=== PATIENT | female | born 1970 | race Caucasian/White ===

== ENCOUNTER → 2017-09-16 10:20 | Outpatient (POV) | payer OTHER, SELFPAY | PROVIDERS: Visit Provider Nurse Practitioner Acute Care | DX: Z00.00 Encounter for general adult medical examination without abnormal findings (principal) ==

== ENCOUNTER → 2018-01-13 15:54 | Outpatient (POV) | payer OTHER, SELFPAY | PROVIDERS: Visit Provider Nurse Practitioner Acute Care | DX: Z00.00 Encounter for general adult medical examination without abnormal findings (principal) ==

== ENCOUNTER → 2018-04-02 14:39 | Outpatient (CLI) | payer OTHER, SELFPAY ==
--- NOTE | 2018-04-02 14:45 | XR_ITS ---
XR abdomen min 2V HISTORY: Abdominal pain and constipation ITS.REASON: CONSTIPATION ORDERING PHYSICIAN: LATASHA Sethi PATIENT AGE: 47 years COMPARISON: None FINDINGS: There is a mild amount of overlying retained colonic feces in the ascending and transverse colon. No evidence of intestinal obstruction or free air. Surgical clips are present in the upper abdominal region. No acute bony abnormalities. There is mild sclerosis of the right SI joint. IMPRESSION: Mild constipation
== END ==
PROVIDERS: PCP Physician Assistant; Visit Provider Physician Assistant
DX: K59.00 Constipation, unspecified (principal)
CPT/HCPCS: 74019

== ENCOUNTER → 2018-06-13 14:07 | Outpatient (CLI) | payer OTHER, SELFPAY ==
[2018-06-13 15:04] LABS: Basophils % 0.2 % (0.1-2.0); Eosinophils # 0.2 K/mm3 (0.0-0.4); Eosinophils % 1.6 % (0.1-12.0); Hematocrit 40.7 % (37.0-47.0); Hemoglobin 13.9 g/dL (12.2-16.2); Lymphocytes # 2.5 K/mm3 (0.7-4.5); Mean Corpuscular Hemoglobin 29.6 pg (27.0-31.2); Mean Corpuscular Volume 86.9 fl (81-99); Mean Platelet Volume 8.3 fl (7.4-10.4); Monocytes # 0.5 K/mm3 (0.1-1.0); Monocytes % 3.9 % (1.7-9.3); Neutrophils # 9.1 K/mm3 (1.8-7.8); Neutrophils % 74.3 % (37.0-80.0); Platelet Count 302 K/mm3 (142-424); Red Blood Count 4.69 M/mm3 (4.20-5.40); Red Cell Distribution Width 12.6 % (11.5-17.5); White Blood Count 12.3 K/mm3 (4.8-10.8)
[2018-06-13 15:29] LABS: Alanine Aminotransferase 26 U/L (12-78); Albumin Level 3.7 gm/dL (3.4-5.0); Alkaline Phosphatase 97 U/L (46-116); Anion Gap 15.2 mEq/L (5-15); Aspartate Amino Transferase 11 U/L (15-37); Blood Urea Nitrogen 12 mg/dL (7-18); Calcium 9.3 mg/dL (8.5-10.1); Carbon Dioxide 23 mmol/L (21.0-32.0); Chloride 102 mmol/L (98-107); Creatinine,Serum 0.85 mg/dL (0.55-1.02); Estimated Glomerular Filt Rate 72 ml/min (>60); GFR (African American) 87 ML/MIN (>60); Globulin 3.7 gm/dl (1.3-3.2); Glucose 92 mg/dL (74-106); Potassium 4.2 mmoL/L (3.5-5.1); Sodium 136 mmol/L (136-145); Thyroid Stimulating Hormone 1.56 uIU/ml (0.358-3.740); Total Protein,Serum 7.4 gm/dL (6.4-8.2)
[2018-06-13 16:02] LABS: Bilirubin,Total 0.3 mg/dL (0.2-1.0)
[2018-06-15 23:01] LABS: Vitamin B12 300 pg/mL (232-1245)
[2018-06-16 08:57] LABS: Vitamin D 25 Hydroxy 15.1 ng/mL (30.0-100.0)
== END ==
PROVIDERS: PCP Physician Assistant; Visit Provider Physician Assistant
DX: E53.8 Deficiency of other specified B group vitamins (principal); R10.32 Left lower quadrant pain; E55.9 Vitamin D deficiency, unspecified
CPT/HCPCS: 36415; 80053; 82607; 82652; 84443; 85025

== ENCOUNTER → 2019-01-19 16:02 | Outpatient (POV) | payer OTHER, SELFPAY | PROVIDERS: PCP Family Medicine; Visit Provider Nurse Practitioner Family | DX: Z00.00 Encounter for general adult medical examination without abnormal findings (principal) ==

== ENCOUNTER → 2019-06-17 11:08 | Outpatient (CLI) | payer OTHER, SELFPAY ==
--- NOTE | 2019-06-17 11:20 | ECG_ITS ---
APPROVED REPORT Exam: Resting ECG HR:71 bpm ECG Measurements Heart Rate 71 AXES AL 158 P 68 QRSd 80 QRS 87 QT 398 T 42 QTc 432 <Conclusion> Normal sinus rhythm Normal ECG Electronically signed by : Brian Ocasio, 06/17/2019 13:56:20
--- NOTE | 2019-06-17 11:36 | XR_ITS ---
PROCEDURE: XR CHEST 2V CLINICAL HISTORY: CHEST PAIN Chest pain and shortness of air COMPARISON: CXR1 CHEST-PORTABLE from 06/03/2014 FINDINGS: The cardiomediastinal silhouette and pulmonary vascularity are within normal limits. There are mild atelectatic or fibrotic changes in the left lung base. The remaining lungs are clear No acute bony abnormalities. IMPRESSION: Linear density in the left lung base which may be due to an area mild atelectasis or fibrosis otherwise Dictated by: Pino Hickey MD 06/17/2019 11:50 Electronically signed by Pino Hickey MD in [place] 06/17/2019 11:50
[2019-06-17 11:52] LABS: Chloride 105 mmol/L (98-107); Sodium 137 mmol/L (136-145)
[2019-06-17 11:53] LABS: Potassium 4.2 mmoL/L (3.5-5.1)
[2019-06-17 11:55] LABS: Alanine Aminotransferase 20 U/L (12-78); Alkaline Phosphatase 90 U/L (38-126); Anion Gap 10.2 mEq/L (5-15); Aspartate Amino Transferase 27 U/L (14-36); Bilirubin,Total 0.5 mg/dl (0.2-1.3); Blood Urea Nitrogen 11 mg/dl (7-17); Calcium 9.5 mg/dl (8.4-10.2); Carbon Dioxide 26 mmol/L (22.0-30.0); Creatine Kinase 30 U/L (30-135); Estimated Glomerular Filt Rate 77 ml/min (>60); GFR (African American) 93 ML/MIN (>60); Glucose 81 mg/dl (74-100)
[2019-06-17 11:56] LABS: Albumin Level 4.1 g/dl (3.5-5.0); Albumin/Globulin Ratio 1.2 (1.1-1.8); Globulin 3.3 g/dL (1.3-3.2); Total Protein,Serum 7.4 g/dl (6.3-8.2)
[2019-06-17 12:06] LABS: NT Pro Brain Natriuretic Pep. 42.1 pg/mL (0-125)
[2019-06-17 12:11] LABS: CKMB Relative Index 0.7 U/L (0-4.0); Creatine Kinase MB < 0.2 ng/ml (0.0-2.03); Troponin I < 0.01 ng/ml (0.00-0.034)
[2019-06-17 12:27] LABS: Thyroid Stimulating Hormone 1.44 uIU/mL (0.465-4.68)
[2019-06-17 15:15] LABS: D-Dimer < 100 ng/mL (0-400)
== END ==
PROVIDERS: PCP Physician Assistant; Visit Provider Physician Assistant
DX: R07.9 Chest pain, unspecified (principal); R06.02 Shortness of breath
CPT/HCPCS: 36415; 71046; 80053; 82550; 82553; 83880; 84443; 84484; 85378; 93005

== ENCOUNTER → 2019-07-02 12:39 | Outpatient (CLI) | payer OTHER, SELFPAY ==
[2019-07-02 12:57] LABS: Blood Urea Nitrogen 10 mg/dl (7-17); Estimated Glomerular Filt Rate 89 ml/min (>60); GFR (African American) 108 ML/MIN (>60)
--- NOTE | 2019-07-02 14:07 | CT_ITS ---
PROCEDURE: CT CHEST W CON CLINCAL INDICATION: SOB,ABNORMAL CXR Shortness of air, cough, chest pain COMPARISON: ABDPELW CT ABD PELVIS W/ CONTRAST from 05/18/2015 XR CHEST 2V from 06/17/2019 TECHNIQUE: IV Contrast: 75ml Optiray 350 Axial images obtained with sagittal and coronal reformats. All CT scans at the facility use one or more dose reduction, viz: automated exposure control, ma/kV adjustment per patient size (including targeted exams where dose is matched to indication, i.e. head), or iterative reconstruction technique. FINDINGS: HEART AND MEDIASTINAL STRUCTURES: No mediastinal or hilar mass or adenopathy. Coronary artery calcifications are present. LUNGS AND PLEURAL SPACES: There are mild atelectatic or fibrotic changes in the right middle lobe and lingula. No lobar consolidation or collapse. There is a small calcified granuloma in the right lung base posteriorly and in the left upper lobe medially. There are 2 calcified granulomas present in the left lower lobe laterally. There is a 3 mm nodular opacity left lung base posteriorly image 45 with some minimal fibrotic change BONY STRUCTURES: No acute bony abnormalities apparent. UPPER ABDOMEN: Prior cholecystectomy ADDITIONAL FINDINGS: No other significant abnormalities. IMPRESSION: 1. No acute finding. Please see above for detail 2. Old granulomatous disease. There is a 3 mm noncalcified nodule in the left lower lobe which is too small to categorize associated with some minimal fibrotic change 3. Mild atelectasis or fibrosis in the right middle lobe and lingula Dictated by: Pino Hickey MD 07/02/2019 17:16 Electronically signed by Pino Hickey MD in [place] 07/02/2019 17:16
== END ==
PROVIDERS: PCP Physician Assistant; Visit Provider Physician Assistant
DX: R06.02 Shortness of breath (principal); R93.89 Abnormal findings on diagnostic imaging of other specified body structures; Z90.5 Acquired absence of kidney
CPT/HCPCS: 36415; 71260; 82565; 84520; 94060; 94726; 94729; Q9967

== ENCOUNTER → 2019-07-16 11:18 | Outpatient (CLI) | payer OTHER, SELFPAY ==
--- NOTE | 2019-07-16 11:18 | NM_ITS ---
APPROVED REPORT Exam: Nuclear Stress Test Indication: Chest pain, SOB, Hx of AR, Dysrhythmia, HTN, Family history, Fatigue Patient Location: Outpatient Stress Tech: Jacqueline Centeno [place] Tech:CATHY Sarkar RT(R)(N) Ht: 5 ft 6 in Wt: 222 lbs Bra Size: DD HR: 74 bpm BP: 182/108 mmHg BSA: 2.09 m2 BMI: 35.8 History: Chest pain, SOB, Hx of AR, Dysrhythmia, HTN, Family history, Fatigue Procedure: Patient received a 0.4 mg of intravenous Lexiscan, resting heart rate 74 bpm, resting blood pressure 182/108 mmHg, with Lexiscan maximum heart rate achived was 108 bpm which is Less than 85 % of the maximum predicted heart rate and blood pressure was 173/102 mmHg. With Lexiscan, patient denied any complaint of chest pain. Electrocardiogram Sting electrocardiogram shows sinus rhythm, with Lexiscan less than 1.[address] segment depression noted from the baseline EKG. The EKG portion of the Lexiscan Myoview is nondiagnostic. Cardiac Stress and Resting SPECT Images: Cardiac Stress and Resting SPECT images were obtained using technetium 99m Myoview 30.8 mCi stress and 10.24 mCi at rest. Gated SPECT with analysis of segmental wall motion and calculation of the ejection fraction also done. Cardiac stress and resting SPECT images show decrease tracer activity in the anterior apical wall which improves on the resting images suggestive of reversible ischemia, computer derived ejection fraction is over 65% with no regional wall motion abnormality, right ventricle is normal size and contractility, there is transient ischemic dilatation of the left ventricle is also seen. Conclusion: 1. The EKG portion of the Lexiscan Myoview is nondiagnostic. 2. Scintigraphic evidence of reversible ischemia involving the anterior apical wall. There is transient ischemic dilatation of the left ventricle seen. Computer derived ejection fraction is over 65% with no regional wall motion abnormality, right ventricle is normal size and contractility. 3. Abnormal Lexiscan Myoview study. Electronically signed by : Edgardo De La Garza, 07/16/2019 16:17:14
--- NOTE | 2019-07-16 13:30 | CA_ITS ---
APPROVED REPORT Exam: Pharmacologic Technologist: Jacqueline Centeno, Indications: CP/SOA Medical History Medications: Furosemide (LASIX),,,,, Aspirin,,,,, Losartan,,,,, Pantoprazole,,,,, Famotidine,,,,, LoraTADINE,,,,, BisOPROLOL,,,,, RoSUVASTATIN,,,,, PlecanATIDE,,,,, Stress Test Details Test: LEXISCAN Reason for pharmacologic stress test: physical limitation. HR Resting HR: 82 bpm Max Heart Rate (APMHR): 172 bpm Max HR Achieved: 110 bpm Target HR (85% APMHR): 146 bpm % of APMHR: 63 BP Resting BP: 182/108 mmHg Max BP: 196/108 mmHg ECG Clinical Reason for Termination: Completed Protocol Exercise duration: 04:01 min Highest Stage Achieved: Exercise capacity: 1.0 METs Stress ECG Conclusion no symptoms or arrhythmias <1.5mm ST segment changes non diagnostic Electronically signed by : Edgardo De La Garza, 07/16/2019 16:15:18
--- NOTE | 2019-07-16 14:12 | HMH.ITSHM ---
Current Home Medications as stated by this patient Mira Fontenot or applications sales representative. []TRULANSE PANTOPRAZOLE
== END ==
PROVIDERS: PCP Physician Assistant; Visit Provider Physician Assistant
DX: R07.9 Chest pain, unspecified (principal); R06.00 Dyspnea, unspecified; R94.31 Abnormal electrocardiogram [ECG] [EKG]; I25.10 Atherosclerotic heart disease of native coronary artery without angina pectoris; K21.9 Gastro-esophageal reflux disease without esophagitis; G47.33 Obstructive sleep apnea (adult) (pediatric); Z82.49 Family history of ischemic heart disease and other diseases of the circulatory system; Z86.79 Personal history of other diseases of the circulatory system; Z90.5 Acquired absence of kidney
CPT/HCPCS: 78452; 93017; A9502; J2785

== ENCOUNTER 2019-07-23 09:02 | Day surgery (SDC) | payer OTHER, SELFPAY ==
[2019-07-23] VITALS (19 sets, daily range): BP systolic 98–178; BP diastolic 45–115; PULSE 76–100; RESP 16–18; TEMP 36.6; O2SAT 94–100; BMI 35.8
[2019-07-23 09:35] LABS: Basophils # 0.1 K/mm3 (0-0.2); Basophils % 0.6 % (0.1-2.0); Eosinophils # 0.4 K/mm3 (0.0-0.4); Eosinophils % 5.4 % (0.1-12.0); Hematocrit 42.9 % (37.0-47.0); Hemoglobin 14.5 g/dL (12.2-16.2); Lymphocytes # 2.4 K/mm3 (0.7-4.5); Mean Corpuscular HGB Conc 33.8 g/dL (31.8-35.4); Mean Corpuscular Hemoglobin 30.7 pg (27.0-31.2); Mean Corpuscular Volume 90.6 fl (81-99); Mean Platelet Volume 8.3 fl (7.4-10.4); Monocytes # 0.5 K/mm3 (0.1-1.0); Monocytes % 5.9 % (1.7-9.3); Neutrophils # 4.8 K/mm3 (1.8-7.8); Neutrophils % 59.1 % (37.0-80.0); Platelet Count 283 K/mm3 (142-424); Red Blood Count 4.73 M/mm3 (4.20-5.40); Red Cell Distribution Width 13.2 % (11.5-17.5); White Blood Count 8.1 K/mm3 (4.8-10.8)
[2019-07-23 09:41] LABS: Anion Gap 10.1 mEq/L (5-15); Blood Urea Nitrogen 15 mg/dl (7-17); Calcium 9.6 mg/dl (8.4-10.2); Carbon Dioxide 23 mmol/L (22.0-30.0); Chloride 107 mmol/L (98-107); Creatinine Clearance Estimated 137 mL/min (50-200); Estimated Glomerular Filt Rate 77 ml/min (>60); GFR (African American) 93 ML/MIN (>60); Glucose 94 mg/dl (74-100); Potassium 4.1 mmoL/L (3.5-5.1); Sodium 136 mmol/L (136-145)
--- NOTE | 2019-07-23 11:00 | IR_ITS ---
APPROVED REPORT Patient Location: Outpatient [place] Superintendent: CATHY Mason RT (R) Informed consent was obtained prior to the procedure. COMPLICATIONS None Estimated Blood Loss: Less than 10 ml TECHNIQUE One percent lidocaine was used to anesthetize the right groin. The right femoral artery was accessed via the Seldinger technique. A 4-[place] sheath was placed in the right femoral artery. The JL-4 and JR-4 catheter was also used to perform left heart catheterization left ventriculogram and selective coronary angiogram. The JR4 catheter was used to cannulate both arteries of the right kidney at the end of the procedure the patient was transferred to the post-op holding area in stable condition for arterial sheath removal. ANGIOGRAPHIC RESULTS The left main artery Normal The left anterior descending artery Has proximal 10 to 20% stenosis. The mid and distal segment is widely patent however the caliber of the LAD is small throughout its entire course The circumflex artery Is a large dominant vessel with mild 10% luminal irregularities. The entire caliber of the circumflex artery is small The right coronary artery Vestigial normal The GARCIA ventriculogram reveals Slightly hyperdynamic 70 to 75% The left ventricular end-diastolic pressure 10 mmHg The right kidney has a dual arterial supply. Both renal arteries supplying the right kidney are normal IMPRESSION Mild coronary stenosis in the proximal LAD with diffusely small caliber vessels throughout consistent with hypertensive vasculopathy Hyperdynamic ventricle consistent with hypertensive heart disease Normal left ventricular end-diastolic pressure Normal dual arterial supply to the right kidney without stenosis PLAN 1. Medical management Electronically signed by : Nicholas Dailey, 07/23/2019 11:18:24
== END 2019-07-23 14:44 | disposition home or self-care (01) ==
LOC: CATHLAB 09:04
PROVIDERS: PCP Physician Assistant; Visit Provider Internal Medicine
DX: R07.9 Chest pain, unspecified (principal); I25.10 Atherosclerotic heart disease of native coronary artery without angina pectoris; R94.39 Abnormal result of other cardiovascular function study; I10 Essential (primary) hypertension; Z90.5 Acquired absence of kidney
CPT/HCPCS: 36251; 80048; 85025; 93458; 99152; C1725; C1769; J1644; J2405; Q9967

== ENCOUNTER → 2020-03-03 08:38 | Outpatient (CLI) | payer BC, SELFPAY ==
[2020-03-03 10:40] LABS: Coronavirus 19 IgG Antibody Negative (Negative); Coronavirus 19 IgM Antibody Negative (Negative)
== END ==
PROVIDERS: Visit Provider Internal Medicine Gastroenterology
DX: Z01.818 Encounter for other preprocedural examination (principal); Z03.818 Encounter for observation for suspected exposure to other biological agents ruled out; Z12.11 Encounter for screening for malignant neoplasm of colon
CPT/HCPCS: 36415; 86328

== ENCOUNTER 2020-03-04 08:09 | Day surgery (SDC) | payer BC, SELFPAY ==
[2020-01-07 12:28] VITALS: BMI 34.9
[2020-02-22 15:00] VITALS: BMI 33.9
[2020-03-04] VITALS (7 sets, daily range): BP systolic 130–160; BP diastolic 71–91; PULSE 71–90; RESP 18; TEMP 36.3; O2SAT 97–100
--- NOTE | 2020-03-04 10:09 | HMH.PROC ---
[facility] Procedure Note Procedure Note:: Upper Endoscopy Procedure Report: Esophagogastroduodenoscopy with cold biopsies and TTS balloon dilation Endoscopost: Quintin Campos II, MD Referring Physician: Adam Kat MD Date of Procedure: March 04, 2020 Equipment: Olympus GIF 180 standard upper endoscope Sedation: MAC sedation Indications: Mrs. Fontenot is a 49-year-old female with a history of reflux and dyspepsia. She also has a history of eosinophilic esophagitis. She does well with pantoprazole. Recently she has had recurrence of her dysphagia over the last couple of weeks. EGD is performed for further evaluation. She did have EGD with dilation in January 2019. Procedure: Prior to the procedure, a history and physical exam was performed, and patient's medications and allergies were reviewed. The risks, benefits and alternatives of the sedation and procedure were discussed with the patient. All questions were answered and informed consent was obtained. The patient was brought to the procedure room. Patient identification and proposed procedure were verified by the physician and the nurse. The patient was placed in a left lateral decubitus position and the scope was passed under direct vision. Throughout the procedure, the patient's blood pressure, pulse, and oxygen saturations were monitored continuously. The upper GI endoscopy was accomplished without difficulty. The patient tolerated the procedure well. Findings: The scope was passed directly into the upper esophagus and advanced to the third portion of the duodenum. The post bulbar duodenum and duodenal bulb were normal with normal mucosa and conniventes. The scope was withdrawn through a normal duodenal bulb and pylorus into the stomach. There was mild reactive gastropathy of the antrum. The remainder of the body and fundus of the stomach were normal. Upon retroflexion there was no hiatal hernia. The scope was withdrawn into the esophagus. There was some separation at the Z-line and cold biopsies were obtained at the GE junction. There was some corrugation of the esophagus. There was also some esophageal dysmotility. The entire esophagus was dilated gently from 18 to 20 mm. There was some mid esophageal stricturing/stenosis and mild cricopharyngeal spasm. Impression: 1. Eosinophilic esophagitis status post dilation to 20 mm 2. Nonerosive GERD with esophageal dysmotility and cricopharyngeal spasm Plan: I would continue Protonix. I would recommend that she continue to follow the food allergy diet. Her previous Rast food allergies included milk and wheat as well as peanuts and eggs. If this persists, I would use low-dose fluticasone daily or every other day as topical therapy for the esophagus.
--- NOTE | 2020-03-04 10:31 | HMH.PROC ---
[facility] Procedure Note Procedure Note:: Colonoscopy Procedure Report: Colonoscopy Endoscopist: Quintin Campos II, MD Referring physician: Adam Kat MD Date of Procedure: March 04, 2020 Equipment: Olympus 180 variable stiffness pediatric colonoscope Sedation: MAC sedation Indication: Mrs. Fontenot is a 49-year-old female who is here for follow-up screening/surveillance colonoscopy. The patient did have a colonoscopy in February 2015 (Dr. Diamante Crawford) which may have shown a single polyp. She does state that her mother had colon cancer at the age of 52. Her maternal grandmother also had colon cancer. The patient does report chronic constipation predominant IBS and takes Trulance daily. She still has some constipation. She also reports some ongoing lower abdominal discomfort and bloating. She rarely sees blood which may spot from internal hemorrhoids. She reports no weight loss or change in bowel habits. Procedure: Prior to the procedure, a history and physical exam was performed, and patient's medications and allergies were reviewed. The risks, benefits and alternatives of the sedation and procedure were discussed with the patient. All questions were answered and informed consent was obtained. The patient was brought to the procedure room. Patient identification and proposed procedure were verified by the physician and the nurse. The patient was placed in a left lateral decubitus position and the scope was passed under direct vision. Throughout the procedure, the patient's blood pressure, pulse, and oxygen saturations were monitored continuously. The colonoscopy was accomplished without difficulty. The patient tolerated the procedure well. Findings: On digital rectal examination there was normal rectal tone. There were no external hemorrhoids. The colonoscope was introduced through the anal canal to the rectum and advanced to the cecum. The ileocecal valve and appendiceal orifice were identified. The scope was advanced a short distance into the ileum which appeared grossly normal. The scope was then withdrawn into the colon. The cecum, ascending, transverse, descending, sigmoid and rectum were grossly normal. There were no mucosal abnormalities identified. Upon retroflexion within the rectum there were grade 1-2 internal hemorrhoids.The preparation was fair to poor throughout with [place] Preparation Score of 6 out of 9. The cecal time was 10 minutes. Impression: 1. Normal colonoscopy with intubation of the terminal ileum 2. Grade 1-2 internal hemorrhoids 3. Fair to poor preparation ([place] preparation score 6 out of 9) Plan: Based upon the patient's family history, I would recommend repeat screening/surveillance colonoscopy again in 5 years. I would encourage improved bowel preparation next time with 2-day bowel preparation. I would consider adding a fiber bowel regimen to the patient's Trulance regimen.
== END 2020-03-04 11:23 | disposition home or self-care (01) ==
LOC: OUTP 08:14
PROVIDERS: PCP Physician Assistant; Visit Provider Internal Medicine Gastroenterology
PROC: 0DJ08ZZ Inspection of Upper Intestinal Tract, Via Natural or Artificial Opening Endoscopic (ICD-10-PCS; CPT 43235; principal; 2020-03-04 09:30)
DX: Z12.11 Encounter for screening for malignant neoplasm of colon (principal); K64.0 First degree hemorrhoids; K20.0 Eosinophilic esophagitis; K21.9 Gastro-esophageal reflux disease without esophagitis; K22.4 Dyskinesia of esophagus; J39.2 Other diseases of pharynx; Z87.19 Personal history of other diseases of the digestive system; Z86.010 Personal history of colon polyps; Z80.0 Family history of malignant neoplasm of digestive organs; K58.1 Irritable bowel syndrome with constipation; E78.5 Hyperlipidemia, unspecified; I11.9 Hypertensive heart disease without heart failure
CPT/HCPCS: 45378; 43239; 43249; C1726

== ENCOUNTER → 2020-06-23 11:30 | Outpatient (CLI) | payer BC, SELFPAY ==
[2020-06-23 12:20] LABS: Basophils % 0.2 % (0.1-2.0); Eosinophils # 0.6 K/mm3 (0.0-0.4); Hematocrit 41.1 % (37.0-47.0); Hemoglobin 13.4 g/dL (12.2-16.2); Lymphocytes # 2.2 K/mm3 (0.7-4.5); Lymphocytes % 22.9 % (10-50); Mean Corpuscular HGB Conc 32.6 g/dL (31.8-35.4); Mean Corpuscular Hemoglobin 29.1 pg (27.0-31.2); Mean Corpuscular Volume 89.4 fl (81-99); Mean Platelet Volume 8.3 fl (7.4-10.4); Monocytes # 0.5 K/mm3 (0.1-1.0); Monocytes % 5.2 % (1.7-9.3); Neutrophils # 6.2 K/mm3 (1.8-7.8); Neutrophils % 65.7 % (37.0-80.0); Platelet Count 283 K/mm3 (142-424); White Blood Count 9.5 K/mm3 (4.8-10.8)
== END ==
PROVIDERS: PCP Physician Assistant; Visit Provider Physician Assistant
DX: Z20.822 Contact with and (suspected) exposure to COVID-19 (principal)
CPT/HCPCS: 85025; U0003

== ENCOUNTER → 2020-08-26 08:41 | Outpatient (CLI) | payer BC, SELFPAY ==
--- NOTE | 2020-08-26 08:43 | CA_ITS ---
APPROVED REPORT EXAM: Comprehensive 2D, Doppler, and color-flow Echocardiogram Banana Loader: Corina Walters RVT Ht: 5 ft 6 in Wt: 218lbs BSA: 2.07 BP: 140/82 mmHg Indications: HTN,CAD,HX SVT WITH ABLATION,HEATHER,HTN,HLD,SOA 2D Dimensions LVOT 1.95 cm (M/F) 1.5-2.5 LA Volume 31.70 mL LA Volume Index 15.31 mL/m2 (M/F) 16-34 M-Mode Dimensions RVDd 1.91 cm (0.9-2.6) LA Diam 3.48 cm (1.9-4.0) LVDd 4.70 cm (3.5-5.7) Ao Diam 2.40 cm (2.0-3.7) LVDs 2.45 cm (3.5-5.7) IVSd 1.21 cm (0.6-1.1) PWd 0.60 cm (0.6-1.1) EF (Teich) 79.30% FS 47.90% EDV (Teich) 102.40 mL TAPSE 2.26 (<1.7) ESV (Teich) 21.20 mL LV Diastology E Decel Time 163.00 (160-240 msec) E/A Ratio 1.2 MED E' 9.90 (< 7 cm/sec) E'/MED E' Ratio 9.51 (>14) LAT E' 11.10 (<10 cm/sec) E/LAT E' Ratio 8.48 (>14) Aortic Valve AO Peak GR. 5.90 mmHg Mitral Valve MV E Max Tom. 94.00 (40-130 cm/s) MV A Velocity 80.00 (40-130 cm/s) E/A Ratio 1.18 MV Decel. Time 163.00 (160-240 ms) MV PHT 48.00 ms Pulmonary Valve PV Peak Velocity 66.00 (50-150 cm/s) Tricuspid Valve TR P. Velocity 252.00 cm/s RAP Estimate 10.00 mmHg RVSP 35.40 mmHg Left Ventricle Left atrium is normal size, left ventricle is normal size, there is no concentric left ventricular hypertrophy, visually estimated ejection fraction 55% with no regional wall motion abnormality, diastolic parameters are within normal range Right Ventricle Right atrium and right ventricle are normal size and contractility. Aortic Valve Aortic valve is grossly normal, there is no aortic stenosis or aortic insufficiency. Mitral Valve Mitral valve is grossly normal, there is trace mitral regurgitation. Tricuspid Valve Tricuspid grossly normal, there is trace tricuspid regurgitation, tricuspid regurgitation jet velocity is inadequate for calculation of the right ventricular systolic pressure. Pulmonic Valve Pulmonic valve is poorly visualized. Great Vessels Aortic root is normal size. Pericardium No significant pericardial effusion noted. Conclusion 1. Normal left ventricular size, preserved left ventricular systolic function, visually estimated ejection fraction 55% with no regional wall motion abnormality, diastolic parameters are within normal range. 2. Trace mitral and tricuspid regurgitation. 3. No significant pericardial effusion noted. Electronically signed by : Edgardo De La Garza, 08/26/2020 13:27:21
== END ==
PROVIDERS: PCP Physician Assistant; Visit Provider Urology
DX: I11.9 Hypertensive heart disease without heart failure (principal); R06.02 Shortness of breath; I25.118 Atherosclerotic heart disease of native coronary artery with other forms of angina pectoris; E78.2 Mixed hyperlipidemia; Z86.79 Personal history of other diseases of the circulatory system; Z90.5 Acquired absence of kidney
CPT/HCPCS: 93306

== ENCOUNTER 2020-09-04 17:39 | Emergency (ER) | payer BC, SELFPAY ==
[2020-09-04 18:40] VITALS: BP 153/91; PULSE 100; RESP 21; TEMP 38.1; O2SAT 99; BMI 33.9
[2020-09-04 19:10] LABS: UTC Influenza A Antigen Negative (Negative); UTC Influenza B Antigen Negative (Negative); UTC Strep Screen (Rapid) Negative (Negative)
--- NOTE | 2020-09-04 19:22 | HMH.EDUTC ---
[facility] Disposition Clinical Impression: Viral upper respiratory infection Disposition: Home, Self-Care Condition on Discharge: Good Instructions: DI for Fever (Symptom) -- Adult, DI for Viral Upper Respiratory Infection -- Adult, DI for COVID-19 (Suspected or Confirmed ), Preventing the Spread of Coronavirus Discharge Instructions Additional Instructions: *Monitor Temp, Over the counter Motrin or Tylenol as directed/as needed Tylenol every 4 hours and Motrin every 6 hours (as long as your family doctor has told you that you can take it) for fever or pain. and straight to ER if unable to lower temp less than 101.0 after medication given *Warm salt water gargles may help to soothe the throat *Throat Lozenges *Warm fluids like tea with honey may help to soothe the throat *Sleep elevated *Humidifier/Vaporizer Your throat swab was sent for culture. Those results are typically sent to your primary care. Be sure to follow up in 2-3 days with your family doctor/primary care physician if no improvement so they can review those result and treat if necessary. If you don?t have a primary care doctor, I recommend you get one but in the mean time, you will have to return to a walk in clinic Follow up IMMEDIATELY for new or worsening symptoms or no Noticeable improvement over the next 48-72 hours. 911 for difficulty breathing or swallowing You were tested for today for COVID19 your test result should be back in the next 24-48 hours, you may call to the [facility] to see if your test results are back in the next 48 hours [phone] [facility] hours are 9am-9pm You was given a handout with instructions for Self Quarantine and Self isolation for while you wait on test results and what to do if they are positive If you are positive the Health Dept will be contacting you also Referrals: Mikayla Meier PA [Primary Care Provider] - As needed Time of Disposition: 19:32 Medical Decision Making - Sridhar Inquiry Pt receiving controlled substance: No Sridhar was queried for this patient: No Vital Signs: 09/04/20 18:40 Temperature 100.6 F H Temperature Source Oral Pulse Rate [Right Brachial] 100 H Respiratory Rate 21 Blood Pressure [Right Arm] 153/91 H Blood Pressure Mean [Right Arm] 111 Blood Pressure Source [Right Arm] Automatic Cuff Blood Pressure Position [Right Arm] Sitting 02 Sat by Pulse Oximetry 99 Oxygen Delivery Method Room Air - Lab Data Lab results reviewed: Yes: I reviewed the patient's lab results. Lab Results 09/04/20 18:51: Influenza Type A Ag Negative, Influenza Type B Ag Negative 09/04/20 18:51: Strep Scn Rapid Clinic Negative Orders (Tests/Meds): ORDERS Category Date Time Status Covid-19 Nasal PCR ([facility]) Routine Lab 09/04/20 18:52 Received Strep Screen Confirmation Stat Micro 09/04/20 18:51 Received [facility] UTC HPI - General Stated complaint: day 4 fever, sore throat after J&J, vaccine, Time Seen by Provider: 09/04/20 19:22 Mode of Arrival: Ambulatory Source of Information: Patient Limitations: No Limitations Description of Symptoms (Recalled from Triage Doc. by RN): PATIENT C/O FEVER, SORE THROAT, COUGH, BACK PAIN, AND HEADACHE SINCE SATURDAY. RECEIVED J&J COVID VACCINE ON SATURDAY HEENT Symptoms (Recalled from RN notes): Yes Resp Symptoms (Recalled from RN notes): Yes Skin Symptoms (Recalled from RN notes): No MS Symptoms (Recalled from RN notes): No Functional Status (Recalled from RN notes): WNL - History of Present Illness Provider Complaint: Patient states that she had J&J vaccine on Sat State that around she started having fever, chills, body aches, sore throat and headache States that she thought it may have been from the shot so she give it a couple of days but she has continued to have symptoms and she was not sure if she may be having a reaction to the shot or if she may have contracted COVID since is having similar symptoms - Related Data Home Medications Medication Instructi
[2020-09-04 19:37] VITALS: BP 153/91; PULSE 100; RESP 21; TEMP 38.1; O2SAT 99
== END 2020-09-04 19:44 | disposition home or self-care (01) ==
PROVIDERS: Emergency Provider Nurse Practitioner; PCP Physician Assistant
DX: J06.9 Acute upper respiratory infection, unspecified (principal); T50.Z95A Adverse effect of other vaccines and biological substances, initial encounter; R50.9 Fever, unspecified; K21.9 Gastro-esophageal reflux disease without esophagitis; I10 Essential (primary) hypertension; I25.2 Old myocardial infarction; Z79.899 Other long term (current) drug therapy
CPT/HCPCS: 87804; 87880; 99202; G0463; U0003

== ENCOUNTER → 2020-09-14 12:29 | Outpatient (CLI) | payer BC, SELFPAY | PROVIDERS: Visit Provider Family Medicine | DX: R05 Cough (principal) | CPT/HCPCS: 87070; 87077; 87186; 87205 ==

== ENCOUNTER 2020-10-11 17:43 | Emergency (ER) | payer BC, SELFPAY ==
[2020-10-11 17:46] VITALS: BP 177/98; PULSE 96; RESP 18; TEMP 37.2; O2SAT 95; BMI 33.9
--- NOTE | 2020-10-11 18:18 | XR_ITS ---
PROCEDURE INFORMATION: Exam: XR Chest Exam date and time: 10/11/2020 6:18 PM Age: 49 years old Clinical indication: Patient HX: Shortness of breath, covid exposure TECHNIQUE: Imaging protocol: XR of the chest. AP upright portable exam 7:14 p.m. Views: 1 view. COMPARISON: CT CHEST W CON 07/02/2019 2:32 PM FINDINGS: Lungs: Mild hypoventilation/low lung volumes. Chronic calcified left lower pulmonary granuloma, and tiny right lateral calcified granuloma projected medial to the lower scapula, as seen on prior CT from 07/02/2019. Slight right infrahilar interstitial prominence and peribronchial thickening. No focal consolidations.Unremarkable. Pleural spaces: No significant pleural effusion. No pneumothorax. Heart/Mediastinum: The cardiac silhouette is normal. Calcified left superior hilar node as seen on prior CT. Bones/joints: Slight thoracolumbar scoliosis. Other findings: Overlying hospital monitor electrodes. IMPRESSION: 1. Slight right infrahilar interstitial prominence and peribronchial thickening, possible bronchitis. 2. Mild chronic granulomatous changes. 3. No focal consolidation. 4. Note that subtle ground-glass disease of COVID-19 pneumonia can be radiographically occult on plain chest x-ray, and if further imaging is warranted by the clinical findings or course recommend CT.
--- NOTE | 2020-10-11 18:33 | ECG_ITS ---
APPROVED REPORT Exam: Resting ECG HR:90 bpm ECG Measurements Heart Rate 90 AXES FL 166 P 47 QRSd 78 QRS 47 QT 350 T 43 QTc 428 Conclusion Normal sinus rhythm Normal ECG Electronically signed by : Everett Waterman MD 10/12/2020 11:44:33
[2020-10-11 18:36] LABS: Basophils % 0.3 % (0.1-2.0); Eosinophils # 0.2 K/mm3 (0.0-0.4); Eosinophils % 3.1 % (0.1-12.0); Hematocrit 41.3 % (37.0-47.0); Hemoglobin 13.7 g/dL (12.2-16.2); Lymphocytes # 1.5 K/mm3 (0.7-4.5); Lymphocytes % 25.1 % (10-50); Mean Corpuscular HGB Conc 33.2 g/dL (31.8-35.4); Mean Corpuscular Hemoglobin 28.6 pg (27.0-31.2); Mean Corpuscular Volume 86.3 fl (81-99); Mean Platelet Volume 8.2 fl (7.4-10.4); Monocytes # 0.3 K/mm3 (0.1-1.0); Monocytes % 5.3 % (1.7-9.3); Neutrophils # 3.9 K/mm3 (1.8-7.8); Neutrophils % 66.2 % (37.0-80.0); Platelet Count 276 K/mm3 (142-424); Red Blood Count 4.78 M/mm3 (4.20-5.40); Red Cell Distribution Width 13.1 % (11.5-17.5); White Blood Count 5.9 K/mm3 (4.8-10.8)
[2020-10-11 18:36] LABS: Influenza A, PCR Not Detected (NotDetected); Influenza B, PCR Not Detected (NotDetected)
[2020-10-11 18:44] LABS: Alanine Aminotransferase 27 U/L (12-78); Albumin Level 4.2 g/dl (3.5-5.0); Albumin/Globulin Ratio 1.2 (1.1-1.8); Alkaline Phosphatase 93 U/L (38-126); Anion Gap 12.6 mEq/L (5-15); Aspartate Amino Transferase 28 U/L (14-36); Bilirubin,Total 0.4 mg/dl (0.2-1.3); Blood Urea Nitrogen 11 mg/dl (7-17); Calcium 8.9 mg/dl (8.4-10.2); Carbon Dioxide 23 mmol/L (22.0-30.0); Chloride 105 mmol/L (98-107); Creatinine Clearance Estimated 114 mL/min (50-200); Estimated Glomerular Filt Rate 67 ml/min (>60); GFR (African American) 81 ML/MIN (>60); Globulin 3.4 g/dL (1.3-3.2); Glucose 135 mg/dl (74-100); Potassium 3.6 mmoL/L (3.5-5.1); Sodium 137 mmol/L (136-145); Total Protein,Serum 7.6 g/dl (6.3-8.2)
[2020-10-11 18:49] VITALS: BP 155/91; PULSE 85; RESP 18; O2SAT 98
[2020-10-11 18:59] LABS: Troponin I < 0.01 ng/ml (0.00-0.034)
--- NOTE | 2020-10-11 19:00 | PC.NURSE ---
PATIENT COVID POSITIVE, MADE AWARE
[2020-10-11 19:01] LABS: Coronavirus 19, PCR Detected (NotDetected)
--- NOTE | 2020-10-11 19:18 | HMH.EDGENADL ---
ED Disposition Clinical Impression: COVID-19 virus infection Disposition: Home, Self-Care Condition on Discharge: Good Instructions: DI for COVID-19 (Suspected or Confirmed ) Additional Instructions: Quarantine yourself for 10 days. Continue Tylenol or ibuprofen for fever and pain, rest and drink plenty of fluids. If you elect to have monoclonal antibody therapy, you will receive a call to schedule this therapy. Return to the emergency department if severe shortness of breath, severe weakness, intractable vomiting. Referrals: Mikayla Meier PA [Primary Care Provider] - Forms: Work/School Release - Critical Care Critical Care Time: No Attestation: On 10/11/20, the high probability of a clinically significant, sudden or life threatening deterioration of the following system(s) required my full and direct attention, intervention and personal management. The time I documented below is in addition to time spent performing reported procedures but includes the following listed in this critical care notation. Medical Decision Making - Sridhar Inquiry Pt receiving controlled substance: No Vital Signs: 10/11/20 17:46 10/11/20 18:49 10/11/20 20:14 Temperature 98.9 F 98.5 F Temperature Source Oral Oral Pulse Rate 85 93 H Pulse Rate [Right] 96 H Respiratory Rate 18 18 18 Blood Pressure 155/91 H 177/99 H Blood Pressure [Right Arm] 177/98 H Blood Pressure Mean [Right Arm] 124 Blood Pressure Source Automatic Cuff Blood Pressure Position Sitting 02 Sat by Pulse Oximetry 95 98 Oxygen Delivery Method Room Air Room Air Room Air - Lab Data Lab Results 10/11/20 18:27: WBC 5.9, RBC 4.78, Hgb 13.7, Hct 41.3, MCV 86.3, MCH 28.6, MCHC 33.2, RDW 13.1, Plt Count 276, MPV 8.2, Neut % (Auto) 66.2, Lymph % (Auto) 25.1, [place] % (Auto) 5.3, Eos % (Auto) 3.1, Baso % (Auto) 0.3, Neut # (Auto) 3.9, Lymph # (Auto) 1.5, [place] # (Auto) 0.3, Eos # (Auto) 0.2, Baso # (Auto) 0.0 10/11/20 18:27: Sodium 137, Potassium 3.6, Chloride 105, Carbon Dioxide 23, Anion Gap 12.6, BUN 11, Creatinine 0.90, Estimated Creat Clear 114, Estimated GFR 67, Est GFR ( Amer) 81, Glucose 135 H, Calcium 8.9, Total Bilirubin 0.4, AST 28, ALT 27, Alkaline Phosphatase 93, Total Protein 7.6, Albumin 4.2, Globulin 3.4 H, Albumin/Globulin Ratio 1.2 10/11/20 18:32: SARS-CoV-2 (PCR) Detected A, Influenza A Untype (PCR) Not detected, Influenza Type B (PCR) Not detected 10/11/20 18:32: Troponin I < 0.01 Result diagrams: 10/11/20 18:27 10/11/20 18:27 - Radiology Data #1 Image(s): Chest Image Reviewed: Yes I reviewed the patient's radiology image, Yes I have reviewed radiologist's interpretation PROCEDURE INFORMATION: Exam: XR Chest Exam date and time: 10/11/2020 6:18 PM Age: 49 years old Clinical indication: Patient HX: Shortness of breath, covid exposure TECHNIQUE: Imaging protocol: XR of the chest. AP upright portable exam 7:14 p.m. Views: 1 view. COMPARISON: CT CHEST W CON 07/02/2019 2:32 PM FINDINGS: Lungs: Mild hypoventilation/low lung volumes. Chronic calcified left lower pulmonary granuloma, and tiny right lateral calcified granuloma projected medial to the lower scapula, as seen on prior CT from 07/02/2019. Slight right infrahilar interstitial prominence and peribronchial thickening. No focal consolidations.Unremarkable. Pleural spaces: No significant pleural effusion. No pneumothorax. Heart/Mediastinum: The cardiac silhouette is normal. Calcified left superior hilar node as seen on prior CT. Bones/joints: Slight thoracolumbar scoliosis. Other findings: Overlying respiratory scientist electrodes. IMPRESSION: 1. Slight right infrahilar interstitial prominence and peribronchial thickening, possible bronchitis. 2. Mild chronic granulomatous changes. 3. No focal consolidation. 4. Note that subtle ground-glass disease of COVID-19 pneumonia can be radiographically occult on plain chest x-ray, and i
[2020-10-11 20:14] VITALS: BP 177/99; PULSE 93; RESP 18; TEMP 36.9; O2SAT 97
== END 2020-10-11 20:16 | disposition home or self-care (01) ==
PROVIDERS: Emergency Provider Emergency Medicine; PCP Physician Assistant
DX: Z20.822 Contact with and (suspected) exposure to COVID-19 (principal); R06.02 Shortness of breath; R50.9 Fever, unspecified; R11.0 Nausea; Z88.8 Allergy status to other drugs, medicaments and biological substances; I10 Essential (primary) hypertension; K21.9 Gastro-esophageal reflux disease without esophagitis; I25.2 Old myocardial infarction; I25.10 Atherosclerotic heart disease of native coronary artery without angina pectoris; N28.9 Disorder of kidney and ureter, unspecified; Z79.899 Other long term (current) drug therapy
CPT/HCPCS: 71045; 80053; 84484; 85025; 93005; 99283; U0003

== ENCOUNTER 2020-10-13 09:44 | Outpatient (CLI) | payer BC, SELFPAY ==
[2020-10-13] VITALS (7 sets, daily range): BP systolic 146–180; BP diastolic 87–108; PULSE 72–79; RESP 13–18; TEMP 36.6–37.1; O2SAT 96–98
== END 2020-10-13 12:06 | disposition home or self-care (01) ==
LOC: INF 09:46
PROVIDERS: PCP Physician Assistant; Visit Provider Emergency Medicine
DX: U07.1 COVID-19 (principal)
CPT/HCPCS: 96365

== ENCOUNTER → 2021-01-26 10:15 | Outpatient (CLI) | payer BC, SELFPAY ==
[2021-01-26 11:13] LABS: Basophils # 0.1 K/mm3 (0-0.2); Basophils % 1.1 % (0.1-2.0); Eosinophils # 0.4 K/mm3 (0.0-0.4); Eosinophils % 6.2 % (0.1-12.0); Hematocrit 44.3 % (37.0-47.0); Hemoglobin 14.8 g/dL (12.2-16.2); Lymphocytes % 30.2 % (10-50); Mean Corpuscular HGB Conc 33.4 g/dL (31.8-35.4); Mean Corpuscular Hemoglobin 29.6 pg (27.0-31.2); Mean Corpuscular Volume 88.8 fl (81-99); Monocytes # 0.4 K/mm3 (0.1-1.0); Monocytes % 5.6 % (1.7-9.3); Neutrophils # 3.7 K/mm3 (1.8-7.8); Neutrophils % 56.8 % (37.0-80.0); Platelet Count 349 K/mm3 (142-424); Red Blood Count 4.99 M/mm3 (4.20-5.40); White Blood Count 6.5 K/mm3 (4.8-10.8)
[2021-01-26 11:57] LABS: Alanine Aminotransferase 20 U/L (12-78); Albumin Level 4.4 g/dl (3.5-5.0); Albumin/Globulin Ratio 1.4 (1.1-1.8); Alkaline Phosphatase 94 U/L (38-126); Anion Gap 10.4 mEq/L (5-15); Aspartate Amino Transferase 29 U/L (14-36); Bilirubin,Total 0.4 mg/dl (0.2-1.3); Blood Urea Nitrogen 14 mg/dl (7-17); Calcium 9.7 mg/dl (8.4-10.2); Carbon Dioxide 26 mmol/L (22.0-30.0); Chloride 105 mmol/L (98-107); Creatine Kinase 40 U/L (30-135); Estimated Glomerular Filt Rate 76 ml/min (>60); GFR (African American) 92 ML/MIN (>60); Globulin 3.1 g/dL (1.3-3.2); Glucose 84 mg/dl (74-100); Potassium 4.4 mmoL/L (3.5-5.1); Sodium 137 mmol/L (136-145); Total Protein,Serum 7.5 g/dl (6.3-8.2)
[2021-01-26 12:03] LABS: C-Reactive Protein 5.1 mg/L (0-4)
[2021-01-26 12:31] LABS: Erythrocyte Sedimentation Rate 14 mm/hr (0-20)
[2021-01-26 13:03] LABS: Vitamin B12 446 pg/mL (239-931)
[2021-01-27 14:17] LABS: Aldolase 5.1 U/L (3.3-10.3); Anti-Jo-1 <0.2 AI (0.0-0.9)
[2021-04-12 09:55] LABS: Antinuclear Antibodies (ANA) NEGATIVE
== END ==
LOC: LAB 10:15
PROVIDERS: Visit Provider Specialist
DX: R41.3 Other amnesia (principal); R90.89 Other abnormal findings on diagnostic imaging of central nervous system; M79.10 Myalgia, unspecified site
CPT/HCPCS: 36415; 80053; 82085; 82550; 82607; 82746; 84443; 85025; 85651; 86038; 86140; 86235

== ENCOUNTER 2021-06-12 23:29 | Emergency (ER) | payer BC, SELFPAY ==
[2021-06-12 23:29] VITALS: BP 170/119; PULSE 150; RESP 20; TEMP 36.6; O2SAT 99; BMI 33.9
[2021-06-12 23:30] VITALS: BMI 33.9
--- NOTE | 2021-06-12 23:31 | XR_ITS ---
PROCEDURE INFORMATION: Exam: XR Chest Exam date and time: 06/12/2021 11:56 PM Age: 50 years old Clinical indication: Sternal or substernal pain; Additional info: Cp TECHNIQUE: Imaging protocol: XR of the chest. Views: 1 view. COMPARISON: CR XR CHEST PORTABLE 10/11/2020 7:13 PM FINDINGS: Lungs: Well aerated with no evidence of consolidations, interstitial patterns or pulmonary nodules. Pleural spaces: No evidence of effusions or pneumothorax. Heart/Mediastinum: The cardiomediastinal silhouette is normal in size and configuration. There is no evidence of cardiomegaly. Bones/joints: Intact. IMPRESSION: No radiographic evidence of an acute pulmonary process.
--- NOTE | 2021-06-12 23:36 | ECG_ITS ---
APPROVED REPORT Exam: Resting ECG HR:156 bpm ECG Measurements Heart Rate 156 AXES QRSd 86 QRS 85 QT 264 T -2 QTc 352 Conclusion ATRIAL FIBRILLATION WITH RAPID VENTRICULAR RESPONSE MODERATE ST DEPRESSION [0.05+ mV ST DEPRESSION] ABNORMAL QRS-T ANGLE [QRS-T AXIS DIFFERENCE > 60] CRITICAL TEST RESULT INTERPRETATION BASED ON A DEFAULT AGE OF 40 YEARS UNCONFIRMED REPORT Electronically signed by : Everett Waterman MD 06/14/2021 10:12:24
[2021-06-12 23:43] LABS: Basophils # 0.3 K/mm3 (0-0.2); Basophils % 2.6 % (0.1-2.0); Eosinophils # 0.5 K/mm3 (0.0-0.4); Eosinophils % 4.1 % (0.1-12.0); Hematocrit 45.1 % (37.0-47.0); Hemoglobin 14.3 g/dL (12.2-16.2); Lymphocytes # 3.9 K/mm3 (0.7-4.5); Lymphocytes % 35.9 % (10-50); Mean Corpuscular HGB Conc 31.7 g/dL (31.8-35.4); Mean Corpuscular Hemoglobin 29.4 pg (27.0-31.2); Mean Corpuscular Volume 92.7 fl (81-99); Mean Platelet Volume 8.5 fl (7.4-10.4); Monocytes # 0.6 K/mm3 (0.1-1.0); Monocytes % 5.6 % (1.7-9.3); Neutrophils # 5.7 K/mm3 (1.8-7.8); Neutrophils % 51.8 % (37.0-80.0); Platelet Count 337 K/mm3 (142-424); Red Blood Count 4.86 M/mm3 (4.20-5.40); Red Cell Distribution Width 13.5 % (11.5-17.5)
--- NOTE | 2021-06-13 00:03 | ECG_ITS ---
APPROVED REPORT Exam: Resting ECG HR:91 bpm ECG Measurements Heart Rate 91 AXES IN 162 P 64 QRSd 81 QRS 80 QT 339 T 30 QTc 388 Conclusion SINUS RHYTHM LOW QRS VOLTAGE IN PRECORDIAL LEADS [QRS DEFLECTION < 1.0 mV IN CHEST LEADS] BORDERLINE ECG INTERPRETATION BASED ON A DEFAULT AGE OF 40 YEARS UNCONFIRMED REPORT Electronically signed by : Everett Waterman MD 06/14/2021 10:12:12
--- NOTE | 2021-06-13 00:15 | HMH.EDCP ---
ED Disposition Clinical Impression: SVT (supraventricular tachycardia), Atypical chest pain Disposition: Home, Self-Care Condition on Discharge: Good Instructions: Paroxysmal Supraventricular Tachycardia Additional Instructions: see card this am Referrals: Provider,MD Troy [Primary Care Provider] - Nicholas Dailey MD [Staff Physician] - - Critical Care Critical Care Time: No Attestation: On 06/12/21, the high probability of a clinically significant, sudden or life threatening deterioration of the following system(s) required my full and direct attention, intervention and personal management. The time I documented below is in addition to time spent performing reported procedures but includes the following listed in this critical care notation. Medical Decision Making - Medical Records Medical records reviewed: Yes: I reviewed the patient's medical records. - Sridhar Inquiry Pt receiving controlled substance: No Vital Signs: 06/12/21 23:29 Temperature 97.8 F Temperature Source Oral Pulse Rate [Right] 150 H Respiratory Rate 20 Blood Pressure [Right Arm] 170/119 H Blood Pressure Mean [Right Arm] 136 02 Sat by Pulse Oximetry 99 - Lab Data Lab results reviewed: Yes: I reviewed the patient's lab results. Lab Results 06/12/21 23:36: WBC 11.0 H, RBC 4.86, Hgb 14.3, Hct 45.1, MCV 92.7, MCH 29.4, MCHC 31.7 L, RDW 13.5, Plt Count 337, MPV 8.5, Neut % (Auto) 51.8, Lymph % (Auto) 35.9, [place] % (Auto) 5.6, Eos % (Auto) 4.1, Baso % (Auto) 2.6 H, Neut # (Auto) 5.7, Lymph # (Auto) 3.9, [place] # (Auto) 0.6, Eos # (Auto) 0.5 H, Baso # (Auto) 0.3 H 06/12/21 23:36: Sodium 139, Potassium 4.3, Chloride 109 H, Carbon Dioxide 24, Anion Gap 10.3, BUN 14, Creatinine 0.80, Estimated Creat Clear 127, Estimated GFR 76, Est GFR ( Amer) 92, Glucose 113 H, Calcium 8.9, Troponin I < 0.01 Result diagrams: 06/12/21 23:36 06/12/21 23:36 Orders (Tests/Meds): ED MEDICATIONS Discontinued Medications Generic Name Dose Route Start Last Admin Trade Name Clemencia PRN Reason Stop Dose Admin Adenosine 6 mg 06/12/21 23:50 06/12/21 23:59 Adenosine 6mg/2ml Vial IV 06/12/21 23:51 6 mg ONCE ONE Administration ORDERS Category Date Time Status Chest XR -- portable [XR chest portable] Stat Exams 06/12/21 23:31 Taken Free T4 (Free Thyroxine) Stat Lab 06/13/21 00:00 Received Thyroid Stimulating Hormone Stat Lab 06/13/21 00:00 Received Troponin I Q3H Lab 06/13/21 02:45 Ordered Troponin I Q3H Lab 06/13/21 05:45 Ordered - Radiology Data #1 Image(s): Chest Image Reviewed: Yes I reviewed the patient's radiology image Preliminary Findings: Normal/NAD - ECG Data Tracing #1 Arrhythmias present: PSVT Ischemic changes: non-specific ST-T wave changes Tracing #2 Normal Sinus Rhythm: Yes Ischemic changes: non-specific ST-T wave changes - Physician Consults Physician Consulted: roger Reason -: Pt condition Medical Decision Narrative: had acute svt with response to adenosine and stable exam - will see card this am Chest Pain HPI - General Chief Complaint: Chest Pain Stated Complaint: CP Time Seen by Provider: 06/12/21 23:45 Mode of Arrival: Ambulatory Source of Information: Patient, Relative, Medical Record Limitations: No Limitations Description of Symptoms (Recalled from ER Triage Doc. by RN): pt c/o chest heaviness with radiating down lt arm and ORDOÑEZ that started @ 8:30 tonight - History of Present Illness HPI narrative: pt wirh acute chest tightness with rad to lt upper ext with inc hr - hx of svt and had prev cath and ablation MD complaint: chest pain indicative of cardiac Onset (ago): hour(s) Duration: constant Activity at onset: during rest Pain location: left chest Severity: moderate Quality: heaviness Pain radiation: LUE Risk Factors for CAD: Hypertension, Family Hx of CAD Treatments prior to or on arrival for Cardiac Chest Pain: none - LOBO Score for Non-St
[2021-06-13 00:23] LABS: Troponin I < 0.01 ng/ml (0.00-0.034)
[2021-06-13 00:25] LABS: Anion Gap 10.3 mEq/L (5-15); Blood Urea Nitrogen 14 mg/dl (7-17); Calcium 8.9 mg/dl (8.4-10.2); Carbon Dioxide 24 mmol/L (22.0-30.0); Chloride 109 mmol/L (98-107); Creatinine Clearance Estimated 127 mL/min (50-200); Estimated Glomerular Filt Rate 76 ml/min (>60); GFR (African American) 92 ML/MIN (>60); Glucose 113 mg/dl (74-100); Potassium 4.3 mmoL/L (3.5-5.1); Sodium 139 mmol/L (136-145)
[2021-06-13 01:09] VITALS: BP 164/75; PULSE 82; RESP 16; TEMP 37.1; O2SAT 98
[2021-06-13 01:10] LABS: Free T4 (Free Thyroxine) 1.12 ng/dl (0.78-2.19)
== END 2021-06-13 01:12 | disposition home or self-care (01) ==
PROVIDERS: Emergency Provider Emergency Medicine
DX: I47.1 Supraventricular tachycardia (principal); R94.31 Abnormal electrocardiogram [ECG] [EKG]; R07.89 Other chest pain; I25.10 Atherosclerotic heart disease of native coronary artery without angina pectoris; I25.2 Old myocardial infarction; I48.0 Paroxysmal atrial fibrillation; K21.9 Gastro-esophageal reflux disease without esophagitis; E78.5 Hyperlipidemia, unspecified; M79.7 Fibromyalgia; M19.90 Unspecified osteoarthritis, unspecified site; G43.909 Migraine, unspecified, not intractable, without status migrainosus; G47.33 Obstructive sleep apnea (adult) (pediatric); Z79.1 Long term (current) use of non-steroidal anti-inflammatories (NSAID); Z79.899 Other long term (current) drug therapy; Z88.8 Allergy status to other drugs, medicaments and biological substances; Z90.5 Acquired absence of kidney; Z82.49 Family history of ischemic heart disease and other diseases of the circulatory system; Z83.438 Family history of other disorder of lipoprotein metabolism and other lipidemia; Z83.3 Family history of diabetes mellitus
CPT/HCPCS: 71045; 80048; 84439; 84443; 84484; 85025; 93005; 93041; 96365; 96374; 96375; 99285

== ENCOUNTER → 2021-06-15 15:03 | Outpatient (CLI) | payer BC, SELFPAY ==
--- NOTE | 2021-06-15 15:04 | CA_ITS ---
APPROVED REPORT EXAM: Comprehensive 2D, Doppler, and color-flow Echocardiogram Marketing Support Assistant: Caty Askew CRT Ht: 5 ft 6 in Wt: 227lbs BSA: 2.11 BP: 151/97 mmHg Indications: Atrial Fibrillation, CAD, HTN, L Nephrectomy, SVT, SOB, ABLATION 2D Dimensions LVOT 1.46 cm (M/F) 1.5-2.5 LA Volume 39.40 mL LA Volume Index 18.70 mL/m2 (M/F) 16-34 M-Mode Dimensions RVDd 2.29 cm (0.9-2.6) LA Diam 3.70 cm (1.9-4.0) LVDd 4.15 cm (3.5-5.7) Ao Diam 3.09 cm (2.0-3.7) LVDs 2.25 cm (3.5-5.7) IVSd 1.11 cm (0.6-1.1) PWd 0.61 cm (0.6-1.1) EF (Teich) 77.60% FS 45.80% EDV (Teich) 76.40 mL TAPSE 2.48 (<1.7) ESV (Teich) 17.10 mL LV Diastology MED E' 8.10 (< 7 cm/sec) MED A' 14.20 cm/s LAT E' 9.40 (<10 cm/sec) LAT A' 11.80 cm/s Aortic Valve AO Peak GR. 11.00 mmHg Pulmonary Valve PV Peak Velocity 189.00 (50-150 cm/s) Tricuspid Valve TR P. Velocity 203.00 cm/s RAP Estimate 10.00 mmHg RVSP 26.50 mmHg Left Ventricle Left atrium is mildly enlarged, left ventricle is normal size, mild concentric left ventricular hypertrophy, estimated ejection fraction 55% with no regional wall motion abnormality, grade 1 diastolic dysfunction seen without tissue Doppler evidence of raise left atrial pressure. Right Ventricle Right atrium and right ventricle are normal size and contractility. Aortic Valve Aortic valve is grossly normal, there is no aortic stenosis or aortic insufficiency. Mitral Valve Mitral valve grossly normal, there is trace mitral regurgitation. Tricuspid Valve Tricuspid grossly normal, there is trace tricuspid regurgitation, tricuspid regurgitation jet velocity is inadequate for calculation of the right ventricular systolic pressure. Pulmonic Valve Pulmonic valve is poorly visualized. Great Vessels Aortic root is normal size. Inferior vena cava is normal size with normal inspiratory collapse. Pericardium No significant pericardial effusion noted. Conclusion 1. Mildly enlarged left atrium, normal left ventricular size, mild concentric left ventricular hypertrophy, estimated ejection fraction 55% with no regional wall motion abnormality, grade 1 diastolic dysfunction seen without tissue Doppler evidence of raise left atrial pressure. 2. Trace mitral and tricuspid regurgitation. 3. No significant pericardial effusion. 4. Inferior vena cava is normal size with normal inspiratory collapse. Electronically signed by : Edgardo De La Garza MD 06/16/2021 12:42:51
== END ==
LOC: RT 15:04
PROVIDERS: PCP Physician Assistant; Visit Provider Physician Assistant
DX: R06.02 Shortness of breath (principal); I25.10 Atherosclerotic heart disease of native coronary artery without angina pectoris; I11.9 Hypertensive heart disease without heart failure; E78.2 Mixed hyperlipidemia; Z86.79 Personal history of other diseases of the circulatory system; Z90.5 Acquired absence of kidney
CPT/HCPCS: 93306

== ENCOUNTER → 2021-08-03 15:23 | Outpatient (CLI) | payer BC, SELFPAY ==
[2021-08-03 15:30] LABS: Adenovirus F 40/41, stool Not Detected (NotDetected); Astrovirus Not Detected (NotDetected); Campylobacter Not Detected (NotDetected); Clostridium Difficile A/B, PCR Not Detected (NotDetected); Cryptosporidium Not Detected (NotDetected); Cyclospora Cayetanesis Not Detected (NotDetected); Entamoeba histolytica Not Detected (NotDetected); Enteroaggregative E coli Not Detected (NotDetected); Enteropathogenic E coli Not Detected (NotDetected); Enterotoxigenic E coli Not Detected (NotDetected); Giardia lamblia Not Detected (NotDetected); Norovirus Not Detected (NotDetected); Plesimonas Shigalloides, PCR Not Detected (NotDetected); Rotavirus A Not Detected (NotDetected); Salmonella, PCR Not Detected (NotDetected); Sapovirus Not Detected (NotDetected); Shiga-like toxin E coli Not Detected (NotDetected); Shigella Enterovasive E coli Not Detected (NotDetected); Vibrio Cholerae Not Detected (NotDetected); Vibrio, PCR Not Detected (NotDetected); Yersinia Entercolitica, PCR Not Detected (NotDetected)
== END ==
LOC: LAB 15:24
PROVIDERS: PCP Family Medicine; Visit Provider Family Medicine
DX: R19.7 Diarrhea, unspecified (principal)
CPT/HCPCS: 87507

== ENCOUNTER 2021-11-05 15:00 | Emergency (ER) | payer BC, SELFPAY ==
[2021-11-05 15:20] VITALS: BP 141/84; PULSE 92; RESP 20; TEMP 37.3; O2SAT 95; BMI 35.5
--- NOTE | 2021-11-05 15:25 | EXP.UTC ---
Discharge Plan Disposition Patient Disposition: Home, Self-Care Condition: Good Prescriptions Prescriptions: New ondansetron 4 mg Tablet,Disintegrating 4 mg PO Q8H PRN (Reason: Nausea) Qty: 9 0RF No Action furosemide [Lasix] 40 mg tablet 40 mg PO DAILY PRN (Reason: edema) Qty: 30 0RF loratadine [Claritin] 10 mg tablet 10 mg PO DAILY acetaminophen [Tylenol Extra Strength] 500 mg tablet 500 mg PO Q6H PRN potassium chloride 10 mEq tablet extended release 10 meq PO DAILY Qty: 30 2RF metoprolol succinate [Toprol XL] 50 mg tablet extended release 24 hr 50 mg PO BID Qty: 60 3RF pantoprazole 40 MG tablet,delayed release (DR/EC) 40 mg PO DAILY Referrals Follow up/Referrals: Mikayla Meier PA [Primary Care Provider] - See instructions Activity Restrictions/Add. Instructions Additional Instructions/Restrictions: Drink plenty of fluids. Take tylenol for pain or fever. Follow up with your regular doctor. GO TO THE ER FOR ANY WORSENING SYMPTOMS Quarantine until you know the results of your covid-19 test. Notify your school or workplace of your results and follow their instructions regarding return to work/school. Clinical Impressions Clinical Impression: Acute viral syndrome Instructions Patient Instructions: Coronavirus Disease 2019, Preventing the Spread of Coronavirus Discharge Instructions Discharge ED Provider: Reji Swanson [facility] General Stated complaint: at home covid pos, sore throat Time Seen by Provider: 11/05/21 15:25 History of Present Illness Provider Complaint: She tested positive for covid at home last night. She c/o sore throat and malaise. Related Data Home Medications Medication Instructions Recorded Confirmed pantoprazole 40 mg tablet,delayed 40 mg PO DAILY GERD 01/07/20 06/20/21 release acetaminophen 500 mg tablet 500 mg PO Q6H PRN 01/26/21 06/20/21 (Tylenol Extra Strength) loratadine 10 mg tablet (Claritin) 10 mg PO DAILY 01/26/21 06/20/21 Previous Rx's Medication Instructions Recorded furosemide 40 mg tablet (Lasix) 40 mg PO DAILY PRN edema #30 tabs 06/13/21 metoprolol succinate 50 mg 50 mg PO BID #60 tabs 06/20/21 tablet,extended release 24 hr (Toprol XL) potassium chloride 10 mEq 10 meq PO DAILY #30 tabs 06/20/21 tablet,extended release ondansetron 4 mg disintegrating 4 mg PO Q8H PRN Nausea #9 tabs 11/05/21 tablet Allergies Allergy/AdvReac Type Severity Reaction Status Date / Time fluconazole [From Diflucan] Allergy Rash Verified 06/20/21 14:10 phenazopyridine Allergy Rash Verified 06/20/21 14:10 [From Pyridium] PFSH PFSH Medical History Abnormal EKG Atrial fibrillation Chest pain Coronary artery calcification seen on CT scan Dyspnea Family history of heart disease Gastroesophageal reflux disease Hx of supraventricular tachycardia Hypertension Migraine HEATHER (obstructive sleep apnea) Urinary tract infection Surgical History History of cardiac radiofrequency ablation History of cholecystectomy History of hysterectomy History of left nephrectomy History of tonsillectomy Social History Smoking Status: Never smoker second hand exposure: No alcohol intake: current substance use type: denies use current occupational status: employed Travel in the last 8 weeks: Inside the [place] household members: spouse and family housing: house current occupation: purchasing current occupational exposures/hazards: No caffeine: No ROS Obtained: Yes All systems reviewed & no additional complaints except as documented Constitutional Constitutional: Reports system reviewed and no additional complaints, except as documented, Denies chills and Denies fever(s) Eyes Eyes: Denies eye discharge ENT Ears, Nose, Mouth,
[2021-11-05 15:35] LABS: UTC Strep Screen (Rapid) Negative (Negative)
[2021-11-05 15:44] VITALS: BP 141/84; PULSE 92; RESP 20; TEMP 37.3; O2SAT 95
== END 2021-11-05 16:17 | disposition home or self-care (01) ==
PROVIDERS: Emergency Provider Nurse Practitioner Family; PCP Physician Assistant
DX: U07.1 COVID-19 (principal); R53.81 Other malaise; J02.9 Acute pharyngitis, unspecified
CPT/HCPCS: 87880; 99212; C9803; G0463; U0003; U0005

== ENCOUNTER 2022-01-15 13:58 | Emergency (ER) | payer BC, SELFPAY ==
[2022-01-15 15:05] VITALS: BP 149/90; PULSE 86; RESP 18; TEMP 36.8; O2SAT 98; BMI 34.0
--- NOTE | 2022-01-15 15:21 | EXP.UTC ---
Discharge Plan Disposition Patient Disposition: Home, Self-Care Condition: Good Prescriptions Prescriptions: No Action furosemide [Lasix] 40 mg tablet 40 mg PO DAILY PRN (Reason: edema) Qty: 30 0RF loratadine [Claritin] 10 mg tablet 10 mg PO DAILY acetaminophen [Tylenol Extra Strength] 500 mg tablet 500 mg PO Q6H PRN potassium chloride 10 mEq tablet extended release 10 meq PO DAILY Qty: 30 2RF metoprolol succinate [Toprol XL] 50 mg tablet extended release 24 hr 50 mg PO BID Qty: 60 3RF ondansetron 4 mg Tablet,Disintegrating 4 mg PO Q8H PRN (Reason: Nausea) Qty: 9 0RF pantoprazole 40 MG tablet,delayed release (DR/EC) 40 mg PO DAILY Referrals Follow up/Referrals: Mikayla Meier PA [Primary Care Provider] - See instructions Activity Restrictions/Add. Instructions Additional Instructions/Restrictions: * No sign of bacterial infection. Likely viral. Virus can take 7-14 days to run their course *Monitor Temp, Over the counter Motrin or Tylenol as directed/as needed Tylenol every 4 hours and Motrin every 6 hours (as long as your family doctor has told you that you can take it) for fever or pain. and straight to ER if unable to lower temp less than 101.0 after medication given *Warm salt water gargles may help to soothe the throat *Throat Lozenges? *Warm fluids like tea with honey may help to soothe the throat? *Sleep elevated *Humidifier/Vaporizer Follow up IMMEDIATELY for new or worsening symptoms or no Noticeable improvement over the next 48-72 hours. 911 for difficulty breathing or swallowing Clinical Impressions Clinical Impression: Viral URI Stand Alone Forms Stand Alone Forms: Work/School Release Instructions Patient Instructions: DI for Viral Upper Respiratory Infection -- Adult Discharge ED Provider: Natalia Felix [facility] [place] HPI General Stated complaint: flu test Mode of Arrival: Ambulatory Source of Information: Patient Limitations: No Limitations Time Seen by Provider: 01/15/22 15:21 Description of Symptoms (Recalled from Triage Doc. by RN): PATIENT C/O SINUS PRESSURE AND BODY ACHES. SHE REPORTS HER SON TESTED POSITIVE FOR COVID YESTERDAY HEENT Symptoms (Recalled from RN notes): Yes Resp Symptoms (Recalled from RN notes): No Skin Symptoms (Recalled from RN notes): No MS Symptoms (Recalled from RN notes): No Functional Status (Recalled from RN notes): WNL History of Present Illness Provider Complaint: Patient states that yesterday she was having sinus congestion and pressure with body aches, States that son tested positive for COVID yesterday and her work tested her for COVID and wanted her to come in and get checked for the flu so she is requesting a flu test Related Data Home Medications Medication Instructions Recorded Confirmed pantoprazole 40 mg tablet,delayed 40 mg PO DAILY GERD 01/07/20 06/20/21 release acetaminophen 500 mg tablet 500 mg PO Q6H PRN 01/26/21 06/20/21 (Tylenol Extra Strength) loratadine 10 mg tablet (Claritin) 10 mg PO DAILY 01/26/21 06/20/21 Previous Rx's Medication Instructions Recorded furosemide 40 mg tablet (Lasix) 40 mg PO DAILY PRN edema #30 tabs 06/13/21 metoprolol succinate 50 mg 50 mg PO BID #60 tabs 06/20/21 tablet,extended release 24 hr (Toprol XL) potassium chloride 10 mEq 10 meq PO DAILY #30 tabs 06/20/21 tablet,extended release ondansetron 4 mg disintegrating 4 mg PO Q8H PRN Nausea #9 tabs 11/05/21 tablet Allergies Allergy/AdvReac Type Severity Reaction Status Date / Time fluconazole [From Diflucan] Allergy Rash Verified 06/20/21 14:10 phenazopyridine Allergy Rash Verified 06/20/21 14:10 [From Pyridium] Worker's Comp Is this a Worker's Comp case?: No PFSH PFSH Medical History Abnormal EKG Atrial fibrillation Chest pain Coronary artery calcification seen on CT scan Dyspnea Family history of heart disease G
[2022-01-15 15:23] LABS: UTC Influenza A Antigen Negative (Negative); UTC Influenza B Antigen Negative (Negative)
[2022-01-15 15:27] VITALS: BP 149/90; PULSE 86; RESP 18; TEMP 36.8; O2SAT 98
== END 2022-01-15 15:31 | disposition home or self-care (01) ==
PROVIDERS: Emergency Provider Nurse Practitioner; PCP Physician Assistant
DX: J06.9 Acute upper respiratory infection, unspecified (principal)
CPT/HCPCS: 87804; 99212; C9803; G0463; U0003; U0005

== ENCOUNTER 2022-03-01 12:04 | Emergency (ER) | payer BC, SELFPAY ==
[2022-03-01 12:25] VITALS: BP 166/98; PULSE 84; RESP 19; TEMP 36.9; O2SAT 95; BMI 34.7
--- NOTE | 2022-03-01 12:30 | EXP.UTC ---
Discharge Plan Disposition Patient Disposition: Home, Self-Care Condition: Good Prescriptions Prescriptions: New promethazine 25 mg Tablet 25 mg PO Q6H PRN (Reason: Nausea And Vomiting) Qty: 20 0RF ondansetron 4 mg Tablet,Disintegrating 4 mg PO Q8H PRN (Reason: Nausea) Qty: 20 0RF No Action furosemide [Lasix] 40 mg tablet 40 mg PO DAILY PRN (Reason: edema) Qty: 30 0RF loratadine [Claritin] 10 mg tablet 10 mg PO DAILY acetaminophen [Tylenol Extra Strength] 500 mg tablet 500 mg PO Q6H PRN potassium chloride 10 mEq tablet extended release 10 meq PO DAILY Qty: 30 2RF metoprolol succinate [Toprol XL] 50 mg tablet extended release 24 hr 50 mg PO BID Qty: 60 3RF ondansetron 4 mg Tablet,Disintegrating 4 mg PO Q8H PRN (Reason: Nausea) Qty: 9 0RF pantoprazole 40 MG tablet,delayed release (DR/EC) 40 mg PO DAILY Referrals Follow up/Referrals: Mikayla Meier PA [Primary Care Provider] - See instructions Activity Restrictions/Add. Instructions Additional Instructions/Restrictions: Drink plenty of fluids. Take tylenol or ibuprofen for pain or fever. Take the medications as directed. Follow up with your regular doctor. GO TO THE ER FOR ANY WORSENING SYMPTOMS IF YOUR SYMPTOMS WORSEN ANY PLEASE GO TO THE ER TO HAVE YOUR ABDOMINAL PAIN MORE FULLY EVALUATED. Her symptoms began yesterday (02/28/22), so her work excuse needs to count for that day also if at all possible. Clinical Impressions Clinical Impression: Abdominal pain, Gastroenteritis Stand Alone Forms Stand Alone Forms: Work/School Release Instructions Patient Instructions: DI for Abdominal Pain-Adult Discharge ED Provider: Reji Swanson [facility] General Stated complaint: fever, vomiting, diarrhea Time Seen by Provider: 03/01/22 12:30 History of Present Illness Provider Complaint: She states that since yesterday she has had mid abdominal pain that radiates through to her back. She has also had n/v/d. She last vomited this morning. She denies any blood in her stool or vomit. Related Data Home Medications Medication Instructions Recorded Confirmed pantoprazole 40 mg tablet,delayed 40 mg PO DAILY GERD 01/07/20 06/20/21 release acetaminophen 500 mg tablet 500 mg PO Q6H PRN 01/26/21 06/20/21 (Tylenol Extra Strength) loratadine 10 mg tablet (Claritin) 10 mg PO DAILY 01/26/21 06/20/21 Previous Rx's Medication Instructions Recorded furosemide 40 mg tablet (Lasix) 40 mg PO DAILY PRN edema #30 tabs 06/13/21 metoprolol succinate 50 mg 50 mg PO BID #60 tabs 06/20/21 tablet,extended release 24 hr (Toprol XL) potassium chloride 10 mEq 10 meq PO DAILY #30 tabs 06/20/21 tablet,extended release ondansetron 4 mg disintegrating 4 mg PO Q8H PRN Nausea #9 tabs 11/05/21 tablet ondansetron 4 mg disintegrating 4 mg PO Q8H PRN Nausea #20 tabs 03/01/22 tablet promethazine 25 mg tablet 25 mg PO Q6H PRN Nausea And 03/01/22 Vomiting #20 tabs Allergies Allergy/AdvReac Type Severity Reaction Status Date / Time fluconazole [From Diflucan] Allergy Rash Verified 03/01/22 12:34 phenazopyridine Allergy Rash Verified 03/01/22 12:34 [From Pyridium] [facility] Dis[facility]: The information contained in this section may have been updated after the patient was seen, as this information can be updated by other users. Medical History Abnormal EKG Atrial fibrillation Chest pain Coronary artery calcification seen on CT scan Dyspnea Family history of heart disease Gastroesophageal reflux disease Hx of supraventricular tachycardia Hypertension Migraine HEATHER (obstructive sleep apnea) Urinary tract infection Surgical History History of cardiac radiofrequency ablation History of cholecystectomy History of hysterectomy History of left nephrectomy History of tonsillectomy Social
[2022-03-01 12:41] LABS: UTC Strep Screen (Rapid) Negative (Negative)
[2022-03-01 12:42] LABS: UTC Influenza A Antigen Negative (Negative); UTC Influenza B Antigen Negative (Negative)
[2022-03-01 14:27] LABS: Basophils % 0.5 % (0.1-2.0); Eosinophils # 0.1 K/mm3 (0.0-0.4); Eosinophils % 1.2 % (0.1-12.0); Hematocrit 44.9 % (37.0-47.0); Hemoglobin 14.8 g/dL (12.2-16.2); Lymphocytes # 1.7 K/mm3 (0.7-4.5); Lymphocytes % 22.8 % (10-50); Mean Corpuscular Volume 87.8 fl (81-99); Monocytes # 0.4 K/mm3 (0.1-1.0); Monocytes % 5.5 % (1.7-9.3); Neutrophils # 5.1 K/mm3 (1.8-7.8); Platelet Count 302 K/mm3 (142-424); Red Blood Count 5.11 M/mm3 (4.20-5.40); Red Cell Distribution Width 13.4 % (11.5-17.5); White Blood Count 7.3 K/mm3 (4.8-10.8)
[2022-03-01 14:36] LABS: Chloride 105 mmol/L (98-107); Sodium 137 mmol/L (136-145)
[2022-03-01 14:39] LABS: Alanine Aminotransferase 33 U/L (12-78); Alkaline Phosphatase 100 U/L (38-126); Amylase 44 U/L (30-110); Aspartate Amino Transferase 34 U/L (14-36); Bilirubin,Total 0.4 mg/dl (0.2-1.3); Blood Urea Nitrogen 10 mg/dl (7-17); Calcium 8.8 mg/dl (8.4-10.2); Carbon Dioxide 25 mmol/L (22.0-30.0); Creatinine Clearance Estimated 146 mL/min (50-200); Estimated Glomerular Filt Rate 88 ml/min (>60); GFR (African American) 107 ML/MIN (>60); Glucose 103 mg/dl (74-100); Lipase 56 U/L (23-300)
[2022-03-01 14:40] LABS: Albumin Level 3.9 g/dl (3.5-5.0); Albumin/Globulin Ratio 1.3 (1.1-1.8); Total Protein,Serum 6.9 g/dl (6.3-8.2)
[2022-03-01 15:03] VITALS: BP 166/98; PULSE 84; RESP 18; TEMP 36.9; O2SAT 95
== END 2022-03-01 15:03 | disposition home or self-care (01) ==
PROVIDERS: Emergency Provider Nurse Practitioner Family; PCP Physician Assistant
DX: K52.9 Noninfective gastroenteritis and colitis, unspecified (principal)
CPT/HCPCS: 80053; 82150; 83690; 85025; 87804; 87880; 99213; 99214; G0463

== ENCOUNTER 2022-06-05 10:00 | Emergency (ER) | payer BC, SELFPAY ==
[2022-06-05] VITALS (15 sets, daily range): BP systolic 148–207; BP diastolic 82–113; PULSE 71–87; RESP 17; TEMP 36.8–36.9; O2SAT 96–98; BMI 34.7
--- NOTE | 2022-06-05 | ECG_ITS ---
APPROVED REPORT Exam: Resting ECG HR:77 bpm ECG Measurements Heart Rate 77 AXES MD 167 P 69 QRSd 90 QRS 75 QT 371 T 49 QTc 403 Conclusion SINUS RHYTHM LOW QRS VOLTAGE IN PRECORDIAL LEADS [QRS DEFLECTION < 1.0 mV IN CHEST LEADS] BORDERLINE ECG UNCONFIRMED REPORT Electronically signed by : Everett Waterman MD 06/05/2022 20:40:46
--- NOTE | 2022-06-05 10:04 | XR_ITS ---
FINAL REPORT CLINICAL HISTORY: soa COMPARISON: 06/12/2021 FINDINGS: SINGLE-VIEW CHEST The heart size is normal. The mediastinum is normal. The lungs are clear. There is no pneumothorax. IMPRESSION: No acute cardiopulmonary process. Reviewed, Interpreted and Dictated by Warner You III, MD Transcribed by Shelby Wilkinson Authenticated and [facility]
[2022-06-05 10:10] LABS: Basophils % 0.5 % (0.1-2.0); Eosinophils # 0.4 K/mm3 (0.0-0.4); Eosinophils % 6.9 % (0.1-12.0); Hematocrit 42.3 % (37.0-47.0); Hemoglobin 13.6 g/dL (12.2-16.2); Lymphocytes # 2.6 K/mm3 (0.7-4.5); Lymphocytes % 40.6 % (10-50); Mean Corpuscular HGB Conc 32.1 g/dL (31.8-35.4); Mean Corpuscular Hemoglobin 28.7 pg (27.0-31.2); Mean Corpuscular Volume 89.1 fl (81-99); Mean Platelet Volume 8.4 fl (7.4-10.4); Monocytes # 0.4 K/mm3 (0.1-1.0); Monocytes % 5.9 % (1.7-9.3); Neutrophils # 2.9 K/mm3 (1.8-7.8); Neutrophils % 46.1 % (37.0-80.0); Platelet Count 292 K/mm3 (142-424); Red Blood Count 4.75 M/mm3 (4.20-5.40); Red Cell Distribution Width 13.4 % (11.5-17.5); White Blood Count 6.4 K/mm3 (4.8-10.8)
[2022-06-05 10:16] LABS: Chloride 106 mmol/L (98-107); Potassium 4.1 mmoL/L (3.5-5.1); Sodium 138 mmol/L (136-145)
[2022-06-05 10:19] LABS: Alanine Aminotransferase 23 U/L (12-78); Albumin Level 3.9 g/dl (3.5-5.0); Albumin/Globulin Ratio 1.3 (1.1-1.8); Alkaline Phosphatase 84 U/L (38-126); Anion Gap 10.1 mEq/L (5-15); Aspartate Amino Transferase 26 U/L (14-36); Bilirubin,Total 0.3 mg/dl (0.2-1.3); Blood Urea Nitrogen 9 mg/dl (7-17); Carbon Dioxide 26 mmol/L (22.0-30.0); Creatinine Clearance Estimated 146 mL/min (50-200); Estimated Glomerular Filt Rate 88 ml/min (>60); GFR (African American) 107 ML/MIN (>60); Globulin 3.1 g/dL (1.3-3.2)
[2022-06-05 10:20] LABS: Calcium 8.7 mg/dl (8.4-10.2); Glucose 85 mg/dl (74-100)
[2022-06-05 10:29] LABS: NT Pro Brain Natriuretic Pep. 57.2 pg/mL (0-125)
[2022-06-05 10:33] LABS: Troponin I < 0.01 ng/ml (0.00-0.034)
--- NOTE | 2022-06-05 10:36 | HMH.EDGENADL ---
Discharge Plan Disposition Patient Disposition: Home, Self-Care Prescriptions Prescriptions: New lisinopril 2.5 mg tablet 2.5 mg PO DAILY Qty: 30 0RF No Action furosemide [Lasix] 40 mg tablet 40 mg PO DAILY PRN (Reason: edema) Qty: 30 0RF metoprolol succinate 25 mg tablet extended release 24 hr 25 mg PO TID Qty: 90 3RF loratadine [Claritin] 10 mg tablet 10 mg PO DAILY acetaminophen [Tylenol Extra Strength] 500 mg tablet 500 mg PO Q6H PRN potassium chloride 10 mEq tablet extended release 10 meq PO DAILY Qty: 30 2RF pantoprazole 40 MG tablet,delayed release (DR/EC) 40 mg PO DAILY Activity Restrictions/Add. Instructions Additional Instructions/Restrictions: Follow-up with cardiology within the next week for outpatient echocardiogram and blood pressure check. Return for any other issues within the next 8 hours Discharge ED Provider: Joseph Washington [facility] Adult HPI General Chief complaint: Chest Pain Stated complaint: chest pressure Time Seen by Provider: 06/05/22 10:00 Mode of Arrival: Ambulatory Source of Information: Patient Limitations: No Limitations Description of Symptoms (Recalled from ER Triage Doc. by RN): pt to ED with HTN and left anterior chest pain that radiates to her shoulder since yesterday. pt report compliance with HTN medication and describes her pain as a pressure and rates it a 5 at this time History of Present Illness HPI narrative: 51-year-old female with history of high blood pressure presents with left arm upper shoulder and neck pain to left elbow for the last day. She says that her blood pressure has been running high and it was checked at the [place] office this morning and sent for evaluation. She has dull frontal headache nonradiating as well. No numbness weakness or tingling in arms or legs. No midsternal chest pain or radiation to the back not tearing or ripping. No cough fever chills Related Data Home Medications Medication Instructions Recorded Confirmed pantoprazole 40 mg tablet,delayed 40 mg PO DAILY GERD 01/07/20 05/28/22 release acetaminophen 500 mg tablet 500 mg PO Q6H PRN 01/26/21 05/28/22 (Tylenol Extra Strength) loratadine 10 mg tablet (Claritin) 10 mg PO DAILY 01/26/21 05/28/22 Previous Rx's Medication Instructions Recorded furosemide 40 mg tablet (Lasix) 40 mg PO DAILY PRN edema #30 tabs 06/13/21 potassium chloride 10 mEq 10 meq PO DAILY #30 tabs 06/20/21 tablet,extended release metoprolol succinate 25 mg 25 mg PO TID #90 tabs 05/28/22 tablet,extended release 24 hr lisinopril 2.5 mg tablet 2.5 mg PO DAILY #30 tabs 06/05/22 Allergies Allergy/AdvReac Type Severity Reaction Status Date / Time fluconazole [From Diflucan] Allergy Rash Verified 05/28/22 15:04 phenazopyridine Allergy Rash Verified 05/28/22 15:04 [From Pyridium] [facility] Disclaimer: The information contained in this section may have been updated after the patient was seen, as this information can be updated by other users. Medical History (Updated 05/28/22 @ 15:13 by Keisha Lynn RN) Abnormal EKG Atrial fibrillation Chest pain Coronary artery calcification seen on CT scan Dyspnea Family history of heart disease Gastroesophageal reflux disease Hx of supraventricular tachycardia Hypertension Migraine HEATHER (obstructive sleep apnea) Typical angina Urinary tract infection Surgical History History of cardiac radiofrequency ablation History of cholecystectomy History of hysterectomy History of left nephrectomy History of tonsillectomy Social History Smoking Status: Never smoker second hand exposure: No alcohol intake: current substance use type: denies use current occupational status: employed Travel in the last 8 weeks: Inside the [place] household members: spouse and family housing: house current occupatio
--- NOTE | 2022-06-05 11:20 | PC.NURSE ---
rounded on pt at this time. no needs voiced.
[2022-06-05 13:53] LABS: Troponin I < 0.01 ng/ml (0.00-0.034)
== END 2022-06-05 14:25 | disposition home or self-care (01) ==
PROVIDERS: Emergency Provider Emergency Medicine; PCP Physician Assistant
DX: R07.9 Chest pain, unspecified (principal); M79.602 Pain in left arm; M54.2 Cervicalgia
CPT/HCPCS: 36415; 71045; 80053; 83880; 84484; 85025; 93005; 96360; 96374; 96375; 99285

== ENCOUNTER 2022-08-06 12:20 | Inpatient (IN) | payer BC, SELFPAY ==
[2022-08-06] VITALS (14 sets, daily range): BP systolic 130–204; BP diastolic 70–118; PULSE 81–151; RESP 16–20; TEMP 36.6–36.8; O2SAT 94–98; BMI 33.9; BMI 35.4
--- NOTE | 2022-08-06 12:16 | ECG_ITS ---
APPROVED REPORT Exam: Resting ECG HR:162 bpm ECG Measurements Heart Rate 162 AXES QRSd 105 QRS 81 QT 227 T -18 QTc 317 Conclusion ATRIAL FIBRILLATION WITH RAPID VENTRICULAR RESPONSE NONSPECIFIC ST & T-WAVE ABNORMALITY CRITICAL TEST RESULT INTERPRETATION BASED ON A DEFAULT AGE OF 40 YEARS UNCONFIRMED REPORT Electronically signed by : Everett Waterman MD 08/07/2022 20:12:28
--- NOTE | 2022-08-06 12:26 | XR_ITS ---
FINAL REPORT TECHNIQUE: Single view chest CLINICAL HISTORY: palpitations, chest pain in center of chest, soa, hx of ablation COMPARISON: 06/05/2022 FINDINGS: A single view of the chest was obtained. The heart and mediastinum are within normal limits. The lungs are clear. There is no pneumothorax. Osseous structures are unremarkable. IMPRESSION: No acute cardiopulmonary process. Reviewed, Interpreted and Dictated by Warner You III, MD Transcribed by Yusra Gould Authenticated and [facility]
--- NOTE | 2022-08-06 12:28 | HMH.EDGENADL ---
Discharge Plan Disposition Patient Disposition: Admitted Condition: Fair Chief Complaint: Chest Pain Prescriptions Prescriptions: No Action furosemide [Lasix] 40 mg tablet 40 mg PO DAILY PRN (Reason: edema) Qty: 30 0RF loratadine [Claritin] 10 mg tablet 10 mg PO DAILY pantoprazole 40 MG tablet,delayed release (DR/EC) 40 mg PO DAILY methylprednisolone 4 mg tablets,dose pack 4 mg PO DAILY metoprolol succinate 25 mg tablet extended release 24 hr 12.5 mg PO DAILY Referrals Follow up/Referrals: Mikayla Meier PA [Primary Care Provider] - See instructions Clinical Impressions Clinical Impression: Atrial fibrillation with rapid ventricular response Discharge ED Provider: Kvng Thompson General Adult HPI General Chief complaint: Chest Pain Stated complaint: rapid heart rate Time Seen by Provider: 08/06/22 12:45 History of Present Illness HPI narrative: This is a 51-year-old white female with a history of SVT/A-fib status post ablation about 4 5 years ago who presents with acute onset palpitations this morning. Upon arrival it was noted that her heart rate was between 1 6170 with a narrow complex tachycardia. Patient also stated she has some substernal chest discomfort. This was nonradiating there is no accompanying nausea or diaphoresis. Patient denies any recent illness patient denied any orthopnea or pedal edema. Related Data Home Medications Medication Instructions Recorded Confirmed pantoprazole 40 mg tablet,delayed 40 mg PO DAILY GERD 01/07/20 08/06/22 release loratadine 10 mg tablet (Claritin) 10 mg PO DAILY Allergy symptoms 01/26/21 08/06/22 methylprednisolone 4 mg tablets in 4 mg PO DAILY inflamm 08/06/22 08/06/22 a dose pack metoprolol succinate 25 mg 12.5 mg PO DAILY High blood 08/06/22 08/06/22 tablet,extended release 24 hr pressure Previous Rx's Medication Instructions Recorded furosemide 40 mg tablet (Lasix) 40 mg PO DAILY PRN edema #30 tabs 06/13/21 Allergies Allergy/AdvReac Type Severity Reaction Status Date / Time fluconazole [From Diflucan] Allergy Rash Verified 05/28/22 15:04 phenazopyridine Allergy Rash Verified 05/28/22 15:04 [From Pyridium] aspirin AdvReac Verified 08/06/22 12:36 PFSH [facility], 1928–1983 Disclaimer: The information contained in this section may have been updated after the patient was seen, as this information can be updated by other users. Medical History (Updated 08/06/22 @ 15:06 by Kvng Thompson MD) Abnormal EKG Atrial fibrillation Chest pain Coronary artery calcification seen on CT scan Dyspnea Family history of heart disease Gastroesophageal reflux disease Hx of supraventricular tachycardia Hypertension Migraine HEATHER (obstructive sleep apnea) Typical angina Urinary tract infection Surgical History History of cardiac radiofrequency ablation History of cholecystectomy History of hysterectomy History of left nephrectomy History of tonsillectomy Social History Smoking Status: Never smoker second hand exposure: No alcohol intake: current substance use type: denies use current occupational status: employed Travel in the last 8 weeks: [place] the [place] household members: spouse and family housing: house current occupation: purchasing current occupational exposures/hazards: No caffeine: No ROS Obtained: Yes All systems reviewed & no additional complaints except as documented Skin no rash or lesions HEENT no runny nose sore throat Pulmonary no cough or shortness of breath Cardiovascular see HPI GI no abdominal pain nausea or vomiting no dysuria pyuria hematuria Musculoskeletal no neck or back pain Endocrine no polydipsia polyuria or polyphasia Psych no SI or HI The rest of the systems were reviewed and found to be negative Physical Exam Narrative Physical exam: Skin:
[2022-08-06 12:43] LABS: Basophils % 0.2 % (0.1-2.0); Eosinophils % 0.3 % (0.1-12.0); Hemoglobin 15.2 g/dL (12.2-16.2); Lymphocytes # 2.5 K/mm3 (0.7-4.5); Lymphocytes % 20.8 % (10-50); Mean Corpuscular HGB Conc 31.7 g/dL (31.8-35.4); Mean Corpuscular Hemoglobin 28.6 pg (27.0-31.2); Mean Corpuscular Volume 90.2 fl (81-99); Mean Platelet Volume 8.5 fl (7.4-10.4); Monocytes # 0.8 K/mm3 (0.1-1.0); Monocytes % 6.9 % (1.7-9.3); Neutrophils # 8.7 K/mm3 (1.8-7.8); Neutrophils % 71.8 % (37.0-80.0); Platelet Count 355 K/mm3 (142-424); Red Blood Count 5.32 M/mm3 (4.20-5.40); Red Cell Distribution Width 13.1 % (11.5-17.5); White Blood Count 12.2 K/mm3 (4.8-10.8)
[2022-08-06 12:46] LABS: Coronavirus 19, PCR Not Detected (NotDetected); Influenza A, PCR Not Detected (NotDetected); Influenza B, PCR Not Detected (NotDetected)
[2022-08-06 12:58] LABS: Chloride 105 mmol/L (98-107); Potassium 3.7 mmoL/L (3.5-5.1); Sodium 139 mmol/L (136-145)
[2022-08-06 13:00] LABS: Alanine Aminotransferase 28 U/L (12-78); Albumin Level 4.5 g/dl (3.5-5.0); Alkaline Phosphatase 107 U/L (38-126); Aspartate Amino Transferase 33 U/L (14-36); Bilirubin,Indirect 0.4 mg/dL (0.0-0.9); Bilirubin,Total 0.4 mg/dl (0.2-1.3); Bilirubin,Unconjugated 0.3 mg/dL (0.0-1.1); Blood Urea Nitrogen 17 mg/dl (7-17); Creatinine Clearance Estimated 125 mL/min (50-200); Estimated Glomerular Filt Rate 76 ml/min (>60); GFR (African American) 92 ML/MIN (>60); Total Protein,Serum 8.3 g/dl (6.3-8.2)
[2022-08-06 13:01] LABS: Alanine Aminotransferase 28 U/L (12-78); Albumin Level 4.5 g/dl (3.5-5.0); Albumin/Globulin Ratio 1.3 (1.1-1.8); Alkaline Phosphatase 105 U/L (38-126); Anion Gap 16.7 mEq/L (5-15); Aspartate Amino Transferase 31 U/L (14-36); Bilirubin,Total 0.4 mg/dl (0.2-1.3); Calcium 9.1 mg/dl (8.4-10.2); Carbon Dioxide 21 mmol/L (22.0-30.0); Globulin 3.6 g/dL (1.3-3.2); Glucose 104 mg/dl (74-100); Total Protein,Serum 8.1 g/dl (6.3-8.2)
[2022-08-06 13:07] LABS: Activated Partial Thrombo Time 27.7 seconds (22.8-30.6); Prothrombin Time 9.8 seconds (10.1-12.5)
[2022-08-06 13:09] LABS: NT Pro Brain Natriuretic Pep. 88.7 pg/mL (0-125)
[2022-08-06 13:10] LABS: D-Dimer 0.78 ug/mL (0.0-0.5)
[2022-08-06 13:12] LABS: Troponin I 0.06 ng/ml (0.00-0.034)
[2022-08-06 13:30] LABS: Thyroid Stimulating Hormone 1.89 uIU/mL (0.465-4.68)
--- NOTE | 2022-08-06 13:32 | ECG_ITS ---
APPROVED REPORT Exam: Resting ECG HR:89 bpm ECG Measurements Heart Rate 89 AXES VA 162 P 63 QRSd 91 QRS 76 QT 353 T 39 QTc 399 Conclusion SINUS RHYTHM NORMAL ECG UNCONFIRMED REPORT Electronically signed by : Everett Waterman MD 08/07/2022 20:10:43
--- NOTE | 2022-08-06 13:38 | CT_ITS ---
FINAL REPORT TECHNIQUE: Postcontrast axial images of the chest were performed in a CTA protocol. This study was performed with techniques to keep radiation doses as low as reasonably achievable, (ALARA). Individualized dose reduction technique using automated exposure control or adjustment of mA and/or kV according to the patient's size were employed. CLINICAL HISTORY: new onset afiband elevated d dimer FINDINGS: The heart is normal in size. No adenopathy is identified. No pleural or pericardial effusion is identified. The thoracic aorta is normal in caliber with no focal aneurysm or dissection identified. There is no filling defect to suggest pulmonary embolism. There are mild pulmonary ground-glass opacities which may represent edema or alveolitis. Mild bibasilar atelectasis is seen. The images of the upper abdomen demonstrate postoperative changes of cholecystectomy. Left kidney is not visualized and may be surgically absent. IMPRESSION: No evidence for PE on this exam. Opacities which may represent edema or alveolitis. Reviewed, Interpreted and Dictated by Warner You III, MD Transcribed by Yusra Gould Authenticated and [facility]
--- NOTE | 2022-08-06 14:02 | HMH.ITSTN ---
went to get patient for angio study she is on an IV medication that has to finish before I can take her for CT. should take about an hour.
--- NOTE | 2022-08-06 14:21 | PC.NURSE ---
notified mina castro cardiology of consult on pt.
--- NOTE | 2022-08-06 14:24 | PC.NURSE ---
Maurisio Castaneda with Cardiology at bedside.
--- NOTE | 2022-08-06 14:58 | EXP.CARD.CON ---
History of Present Illness History of Present Illness Consult date: 08/06/22 Consult reason: atrial fibrillation Chief complaint: A-fib with RVR Additional Medical History:: 1. CAD with coronary calcifications on CT of the chest, 2019 A. Normal heart cath in 2015 per patient. B. Abnormal stress test, 2019 C. C, 2019, mild CAD of proximal LAD (10-20%) with diffusely small caliber vessels throughout consistent with hypertensive vasculopathy. Hyperdynamic ventricle consistent with hypertensive heart disease. Normal LVEDP. Normal dual arterial supply to the right kidney without stenosis. D. Stress test, 05/2022, [facility] E. Echocardiogram, 05/2022, [facility] 2. History of SVT with ablation in 2014 at [place], with Dr. Manzano. 3. History of left nephrectomy, age 11, secondary to kidney reflux 4. HEATHER with history of CPAP use 5. Obesity 6. Strong family history of coronary artery disease in parents and siblings (all smokers) 7. Hypertension A. Echocardiogram, 05/2021, mild LAE, normal LV size, mild concentric LVH, EF 55% with no regional WMA. Grade 1 DD. Trace MR/TR. 8. Hyperlipidemia History of present illness: 51-year-old white female came from [place] today due to onset of rapid heart rate with associated shortness of breath today. Patient was found to be in A-fib with RVR in the ER and was given diltiazem IV with subsequent conversion to sinus rhythm. She continues to have significant elevated blood pressure but has recently received an oral dose of diltiazem. Home dose of metoprolol has been recently lowered to metoprolol succinate 12.5 mg daily which was controlling her pressure. She only has a solitary kidney with recent renal angiogram in 2019 showing widely patent renal arteries. Left heart catheterization in 2020 showed evidence of only mild coronary artery disease. Patient does have a very significant family history of early coronary artery disease in parents and siblings, all of whom smoked. Patient does not smoke She is not a diabetic She has previously had ablation of A-fib by Dr. Manzano at [place] in [facility] in 2014. [facility] Disclaimer: The information contained in this section may have been updated after the patient was seen, as this information can be updated by other users. Medical History (Updated 08/06/22 @ 17:07 by Klaudia Rossi RN) Abnormal EKG Atrial fibrillation Chest pain Coronary artery calcification seen on CT scan Dyspnea Family history of heart disease Fibromyalgia Gastroesophageal reflux disease Hx of supraventricular tachycardia Hypertension Migraine HEATHER (obstructive sleep apnea) Typical angina Urinary tract infection Surgical History History of cardiac radiofrequency ablation History of cholecystectomy History of hysterectomy History of left nephrectomy History of tonsillectomy Social History Smoking Status: Never smoker second hand exposure: No alcohol intake: never substance use type: denies use current occupational status: employed Travel in the last 8 weeks: [place] the [place] household members: spouse and family housing: house current occupation: purchasing current occupational exposures/hazards: No caffeine: No Review of Systems Review of Systems Review of systems:: pertinent systems reviewed and negative unless documented below *Cardiovascular Cardiovascular: Reports chest pain, Reports dyspnea and Reports rapid heart rate *Respiratory Respiratory: Reports dyspnea Exam Data for Last 24 hours Vital signs and Labs for Last 24 Hours: Temp Pulse Resp BP Pulse Ox 98.0 F 96 H 18 173/118 H 97 08/06/22 12:24 08/06/22 14:30 08/06/22 14:30 08/06/22 14:30 08/06/22 14:30 Laboratory Results - last 24 hr 08/06/22 12:22: WBC 12.2 H, RBC 5.32, Hgb 15.2, Hct
--- NOTE | 2022-08-06 15:00 | PC.NURSE ---
Franchesca solano d/c per .
--- NOTE | 2022-08-06 15:19 | PC.NURSE ---
Pt. back from CT. Ordered dinner tray No complaints at this time. Waiting for bed assignment.
--- NOTE | 2022-08-06 15:49 | PC.NURSE ---
ROUNDED ON PATIENT, DECAF COFFEE GIVEN, FAMILY AT BEDSIDE
--- NOTE | 2022-08-06 15:54 | PC.NURSE ---
Report given to Nina Knox RN.
[2022-08-06 16:08] LABS: Troponin I 0.13 ng/ml (0.00-0.034)
--- NOTE | 2022-08-06 17:09 | EXP.HP ---
History of Present Illness *Admission Date: 08/06/22 *Reason for visit:: Atrial fibrillation *History of present illness: Ms. Dash is a 51-year-old female with a history of solitary kidney, cervical dysplasia, SVT status post EP study and ablation in 2015, hypertension, sleep apnea, Philip's esophagus, and gastroparesis, fibromyalgia, and MOG antibody disease who when sitting at work all of a sudden felt her heart runaway. She works in a clinic and with pulse oximeter reading her heart rate was read as being in 200s. She also suffered with some chest discomfort and shortness of breath with this. Thus she came to the emergency room at [facility] for evaluation. With evaluation in the emergency room EKG revealed atrial fibrillation with ventricular response of 162 bpm this. She was initially given a bolus of diltiazem IV and started on a diltiazem drip. SHe then converted to sinus rhythm and was given p.o. Cardizem. While in the ER she was seen by LATASHA Ocasio, cardiology with the following notation: Plan 1.? A-fib with RVR Converted to sinus rhythm after IV diltiazem.? Now on oral dosing of 180 mg extended release. Continue metoprolol succinate 12.5 mg daily Likely will need referral back to EP for further ablation. 2.? Elevated troponin likely secondary to demand ischemia.? Recommend admission and continue to trend overnight Check echocardiogram in the morning Start aspirin 81 mg daily 3.? Hypertension, will continue to monitor after starting diltiazem in addition to continuing metoprolol Continue Lasix She was then admitted. [facility] Disclaimer: The information contained in this section may have been updated after the patient was seen, as this information can be updated by other users. Medical History (Updated 08/06/22 @ 17:07 by Klaudia Rossi RN) Abnormal EKG Atrial fibrillation Chest pain Coronary artery calcification seen on CT scan Dyspnea Family history of heart disease Fibromyalgia Gastroesophageal reflux disease Hx of supraventricular tachycardia Hypertension Migraine HEATHER (obstructive sleep apnea) Typical angina Urinary tract infection Surgical History History of cardiac radiofrequency ablation History of cholecystectomy History of hysterectomy History of left nephrectomy History of tonsillectomy Family History (Updated 08/06/22 @ 17:12 by Shelby Abrams APRN) Diabetes Coronary artery disease Cancer Social History (Updated 08/06/22 @ 17:07 by Klaudia Rossi RN) Smoking Status: Never smoker second hand exposure: No alcohol intake: never substance use type: denies use current occupational status: employed Travel in the last 8 weeks: [place] the [place] household members: spouse and family housing: house current occupation: purchasing current occupational exposures/hazards: No caffeine: No Review of Systems Constitutional Constitutional: Denies chills and Denies fever(s) Eyes Eyes: Denies change in vision ENT Ears, Nose, Mouth, and Throat: Denies dysphagia, Denies otalgia and Denies sore throat *Cardiovascular Cardiovascular: Reports chest pain, Reports dyspnea, Reports irregular heart rhythm and Reports palpitations *Respiratory Respiratory: Denies chest congestion, Denies cough and Reports dyspnea *Gastrointestinal Gastrointestinal: Denies abdominal pain, Denies constipation, Denies diarrhea, Denies dyspepsia, Denies dysphagia, Denies nausea and Denies vomiting *Genitourinary Genitourinary: Denies difficulty voiding *Musculoskeletal Musculoskeletal: Denies abnormal gait and Reports arthralgias (Neck) *Neurologic Neurologic: Denies abnormal gait Endocrine Endocrine: Reports palpitations Meds Home Medications and Allergies Home Medications Medication Instructions Recorded Confirmed Type pantoprazole 40 mg tablet,delayed 40 mg PO DAILY GERD 01/07/20 08/06/22 History release l
[2022-08-06 19:40] LABS: Troponin I 0.08 ng/ml (0.00-0.034)
[2022-08-07] VITALS (19 sets, daily range): BP systolic 75–173; BP diastolic 27–107; PULSE 57–85; RESP 16–20; TEMP 36.7–37.1; O2SAT 95–100; BMI 35.5
--- NOTE | 2022-08-07 07:41 | HMH.PHAINT1 ---
Pharmacy Intervention Comments: Home med list verified using external fill history from outside pharmacy and list from recent cardiology office visit.
--- NOTE | 2022-08-07 09:04 | EXP.ACUTE.PN ---
Subjective *Date: 08/07/22 *Time: 09:04 Interval history: Patient with no new complaints today. Medical Exam Vital signs and Labs for Last 24 Hours: Vital Signs Temp Pulse Pulse Resp BP BP Pulse Ox 08/07/22 08:00 98.5 F 70 16 142/85 H 98 08/07/22 04:00 98.4 F 85 18 123/62 97 08/07/22 00:00 98.7 F 71 18 102/52 L 99 08/06/22 20:00 98.0 F 81 18 130/70 98 08/06/22 16:45 84 18 146/97 H 08/06/22 16:26 97.8 F 92 H 18 166/96 H 94 L 08/06/22 16:18 98.3 F 86 18 169/96 H 08/06/22 16:00 84 18 161/96 H 97 08/06/22 15:30 83 18 159/107 H 98 08/06/22 15:00 81 20 179/118 H 98 08/06/22 14:30 96 H 18 173/118 H 97 08/06/22 14:00 90 18 153/108 H 97 08/06/22 13:30 91 H 18 151/101 H 95 08/06/22 13:00 87 18 149/95 H 96 08/06/22 12:31 148 H 16 178/118 H 97 08/06/22 12:32 151 H 08/06/22 12:31 146 H 18 178/118 H 97 08/06/22 12:24 98.0 F 150 H 18 204/115 H 96 Intake and Output 08/06/22 08/07/22 08/07/22 23:59 07:59 15:59 Intake Total 480 / 480 480 / 480 Output Total 200 / 200 300 / 300 Balance 280 / 280 -300 / 180 480 / 180 Intake: Intake, Oral Amount 480 / 480 480 / 480 Output: Output, Urine Amount 200 / 200 300 / 300 Other: Weight 219 lb 6 oz 221 lb 4 oz Patient Weight 08/07/22 23:59 Weight 221 lb 4 oz Laboratory Results - last 24 hr 08/06/22 12:22: WBC 12.2 H, RBC 5.32, Hgb 15.2, Hct 48.0 H, MCV 90.2, MCH 28.6, MCHC 31.7 L, RDW 13.1, Plt Count 355, MPV 8.5, Neut % (Auto) 71.8, Lymph % (Auto) 20.8, Avery % (Auto) 6.9, Eos % (Auto) 0.3, Baso % (Auto) 0.2, Neut # (Auto) 8.7 H, Lymph # (Auto) 2.5, Avery # (Auto) 0.8, Eos # (Auto) 0.0, Baso # (Auto) 0.0 08/06/22 12:22: Total Bilirubin 0.4, Direct Bilirubin 0.0, Conjugated Bilirubin 0.0, Indirect Bilirubin 0.4, Unconjugated Bilirubin 0.3, AST 33, ALT 28, Alkaline Phosphatase 107, Total Protein 8.3 H, Albumin 4.5 08/06/22 12:22: PT 9.8 L, INR 0.90, APTT 27.7 08/06/22 12:22: D-Dimer 0.78 H 08/06/22 12:22: Sodium 139, Potassium 3.7, Chloride 105, Carbon Dioxide 21 L, Anion Gap 16.7 H, BUN 17, Creatinine 0.80, Estimated Creat Clear 125, Estimated GFR 76, Est GFR ( Amer) 92, Glucose 104 H, Calcium 9.1, Total Bilirubin 0.4, AST 31, ALT 28, Alkaline Phosphatase 105, Troponin I 0.06 H, NT-Pro-B Natriuret Pep 88.7, Total Protein 8.1, Albumin 4.5, Globulin 3.6 H, Albumin/Globulin Ratio 1.3, TSH 1.89 08/06/22 12:26: SARS-CoV-2 (PCR) Not detected, Influenza A Untype (PCR) Not detected, Influenza Type B (PCR) Not detected 08/06/22 15:39: Troponin I 0.13 H 08/06/22 19:05: Troponin I 0.08 H I & O for Labs for Last 24 Hours: Intake & Output 08/04/22 08/05/22 08/06/22 08/07/22 23:59 23:59 23:59 23:59 Intake Total 480 / 480 480 / 480 Output Total 200 / 200 300 / 300 Balance 280 / 280 180 / 180 Weight 219 lb 6 oz 221 lb 4 oz Constitutional: Present no acute distress Respiratory: Present normal respiratory effort Cardiac: Present Reg Rate and Rhythm GI: Present normal bowel sounds; Absent tenderness Extremities: Present normal inspection and full ROM Skin: Present intact; Absent erythema Neuro: Present Grossly Intact and moves all extremities Assessment and Plan *Assessment and plan (1) Chest pain: Status: Acute Category: Medical Code(s): R07.9 - Chest pain, unspecified (2) Atrial fibrillation with RVR: Status: Acute Category: Medical Code(s): I48.91 - Unspecified atrial fibrillation (3) Hypertension: Status: Acute Category: Medical Code(s): I10 - Essential (primary) hypertension (4) HLD (hyperlipidemia): Status: Chronic Qualifiers: Hyperlipidemia type: mixed hyperlipidemia Qualified Code(s): E78.2 - Mixed hyperlipidemia Category: Medical Code(s): E78.5 - Hyperlipidemia, unspecified (5) CAD (coronary artery disease): Status
--- NOTE | 2022-08-07 09:56 | EXP.CARD.PN ---
Subjective Subjective Date: 08/07/22 Time: 09:56 Principal diagnosis: afib with rvr Interval history: This is a 51-year-old white female who presented to the emergency department with a rapid heart rate and shortness of breath. The patient was found to be in atrial fibrillation with RVR. Patient was treated with IV diltiazem in the emergency department and did convert to sinus rhythm. The patient continues to have elevated blood pressure at home as well. Her blood pressure did improve with her dose of diltiazem given. This morning she reports that she did have 1 episode of her heart fluttering overnight. She states that she took a deep breath and the fluttering subsided. She states that she does have some pressure in her chest at times. She states that this comes and goes. She states that it has not resolved since being in the hospital. She denies any shortness of breath or edema. She denies any fever, chills, nausea, vomiting, diarrhea, PND orthopnea. Exam Data for Last 24 hours Vital signs and Labs for Last 24 Hours: Temp Pulse Resp BP Pulse Ox 98.5 F 70 16 142/85 H 98 08/07/22 08:00 08/07/22 08:00 08/07/22 08:00 08/07/22 08:00 08/07/22 08:00 Laboratory Results - last 24 hr 08/06/22 12:22: WBC 12.2 H, RBC 5.32, Hgb 15.2, Hct 48.0 H, MCV 90.2, MCH 28.6, MCHC 31.7 L, RDW 13.1, Plt Count 355, MPV 8.5, Neut % (Auto) 71.8, Lymph % (Auto) 20.8, [place] % (Auto) 6.9, Eos % (Auto) 0.3, Baso % (Auto) 0.2, Neut # (Auto) 8.7 H, Lymph # (Auto) 2.5, [place] # (Auto) 0.8, Eos # (Auto) 0.0, Baso # (Auto) 0.0 08/06/22 12:22: Total Bilirubin 0.4, Direct Bilirubin 0.0, Conjugated Bilirubin 0.0, Indirect Bilirubin 0.4, Unconjugated Bilirubin 0.3, AST 33, ALT 28, Alkaline Phosphatase 107, Total Protein 8.3 H, Albumin 4.5 08/06/22 12:22: PT 9.8 L, INR 0.90, APTT 27.7 08/06/22 12:22: D-Dimer 0.78 H 08/06/22 12:22: Sodium 139, Potassium 3.7, Chloride 105, Carbon Dioxide 21 L, Anion Gap 16.7 H, BUN 17, Creatinine 0.80, Estimated Creat Clear 125, Estimated GFR 76, Est GFR ( Amer) 92, Glucose 104 H, Calcium 9.1, Total Bilirubin 0.4, AST 31, ALT 28, Alkaline Phosphatase 105, Troponin I 0.06 H, NT-Pro-B Natriuret Pep 88.7, Total Protein 8.1, Albumin 4.5, Globulin 3.6 H, Albumin/Globulin Ratio 1.3, TSH 1.89 08/06/22 12:26: SARS-CoV-2 (PCR) Not detected, Influenza A Untype (PCR) Not detected, Influenza Type B (PCR) Not detected 08/06/22 15:39: Troponin I 0.13 H 08/06/22 19:05: Troponin I 0.08 H I & O for Last 24 hours: Intake & Output 08/04/22 08/05/22 08/06/22 08/07/22 23:59 23:59 23:59 23:59 Intake Total 480 / 480 480 / 480 Output Total 200 / 200 300 / 300 Balance 280 / 280 180 / 180 Weight 219 lb 6 oz 221 lb 4 oz Constitutional Constitutional: no acute distress and average body habitus *Routine HEENT Exam Head: Present normocephalic and atraumatic ENT: Present mucous membranes moist *Routine Neck Exam Neck: Present supple, full ROM and normal carotid upstroke; Absent JVD, carotid bruit or lymphadenopathy *Routine Respiratory Exam Respiratory: Present CTA bilaterally, normal respiratory effort, able to speak in complete sentences and symmetric chest movement *Routine Cardiovascular Exam Cardiovascular: Present RRR, Normal S1 and Normal S2; Absent murmur or gallop *Routine Abdominal Exam Abdominal: Present soft and normoactive bowel sounds; Absent tenderness, distended or organomegaly *Routine Extremities Exam Extremities: Present full ROM, pulses intact and normal capillary refill; Absent cyanosis, clubbing or edema *Routine Skin Exam Skin: Present intact and warm; Absent erythema *Routine Neurological Exam Neurological: Present alert, oriented X3 and CN II-XII intact; Absent sensory deficit or motor deficit Routine Psychiatric Exam Psychiatric: Present normal affect Progress Note: A&P Assessment and plan (1) Non-STEMI (non-ST elevated myocardial infarction): Status: Acute (2) Angina pectoris: Status: Acute (3)
--- NOTE | 2022-08-07 12:51 | IR_ITS ---
APPROVED REPORT Patient Location: Inpatient Care Mgr: CATHY Etienne RT (R) PROCEDURES Left heart catheterization Left ventriculogram Selective coronary angiogram Intravascular lithotripsy to the ramus intermedius Drug-eluting stent deployment to the proximal mid ramus intermedius Drug-eluting stent deployment to the posterior descending artery off the dominant circumflex artery Intravascular ultrasound to the LAD Drug-eluting stent deployment to the proximal and mid LAD in a contiguous manner INDICATION Acute non-ST elevation myocardial infarction, Coronary artery disease, Atrial fibrillation, MLA less than 4 mm??? in the LAD combined with drug-eluting stent struts from the ramus intermedius sticking into the proximal LAD, Calcification and noncompliance of the ramus intermedius Informed consent was obtained prior to the procedure. COMPLICATIONS None Estimated Blood Loss: Less than 10 mls TECHNIQUE One percent lidocaine used to anesthetize the right anterior aspect of the wrist. The right radial artery was accessed via the Seldinger technique. A 6 [place] sheath was placed in the right radial artery. 150 mg magnesium sulfate, 800 mcg of nitroglycerin, 1mg Lidocaine and 5000 U Heparin were given through the arterial sheath. The papa catheter was also used to perform left heart catheterization, left ventriculogram and selective coronary angiogram. At the end the diagnostic angiogram therapeutic heparin was administered given therapeutic ACT and the guide catheter was placed in the left main artery followed by Choice PT export wire being placed in the ramus intermedius. A 2.5 x 15 mm [place] frontier stent was deployed at 15 and then 20 surya reducing the stenosis to 30%. A 3 mm x 6 mm balloon was then deployed at 20 and 24 surya to post dilate. An additional 3.25 x 6 mm noncompliant balloon was deployed at 24 and then 26 surya also trying to reduce the stenosis. When this failed to reduce the stenosis intravascular lithotripsy was advanced and 80 pulsations were delivered with a 3 mm balloon at 4 5 surya. Following this a 3 mm x 12 mm noncompliant balloon was deployed at 24 surya to post dilate. An additional 2.25 x 12 mm [place] frontier stent was placed distal to the for stent yet still overlapping it and deployed at 18 surya. The balloon was brought back and deployed at 24 surya to mesh the 2 stents. Excellent angiograph results were obtained. A wire was then placed into the circumflex artery and a 2.25 x 12 mm [place] frontier stent was deployed distally. There was significant motion in the circumflex artery and I was not satisfied with the exact placement of the stent therefore an additional 2.25 x 12 mm [place] frontier stent was placed proximal to the for stent yet still overlapping it and deployed at 18 surya. The balloon was advanced and deployed at 18 and 20 surya to post dilate and mesh the 2 stents. QUAN-3 flow was present down the ramus intermedius and the circumflex artery before and after the procedure. Repeat angiography demonstrated what appeared to be a possible thrombus in the LAD. At this point a wire was placed into the LAD and intravascular ultrasound probe was advanced. There was significant difficulty getting the intravascular ultrasound probe past the ramus intermedius ostium due to struts being in the LAD proper. The MLA measured less than 4 mm??? therefore a 3 mm x 38 mm frontier [place] stent was deployed in the proximal LAD extending into the mid LAD at 20 surya. This reduced the stenoses. QUAN-3 flow was present before and after the procedure. At the procedure the apparatus was removed the sheath was removed and hemostasis was achieved using TR banding patient was transferred the postop putting
--- NOTE | 2022-08-07 13:45 | PC.NURSE ---
pt to bobcat driver/labor
[2022-08-07 15:56] LABS: CATHL Activated Clotting Time 239 SEC (74-125)
[2022-08-07 15:57] LABS: CATHL Activated Clotting Time > 400 SEC (74-125)
--- NOTE | 2022-08-07 16:40 | PC.NURSE ---
pt. arrived back to [facility] via stretcher from [facility]
--- NOTE | 2022-08-07 17:32 | PC.NURSE ---
PTS CAME OUT IN THE HALLWAY STATING PT IS HAVING N/V, LOOKS PALE, STATES SHE SAYS SHE FEELS LIKE HER WHOLE BODY IS NUMB. V/S: B/P-75/27, P-57, O2 100%. JIAN NOTIFIED, VERBAL ORDER FOR 500ML BOLUS OF NS NOW. WILL CONT TO MONITOR. RADIAL BAND TO RT WRIST, AIR CAN COME OUT AT 1750. VS HAVE BEEN STABLE PRIOR TO THIS EVENT SINCE COMING BACK FROM [facility]
[2022-08-08] VITALS: BP 110/70; PULSE 70; PULSE 72; RESP 20; TEMP 36.7; O2SAT 95
[2022-08-08 04:00] VITALS: BP 115/80; PULSE 60; PULSE 62; RESP 18; TEMP 36.9; O2SAT 98; BMI 35.0
[2022-08-08 08:00] VITALS: BP 120/74; PULSE 60; PULSE 69; RESP 18; TEMP 37.1; O2SAT 98; O2SAT 99
--- NOTE | 2022-08-08 08:03 | EXP.ACUTE.PN ---
Subjective *Date: 08/08/22 *Time: 08:09 Interval history: Patient is feeling better this am. She has less SOA. She had 5 stents placed yesterday and denies any chest pain this morning. She did have an episode of her blood pressure dropping into the 70s over 30s last night and had some vomiting. Her blood pressure was 120/80 this morning. Medical Exam Vital signs and Labs for Last 24 Hours: Vital Signs Temp Pulse Pulse Resp BP Pulse Ox 08/08/22 04:00 98.5 F 62 18 115/80 98 08/07/22 20:00 70 08/08/22 00:00 70 08/08/22 00:00 98.0 F 72 20 110/70 95 08/07/22 22:28 64 18 132/72 98 08/07/22 20:00 98.5 F 72 18 114/70 95 08/07/22 18:35 98.0 F 67 16 117/75 97 08/07/22 18:05 67 16 104/71 L 98 08/07/22 17:35 57 L 20 75/27 L 100 08/07/22 17:05 76 16 140/97 H 97 08/07/22 16:50 83 16 156/107 H 97 08/07/22 12:00 83 08/07/22 16:35 76 18 159/88 H 95 08/07/22 16:20 68 18 153/89 H 96 08/07/22 16:05 74 18 147/102 H 96 08/07/22 16:00 73 16 147/95 H 97 08/07/22 15:55 72 18 153/98 H 98 08/07/22 15:50 68 18 173/94 H 96 08/07/22 15:59 73 08/07/22 15:49 73 18 173/94 H 97 08/07/22 12:00 98.5 F 82 18 173/88 H 98 Intake and Output 08/07/22 08/08/22 08/08/22 19:59 03:59 11:59 Intake Total 480 / 480 Output Total 0 / 0 0 / 0 0 / 0 Balance 480 / 480 0 / 480 0 / 480 Intake: Intake, Oral Amount 480 / 480 Output: Output, Urine Amount 0 / 0 0 / 0 0 / 0 Other: Number of Unmeasured Voids 1 1 1 Weight 218 lb 1 oz Patient Weight 08/08/22 11:59 Weight 218 lb 1 oz Laboratory Results - last 24 hr 08/07/22 15:04: Activated Clotting Time > 400 H* 08/07/22 15:26: Activated Clotting Time 239 H* D I & O for Labs for Last 24 Hours: Intake & Output 08/05/22 08/06/22 08/07/22 08/08/22 11:59 11:59 11:59 11:59 Intake Total 960 / 960 480 / 480 Output Total 500 / 500 0 / 0 Balance 460 / 460 480 / 480 Weight 221 lb 4 oz 218 lb 1 oz Constitutional: Present no acute distress Respiratory: Present normal respiratory effort Cardiac: Present Reg Rate and Rhythm GI: Present normal bowel sounds; Absent tenderness Extremities: Present normal inspection and full ROM Skin: Present intact; Absent erythema Neuro: Present Grossly Intact and moves all extremities Assessment and Plan *Assessment and plan (1) Chest pain: Status: Acute Category: Medical Code(s): R07.9 - Chest pain, unspecified (2) Atrial fibrillation with RVR: Status: Acute Category: Medical Code(s): I48.91 - Unspecified atrial fibrillation (3) Hypertension: Status: Acute Category: Medical Code(s): I10 - Essential (primary) hypertension (4) HLD (hyperlipidemia): Status: Chronic Qualifiers: Hyperlipidemia type: mixed hyperlipidemia Qualified Code(s): E78.2 - Mixed hyperlipidemia Category: Medical Code(s): E78.5 - Hyperlipidemia, unspecified (5) CAD (coronary artery disease): Status: Chronic Qualifiers: Associated angina: without angina Coronary Disease-Associated Artery/Lesion type: [place] artery [place] vs. transplanted heart: [place] heart Qualified Code(s): I25.10 - Atherosclerotic heart disease of [place] coronary artery without angina pectoris Category: Medical Code(s): I25.10 - Atherosclerotic heart disease of [place] coronary artery without angina pectoris (6) History of left nephrectomy: Status: Chronic Category: Surgical Code(s): Z90.5 - Acquired absence of kidney (7) Status post coronary artery stent placement: Status: Acute Category: Surgical Code(s): Z95.5 - Presence of coronary angioplasty implant and graft Plan Cardiology to follow. Dr. Kat entry - Saw patient, agree with above note. She feels much better today, continue curre
[2022-08-08 09:23] LABS: Basophils % 0.3 % (0.1-2.0); Eosinophils # 0.2 K/mm3 (0.0-0.4); Eosinophils % 1.2 % (0.1-12.0); Hematocrit 46.8 % (37.0-47.0); Hemoglobin 14.7 g/dL (12.2-16.2); Lymphocytes # 3.2 K/mm3 (0.7-4.5); Lymphocytes % 25.3 % (10-50); Mean Corpuscular HGB Conc 31.5 g/dL (31.8-35.4); Mean Corpuscular Hemoglobin 28.6 pg (27.0-31.2); Mean Corpuscular Volume 90.8 fl (81-99); Mean Platelet Volume 8.4 fl (7.4-10.4); Monocytes # 0.9 K/mm3 (0.1-1.0); Monocytes % 7.1 % (1.7-9.3); Neutrophils # 8.4 K/mm3 (1.8-7.8); Neutrophils % 66.1 % (37.0-80.0); Platelet Count 362 K/mm3 (142-424); Red Blood Count 5.15 M/mm3 (4.20-5.40); White Blood Count 12.6 K/mm3 (4.8-10.8)
[2022-08-08 09:24] LABS: Anion Gap 14.6 mEq/L (5-15); Blood Urea Nitrogen 17 mg/dl (7-17); Calcium 8.8 mg/dl (8.4-10.2); Carbon Dioxide 27 mmol/L (22.0-30.0); Chloride 101 mmol/L (98-107); Creatinine Clearance Estimated 104 mL/min (50-200); Estimated Glomerular Filt Rate 58 ml/min (>60); GFR (African American) 71 ML/MIN (>60); Glucose 85 mg/dl (74-100); Potassium 3.6 mmoL/L (3.5-5.1); Sodium 139 mmol/L (136-145)
--- NOTE | 2022-08-08 09:46 | EXP.CARD.PN ---
Subjective Subjective Date: 08/08/22 Time: 09:00 Principal diagnosis: nonstemi, afib with rvr Interval history: This is a 51-year-old female who presented to the emergency department with a rapid heart rate and shortness of breath. The patient was found to be in atrial fibrillation with RVR. She was treated with IV diltiazem and converted to sinus rhythm. She will remain on oral diltiazem at this time. The patient also had an elevated troponin consistent with a non-STEMI. She underwent left cardiac catheterization yesterday and had lithotripsy followed by 2 stents to the ramus artery. She had 1 stent placed to the LAD. She also had 2 stents placed to the PDA that was originating off of the dominant circumflex artery. The patient will be on Plavix and aspirin for dual antiplatelet therapy. This morning she denies any chest pain or pressure. She states that her shortness of breath has significantly improved and she is feeling much better. She denies any racing of the heart. She denies any fever, chills, nausea, vomiting, diarrhea, PND or orthopnea. The patient did have an episode last night where she got extremely hypotensive. Dr. Dailey reports that the patient did vagal and this is most likely a response from all of the medications and sedation she received during her procedure yesterday. This morning her blood pressure is stable and she feels much better. [facility] shows: The left main artery Normal The left anterior descending artery Has proximal 50 and 60% stenoses. ?There is a large ramus intermedius which originates off the proximal LAD which has a proximal concentric 80% calcified stenosis The circumflex artery Is a large dominant vessel and has 10 to 20% luminal irregularities in the proximal segment with a concentric 70% stenosis in the distal circumflex artery which functions as a posterior descending artery The right coronary artery Vestigial normal The GARCIA ventriculogram reveals Hyperdynamic 70 to 75% The left ventricular end-diastolic pressure 20 mmHg IMPRESSION Severe coronary disease as described above Successful intravascular lithotripsy following the placement of 2 drug-eluting stents in the ostial proximal and mid ramus intermedius reducing the disease to less than 10% Severe disease in the proximal LAD with successful stenting reducing the stenosis to 0% with 1 drug-eluting stent Successful stenting of the posterior descending artery off the distal dominant circumflex artery severe disease reduced to 0% with 2 contiguous drug-eluting stents Hyperdynamic ventricle Elevated LVEDP consistent with diastolic dysfunction PLAN 1. Plavix 600 mg now followed by 75 mg daily in combination with DOAC for atrial fibrillation 2. Control of hypertension 3. LDL less than 55 to be achieved with high intensity statin 4. Avoidance of tobacco products 5. Cardiac rehabilitation 6. Risk factor modification Exam Data for Last 24 hours Vital signs and Labs for Last 24 Hours: Temp Pulse Resp BP Pulse Ox 98.8 F 69 18 120/74 99 08/08/22 08:00 08/08/22 08:00 08/08/22 08:00 08/08/22 08:00 08/08/22 08:00 Laboratory Results - last 24 hr 08/07/22 15:04: Activated Clotting Time > 400 H* 08/07/22 15:26: Activated Clotting Time 239 H* D 08/08/22 09:04: WBC 12.6 H, RBC 5.15, Hgb 14.7, Hct 46.8, MCV 90.8, MCH 28.6, MCHC 31.5 L, RDW 13.0, Plt Count 362, MPV 8.4, Neut % (Auto) 66.1, Lymph % (Auto) 25.3, [place] % (Auto) 7.1, Eos % (Auto) 1.2, Baso % (Auto) 0.3, Neut # (Auto) 8.4 H, Lymph # (Auto) 3.2, [place] # (Auto) 0.9, Eos # (Auto) 0.2, Baso # (Auto) 0.0 08/08/22 09:04: Sodium 139, Potassium 3.6, Chloride 101, Carbon Dioxide 27, Anion Gap 14.6, BUN 17, Creatinine 1.00 D, Estimated Creat Clear 104, Estimated GFR 58 L, Est GFR ( Amer) 71 D, Glucose 85, Calcium 8.8 I & O for Last 24 hours: Intake & Output 08/05/22 08/06/22 08/07/22 08/08/22 23:59 23:59 23:59 23:59 Intake Total 480 / 480 960 / 960 240 / 240 Output Total 200 / 2
[2022-08-08 11:55] VITALS: BP 106/65; PULSE 75; RESP 18; TEMP 36.9; O2SAT 95
[2022-08-08 12:00] VITALS: PULSE 60
[2022-08-08 13:19] VITALS: BMI 35.0
--- NOTE | 2022-08-08 16:20 | HMH.PHAINT1 ---
Pharmacy Intervention Comments: Discharge medication counseling completed. Patient was starting the following new meds: -aspirin 81 mg, clopidogrel 75 mg, Xarelto 20 mg: all once daily, take Xarelto with evening meal. Told to watch for signs of bleeding (easily bruising, blood in stool, etc.) and let her dr know. ER if large amounts of blood. -atorvastatin: 40 mg once daily. Possible side effect of myalgia, let her dr know if she was sore and they could potentially decrease dose/switch statins -diltiazem 180 mg and metoprolol succinate ER 50 mg: said to take first dose at home when she didn't plan on leaving for a while and watch for signs of low BP (dizziness, fatigue). Patient was concerned about BP lowering too much. Told her to monitor it frequently and keep a BP log to show to her dr at her next appointment and contact them sooner if she was having symptoms/getting low readings. Patient was told to stop the following meds: -metoprolol succinate 25 mg TID: replaced with 50 mg QD -Medrol dose pack Patient verbalized understanding and had no further questions.
--- NOTE | 2022-08-10 13:30 | CARE MANAGER ---
Attempted to contact patient x2 related to hospital discharge. Left VM message. IDALMIS Arzate
--- NOTE | 2022-08-14 15:38 | EXP.DC.SUM ---
General Admission date:: 08/06/22 Discharge date: 08/08/22 HPI HPI HPI: Ms. Fontenot is a 51-year-old female with a history of solitary kidney, cervical dysplasia, SVT status post EP study and ablation in 2014, hypertension, sleep apnea, Philip's esophagus, and gastroparesis, fibromyalgia, and MOG antibody disease who when sitting at work all of a sudden felt her heart runaway.? She works in a clinic and with pulse oximeter reading her heart rate was read as being in 200s.? She also suffered with some chest discomfort and shortness of breath with this.? Thus she came to the emergency room at [facility] for evaluation. With evaluation in the emergency room EKG revealed atrial fibrillation with ventricular response of 162 bpm this.? She was initially given a bolus of diltiazem IV and started on a diltiazem drip.? She then converted to sinus rhythm and was given p.o. Cardizem.? While in the ER she was seen by LATASHA Ocasio, cardiology with the following notation: Plan 1.? A-fib with RVR Converted to sinus rhythm after IV diltiazem.? Now on oral dosing of 180 mg extended release. Continue metoprolol succinate 12.5 mg daily Likely will need referral back to EP for further ablation. 2.? Elevated troponin likely secondary to demand ischemia.? Recommend admission and continue to trend overnight Check echocardiogram in the morning Start aspirin 81 mg daily 3.? Hypertension, will continue to monitor after starting diltiazem in addition to continuing metoprolol Continue Lasix She was then admitted. Hospital Course Hospital Course Hospital Course: The patient was admitted and cardiology ordered an echo. Her troponins did begin elevating, therefore a heart cath was scheduled. She converted to normal sinus rhythm with a dose of IV diltiazem and cardiology felt she would need to remain on diltiazem ER 180 mg daily for suppression of her atrial fibrillation. They felt she would benefit from seeing an EP in [place] and they were planning to refer her to Dr. Mahajan. She was taken for heart cath and received 5 stents for severe coronary disease. She also had an LVEDP that was elevated consistent with diastolic dysfunction. She was given a dose of 600 mg of Plavix followed by 75 mg daily in combination with DOAC. Cardiology felt she would need to have cardiac rehabilitation. By 08/08/2022 she was feeling better and had less shortness of breath. She denied any chest pain. She did have an episode of her blood pressure dropping into the 70s over 30s and had some vomiting, but by the morning of 08/08/2022, her blood pressure was 120/80 and she was feeling much better. Cardiology reviewed her echo and her preliminary EF was normal. They felt she could be discharged and will need to follow-up with them in the office. Exam Data for Last 24 hours Vital signs and Labs for Last 24 Hours: Temp Pulse Resp BP Pulse Ox 98.5 F 60 18 106/65 L 95 08/08/22 11:55 08/08/22 12:00 08/08/22 11:55 08/08/22 11:55 08/08/22 11:55 Narrative: Constitutional Constitutional: no acute distress Comments: Appears comfortable and has completed dinner *Routine HEENT Exam Head: Present normocephalic and atraumatic Eye: Present PERRL; Absent conjunctival icterus, scleral injection or conjunctivae pink ENT: Present mucous membranes moist and oropharynx clear *Routine Neck Exam Neck: Present supple; Absent carotid bruit, lymphadenopathy or thyromegaly *Routine Respiratory Exam Respiratory: Present CTA bilaterally (Anteriorly and posteriorly) *Routine Cardiovascular Exam Cardiovascular: Present RRR Comments: Monitor currently? showing sinus rhythm in the 70s *Routine Abdominal Exam Abdominal: Present soft and normoactive bowel sounds; Absent tenderness or distended *Routine Rectal Exam Rectal:: deferred *Routine Genitalia Exam Genitalia:: deferred *Routine Extremities Exam Extremities: Present pulses intact; Absent edema or calf tenderness
== END 2022-08-08 16:44 | disposition home or self-care (01) | DRG 246 ==
LOC: ER 15:06 → 2ND 16:19
PROVIDERS: Internal Medicine; Nurse Practitioner Family; Admitting Provider Family Medicine; Emergency Provider Emergency Medicine; PCP Physician Assistant; Visit Provider Family Medicine
PROC: 027337Z Dilation of Coronary Artery, Four or More Arteries with Four or More Drug-eluting Intraluminal Devices, Percutaneous Approach (ICD-10-PCS; principal; 2022-08-07 12:15)
DX: I21.4 Non-ST elevation (NSTEMI) myocardial infarction (principal); I48.0 Paroxysmal atrial fibrillation; I25.10 Atherosclerotic heart disease of native coronary artery without angina pectoris; G47.33 Obstructive sleep apnea (adult) (pediatric); E66.9 Obesity, unspecified; Z68.35 Body mass index [BMI] 35.0-35.9, adult; I10 Essential (primary) hypertension; Z82.49 Family history of ischemic heart disease and other diseases of the circulatory system; E78.5 Hyperlipidemia, unspecified; Z90.5 Acquired absence of kidney
CPT/HCPCS: 0715T; 36415; 71045; 71275; 80048; 80053; 80076; 83880; 84443; 84484; 85025; 85347; 85378; 85610; 85730; 92928; 92929; 93005; 93306; 93458; 99152; 99153; 99291; C1725; C1761; C1769; C1874; C1876; C9600; C9601; C9803; J1644; Q9967; U0003; U0005

== ENCOUNTER → 2022-08-15 14:46 | Outpatient (CLI) | payer BC, SELFPAY ==
[2022-08-15 14:49] LABS: Microscopic, Urine URINE MICROSCOPIC (MICROSCOPIC)
[2022-08-15 15:26] LABS: Appearance,Urine CLEAR (Clear); Bilirubin,Urine Negative (Negative); Blood, Urine 2+ (Negative); Color,Urine YELLOW (Yellow); Glucose,Urine (UA) Negative (Negative); Ketones,Urine Negative (Negative); Leukocyte Esterase,Urine Negative (Negative); Nitrate,Urine Negative (Negative); Protein,Urine Negative (Negative); Specific Gravity, Urine 1.015 (1.005-1.030)
[2022-08-15 15:33] LABS: Bacteria,Urine Trace /lpf; WBC,Urine Occasional #/hpf (0-3)
[2022-08-15 15:50] LABS: Chloride 104 mmol/L (98-107); Sodium 139 mmol/L (136-145)
[2022-08-15 15:51] LABS: Potassium 4.1 mmoL/L (3.5-5.1)
[2022-08-15 15:54] LABS: Anion Gap 14.1 mEq/L (5-15); Blood Urea Nitrogen 13 mg/dl (7-17); Carbon Dioxide 25 mmol/L (22.0-30.0); Estimated Glomerular Filt Rate 76 ml/min (>60); GFR (African American) 92 ML/MIN (>60); Glucose 87 mg/dl (74-100)
== END ==
PROVIDERS: PCP Physician Assistant; Visit Provider Nurse Practitioner Family
DX: I20.8 Other forms of angina pectoris (principal); R06.02 Shortness of breath; I11.9 Hypertensive heart disease without heart failure; E78.2 Mixed hyperlipidemia; K21.9 Gastro-esophageal reflux disease without esophagitis; R94.31 Abnormal electrocardiogram [ECG] [EKG]; G47.33 Obstructive sleep apnea (adult) (pediatric); Z86.79 Personal history of other diseases of the circulatory system; Z90.5 Acquired absence of kidney; Z95.5 Presence of coronary angioplasty implant and graft
CPT/HCPCS: 36415; 80048; 81001

== ENCOUNTER → 2022-09-11 11:12 | Outpatient (CLI) | payer BC, SELFPAY ==
[2022-09-11 11:19] LABS: MANUAL DIFFERENTIAL MANUAL DIFFERENTIAL (MANUAL DIFF)
[2022-09-11 11:29] LABS: Basophils % 0.2 % (0.1-2.0); Eosinophils # 0.4 K/mm3 (0.0-0.4); Eosinophils % 4.3 % (0.1-12.0); Hematocrit 39.4 % (37.0-47.0); Hemoglobin 12.5 g/dL (12.2-16.2); Lymphocytes # 2.8 K/mm3 (0.7-4.5); Lymphocytes % 34.1 % (10-50); Mean Corpuscular HGB Conc 31.8 g/dL (31.8-35.4); Mean Corpuscular Volume 88.2 fl (81-99); Mean Platelet Volume 8.9 fl (7.4-10.4); Monocytes # 0.4 K/mm3 (0.1-1.0); Monocytes % 5.1 % (1.7-9.3); Neutrophils # 4.7 K/mm3 (1.8-7.8); Neutrophils % 56.3 % (37.0-80.0); Platelet Count 295 K/mm3 (142-424); Red Blood Count 4.46 M/mm3 (4.20-5.40); Red Cell Distribution Width 13.4 % (11.5-17.5); White Blood Count 8.3 K/mm3 (4.8-10.8)
[2022-09-11 12:15] LABS: Eosinophils % 5 % (0-3); Lymphocytes % 35 % (10-50); Monocytes % 6 % (2-9); Neutrophils % 54 % (42-76); Platelet Estimate Normal; RBC Morphology Normal; Total Cells Counted 100
[2022-09-11 13:16] LABS: Anion Gap 10.6 mEq/L (5-15); Blood Urea Nitrogen 11 mg/dl (7-17); Carbon Dioxide 25 mmol/L (22.0-30.0); Chloride 107 mmol/L (98-107); Estimated Glomerular Filt Rate 76 ml/min (>60); GFR (African American) 92 ML/MIN (>60); Glucose 81 mg/dl (74-100); Potassium 4.6 mmoL/L (3.5-5.1); Sodium 138 mmol/L (136-145)
== END ==
PROVIDERS: PCP Physician Assistant; Visit Provider Nurse Practitioner
DX: I25.10 Atherosclerotic heart disease of native coronary artery without angina pectoris (principal); I11.9 Hypertensive heart disease without heart failure; E78.5 Hyperlipidemia, unspecified; K21.9 Gastro-esophageal reflux disease without esophagitis; R94.31 Abnormal electrocardiogram [ECG] [EKG]; G47.33 Obstructive sleep apnea (adult) (pediatric); Z86.79 Personal history of other diseases of the circulatory system; Z90.5 Acquired absence of kidney; Z95.5 Presence of coronary angioplasty implant and graft
CPT/HCPCS: 36415; 80048; 85007; 85014; 85018; 85048; 85049

== ENCOUNTER → 2022-11-23 12:32 | Outpatient (CLI) | payer BC, SELFPAY ==
[2022-11-23 13:03] LABS: Basophils % 0.3 % (0.1-2.0); Eosinophils # 0.2 K/mm3 (0.0-0.4); Eosinophils % 2.6 % (0.1-12.0); Hematocrit 44.6 % (37.0-47.0); Hemoglobin 14.4 g/dL (12.2-16.2); Lymphocytes # 2.1 K/mm3 (0.7-4.5); Lymphocytes % 35.1 % (10-50); Mean Corpuscular HGB Conc 32.4 g/dL (31.8-35.4); Mean Corpuscular Volume 89.4 fl (81-99); Monocytes # 0.4 K/mm3 (0.1-1.0); Monocytes % 6.1 % (1.7-9.3); Neutrophils # 3.4 K/mm3 (1.8-7.8); Neutrophils % 55.9 % (37.0-80.0); Platelet Count 339 K/mm3 (142-424); Red Blood Count 4.98 M/mm3 (4.20-5.40); Red Cell Distribution Width 12.8 % (11.5-17.5); White Blood Count 6.1 K/mm3 (4.8-10.8)
[2022-11-23 13:51] LABS: Chloride 108 mmol/L (98-107)
[2022-11-23 13:52] LABS: Potassium 4.5 mmoL/L (3.5-5.1); Sodium 138 mmol/L (136-145)
[2022-11-23 13:54] LABS: Alanine Aminotransferase 25 U/L (12-78); Albumin Level 3.9 g/dl (3.5-5.0); Albumin/Globulin Ratio 1.3 (1.1-1.8); Alkaline Phosphatase 97 U/L (38-126); Anion Gap 11.5 mEq/L (5-15); Aspartate Amino Transferase 26 U/L (14-36); Bilirubin,Total 0.4 mg/dl (0.2-1.3); Blood Urea Nitrogen 9 mg/dl (7-17); Carbon Dioxide 23 mmol/L (22.0-30.0); Estimated Glomerular Filt Rate 88 ml/min (>60); GFR (African American) 107 ML/MIN (>60); Globulin 3.1 g/dL (1.3-3.2)
[2022-11-23 13:55] LABS: Calcium 9.4 mg/dl (8.4-10.2); Cholesterol 286 mg/dl (140-200); Glucose 88 mg/dl (74-100); HDL Cholesterol 48 mg/dl (40-60); Triglycerides 163 mg/dl (30-150); VLDL Cholesterol 33 mg/dL (0-40)
[2022-11-23 14:04] LABS: NT Pro Brain Natriuretic Pep. 76.2 pg/mL (0-125)
[2022-11-23 14:06] LABS: Direct LDL Cholesterol 172.84 mg/dL (100-129)
[2022-11-27 02:10] LABS: MOG Antibody, Cell-based IFA Positive (Negative)
== END ==
PROVIDERS: PCP Physician Assistant; Visit Provider Physician Assistant
DX: E78.5 Hyperlipidemia, unspecified (principal); G37.8 Other specified demyelinating diseases of central nervous system; Z95.5 Presence of coronary angioplasty implant and graft; I10 Essential (primary) hypertension
CPT/HCPCS: 36415; 80053; 80061; 83880; 85025

== ENCOUNTER 2023-02-21 12:21 | Emergency (ER) | payer BC, SELFPAY ==
[2023-02-21 12:55] VITALS: BP 139/86; PULSE 84; RESP 19; TEMP 36.8; O2SAT 99; BMI 36.0
[2023-02-21 13:12] LABS: Adenovirus,PCR Not Detected (NotDetected); Coronavirus 19, PCR Not Detected (NotDetected); Coronavirus 229E Not Detected (NotDetected); Coronavirus NL63 Not Detected (NotDetected); Coronavirus OC43 Not Detected (NotDetected); Coronovirus HKU1,PCR Not Detected (NotDetected); Human Metapneumovirus Not Detected (NotDetected); Influenza A, PCR Not Detected (NotDetected); Influenza AH1, 2009 Not Detected (NotDetected); Influenza AH1, PCR Not Detected (NotDetected); Influenza AH3,PCR Not Detected (NotDetected); Influenza B, PCR Not Detected (NotDetected); Parainfluenza 1, PCR Not Detected (NotDetected); Parainfluenza 2, PCR Not Detected (NotDetected); Parainfluenza 3, PCR Not Detected (NotDetected); Parainfluenza 4, PCR Not Detected (NotDetected); Rhinovirus/Enterovirus Not Detected (NotDetected)
[2023-02-21 13:24] LABS: UTC Strep Screen (Rapid) Negative (Negative)
--- NOTE | 2023-02-21 13:31 | EXP.UTC ---
Discharge Plan Disposition Patient Disposition: Home, Self-Care Condition: Good Prescriptions Prescriptions: New amoxicillin-pot clavulanate 875-125 mg Tablet 1 tab PO Q12H Qty: 20 0RF fluticasone propionate [Flonase Allergy Relief] 50 mcg/actuation spray,suspension 1 - 2 spray intranasal DAILY Qty: 16 0RF Rx Instructions: administer into each nostril daily benzonatate 100 mg capsule 100 mg PO TID PRN (Reason: cough) Qty: 30 0RF No Action loratadine [Claritin] 10 mg tablet 10 mg PO DAILY clopidogrel [Plavix] 75 mg tablet 75 mg PO DAILY Qty: 30 5RF atorvastatin [Lipitor] 40 mg tablet 40 mg PO DAILY Qty: 30 5RF Xarelto 20 mg tablet 20 mg PO DAILY Qty: 30 5RF Rx Instructions: must administer with evening meal metoprolol succinate 50 mg tablet extended release 24 hr 50 mg PO DAILY Qty: 30 5RF pantoprazole 40 mg tablet,delayed release (DR/EC) 40 mg PO DAILY Qty: 30 5RF furosemide [Lasix] 40 mg tablet 40 mg PO DAILY PRN (Reason: edema) Qty: 30 5RF Referrals Follow up/Referrals: Mikayla Meier PA [Primary Care Provider] - See instructions Activity Restrictions/Add. Instructions Additional Instructions/Restrictions: *Monitor Temp, Over the counter Motrin or Tylenol as directed/as needed Tylenol every 4 hours and Motrin every 6 hours (as long as your family doctor has told you that you can take it) for fever or pain. and straight to ER if unable to lower temp less than 101.0 after medication given *Warm salt water gargles may help to soothe the throat *Throat Lozenges? *Warm fluids like tea with honey may help to soothe the throat? *Sleep elevated *Humidifier/Vaporizer *Flonase 2 sprays in each nostril daily but be aware that it may take 2-3 days before you notice improvement Take medication as prescribed Your throat swab was sent for culture. Those results are typically sent to your primary care. Be sure to follow up in 2-3 days with your family doctor/primary care physician if no improvement so they can review those result and treat if necessary. If you don?t have a primary care doctor, I recommend you get one but in the mean time, you will have to return to a walk in clinic Follow up IMMEDIATELY for new or worsening symptoms or no Noticeable improvement over the next 48-72 hours. 911 for difficulty breathing or swallowing Clinical Impressions Clinical Impression: Sinusitis Qualifiers: Sinusitis location: unspecified location Chronicity: unspecified Qualified Code(s): J32.9 - Chronic sinusitis, unspecified Instructions Patient Instructions: DI for Sinusitis, Sinusitis Discharge ED Provider: Natalia Felix [facility] General Stated complaint: runny nose,cough, sore throat Mode of Arrival: Ambulatory Source of Information: Patient Limitations: No Limitations Time Seen by Provider: 02/21/23 13:31 Description of Symptoms (Recalled from Triage Doc. by RN): PATIENT C/O SINUS DRAINAGE AND COUGH X 16 DAYS HEENT Symptoms (Recalled from RN notes): Yes Resp Symptoms (Recalled from RN notes): Yes Skin Symptoms (Recalled from RN notes): No MS Symptoms (Recalled from RN notes): No Functional Status (Recalled from RN notes): WNL History of Present Illness Provider Complaint: Patient states that she started out a couple weeks ago with sinus congestion and cough that has continued to get worse over the last week or so States that her snot has changed colors now a dark yellowish brown color and draining in the back of her throat causing her to cough States that the pressure behind her eyes and today it was getting worse so she came in to get checked Related Data Home Medications Medication Instructions Recorded Confirmed loratadine 10 mg tablet (Claritin) 10 mg PO DAILY Allergy symptoms 01/26/21 01/03/23 Previous Rx's Medication Instructions Recorded atorvastatin 40 mg tablet (Lipitor) 40 mg PO DAILY #30 tabs 09/11/22 clopidogrel 75 mg tablet (Plavix) 75 mg PO DAILY #30 tabs 09/11/22 furosemide 40 mg tablet (Lasix) 40 mg PO DAILY PRN edema #30 tabs 09/11/22 metoprolol succinate 50 mg 50 mg PO DAILY #30 tabs 09/11/22 tablet,extended release 24 hr pantoprazole 40 mg tablet,delayed 40 mg PO DAILY Acid reflux #30 tabs 09/11/22 release rivaroxaban 20 mg tablet (Xarelto) 20 mg PO DAILY #30 tabs 09/11/22 amoxicillin 875 mg-potassium 1 tab PO Q12H #20 tabs 02/21/23 clavulanate 125 mg tablet benzonatate 100 mg capsule 100 mg PO TID PRN cough #30 caps 02/21/23 fluticasone propionate 50 1 - 2 spray intranasal DAILY #16 02/21/23 mcg/actuation nasal grams spray,suspension (Flonase Allergy Relief) Allergies Allergy/AdvReac Type Severity Reaction Status Date / Time fluconazole [From Diflucan] Allergy Rash Verified 01/03/23 09:43 phenazopyridine Allergy Rash Verified 01/03/23 09:43 [From Pyridium] aspirin AdvReac Verified 01/03/23 09:43 Worker's Comp Is this a Worker's Comp case?: No [facility] Disclaimer: The information contained in this section may have been updated after the patient was seen, as this information can be updated by other users. Medical History (Updated 02/21/23 @ 13:44 by Natalia Felix APRN) Abnormal EKG Angina pectoris Atrial fibrillation Chest pain Coronary artery calcification seen on CT scan COVID-19 virus infection Dyspnea Family history of heart disease Fibromyalgia Gastroesophageal reflux disease Hx of supraventricular tachycardia Hypertension Migraine Non-STEMI (non-ST elevated myocardial infarction) HEATHER (obstructive sleep apnea) Paroxysmal A-fib Typical angina Urinary tract infection Surgical History History of cardiac radiofrequency ablation History of cholecystectomy History of hysterectomy History of left nephrectomy History of tonsillectomy Family History Other Cancer Coronary artery disease Diabetes Social History Smoking Status: Never smoker second hand exposure: No alcohol intake: never substance use type: denies use current occupational status: employed Travel in the last 8 weeks: Inside the [place] household members: spouse and family housing: house current occupation: administrative prof current occupational exposures/hazards: No caffeine: No ROS Obtained: Yes All systems reviewed & no additional complaints except as documented and Yes Systems reviewed as appropriate & no additional complaints except as documented Constitutional Constitutional: Reports system reviewed and no additional complaints, except as documented, Reports as per HPI and Reports headache(s) ENT Ears, Nose, Mouth, and Throat: Reports system reviewed and no additional complaints, except as documented, Reports as per HPI, Reports headache(s), Reports sinus pain and Reports sinus pressure Cardiovascular Cardiovascular: Reports system reviewed and no additional complaints, except as documented and Reports as per HPI Respiratory Respiratory: Reports system reviewed and no additional complaints, except as documented, Reports as per HPI and Reports cough Gastrointestinal Gastrointestingal: Reports system reviewed and no additional complaints, except as documented and as per HPI Neurologic Neurologic: Reports headache(s) Physical Exam General General appearance: alert and in no apparent distress ENT ENT exam: Present mucous membranes moist Expanded ENT Exam Nose exam: Present sinus tenderness Throat exam: Present other (Pharyngeal erythema noted with PND) Respiratory Respiratory exam: Present normal lung sounds bilaterally; Absent respiratory distress or wheezes Cardiovascular Cardiovascular exam: Present regular rate, normal rhythm and normal heart sounds Abdominal Exam Abdominal exam: Present soft and normal bowel sounds; Absent distention or tenderness Neurological Exam Neurological exam: Present alert, oriented X3 and normal gait Medical Decision Making Sridhar Inquiry Pt receiving controlled substance: No Sridhar was queried for this patient: No Vital Signs: 02/21/23 12:55 Temperature 98.3 F Temperature Source Oral Pulse Rate [Left Brachial] 84 Respiratory Rate 19 Blood Pressure [Left Arm] 139/86 Blood Pressure Mean [Left Arm] 103 Blood Pressure Source [Left Arm] Automatic Cuff Blood Pressure Position [Left Arm] Sitting 02 Sat by Pulse Oximetry 99 Oxygen Delivery Method Room Air Lab Data Lab results reviewed: Yes I reviewed the patient's lab results. Lab Results 02/21/23 12:59: Strep Scn Rapid Clinic Negative Orders (Tests/Meds): ORDERS Category Date Time Status Full Resp Panel w/COVID ([facility]) Routine Lab 02/21/23 13:10 Received Strep Screen Confirmation Stat Micro 02/21/23 12:59 Received
[2023-02-21 13:48] VITALS: BP 139/86; PULSE 84; RESP 19; TEMP 36.8; O2SAT 99
[2023-02-21 19:56] LABS: Respiratory Syncytial Virus Detected (NotDetected)
== END 2023-02-21 13:50 | disposition home or self-care (01) ==
PROVIDERS: Emergency Provider Nurse Practitioner; PCP Physician Assistant
DX: J01.90 Acute sinusitis, unspecified (principal); B97.4 Respiratory syncytial virus as the cause of diseases classified elsewhere; R51.9 Headache, unspecified; R05.9 Cough, unspecified; R07.0 Pain in throat; R09.81 Nasal congestion; R09.82 Postnasal drip; I48.0 Paroxysmal atrial fibrillation; K21.9 Gastro-esophageal reflux disease without esophagitis; I11.9 Hypertensive heart disease without heart failure; I25.119 Atherosclerotic heart disease of native coronary artery with unspecified angina pectoris; Z95.5 Presence of coronary angioplasty implant and graft; Z79.01 Long term (current) use of anticoagulants
CPT/HCPCS: 87632; 87635; 87880; 99212; 99214; G0463

== ENCOUNTER 2023-06-05 13:11 | Emergency (ER) | payer BC, OTHER, SELFPAY ==
[2023-06-05 14:00] VITALS: BP 186/96; PULSE 78; RESP 18; TEMP 36.9; O2SAT 99; BMI 33.9
--- NOTE | 2023-06-05 14:08 | EXP.UTC ---
Discharge Plan Disposition Patient Disposition: Home, Self-Care Condition: Good Prescriptions Prescriptions: New azithromycin [Zithromax] 250 mg tablet 250 mg PO UD DOSE PK Qty: 6 0RF Rx Instructions: Take two (2) tablets today, then one (1) tablet days #2 thru #5 benzonatate 100 mg capsule 100 mg PO TIDP PRN (Reason: Cough) Qty: 30 0RF methylprednisolone 4 mg Tablets,Dose Pack 4 mg PO DIRECTED 6 Days Qty: 21 0RF Rx Instructions: Take 1 pack as directed for 6 days guaifenesin [Mucinex] 600 mg tablet extended release 12hr 600 - 1,200 mg PO BIDP PRN (Reason: Congestion) Qty: 30 0RF No Action loratadine [Claritin] 10 mg tablet 10 mg PO DAILY clopidogrel [Plavix] 75 mg tablet 75 mg PO DAILY Qty: 30 5RF atorvastatin [Lipitor] 40 mg tablet 40 mg PO DAILY Qty: 30 5RF Xarelto 20 mg tablet 20 mg PO DAILY Qty: 30 5RF Rx Instructions: must administer with evening meal metoprolol succinate 50 mg tablet extended release 24 hr 50 mg PO DAILY Qty: 30 5RF pantoprazole 40 mg tablet,delayed release (DR/EC) 40 mg PO DAILY Qty: 30 5RF furosemide [Lasix] 40 mg tablet 40 mg PO DAILY PRN (Reason: edema) Qty: 30 5RF fluticasone propionate [Flonase Allergy Relief] 50 mcg/actuation spray,suspension 1 - 2 spray intranasal DAILY Qty: 16 0RF Rx Instructions: administer into each nostril daily albuterol sulfate 90 mcg/actuation HFA aerosol inhaler See Rx Instructions .ROUTE .COMPLEX Patient Comments: INHALE 1 TO 2 PUFFS BY MOUTH EVERY 4 HOURS NEEDED Rx Instructions: INHALE 1 TO 2 PUFFS BY MOUTH EVERY 4 HOURS NEEDED Referrals Follow up/Referrals: Mikayla Meier PA [Primary Care Provider] - See instructions Activity Restrictions/Add. Instructions Additional Instructions/Restrictions: Drink plenty of fluids. Take tylenol or ibuprofen for pain or fever. Take the medications as directed. Follow up with your regular doctor. GO TO THE ER FOR ANY WORSENING SYMPTOMS Clinical Impressions Clinical Impression: Sinusitis, Pharyngitis Instructions Patient Instructions: Sinusitis, DI for Pharyngitis/Tonsillopharyngitis -- Adult, DI for Sinusitis Discharge ED Provider: Reji Swanson [facility] HPI General Stated complaint: sore throat, cough Time Seen by Provider: 06/05/23 14:08 History of Present Illness Provider Complaint: She states that for the past 2 weeks she has had sore throat, sinus congestion, and a productive cough. She states that she also has chest congestion. Related Data Home Medications Medication Instructions Recorded Confirmed loratadine 10 mg tablet (Claritin) 10 mg PO DAILY Allergy symptoms 01/26/21 06/05/23 albuterol sulfate 90 mcg/actuation See Rx Instructions .Route .COMPLEX 06/05/23 06/05/23 aerosol inhaler Previous Rx's Medication Instructions Recorded atorvastatin 40 mg tablet (Lipitor) 40 mg PO DAILY #30 tabs 09/11/22 clopidogrel 75 mg tablet (Plavix) 75 mg PO DAILY #30 tabs 09/11/22 furosemide 40 mg tablet (Lasix) 40 mg PO DAILY PRN edema #30 tabs 09/11/22 metoprolol succinate 50 mg 50 mg PO DAILY #30 tabs 09/11/22 tablet,extended release 24 hr pantoprazole 40 mg tablet,delayed 40 mg PO DAILY Acid reflux #30 tabs 09/11/22 release rivaroxaban 20 mg tablet (Xarelto) 20 mg PO DAILY #30 tabs 09/11/22 fluticasone propionate 50 1 - 2 spray intranasal DAILY #16 02/21/23 mcg/actuation nasal grams spray,suspension (Flonase Allergy Relief) azithromycin 250 mg tablet 250 mg PO UD DOSE PK #6 tabs 06/05/23 (Zithromax) benzonatate 100 mg capsule 100 mg PO TIDP PRN Cough #30 caps 06/05/23 guaifenesin 600 mg tablet, 600 - 1,200 mg (1 - 2 x 600 mg) PO 06/05/23 extended release 12 hr (Mucinex) BIDP PRN Congestion #30 tabs methylprednisolone 4 mg tablets in 4 mg PO DIRECTED 6 days #21 tabs 06/05/23 a dose pack Allergies Allergy/AdvReac Type Severity Reaction Status Date / Time fluconazole [From Diflucan] Allergy Rash Verified 06/05/23 14:10 phenazopyridine Allergy Rash Verified 06/05/23 14:10 [From Pyridium] aspirin AdvReac Verified 06/05/23 14:10 [facility] Disclaimer: The information contained in this section may have been updated after the patient was seen, as this information can be updated by other users. Medical History (Updated 06/05/23 @ 14:27 by Reji Swanson APRN) Paroxysmal A-fib Non-STEMI (non-ST elevated myocardial infarction) Angina pectoris Fibromyalgia Typical angina Urinary tract infection Hypertension Atrial fibrillation Migraine COVID-19 virus infection Hx of supraventricular tachycardia Family history of heart disease HEATHER (obstructive sleep apnea) Abnormal EKG Gastroesophageal reflux disease Coronary artery calcification seen on CT scan Dyspnea Chest pain Surgical History History of cardiac radiofrequency ablation History of tonsillectomy History of hysterectomy History of cholecystectomy History of left nephrectomy Family History Other Cancer Coronary artery disease Diabetes Social History Smoking Status: Never smoker second hand exposure: No alcohol intake: never substance use type: denies use current occupational status: employed Travel in the last 8 weeks: [place] the [place] household members: spouse and family housing: house current occupation: administrative prof current occupational exposures/hazards: No caffeine: No ROS Obtained: Yes All systems reviewed & no additional complaints except as documented Constitutional Constitutional: Reports chills and Reports fever(s) Eyes Eyes: Denies eye discharge ENT Ears, Nose, Mouth, and Throat: Reports as per HPI Cardiovascular Cardiovascular: Denies chest pain Respiratory Respiratory: Denies chest congestion and Reports cough Gastrointestinal Gastrointestingal: Reports nausea; Denies abdominal pain, constipation, cramping, diarrhea or vomiting Musculoskeletal Musculoskeletal: Denies arthralgias Integumentary/Breasts Skin/Breast: Denies rash Neurologic Neurologic: Denies paresthesias Physical Exam General General appearance: alert and in no apparent distress Head Head exam: atraumatic, normocephalic and normal inspection Eye Eye exam: Present normal appearance, PERRL and EOMI ENT ENT exam: Present mucous membranes moist and normal external ear exam Expanded ENT Exam TM/Canal exam: Bilateral TM: erythema and bulging Nose exam: Absent sinus tenderness Mouth exam: Present normal external inspection; Absent drooling Teeth exam: Present normal inspection Throat exam: Present tonsillar erythema, tonsillomegaly and tonsillar exudate Neck Neck exam: Present normal inspection, full ROM and trachea midline; Absent tenderness, meningismus or lymphadenopathy Chest Chest inspection: Present normal inspection and symmetric chest wall rise; Absent tenderness Respiratory Respiratory exam: Present normal lung sounds bilaterally; Absent respiratory distress, wheezes, stridor or accessory muscle use Cardiovascular Cardiovascular exam: Present regular rate and normal rhythm; Absent systolic murmur or diastolic murmur Abdominal Exam Abdominal exam: Present soft and normal bowel sounds; Absent distention, tenderness, guarding, rebound or rigidity Extremities Exam Extremities exam: Present normal inspection and normal capillary refill; Absent calf tenderness Back Exam Back exam: Present normal inspection and full ROM; Absent tenderness, CVA tenderness (R) or CVA tenderness (L) Neurological Exam Neurological exam: Present alert, oriented X3 and CN II-XII intact Psychiatric Psychiatric exam: Present normal affect and normal mood Skin Skin exam: Present warm, dry, intact and normal color Medical Decision Making Medical Records Medical records reviewed: No I reviewed the patient's medical records. Sridhar Inquiry Pt receiving controlled substance: No Lab Data Lab results reviewed: Yes I reviewed the patient's lab results.
[2023-06-05 14:31] LABS: UTC Strep Screen (Rapid) Negative (Negative)
[2023-06-05 14:37] VITALS: BP 186/96; PULSE 78; RESP 18; TEMP 36.9; O2SAT 99
== END 2023-06-05 14:36 | disposition home or self-care (01) ==
PROVIDERS: Emergency Provider Nurse Practitioner Family; PCP Physician Assistant
DX: J02.9 Acute pharyngitis, unspecified (principal); J01.90 Acute sinusitis, unspecified; R05.9 Cough, unspecified; R09.81 Nasal congestion; K21.9 Gastro-esophageal reflux disease without esophagitis; I11.9 Hypertensive heart disease without heart failure; I25.119 Atherosclerotic heart disease of native coronary artery with unspecified angina pectoris; I48.0 Paroxysmal atrial fibrillation; G47.33 Obstructive sleep apnea (adult) (pediatric)
CPT/HCPCS: 87880; 99212; 99214; G0463

== ENCOUNTER 2023-07-29 15:42 | Outpatient (CLI) | payer BC, SELFPAY ==
[2023-07-29 17:04] LABS: Basophils % 0.4 % (0.1-2.0); Eosinophils # 0.7 K/mm3 (0.0-0.4); Eosinophils % 7.6 % (0.1-12.0); Hematocrit 42.5 % (37.0-47.0); Hemoglobin 13.9 g/dL (12.2-16.2); Lymphocytes # 2.7 K/mm3 (0.7-4.5); Lymphocytes % 31.6 % (10-50); Mean Corpuscular HGB Conc 32.8 g/dL (31.8-35.4); Mean Corpuscular Hemoglobin 29.4 pg (27.0-31.2); Mean Corpuscular Volume 89.7 fl (81-99); Mean Platelet Volume 9.3 fl (7.4-10.4); Monocytes # 0.5 K/mm3 (0.1-1.0); Neutrophils # 4.7 K/mm3 (1.8-7.8); Neutrophils % 54.5 % (37.0-80.0); Platelet Count 264 K/mm3 (142-424); Red Blood Count 4.73 M/mm3 (4.20-5.40); Red Cell Distribution Width 13.9 % (11.5-17.5); White Blood Count 8.6 K/mm3 (4.8-10.8)
[2023-07-29 17:38] LABS: Alanine Aminotransferase 24 U/L (12-78); Albumin Level 3.9 g/dl (3.5-5.0); Alkaline Phosphatase 88 U/L (38-126); Anion Gap 13.1 mEq/L (5-15); Aspartate Amino Transferase 26 U/L (14-36); Bilirubin,Direct 0.1 mg/dl (0.0-0.4); Bilirubin,Indirect 0.2 mg/dL (0.0-0.9); Bilirubin,Total 0.3 mg/dl (0.2-1.3); Bilirubin,Unconjugated 0.2 mg/dL (0.0-1.1); Blood Urea Nitrogen 14 mg/dl (7-17); Calcium 9.3 mg/dl (8.4-10.2); Carbon Dioxide 25 mmol/L (22.0-30.0); Chloride 106 mmol/L (98-107); Chol/HDL Ratio 6.2 (1-3.5); Cholesterol 283 mg/dl (140-200); Estimated Glomerular Filt Rate 66 ml/min (>60); GFR (African American) 80 ML/MIN (>60); Glucose 94 mg/dl (74-100); HDL Cholesterol 46 mg/dl (40-60); Magnesium 1.9 mg/dl (1.6-2.3); Potassium 4.1 mmoL/L (3.5-5.1); Sodium 140 mmol/L (136-145); Total Protein,Serum 6.9 g/dl (6.3-8.2); Triglycerides 223 mg/dl (30-150); VLDL Cholesterol 45 mg/dL (0-40)
[2023-07-29 17:50] LABS: Direct LDL Cholesterol 172.01 mg/dL (100-129)
[2023-07-29 18:08] LABS: Thyroid Stimulating Hormone 1.48 uIU/mL (0.465-4.68)
[2023-07-29 18:12] LABS: Troponin I < 0.01 ng/ml (0.00-0.034)
[2023-07-29 18:33] LABS: Free T4 (Free Thyroxine) 1.17 ng/dl (0.78-2.19)
== END 2023-07-29 23:59 | disposition home or self-care (01) ==
LOC: LAB 15:42
PROVIDERS: PCP Physician Assistant; Visit Provider Physician Assistant
DX: I11.9 Hypertensive heart disease without heart failure (principal); I25.118 Atherosclerotic heart disease of native coronary artery with other forms of angina pectoris; R07.9 Chest pain, unspecified
CPT/HCPCS: 36415; 80048; 80061; 80076; 83735; 84439; 84443; 84484; 85025

== ENCOUNTER 2023-07-31 10:45 | Observation (INO) | payer BC, SELFPAY ==
[2023-07-31] VITALS (10 sets, daily range): BP systolic 94–198; BP diastolic 48–123; PULSE 55–80; RESP 12–20; TEMP 36.7–37; O2SAT 96–98; BMI 33.9
--- NOTE | 2023-07-31 11:04 | US_ITS ---
FINAL REPORT CLINICAL HISTORY: htn FINDINGS: The right kidney measures 13.7 cm in length. It is normal in echogenicity. There is no hydronephrosis. The left kidney has been removed. The spleen is unremarkable. IMPRESSION: Status post left nephrectomy, otherwise unremarkable. Reviewed, Interpreted and Dictated by Warner You III, MD Transcribed by Shelby Wilkinson Authenticated and [facility]
--- NOTE | 2023-07-31 11:04 | CA_ITS ---
FINAL REPORT TECHNIQUE: Grayscale, color Doppler and duplex Doppler ultrasound of the kidneys, aorta and renal arteries was performed. Multiple velocities were measured. CLINICAL HISTORY: Malignant HTN, CAD, Solitary left kidney since age 11, renal us today previous CT COMPARISON: None FINDINGS: Aorta velocity: 148 cm/sec Right kidney: 13.8 cm. No evidence of hydronephrosis or mass. Right intrarenal RI: 0.71 Right renal artery velocity: 234 cm/sec. Right RAR (Renal artery-Aortic Ratio): 1.6 The left kidney is absent. IMPRESSION: The left kidney is absent. There is elevated velocity in the right renal artery of 234 cm/s, with a RAR measuring 1.6, by velocity criteria less than 60% stenosis. However given the patient's elevated blood pressure and relatively high velocity in the aorta, would recommend CTA or MRA for further evaluation to exclude renal artery stenosis. Reviewed, Interpreted and Dictated by Warner You III, MD Transcribed by Shelby Velasquez Authenticated and . [facility]
--- NOTE | 2023-07-31 11:04 | CA_ITS ---
APPROVED REPORT EXAM: Comprehensive 2D, Doppler, and color-flow Echocardiogram Shotblast Equipment Operator: MARIUM Kilpatrick, RVS Ht: 5 ft 6 in Wt: 209lbs BSA: 2.04 BP: 204/108 mmHg Indications: Malignant HTN, solitary kidney since age 11,CP,CAD-stents,H/O Afib, gerd, angi, DD, NSTEMI Echo Enhancing Agent Comments: Large body habitus 2D Dimensions Left Atrium 3.26 cm EF AP4 56.30 % GL Strain -21.7 % M-Mode Dimensions RVDd 1.58 cm (0.9-2.6) LA Diam 4.04 cm (1.9-4.0) LVDd 4.88 cm (3.5-5.7) LVDs 2.12 cm (3.5-5.7) IVSd 1.08 cm (0.6-1.1) PWd 1.15 cm (0.6-1.1) EF (Teich) 86.80% EPSs 0.50 cm FS 56.60% EDV (Teich) 111.70 mL TAPSE 2.64 (<1.7) ESV (Teich) 14.80 mL LV Diastology E Decel Time 257 (160-240 msec) E/A Ratio 0.91 MED A' 11.40 cm/s Aortic Valve LUKE Index 0.90 cm2/m2 AoV Peak Tom. 161.0 (50-130 cm/s) AO Peak GR. 10.40 mmHg AO Mean GR. 5.10 (<5 mmHg) AO VTI 34.0 (18-25 cm) LUKE (VTI) 1.89 (2.5-4.5 cm2) Mitral Valve MV A Velocity 84.0 (40-130 cm/s) E/A Ratio 0.91 Pulmonary Valve LA End VMAX 181.0 cm/s Tricuspid Valve TR P. Velocity 211.00 cm/s RAP Estimate 10.00 mmHg RVSP 27.70 mmHg Left Ventricle The left ventricle is normal size. The left ventricular systolic function is normal. The left ventricular ejection fraction is within the normal range. There is normal left ventricular wall thickness. There is normal LV segmental wall motion. The left ventricular diastolic function is normal. LVEF is 55%. Right Ventricle The right ventricle is normal size. The right ventricular systolic function is normal. Atria The left atrium size is normal. The right atrium size is normal. There is no Doppler evidence of interatrial shunt. Aortic Valve The aortic valve opens well. There is no aortic valvular stenosis. Trace aortic regurgitation. Mitral Valve The mitral valve is normal in structure. No evidence of mitral valve stenosis. Mild mitral valve regurgitation. Tricuspid Valve The tricuspid valve leaflets are thin and pliable. Mild tricuspid regurgitation. RVSP is normal. Pulmonic Valve The pulmonary valve is normal in structure. Trace pulmonic regurgitation. Great Vessels The aortic root is normal in size. The ascending aorta is normal in size. IVC is normal in size and collapses >50% with inspiration. Pericardium There is no pericardial effusion. Other Information Study Quality: Fair Conclusion Normal biventricular systolic function. Mild TR, mild MR. Electronically signed by : Adelaida Larios MD 08/03/2023 23:16:12
--- NOTE | 2023-07-31 11:06 | P.CONCA_ITS ---
History of Present Illness History of Present Illness Consult date: 07/31/23 Requesting physician: Adam Kat Consult reason: chest pain and hypertension Chief complaint: chest pain and htn History of present illness: This is a 52-year-old white female with past medical history of coronary artery disease with drug-eluting stent to ramus/LAD/circumflex in July 2022, hypertension, paroxysmal atrial fibrillation on Xarelto, left nephrectomy at age 11, obstructive sleep apnea, history of MOG (myelin oligodendrocyte glycoprotein) who has been directly admitted from cardiology clinic for uncontrolled HTN. Patient presented to cardiology clinic on 07/29/2023 for 6- month follow-up with complaints of intermittent chest pressure and blood pressure running high for the past few months. At that time metoprolol suc cinate was increased to 50 mg twice daily and amlodipine 10 mg was added daily. Labs were obtained including a troponin which was negative. Patient returned to clinic today for BP recheck which was still elevated at 204/108. Patient was admitted for blood pressure control, renal artery ultrasound and possible left heart catheterization. Of note patient has not had her medications today. Reports chest pressure started when blood pressure started running high. There was a period in which patient had stopped meds but she states she has been taking them again for a while. [facility] Disclaimer: The information contained in this section may have been updated after the patient was seen, as this information can be updated by other users. Medical History Paroxysmal A-fib Non-STEMI (non-ST elevated myocardial infarction) Angina pectoris Fibromyalgia Typical angina Urinary tract infection Hypertension Atrial fibrillation Migraine COVID-19 virus infection Hx of supraventricular tachycardia Family history of heart disease HEATHER (obstructive sleep apnea) Abnormal EKG Gastroesophageal reflux disease Coronary artery calcification seen on CT scan Dyspnea Chest pain Surgical History (Updated 07/31/23 @ 11:48 by Lisset Cross RN) H/O cardiac catheterization H/O cardiac radiofrequency ablation History of cardiac radiofrequency ablation History of tonsillectomy History of hysterectomy History of cholecystectomy History of left nephrectomy Family History Other Cancer Coronary artery disease Diabetes Social History (Updated 07/31/23 @ 11:49 by Lisset Cross, IDALMIS) Smoking Status: Never smoker second hand exposure: No alcohol intake: never substance use type: denies use current occupational status: employed Travel in the last 8 weeks: Inside the [place] household members: spouse and family housing: house current occupation: administrative prof current occupational exposures/hazards: No caffeine: No Review of Systems *Cardiovascular Cardiovascular: Reports chest pain and Denies dyspnea *Respiratory Respiratory: Denies dyspnea Exam Constitutional Constitutional: no acute distress *Routine Respiratory Exam Respiratory: Present CTA bilaterally and symmetric chest movement *Routine Cardiovascular Exam Cardiovascular: Present RRR, Normal S1 and Normal S2 *Routine Abdominal Exam Abdominal: Present soft and normoactive bowel sounds; Absent tenderness *Routine Extremities Exam Extremities: Present full ROM and normal capillary refill; Absent edema *Routine Skin Exam Skin: Present intact, dry and warm Detailed Neck Exam: Thyroids Thyroid: Absent bruit Meds Home Medications and Allergies Home Medications Medication Instructions Recorded Confirmed Type atorvastatin 40 mg tablet (Lipitor) 40 mg PO DAILY #30 tabs 09/11/22 07/31/23 Rx albuterol sulfate 90 mcg/actuation 2 puff inhalation Q4HP PRN 06/05/23 07/31/23 History aerosol inhaler Shortness Of Breath clopidogrel 75 mg tablet (Plavix) 75 mg PO DAILY #30 tabs 06/24/23 07/31/23 Rx metoprolol succinate 50 mg 50 mg PO DAILY #30 tabs 06/24/23 07/31/23 Rx tablet,extended release 24 hr amlodipine 10 mg tablet 10 mg PO DAILY #30 tabs 07/29/23 07/31/23 Rx furosemide 40 mg tablet (Lasix) 40 mg PO DAILYP PRN edema 07/31/23 07/31/23 History nitroglycerin 0.4 mg sublingual 0.4 mg sublingual Q5MINP PRN chest 07/31/23 07/31/23 History tablet pain pantoprazole 40 mg tablet,delayed 40 mg PO DAILY 07/31/23 07/31/23 History release rivaroxaban 20 mg tablet (Xarelto) 20 mg PO QPMWITHMEAL 07/31/23 07/31/23 History New Prescriptions to Start Prescriptions: Allergies Allergy/AdvReac Type Severity Reaction Status Date / Time fluconazole [From Diflucan] Allergy Rash Verified 07/31/23 10:11 phenazopyridine Allergy Rash Verified 07/31/23 10:11 [From Pyridium] aspirin AdvReac Verified 07/31/23 10:11 Assessment and Plan *Assessment and plan (1) Hypertension: Status: Acute Qualifiers: Hypertension type: unspecified Qualified Code(s): I10 - Essential (primary) hypertension Category: Medical Code(s): I10 - Essential (primary) hypertension (2) Chest pain: Status: Acute Qualifiers: Chest pain type: unspecified Qualified Code(s): R07.9 - Chest pain, unspecified Category: Medical Code(s): R07.9 - Chest pain, unspecified (3) Paroxysmal A-fib: Status: Acute Category: Medical Code(s): I48.0 - Paroxysmal atrial fibrillation (4) CAD (coronary artery disease): Status: Chronic Qualifiers: Associated angina: with other forms of angina Coronary Disease- Associated Artery/Lesion type: [place] artery [place] vs. transplanted heart: [place] heart Qualified Code(s): I25.118 - Atherosclerotic heart disease of [place] coronary artery with other forms of angina pectoris Category: Medical Code(s): I25.10 - Atherosclerotic heart disease of [place] coronary artery without angina pectoris (5) HLD (hyperlipidemia): Status: Chronic Qualifiers: Hyperlipidemia type: mixed hyperlipidemia Qualified Code(s): E78.2 - Mixed hyperlipidemia Category: Medical Code(s): E78.5 - Hyperlipidemia, unspecified (6) History of left nephrectomy: Status: Chronic Category: Surgical Code(s): Z90.5 - Acquired absence of kidney Plan Uncontrolled HTN History of left nephrectomy at age 11 Will change metoprolol succinate 50 mg twice daily to metoprolol 100 mg daily. Continue amlodipine 10 mg daily and add lisinopril 20 mg daily Echocardiogram is pending Renal artery ultrasound and renal ultrasound pending History of coronary artery disease Chest pain Patient reports chest pressure for the last few weeks since blood pressures been running high Patient underwent SUSIE to ramus/LAD/circumflex in July 2022. Reports felt well until blood pressure started running high Continue Plavix 75 mg daily, metoprolol succinate 100 mg daily and atorvastatin 40 mg daily EKG is normal sinus rhythm rate of [address] abnormalities noted Will we will proceed with left heart catheterization tomorrow for further evaluation for coronary artery disease. Discussed risk versus benefits with patient she is agreeable. History of paroxysmal atrial fibrillation Chadsvasc score 3 Patient to normal sinus rhythm today Continue metoprolol succinate 100 mg p.o. daily and Xarelto 20 mg daily Hyperlipidemia LDL goal less than 55, LDL 172. Unclear as to how long patient has been taking statin will continue atorvastatin 40 mg daily for now CV summary 07/31/2023: Resume home medications and add lisinopril 20 mg daily. Renal artery ultrasound, renal ultrasound and echocardiogram are pending. Plan for left heart catheterization tomorrow patient is to be n.p.o. after midnight. Cardiac meds Metoprolol succinate 100 mg p.o. daily Amlodipine 10 mg p.o. daily Atorvastatin 40 mg p.o. daily Plavix 75 mg p.o. daily Xarelto 20 mg p.o. daily Lisinopril 20 mg p.o. daily
--- NOTE | 2023-07-31 11:18 | PC.NURSE ---
notified nurse about high b/p. took twice with datascope and once manual. manual was 198/123
[2023-07-31 11:35] LABS: Basophils # 0.1 K/mm3 (0-0.2); Basophils % 0.6 % (0.1-2.0); Eosinophils # 0.5 K/mm3 (0.0-0.4); Eosinophils % 6.5 % (0.1-12.0); Hematocrit 46.3 % (37.0-47.0); Hemoglobin 14.8 g/dL (12.2-16.2); Lymphocytes # 2.2 K/mm3 (0.7-4.5); Lymphocytes % 29.1 % (10-50); Mean Corpuscular Hemoglobin 28.9 pg (27.0-31.2); Mean Corpuscular Volume 90.3 fl (81-99); Mean Platelet Volume 9.4 fl (7.4-10.4); Monocytes # 0.4 K/mm3 (0.1-1.0); Monocytes % 5.5 % (1.7-9.3); Neutrophils # 4.4 K/mm3 (1.8-7.8); Neutrophils % 58.2 % (37.0-80.0); Platelet Count 271 K/mm3 (142-424); Red Blood Count 5.13 M/mm3 (4.20-5.40); Red Cell Distribution Width 13.8 % (11.5-17.5); White Blood Count 7.5 K/mm3 (4.8-10.8)
[2023-07-31 11:37] LABS: Chloride 106 mmol/L (98-107)
[2023-07-31 11:38] LABS: Sodium 139 mmol/L (136-145)
[2023-07-31 11:41] LABS: Blood Urea Nitrogen 13 mg/dl (7-17); Calcium 9.9 mg/dl (8.4-10.2); Carbon Dioxide 26 mmol/L (22.0-30.0); Chol/HDL Ratio 5.8 (1-3.5); Cholesterol 306 mg/dl (140-200); Creatinine Clearance Estimated 110 mL/min (50-200); Estimated Glomerular Filt Rate 66 ml/min (>60); GFR (African American) 80 ML/MIN (>60); Glucose 91 mg/dl (74-100); HDL Cholesterol 53 mg/dl (40-60); Triglycerides 160 mg/dl (30-150); VLDL Cholesterol 32 mg/dL (0-40)
[2023-07-31 11:52] LABS: NT Pro Brain Natriuretic Pep. 79.7 pg/mL (0-125)
[2023-07-31 12:06] LABS: Troponin I < 0.01 ng/ml (0.00-0.034)
[2023-07-31] MEDS: CLOPIDOGREL 75MG TAB 75 MG PO (12:15)
[2023-07-31] MEDS: METOPROLOL SUCCINATE XL 100MG TABLET 100 MG PO (12:15)
[2023-07-31] MEDS: LISINOPRIL 20MG TABLET 20 MG PO (12:15)
[2023-07-31] MEDS: AMLODIPINE 10MG TABLET 10 MG PO (12:15)
--- NOTE | 2023-07-31 13:54 | HMH.PHAINT1 ---
Pharmacy Intervention Comments: MEDICATION RECONCILIATION COMPLETED ON PATIENT USING EXTERNAL FILL HISTORY FROM PHARMACY, LIST FROM CARDIOLOGY OFFICE, AND PATIENT INTERVIEW. -CRISTELA CHAN, INDERD
--- NOTE | 2023-07-31 14:39 | PC.NURSE ---
Pt's bp of 190/104 P:63 [place] with Cardiology aware.
[2023-07-31 14:59] LABS: Microscopic, Urine URINE MICROSCOPIC (MICROSCOPIC)
[2023-07-31 15:14] LABS: Appearance,Urine CLEAR (Clear); Bilirubin,Urine Negative (Negative); Blood, Urine TRACE-I (Negative); Color,Urine YELLOW (Yellow); Glucose,Urine (UA) Negative (Negative); Ketones,Urine Negative (Negative); Leukocyte Esterase,Urine Negative (Negative); Nitrate,Urine Negative (Negative); PH,Urine 7.5 (5.0-8.5); Protein,Urine Negative (Negative); Specific Gravity, Urine 1.015 (1.005-1.030)
[2023-07-31 15:38] LABS: Squamous Epithelial Cell,Urine Occasional #/hpf (0-5)
[2023-07-31] MEDS: ACETAMINOPHEN 325MG TAB 650 MG PO (15:44)
[2023-07-31] MEDS: HYDRALAZINE 20MG/ML VIAL 25 MG IV (15:45)
--- NOTE | 2023-07-31 17:01 | PC.NURSE ---
DR. Kat called about pt's decreasing BP after iv bp meds given. Also c/o nausea and orders taken. Says he will come by to see the patient.
[2023-07-31] MEDS: ONDANSETRON 4MG/2ML VIAL 4 MG IV (17:32)
--- NOTE | 2023-07-31 17:53 | EXP.HP ---
History of Present Illness *Admission Date: 07/31/23 *Reason for visit:: High blood pressure *History of present illness: Mrs. Fontenot is a 52 year old female patient of [facility], who see Dr. Story and LATASHA Germain for her primary care, with a history of CAD and A. fib with RVR. She was seen in the [facility] cardiology office twice this week with headache, chest pain and elevated blood pressure. Outpatient treatments did not achieve successful results so I was called to admit patient to [facility] for further evaluation and management. Patient states she has been taking all of her prescribed medications and she had recently increased her Metoprolol dose due to elevated blood pressure readings at home. [facility] Disclaimer: The information contained in this section may have been updated after the patient was seen, as this information can be updated by other users. Medical History (Updated 07/31/23 @ 18:07 by Adam Kat MD) Diastolic dysfunction CAD (coronary artery disease) Vitamin D deficiency Myelin oligodendrocyte glycoprotein antibody disorder (MOGAD) Paroxysmal A-fib Non-STEMI (non-ST elevated myocardial infarction) Angina pectoris Fibromyalgia Typical angina Urinary tract infection Hypertension Atrial fibrillation Migraine COVID-19 virus infection Hx of supraventricular tachycardia Family history of heart disease HEATHER (obstructive sleep apnea) Abnormal EKG Gastroesophageal reflux disease Coronary artery calcification seen on CT scan Dyspnea Chest pain Surgical History (Updated 07/31/23 @ 18:07 by Adam Kat MD) Status post coronary artery stent placement H/O cardiac catheterization H/O cardiac radiofrequency ablation History of cardiac radiofrequency ablation History of tonsillectomy History of hysterectomy History of cholecystectomy History of left nephrectomy Family History Other Cancer Coronary artery disease Diabetes Social History (Updated 07/31/23 @ 11:49 by Lisset Cross RN) Smoking Status: Never smoker second hand exposure: No alcohol intake: never substance use type: denies use current occupational status: employed Travel in the last 8 weeks: [place] the [place] household members: spouse and family housing: house current occupation: administrative prof current occupational exposures/hazards: No caffeine: No Review of Systems Constitutional Constitutional: Denies chills and Denies fever(s) *Cardiovascular Cardiovascular: Reports as per HPI, Reports chest pain and Denies leg edema *Respiratory Respiratory: Denies cough *Gastrointestinal Gastrointestinal: Denies abdominal pain *Genitourinary Genitourinary: Denies difficulty voiding *Musculoskeletal Musculoskeletal: Denies arthralgias Integumentary/Breasts Skin/Breast: Denies rash *Neurologic Neurologic: Denies localized weakness Meds Home Medications and Allergies Home Medications Medication Instructions Recorded Confirmed Type atorvastatin 40 mg tablet (Lipitor) 40 mg PO DAILY #30 tabs 09/11/22 07/31/23 Rx albuterol sulfate 90 mcg/actuation 2 puff inhalation Q4HP PRN 06/05/23 07/31/23 History aerosol inhaler Shortness Of Breath clopidogrel 75 mg tablet (Plavix) 75 mg PO DAILY #30 tabs 06/24/23 07/31/23 Rx metoprolol succinate 50 mg 50 mg PO DAILY #30 tabs 06/24/23 07/31/23 Rx tablet,extended release 24 hr amlodipine 10 mg tablet 10 mg PO DAILY #30 tabs 07/29/23 07/31/23 Rx furosemide 40 mg tablet (Lasix) 40 mg PO DAILYP PRN edema 07/31/23 07/31/23 History nitroglycerin 0.4 mg sublingual 0.4 mg sublingual Q5MINP PRN chest 07/31/23 07/31/23 History tablet pain pantoprazole 40 mg tablet,delayed 40 mg PO DAILY 07/31/23 07/31/23 History release rivaroxaban 20 mg tablet (Xarelto) 20 mg PO QPMWITHMEAL 07/31/23 07/31/23 History New Prescriptions to Start Prescriptions: Allergies Allergy/AdvReac Type Severity Reaction Status Date / Time fluconazole [From Diflucan] Allergy Rash Verified 07/31/23 10:11 phenazopyridine Allergy Rash Verified 07/31/23 10:11 [From Pyridium] aspirin AdvReac Verified 07/31/23 10:11 Exam Data for Last 24 hours Vital signs and Labs for Last 24 Hours: Temp Pulse Resp BP Pulse Ox O2 Del Method 98.1 F 64 18 94/48 L 97 Room Air 07/31/23 15:25 07/31/23 17:04 07/31/23 17:04 07/31/23 17:04 07/31/23 15:07/31/23 17:00 Laboratory Results - last 24 hr 07/31/23 11:25: WBC 7.5, RBC 5.13, Hgb 14.8, Hct 46.3, MCV 90.3, MCH 28.9, MCHC 32.0, RDW 13.8, Plt Count 271, MPV 9.4, Neut % (Auto) 58.2, Lymph % (Auto) 29.1, [place] % (Auto) 5.5, Eos % (Auto) 6.5, Baso % (Auto) 0.6, Neut # (Auto) 4.4, Lymph # (Auto) 2.2, [place] # (Auto) 0.4, Eos # (Auto) 0.5 H, Baso # (Auto) 0.1, Sodium 139, Potassium 4.0, Chloride 106, Carbon Dioxide 26, Anion Gap 11.0, BUN 13, Creatinine 0.90, Estimated Creat Clear 110, Estimated GFR 66, Est GFR ( Amer) 80, Glucose 91, Calcium 9.9, Troponin I < 0.01, NT-Pro-B Natriuret Pep 79.7, Triglycerides 160 H, Cholesterol 306 H, LDL Cholesterol Direct 184.30 H, VLDL Cholesterol 32, HDL Cholesterol 53, Cholesterol/HDL Ratio 5.8 H 07/31/23 14:51: Urine Color Yellow, Urine Appearance Clear, Urine pH 7.5, Ur Specific [place] 1.015, Urine Protein Negative, Urine Glucose (UA) Negative, Urine Ketones Negative, Urine Blood Trace-i, Urine Nitrate Negative, Urine Bilirubin Negative, Urine Urobilinogen 1.0, Ur Leukocyte Esterase Negative, Urine RBC 3-5, Urine WBC None, Ur Squamous Epith Cells Occasional, Urine Bacteria None I & O for Last 24 hours: Intake & Output 07/28/23 07/29/23 07/30/23 07/31/23 23:59 23:59 23:59 23:59 Intake Total 320 / 320 Output Total 0 / 0 Balance 320 / 320 Weight 210 lb 2 oz Constitutional Constitutional: no acute distress *Routine HEENT Exam Head: Present normocephalic Eye: Present EOMI and PERRL ENT: Present mucous membranes moist *Routine Neck Exam Neck: Present supple; Absent lymphadenopathy *Routine Respiratory Exam Respiratory: Present CTA bilaterally *Routine Cardiovascular Exam Cardiovascular: Present RRR *Routine Abdominal Exam Abdominal: Present soft and normoactive bowel sounds; Absent tenderness *Routine Rectal Exam Rectal:: deferred *Routine Genitalia Exam Genitalia:: deferred *Routine Extremities Exam Extremities: Absent cyanosis, clubbing or edema *Routine Skin Exam Skin: Present warm; Absent rash *Routine Neurological Exam Neurological: Present alert and oriented X3 Assessment and Plan *Assessment and plan (1) Hypertensive urgency: Status: Acute Category: Medical Code(s): I16.0 - Hypertensive urgency (2) Hypertension: Status: Acute Qualifiers: Hypertension type: unspecified Qualified Code(s): I10 - Essential (primary) hypertension Category: Medical Code(s): I10 - Essential (primary) hypertension (3) HHD (hypertensive heart disease): Status: Chronic Qualifiers: Heart failure presence: without heart failure Qualified Code(s): I11.9 - Hypertensive heart disease without heart failure Category: Medical Code(s): I11.9 - Hypertensive heart disease without heart failure (4) Chest pain: Status: Acute Qualifiers: Chest pain type: unspecified Qualified Code(s): R07.9 - Chest pain, unspecified Category: Medical Code(s): R07.9 - Chest pain, unspecified (5) CAD (coronary artery disease): Status: Chronic Qualifiers: Coronary Disease-Associated Artery/Lesion type: [place] artery [place] vs. transplanted heart: [place] heart Associated angina: with other forms of angina Qualified Code(s): I25.118 - Atherosclerotic heart disease of [place] coronary artery with other forms of angina pectoris Category: Medical Code(s): I25.10 - Atherosclerotic heart disease of [place] coronary artery without angina pectoris (6) Diastolic dysfunction: Status: Chronic Category: Medical Code(s): I51.89 - Other ill-defined heart diseases (7) Status post coronary artery stent placement: Status: Acute Category: Surgical Code(s): Z95.5 - Presence of coronary angioplasty implant and graft (8) Paroxysmal A-fib: Status: Acute Category: Medical Code(s): I48.0 - Paroxysmal atrial fibrillation (9) Hx of supraventricular tachycardia: Status: Chronic Category: Medical Code(s): Z86.79 - Personal history of other diseases of the circulatory system (10) HLD (hyperlipidemia): Status: Chronic Qualifiers: Hyperlipidemia type: mixed hyperlipidemia Qualified Code(s): E78.2 - Mixed hyperlipidemia Category: Medical Code(s): E78.5 - Hyperlipidemia, unspecified (11) Hypertriglyceridemia: Status: Acute Category: Medical Code(s): E78.1 - Pure hyperglyceridemia (12) History of left nephrectomy: Status: Chronic Category: Surgical Code(s): Z90.5 - Acquired absence of kidney (13) Family history of heart disease: Status: Acute Category: Medical Code(s): Z82.49 - Family history of ischemic heart disease and other diseases of the circulatory system (14) HEATHER (obstructive sleep apnea): Status: Chronic Category: Medical Code(s): G47.33 - Obstructive sleep apnea (adult) (pediatric) (15) Gastroesophageal reflux disease: Status: Acute Qualifiers: Esophagitis presence: esophagitis presence not specified Qualified Code(s): K21.9 - Gastro-esophageal reflux disease without esophagitis Category: Medical Code(s): K21.9 - Gastro-esophageal reflux disease without esophagitis Plan Patient admitted from the [facility] cardiology office for further evaluation and management of her hypertensive urgency. Cardiology note reviewed.
[2023-07-31] MEDS: PANTOPRAZOLE 40MG TABLET 40 MG PO (20:33)
[2023-07-31] MEDS: ATORVASTATIN 40MG TABLET 40 MG PO (20:33)
[2023-08-01] VITALS (20 sets, daily range): BP systolic 106–209; BP diastolic 57–109; PULSE 55–73; RESP 16–20; TEMP 36.5–37.2; O2SAT 94–99; BMI 33.7
--- NOTE | 2023-08-01 | IR_ITS ---
APPROVED REPORT Patient Location: Inpatient PROCEDURES Left heart catheterization Left ventriculogram Selective coronary angiogram Right selective renal angiogram Drug-eluting stent deployed to the mid LAD Informed consent was obtained prior to the procedure. COMPLICATIONS None Estimated Blood Loss: Less than 10 mls TECHNIQUE One percent lidocaine used to anesthetize the right anterior aspect of the wrist. The right radial artery was accessed via the Seldinger technique. A 6 [place] sheath was placed in the right radial artery. 2.5 mg of Verapamil, 800 mcg of nitroglycerin, 1mg Lidocaine and 5000 U Heparin were given through the arterial sheath. The papa catheter was also used to perform left heart catheterization, left ventriculogram and selective coronary angiogram. At the end of the diagnostic angiogram therapeutic heparin is administered giving a therapeutic ACT and the guide catheter was placed in left main artery followed by Choice PT to support wire placed on the LAD. A 2.5 x 18 mm [place] stent was deployed at 18 surya reducing the hazy and severe stenosis to 0%. QUAN-3 flow was present before and after the procedure. At the end procedure the apparatus was removed the sheath was removed and hemostasis was achieved using TR banding patient was transferred to postop holding area in stable condition ANGIOGRAPHIC RESULTS The left main artery Normal The left anterior descending artery Has stents in the proximal to mid segment which are widely patent with minimal in-stent restenosis. Distal to the LAD stent is a hazy 70% stenosis followed by an additional distal hazy 40 to 50% stenosis. A large first diagonal artery is widely patent with ostial 40% stenosis followed by a widely patent proximal stent The circumflex artery Large and dominant with proximal smooth 20 to 30% stenosis and mid vessel 20 to 30% stenosis The right coronary artery Vestigial patent The GARCIA ventriculogram reveals 75% The left ventricular end-diastolic pressure Elevated at 30 mmHg Right renal artery singular normal Left renal artery is surgically clipped and occluded IMPRESSION Patent stents as described above with severe stenosis of the mid LAD Excessive stent in the mid LAD severe disease reduced to 0% with 1 drug-eluting stent Hyperdynamic ventricle with elevated LVEDP Normal right renal artery 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 Dual antiplatelet therapy 2. Better control of hypertension 3. Patient requires diuretics in order to decrease LVEDP 4. LDL less than 55 to achieve that high intensity statin 5. Cardiac rehabilitation 6. Avoidance of tobacco products Electronically signed by : Nicholas Dailey MD 08/01/2023 14:06:49
[2023-08-01] MEDS: ACETAMINOPHEN 325MG TAB 650 MG PO ×2 (00:04→21:54)
--- NOTE | 2023-08-01 05:49 | PC.NURSE ---
bp improved, pt npo after mn for heart catherization. pt reported chest pressure at beginning of shift, notified dr carbajal. no new orders received. pain dissipated without intervention. pt reported gooden, treated per apr. nsr on monitor
--- NOTE | 2023-08-01 07:47 | PC.NURSE ---
Consent for [facility] Cath signed and on chart.
--- NOTE | 2023-08-01 08:26 | P.PN_ITS ---
Subjective *Date: 08/01/23 *Time: 08:26 Interval history: Patient with no new complaints today, still has a headache. She had an exaggerated response to Hydralazine IV yesterday, BP dropped dramatically but has since recovered. Medical Exam Vital signs and Labs for Last 24 Hours: Vital Signs Temp Pulse Pulse Resp BP Pulse Ox O2 Del Method 08/01/23 07:58 97.8 F 60 20 142/76 H 98 Room Air 08/01/23 07:49 Room Air 08/01/23 06:46 Room Air 08/01/23 05:00 Room Air 08/01/23 04:00 98.3 F 60 16 143/79 H 97 Room Air 08/01/23 04:00 55 L 08/01/23 03:00 CPAP 08/01/23 01:00 CPAP 08/01/23 00:00 73 08/01/23 00:00 73 08/01/23 00:00 98.6 F 60 18 122/57 L 96 Room Air 07/31/23 23:00 Room Air 07/31/23 21:00 Room Air 07/31/23 20:41 Room Air 07/31/23 20:34 100/54 L 07/31/23 20:00 63 07/31/23 20:00 98.6 F 70 18 122/65 96 Room Air 07/31/23 18:03 Room Air 07/31/23 17:04 64 18 94/48 L 07/31/23 17:00 Room Air 07/31/23 16:50 65 18 96/52 L 07/31/23 16:25 79 18 125/68 07/31/23 16:00 80 07/31/23 15:25 98.1 F 55 L 20 175/93 H 97 Room Air 07/31/23 14:40 63 18 190/104 H 07/31/23 14:23 Room Air 07/31/23 12:38 Room Air 07/31/23 12:32 Room Air 07/31/23 12:00 60 07/31/23 12:00 98.1 F 60 12 175/100 H 96 Room Air 07/31/23 11:17 98.4 F 64 20 198/123 H 98 Room Air 07/31/23 11:00 Room Air Intake and Output 07/31/23 08/01/23 08/01/23 23:59 07:59 15:59 Intake Total 270 / 320 0 / 0 0 / 0 Output Total 0 / 0 0 / 0 Balance 270 / 320 0 / 0 0 / 0 Intake: Intake, Oral Amount 270 / 320 0 / 0 0 / 0 Output: Output, Urine Amount 0 / 0 0 / 0 Other: Number of Unmeasured Voids 1 1 Weight 210 lb 1.996 oz Patient Weight 08/01/23 23:59 Weight 210 lb 1.996 oz Laboratory Results - last 24 hr 07/31/23 11:25: WBC 7.5, RBC 5.13, Hgb 14.8, Hct 46.3, MCV 90.3, MCH 28.9, MCHC 32.0, RDW 13.8, Plt Count 271, MPV 9.4, Neut % (Auto) 58.2, Lymph % (Auto) 29.1, [place] % (Auto) 5.5, Eos % (Auto) 6.5, Baso % (Auto) 0.6, Neut # (Auto) 4.4, Lymph # (Auto) 2.2, [place] # (Auto) 0.4, Eos # (Auto) 0.5 H, Baso # (Auto) 0.1, Sodium 139, Potassium 4.0, Chloride 106, Carbon Dioxide 26, Anion Gap 11.0, BUN 13, Creatinine 0.90, Estimated Creat Clear 110, Estimated GFR 66, Est GFR ( Amer) 80, Glucose 91, Calcium 9.9, Troponin I < 0.01, NT-Pro-B Natriuret Pep 79.7, Triglycerides 160 H, Cholesterol 306 H, LDL Cholesterol Direct 184.30 H, VLDL Cholesterol 32, HDL Cholesterol 53, Cholesterol/HDL Ratio 5.8 H 07/31/23 14:51: Urine Color Yellow, Urine Appearance Clear, Urine pH 7.5, Ur Specific [place] 1.015, Urine Protein Negative, Urine Glucose (UA) Negative, Urine Ketones Negative, Urine Blood Trace-i, Urine Nitrate Negative, Urine Bilirubin Negative, Urine Urobilinogen 1.0, Ur Leukocyte Esterase Negative, Urine RBC 3-5, Urine WBC None, Ur Squamous Epith Cells Occasional, Urine Bacteria None I & O for Labs for Last 24 Hours: Intake & Output 07/29/23 07/30/23 07/31/23 08/01/23 23:59 23:59 23:59 23:59 Intake Total 320 / 320 0 / 0 Output Total 0 / 0 0 / 0 Balance 320 / 320 0 / 0 Weight 210 lb 2 oz 210 lb 1.996 oz Constitutional: Present no acute distress Respiratory: Present normal respiratory effort Cardiac: Present Reg Rate and Rhythm GI: Present normal bowel sounds; Absent tenderness Extremities: Present normal inspection and full ROM Skin: Present intact; Absent erythema Neuro: Present Grossly Intact and moves all extremities Assessment and Plan *Assessment and plan (1) Hypertensive urgency: Status: Acute Category: Medical Code(s): I16.0 - Hypertensive urgency (2) Hypertension: Status: Acute Qualifiers: Hypertension type: unspecified Qualified Code(s): I10 - Essential (primary) hypertension Category: Medical Code(s): I10 - Essential (primary) hypertension (3) HHD (hypertensive heart disease): Status: Chronic Qualifiers: Heart failure presence: without heart failure Qualified Code(s): I11.9 - Hypertensive heart disease without heart failure Category: Medical Code(s): I11.9 - Hypertensive heart disease without heart failure (4) Chest pain: Status: Acute Qualifiers: Chest pain type: unspecified Qualified Code(s): R07.9 - Chest pain, unspecified Category: Medical Code(s): R07.9 - Chest pain, unspecified (5) CAD (coronary artery disease): Status: Chronic Qualifiers: Coronary Disease-Associated Artery/Lesion type: [place] artery [place] vs. transplanted heart: [place] heart Associated angina: with other forms of angina Qualified Code(s): I25.118 - Atherosclerotic heart disease of [place] coronary artery with other forms of angina pectoris Category: Medical Code(s): I25.10 - Atherosclerotic heart disease of [place] coronary artery without angina pectoris (6) Diastolic dysfunction: Status: Chronic Category: Medical Code(s): I51.89 - Other ill-defined heart diseases (7) Status post coronary artery stent placement: Status: Acute Category: Surgical Code(s): Z95.5 - Presence of coronary angioplasty implant and graft (8) Paroxysmal A-fib: Status: Acute Category: Medical Code(s): I48.0 - Paroxysmal atrial fibrillation (9) Hx of supraventricular tachycardia: Status: Chronic Category: Medical Code(s): Z86.79 - Personal history of other diseases of the circulatory system (10) HLD (hyperlipidemia): Status: Chronic Qualifiers: Hyperlipidemia type: mixed hyperlipidemia Qualified Code(s): E78.2 - Mixed hyperlipidemia Category: Medical Code(s): E78.5 - Hyperlipidemia, unspecified (11) Hypertriglyceridemia: Status: Acute Category: Medical Code(s): E78.1 - Pure hyperglyceridemia (12) History of left nephrectomy: Status: Chronic Category: Surgical Code(s): Z90.5 - Acquired absence of kidney (13) Family history of heart disease: Status: Acute Category: Medical Code(s): Z82.49 - Family history of ischemic heart disease and other diseases of the circulatory system (14) HEATHER (obstructive sleep apnea): Status: Chronic Category: Medical Code(s): G47.33 - Obstructive sleep apnea (adult) (pediatric) (15) Gastroesophageal reflux disease: Status: Acute Qualifiers: Esophagitis presence: esophagitis presence not specified Qualified Code(s): K21.9 - Gastro-esophageal reflux disease without esophagitis Category: Medical Code(s): K21.9 - Gastro-esophageal reflux disease without esophagitis Plan Patient is NPO for cath procedure today, await results.
[2023-08-01] MEDS: AMLODIPINE 10MG TABLET 10 MG PO (08:58)
[2023-08-01] MEDS: CLOPIDOGREL 75MG TAB 75 MG PO (08:59)
[2023-08-01] MEDS: METOPROLOL SUCCINATE XL 100MG TABLET 100 MG PO (08:59)
[2023-08-01] MEDS: LISINOPRIL 20MG TABLET 20 MG PO (08:59)
[2023-08-01] MEDS: PANTOPRAZOLE 40MG TABLET 40 MG PO (09:03)
--- NOTE | 2023-08-01 09:28 | P.PN_ITS ---
Subjective Subjective Date: 08/01/23 Time: 08:00 Principal diagnosis: HTN, unstable angina Interval history: Blood pressure this morning averaging 120s to 140s. Yesterday afternoon patient did become hypotensive with systolic in the 90s. Morning labs pending. Left heart catheterization is pending. Exam Data for Last 24 hours Vital signs and Labs for Last 24 Hours: Temp Pulse Resp BP Pulse Ox O2 Del Method 97.8 F 60 20 142/76 H 98 Room Air 08/01/23 07:58 08/01/23 07:58 08/01/23 07:58 08/01/23 07:58 08/01/23 07:58 08/01/23 09:00 Laboratory Results - last 24 hr 07/31/23 11:25: WBC 7.5, RBC 5.13, Hgb 14.8, Hct 46.3, MCV 90.3, MCH 28.9, MCHC 32.0, RDW 13.8, Plt Count 271, MPV 9.4, Neut % (Auto) 58.2, Lymph % (Auto) 29.1, [place] % (Auto) 5.5, Eos % (Auto) 6.5, Baso % (Auto) 0.6, Neut # (Auto) 4.4, Lymph # (Auto) 2.2, [place] # (Auto) 0.4, Eos # (Auto) 0.5 H, Baso # (Auto) 0.1, Sodium 139, Potassium 4.0, Chloride 106, Carbon Dioxide 26, Anion Gap 11.0, BUN 13, Creatinine 0.90, Estimated Creat Clear 110, Estimated GFR 66, Est GFR ( Amer) 80, Glucose 91, Calcium 9.9, Troponin I < 0.01, NT-Pro-B Natriuret Pep 79.7, Triglycerides 160 H, Cholesterol 306 H, LDL Cholesterol Direct 184.30 H, VLDL Cholesterol 32, HDL Cholesterol 53, Cholesterol/HDL Ratio 5.8 H 07/31/23 14:51: Urine Color Yellow, Urine Appearance Clear, Urine pH 7.5, Ur Specific [place] 1.015, Urine Protein Negative, Urine Glucose (UA) Negative, Urine Ketones Negative, Urine Blood Trace-i, Urine Nitrate Negative, Urine Bilirubin Negative, Urine Urobilinogen 1.0, Ur Leukocyte Esterase Negative, Urine RBC 3-5, Urine WBC None, Ur Squamous Epith Cells Occasional, Urine Bacteria None I & O for Last 24 hours: Intake & Output 07/29/23 07/30/23 07/31/23 08/01/23 23:59 23:59 23:59 23:59 Intake Total 320 / 320 0 / 0 Output Total 0 / 0 0 / 0 Balance 320 / 320 0 / 0 Weight 210 lb 2 oz 210 lb 1.996 oz Constitutional Constitutional: no acute distress *Routine Respiratory Exam Respiratory: Present CTA bilaterally and symmetric chest movement *Routine Cardiovascular Exam Cardiovascular: Present RRR, Normal S1 and Normal S2 *Routine Abdominal Exam Abdominal: Present soft and normoactive bowel sounds; Absent tenderness *Routine Extremities Exam Extremities: Present full ROM and normal capillary refill; Absent edema *Routine Skin Exam Skin: Present intact, dry and warm Detailed Neck Exam: Thyroids Thyroid: Absent bruit Progress Note: A&P Assessment and plan (1) Hypertensive urgency: Status: Acute (2) Hypertension: Status: Acute (3) HHD (hypertensive heart disease): Status: Chronic (4) Chest pain: Status: Acute (5) CAD (coronary artery disease): Status: Chronic (6) Diastolic dysfunction: Status: Chronic (7) Status post coronary artery stent placement: Status: Acute (8) Paroxysmal A-fib: Status: Acute (9) Hx of supraventricular tachycardia: Status: Chronic (10) HLD (hyperlipidemia): Status: Chronic (11) Hypertriglyceridemia: Status: Acute (12) History of left nephrectomy: Status: Chronic (13) Family history of heart disease: Status: Acute (14) HEATHER (obstructive sleep apnea): Status: Chronic (15) Gastroesophageal reflux disease: Status: Acute Assessment and Plan Assessment and Plan for All Diagnoses:: Uncontrolled HTN History of left nephrectomy at age 11 Continue metoprolol succinate 50 mg twice daily to metoprolol 100 mg daily. Continue amlodipine 10 mg daily and add lisinopril 20 mg daily. Add HCTZ 12.5mg daily Echocardiogram reveals a normal EF, official read is pending Renal ultrasound-status post left nephrectomy otherwise normal Renal artery ultrasound pending History of coronary artery disease Chest pain Patient reports chest pressure for the last few weeks since blood pressures been running high Patient underwent SUSIE to ramus/LAD/circumflex in July 2022. 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 History of paroxysmal atrial fibrillation Chadsvasc score 3 Normal sinus rhythm today Continue metoprolol succinate 100 mg p.o. daily and Xarelto 20 mg daily Hyperlipidemia LDL goal less than 55, LDL 172. Unclear as to how long patient has been taking statin will continue atorvastatin 40 mg daily for now CV summary 08/01/2023: BP has improved. Echocardiogram reveals a normal eject ion fraction. Patient received 1 SUSIE to mid LAD. Blood pressure has improved. Will add hydrochlorothiazide 12.5 mg daily for elevated LVEDP. Patient is CV stable for discharge home later this evening or tomorrow morning. Please continue below listed medications and have patient follow-up in cardiology clinic in 1 week for reevaluation. She will be on triple therapy x 1 week and then aspirin needs to be dropped. Cardiac meds Metoprolol succinate 100 mg p.o. daily Amlodipine 10 mg p.o. daily Atorvastatin 40 mg p.o. daily Plavix 75 mg p.o. daily Aspirin 81 mg p.o. daily Xarelto 20 mg p.o. daily Lisinopril 20 mg p.o. daily HCTZ 12.5 mg po daily
--- NOTE | 2023-08-01 09:31 | PC.NURSE ---
Spoke with lab this AM. Labs need to be obtained katty.
[2023-08-01 09:49] LABS: Basophils % 0.5 % (0.1-2.0); Eosinophils # 0.3 K/mm3 (0.0-0.4); Eosinophils % 4.4 % (0.1-12.0); Hematocrit 44.4 % (37.0-47.0); Hemoglobin 14.2 g/dL (12.2-16.2); Lymphocytes # 2.5 K/mm3 (0.7-4.5); Mean Corpuscular HGB Conc 31.9 g/dL (31.8-35.4); Mean Corpuscular Hemoglobin 29.3 pg (27.0-31.2); Mean Platelet Volume 9.3 fl (7.4-10.4); Monocytes # 0.4 K/mm3 (0.1-1.0); Monocytes % 5.3 % (1.7-9.3); Neutrophils # 3.8 K/mm3 (1.8-7.8); Neutrophils % 53.8 % (37.0-80.0); Platelet Count 266 K/mm3 (142-424); Red Blood Count 4.83 M/mm3 (4.20-5.40); Red Cell Distribution Width 13.7 % (11.5-17.5)
[2023-08-01 10:01] LABS: Chloride 107 mmol/L (98-107); Potassium 4.4 mmoL/L (3.5-5.1); Sodium 138 mmol/L (136-145)
[2023-08-01 10:04] LABS: Anion Gap 10.4 mEq/L (5-15); Blood Urea Nitrogen 20 mg/dl (7-17); Carbon Dioxide 25 mmol/L (22.0-30.0); Creatinine Clearance Estimated 99 mL/min (50-200); Estimated Glomerular Filt Rate 58 ml/min (>60); GFR (African American) 70 ML/MIN (>60)
[2023-08-01 10:05] LABS: Calcium 9.6 mg/dl (8.4-10.2); Glucose 89 mg/dl (74-100)
[2023-08-01] MEDS: diphenhydrAMINE 50MG/ML VIAL 50 MG IV (11:24)
[2023-08-01] MEDS: LIDOCAINE 1% 10ML MDV 20 ML IJ (11:24)
[2023-08-01] MEDS: HEPARIN 1,000 UNITS/500ML NS (CATH LAB) 3000 UNIT IV (11:25)
[2023-08-01] MEDS: HEPARIN 1,000 UNITS/ML 10ML VIAL (CATH LAB) 10000 UNIT IV (11:25)
[2023-08-01] MEDS: VERAPAMIL 2.5MG/ML 2ML VIAL 2.5 MG IV (11:25)
[2023-08-01] MEDS: NITROGLYCERIN 800MCG/8ML SYR (CATH LAB) 800 MCG IA (11:25)
[2023-08-01] MEDS: 0.9 % SODIUM CHLORIDE 500 ML 25 ML IV (11:25)
[2023-08-01] MEDS: MIDAZOLAM HCL 1MG/1ML 5ML VIAL 1 MG IV (12:06)
[2023-08-01] MEDS: FENTANYL 100MCG/2ML VIAL 50 MCG IV (12:07)
[2023-08-01] MEDS: IOPAMIDOL-370 (76%);100ML BOTTLE 95 ML IV (13:26)
[2023-08-01 13:29] LABS: CATHL Activated Clotting Time 303 SEC (74-125)
--- NOTE | 2023-08-01 17:41 | PC.NURSE ---
Pt A&O x4. Sitting up in bed. (R) radial cath site with DSG in place. No hematoma noted. VS are currently stable. Pt has tolerated ambulation to BR. Call light within reach.
[2023-08-01] MEDS: ATORVASTATIN 40MG TABLET 40 MG PO (20:14)
[2023-08-02] VITALS: BP 104/59; PULSE 62; PULSE 65; RESP 20; TEMP 36.8; O2SAT 95
[2023-08-02 04:00] VITALS: BP 106/59; PULSE 50; PULSE 59; RESP 18; TEMP 36.5; O2SAT 98; BMI 35.3
--- NOTE | 2023-08-02 04:25 | PC.NURSE ---
[id number] PATIENT WAS MEDICATED WITH TYLENOL 650 MG PO FOR C/O H/A. MEDICATION EFFECTIVE. HAS NOT HAD ANY CP THIS SHIFT. VITAL SIGNS STABLE/AFEBRILE. DRSG TO RIGHT RADIAL C/D/I. NO SIGN OF BLEEDING. SINUS RHYTHM/SINUS BRADYCARDIA NOTED ON TELEMETRY.
[2023-08-02 06:17] LABS: Chloride 109 mmol/L (98-107)
[2023-08-02 06:18] LABS: Potassium 4.4 mmoL/L (3.5-5.1); Sodium 138 mmol/L (136-145)
[2023-08-02 06:19] LABS: Basophils % 0.5 % (0.1-2.0); Eosinophils # 0.6 K/mm3 (0.0-0.4); Eosinophils % 8.1 % (0.1-12.0); Hematocrit 43.7 % (37.0-47.0); Hemoglobin 13.5 g/dL (12.2-16.2); Lymphocytes # 2.6 K/mm3 (0.7-4.5); Lymphocytes % 34.5 % (10-50); Mean Corpuscular Hemoglobin 29.1 pg (27.0-31.2); Mean Platelet Volume 8.9 fl (7.4-10.4); Monocytes # 0.5 K/mm3 (0.1-1.0); Monocytes % 6.3 % (1.7-9.3); Neutrophils # 3.8 K/mm3 (1.8-7.8); Neutrophils % 50.5 % (37.0-80.0); Platelet Count 254 K/mm3 (142-424); Red Blood Count 4.65 M/mm3 (4.20-5.40); Red Cell Distribution Width 13.8 % (11.5-17.5); White Blood Count 7.5 K/mm3 (4.8-10.8)
[2023-08-02 06:20] LABS: Blood Urea Nitrogen 21 mg/dl (7-17); Creatinine Clearance Estimated 115 mL/min (50-200); Estimated Glomerular Filt Rate 66 ml/min (>60); GFR (African American) 80 ML/MIN (>60)
[2023-08-02 06:21] LABS: Anion Gap 10.4 mEq/L (5-15); Calcium 9.1 mg/dl (8.4-10.2); Carbon Dioxide 23 mmol/L (22.0-30.0); Glucose 92 mg/dl (74-100)
--- NOTE | 2023-08-02 07:39 | P.PN_ITS ---
Subjective *Date: 08/02/23 *Time: 08:55 Interval history: Anxious to go home. Did not sleep much last night. Eating without difficulty. Ambulating without problems. Has been up and bathed and washed her hair. Denies chest pain and shortness of breath. Electrolytes and kidney function are good with repeat labs. 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 Dual antiplatelet therapy 2. Better control of hypertension 3. Patient requires diuretics in order to decrease LVEDP 4. LDL less than 55 to achieve that high intensity statin 5. Cardiac rehabilitation 6. Avoidance of tobacco products Renal ultrasound with the following results: FINDINGS: The right kidney measures 13.7 cm in length. It is normal in echogenicity. There is no hydronephrosis. The left kidney has been removed. The spleen is unremarkable. IMPRESSION: Status post left nephrectomy, otherwise unremarkable. Medical Exam Vital signs and Labs for Last 24 Hours: Vital Signs Temp Pulse Pulse Resp BP Pulse Ox O2 Del Method 08/02/23 06:29 Room Air 08/02/23 05:00 Room Air 08/02/23 04:00 50 L 08/02/23 04:00 97.7 F 59 L 18 106/59 L 98 CPAP 08/02/23 03:00 CPAP 08/02/23 01:00 CPAP 08/02/23 00:00 98.3 F 62 20 104/59 L 95 08/02/23 00:00 65 08/01/23 23:00 CPAP 08/01/23 20:54 CPAP 08/01/23 20:00 98.9 F 65 18 106/58 L 97 Room Air 08/01/23 20:00 97 Room Air 08/01/23 20:00 61 08/01/23 19:00 Room Air 08/01/23 17:20 98.3 F 70 16 112/63 97 Room Air 08/01/23 17:00 Room Air 08/01/23 16:20 67 16 108/58 L 96 Room Air 08/01/23 16:00 70 06/06/24 15:20 63 17 107/59 L 96 Room Air 08/01/23 15:00 Room Air 08/01/23 14:50 98.0 F 59 L 17 114/66 96 Room Air 08/01/23 14:20 64 16 119/70 95 Room Air 08/01/23 13:50 63 16 135/79 95 Room Air 08/01/23 13:20 61 16 139/82 96 Room Air 08/01/23 13:05 59 L 16 125/76 95 Room Air 08/01/23 12:50 97.7 F 60 16 132/82 99 Room Air 08/01/23 12:49 Room Air 08/01/23 12:35 61 16 140/77 94 L Room Air 08/01/23 12:20 68 17 94 L Room Air 08/01/23 12:15 66 18 162/66 H 94 L Room Air 08/01/23 12:10 67 19 165/93 H 94 L Room Air 08/01/23 12:05 70 72 17 209/109 H 95 Room Air 08/01/23 09:00 Room Air 08/01/23 08:00 60 08/01/23 07:58 97.8 F 60 20 142/76 H 98 Room Air 08/01/23 07:49 Room Air Intake and Output 08/01/23 08/02/23 08/02/23 19:59 03:59 11:59 Intake Total 560 / 560 480 / 1040 Output Total 0 / 0 0 / 0 0 / 0 Balance 560 / 560 480 / 1040 0 / 1040 Intake: Intake, Oral Amount 560 / 560 480 / 1040 Output: Output, Urine Amount 0 / 0 0 / 0 0 / 0 Other: Number of Unmeasured Voids 1 2 2 Weight 219 lb 9.6 oz Patient Weight 08/02/23 11:59 Weight 219 lb 9.6 oz Laboratory Results - last 24 hr 08/01/23 09:39: WBC 7.0, RBC 4.83, Hgb 14.2, Hct 44.4, MCV 92.0, MCH 29.3, MCHC 31.9, RDW 13.7, Plt Count 266, MPV 9.3, Neut % (Auto) 53.8, Lymph % (Auto) 36.0, [place] % (Auto) 5.3, Eos % (Auto) 4.4, Baso % (Auto) 0.5, Neut # (Auto) 3.8, Lymph # (Auto) 2.5, [place] # (Auto) 0.4, Eos # (Auto) 0.3, Baso # (Auto) 0.0, Sodium 138, Potassium 4.4, Chloride 107, Carbon Dioxide 25, Anion Gap 10.4, BUN 20 H D, Creatinine 1.00, Estimated Creat Clear 99, Estimated GFR 58 L, Est GFR ( Amer) 70, Glucose 89, Calcium 9.6 08/01/23 11:42: Activated Clotting Time 303 H* 08/02/23 05:52: WBC 7.5, RBC 4.65, Hgb 13.5, Hct 43.7, MCV 94.0, MCH 29.1, MCHC 31.0 L, RDW 13.8, Plt Count 254, MPV 8.9, Neut % (Auto) 50.5, Lymph % (Auto) 34.5, [place] % (Auto) 6.3, Eos % (Auto) 8.1, Baso % (Auto) 0.5, Neut # (Auto) 3.8, Lymph # (Auto) 2.6, [place] # (Auto) 0.5, Eos # (Auto) 0.6 H, Baso # (Auto) 0.0, Sodium 138, Potassium 4.4, Chloride 109 H, Carbon Dioxide 23, Anion Gap 10.4, BUN 21 H, Creatinine 0.90, Estimated Creat Clear 115, Estimated GFR 66, Est GFR ( Amer) 80, Glucose 92, Calcium 9.1 I & O for Labs for Last 24 Hours: Intake & Output 07/30/23 07/31/23 08/01/23 08/02/23 11:59 11:59 11:59 11:59 Intake Total 320 / 320 1040 / 1040 Output Total 0 / 0 0 / 0 Balance 320 / 320 1040 / 1040 Weight 210 lb 2 oz 210 lb 1.996 oz 219 lb 9.6 oz Constitutional: Present no acute distress Comment:: Sitting up in the bed completing her breakfast Respiratory: Present CTA bilaterally (Anteriorly and posteriorly) Cardiac: Present Reg Rate and Rhythm GI: Present soft and normal bowel sounds; Absent distention or tenderness Extremities: Present full ROM; Absent edema or calf tenderness Neuro: Present alert and oriented x 3 Assessment and Plan *Assessment and plan (1) Hypertensive urgency: Status: Acute Category: Medical Code(s): I16.0 - Hypertensive urgency (2) Hypertension: Status: Acute Qualifiers: Hypertension type: unspecified Qualified Code(s): I10 - Essential (primary) hypertension Category: Medical Code(s): I10 - Essential (primary) hypertension (3) HHD (hypertensive heart disease): Status: Chronic Qualifiers: Heart failure presence: without heart failure Qualified Code(s): I11.9 - Hypertensive heart disease without heart failure Category: Medical Code(s): I11.9 - Hypertensive heart disease without heart failure (4) Chest pain: Status: Acute Qualifiers: Chest pain type: unspecified Qualified Code(s): R07.9 - Chest pain, unspecified Category: Medical Code(s): R07.9 - Chest pain, unspecified (5) CAD (coronary artery disease): Status: Chronic Qualifiers: Associated angina: with other forms of angina Coronary Disease- Associated Artery/Lesion type: [place] artery [place] vs. transplanted heart: [place] heart Qualified Code(s): I25.118 - Atherosclerotic heart disease of [place] coronary artery with other forms of angina pectoris Category: Medical Code(s): I25.10 - Atherosclerotic heart disease of [place] coronary artery without angina pectoris (6) Diastolic dysfunction: Status: Chronic Category: Medical Code(s): I51.89 - Other ill-defined heart diseases (7) Status post coronary artery stent placement: Status: Acute Category: Surgical Code(s): Z95.5 - Presence of coronary angioplasty implant and graft (8) Paroxysmal A-fib: Status: Acute Category: Medical Code(s): I48.0 - Paroxysmal atrial fibrillation (9) Hx of supraventricular tachycardia: Status: Chronic Category: Medical Code(s): Z86.79 - Personal history of other diseases of the circulatory system (10) HLD (hyperlipidemia): Status: Chronic Qualifiers: Hyperlipidemia type: mixed hyperlipidemia Qualified Code(s): E78.2 - Mixed hyperlipidemia Category: Medical Code(s): E78.5 - Hyperlipidemia, unspecified (11) Hypertriglyceridemia: Status: Acute Category: Medical Code(s): E78.1 - Pure hyperglyceridemia (12) History of left nephrectomy: Status: Chronic Category: Surgical Code(s): Z90.5 - Acquired absence of kidney (13) Family history of heart disease: Status: Acute Category: Medical Code(s): Z82.49 - Family history of ischemic heart disease and other diseases of the circulatory system (14) HEATHER (obstructive sleep apnea): Status: Chronic Category: Medical Code(s): G47.33 - Obstructive sleep apnea (adult) (pediatric) (15) Gastroesophageal reflux disease: Status: Acute Qualifiers: Esophagitis presence: esophagitis presence not specified Qualified Code(s): K21.9 - Gastro-esophageal reflux disease without esophagitis Category: Medical Code(s): K21.9 - Gastro-esophageal reflux disease without esophagitis Plan Patient stable for discharge. Meds as suggested per cardiology: Cardiac meds Metoprolol succinate 100 mg p.o. daily Amlodipine 10 mg p.o. daily Atorvastatin 40 mg p.o. daily Plavix 75 mg p.o. daily Aspirin 81 mg p.o. daily Xarelto 20 mg p.o. daily Lisinopril 20 mg p.o. daily HCTZ 12.[address] Kat entry - Saw patient, agree with above note. Pt received one stent to the LAD yesterday, OK for discharge today, will add Zet[place] due to abnormal lipid panel.
[2023-08-02 08:00] VITALS: BP 155/79; PULSE 65; PULSE 70; RESP 18; TEMP 36.8; O2SAT 92
[2023-08-02] MEDS: METOPROLOL SUCCINATE XL 100MG TABLET 100 MG PO (08:13)
[2023-08-02] MEDS: AMLODIPINE 10MG TABLET 10 MG PO (08:13)
[2023-08-02] MEDS: CLOPIDOGREL 75MG TAB 75 MG PO (08:13)
[2023-08-02] MEDS: PANTOPRAZOLE 40MG TABLET 40 MG PO (08:13)
[2023-08-02] MEDS: LISINOPRIL 20MG TABLET 20 MG PO (08:13)
--- NOTE | 2023-08-04 19:08 | P.DS_ITS ---
General Admission date:: 07/31/23 Discharge date: 08/02/23 HPI HPI HPI: Mrs. Fontenot is a 52 year old female patient of [facility], who see Dr. Story and LATASHA Germain for her primary care, with a history of CAD and A. fib with RVR. She was seen in the [facility] cardiology office twice this week with headache, chest pain and elevated blood pressure. Outpatient treatments did not achieve successful results so I was called to admit patient to [facility] for further evaluation and management. Patient states she has been taking all of her prescribed medications and she had recently increased her Metoprolol dose due to elevated blood pressure readings at home. Hospital Course Hospital Course Hospital Course: Patient was admitted to [facility] from the cardiology office for further evaluation and management for hypertensive urgency. She had a cardiac cath on 08/01/2023 and did receive 1 SUSIE to mid LAD. Blood pressure improved. Cardiology adjusted her medications and hydrochlorothiazide 12.5 mg was added daily for elevated LVEDP. On 08/02/2023 patient was stable and anxious to go home. Meds as per cardiology as listed. She will be on triple therapy x 1 week and then aspirin needs to be dropped. To follow-up in the cardiology clinic in 1 week for reevaluation. Also echocardiogram revealed normal ejection fraction. Electrolytes and kidney function were good with repeat labs.She was discharged o this date. Exam Data for Last 24 hours Vital signs and Labs for Last 24 Hours: Temp Pulse Resp BP Pulse Ox O2 Del Method 98.3 F 65 18 155/79 H 92 L Room Air 08/02/23 08:00 08/02/23 08:00 08/02/23 08:00 08/02/23 08:00 08/02/23 08:00 08/02/23 08:21 I & O for Last 24 hours: Intake & Output 08/02/23 08/03/23 08/04/23 08/05/23 11:59 11:59 11:59 11:59 Intake Total 1400 / 1400 Output Total 0 / 0 Balance 1400 / 1400 Weight 219 lb 9.6 oz Narrative: Constitutional: Present no acute distress Comment:: Sitting up in the bed completing her breakfast Respiratory: Present CTA bilaterally (Anteriorly and posteriorly) Cardiac: Present Reg Rate and Rhythm GI: Present soft and normal bowel sounds; Absent distention or tenderness Extremities: Present full ROM; Absent edema or calf tenderness Neuro: Present alert and oriented x 3 Results Data Completed and Pending Completed studies during hospitalization [Text1]: 07/31/2023 ECHO: Conclusion Normal biventricular systolic function. Mild TR, mild MR. 07/31/2023 Renal US MPRESSION: Status post left nephrectomy, otherwise unremarkable. 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 Dual antiplatelet therapy 2. Better control of hypertension 3. Patient requires diuretics in order to decrease LVEDP 4. LDL less than 55 to achieve that high intensity statin 5. Cardiac rehabilitation 6. Avoidance of tobacco products 07/31/23 11:25: WBC 7.5, RBC 5.13, Hgb 14.8, Hct 46.3, MCV 90.3, MCH 28.9, MCHC 32.0, RDW 13.8, Plt Count 271, MPV 9.4, Neut % (Auto) 58.2, Lymph % (Auto) 29.1, [place] % (Auto) 5.5, Eos % (Auto) 6.5, Baso % (Auto) 0.6, Neut # (Auto) 4.4, Lymph # (Auto) 2.2, [place] # (Auto) 0.4, Eos # (Auto) 0.5 H, Baso # (Auto) 0.1, Sodium 139, Potassium 4.0, Chloride 106, Carbon Dioxide 26, Anion Gap 11.0, BUN 13, Creatinine 0.90, Estimated Creat Clear 110, Estimated GFR 66, Est GFR ( Amer) 80, Glucose 91, Calcium 9.9, Troponin I < 0.01, NT-Pro-B Natriuret Pep 79.7, Triglycerides 160 H, Cholesterol 306 H, LDL Cholesterol Direct 184.30 H, VLDL Cholesterol 32, HDL Cholesterol 53, Cholesterol/HDL Ratio 5.8 H 07/31/23 14:51: Urine Color Yellow, Urine Appearance Clear, Urine pH 7.5, Ur Specific [place] 1.015, Urine Protein Negative, Urine Glucose (UA) Negative, Urine Ketones Negative, Urine Blood Trace-i, Urine Nitrate Negative, Urine Bilirubin Negative, Urine Urobilinogen 1.0, Ur Leukocyte Esterase Negative, Urine RBC 3-5, Urine WBC None, Ur Squamous Epith Cells Occasional, Urine Bacteria None 08/01/23 09:39: WBC 7.0, RBC 4.83, Hgb 14.2, Hct 44.4, MCV 92.0, MCH 29.3, MCHC 31.9, RDW 13.7, Plt Count 266, MPV 9.3, Neut % (Auto) 53.8, Lymph % (Auto) 36.0, [place] % (Auto) 5.3, Eos % (Auto) 4.4, Baso % (Auto) 0.5, Neut # (Auto) 3.8, Lymph # (Auto) 2.5, [place] # (Auto) 0.4, Eos # (Auto) 0.3, Baso # (Auto) 0.0, Sodium 138, Potassium 4.4, Chloride 107, Carbon Dioxide 25, Anion Gap 10.4, BUN 20 H D, Creatinine 1.00, Estimated Creat Clear 99, Estimated GFR 58 L, Est GFR ( Amer) 70, Glucose 89, Calcium 9.6 08/01/23 11:42: Activated Clotting Time 303 H* 08/02/23 05:52: WBC 7.5, RBC 4.65, Hgb 13.5, Hct 43.7, MCV 94.0, MCH 29.1, MCHC 31.0 L, RDW 13.8, Plt Count 254, MPV 8.9, Neut % (Auto) 50.5, Lymph % (Auto) 34.5, [place] % (Auto) 6.3, Eos % (Auto) 8.1, Baso % (Auto) 0.5, Neut # (Auto) 3.8, Lymph # (Auto) 2.6, [place] # (Auto) 0.5, Eos # (Auto) 0.6 H, Baso # (Auto) 0.0, Sodium 138, Potassium 4.4, Chloride 109 H, Carbon Dioxide 23, Anion Gap 10.4, BUN 21 H, Creatinine 0.90, Estimated Creat Clear 115, Estimated GFR 66, Est GFR ( Amer) 80, Glucose 92, Calcium 9.1 DS: Diagnosis Discharge Diagnosis (1) Hypertensive urgency: Status: Acute Code(s): I16.0 - Hypertensive urgency (2) Hypertension: Status: Acute Code(s): I10 - Essential (primary) hypertension Qualifiers: Hypertension type: unspecified Qualified Code(s): I10 - Essential (primary) hypertension (3) HHD (hypertensive heart disease): Status: Chronic Code(s): I11.9 - Hypertensive heart disease without heart failure Qualifiers: Heart failure presence: without heart failure Qualified Code(s): I11.9 - Hypertensive heart disease without heart failure (4) Chest pain: Status: Acute Code(s): R07.9 - Chest pain, unspecified Qualifiers: Chest pain type: unspecified Qualified Code(s): R07.9 - Chest pain, unspecified (5) CAD (coronary artery disease): Status: Chronic Code(s): I25.10 - Atherosclerotic heart disease of [place] coronary artery without angina pectoris Qualifiers: Coronary Disease-Associated Artery/Lesion type: [place] artery [place] vs. transplanted heart: [place] heart Associated angina: with other forms of angina Qualified Code(s): I25.118 - Atherosclerotic heart disease of [place] coronary artery with other forms of angina pectoris (6) Diastolic dysfunction: Status: Chronic Code(s): I51.89 - Other ill-defined heart diseases (7) Status post coronary artery stent placement: Status: Acute Code(s): Z95.5 - Presence of coronary angioplasty implant and graft (8) Paroxysmal A-fib: Status: Acute Code(s): I48.0 - Paroxysmal atrial fibrillation (9) Hx of supraventricular tachycardia: Status: Chronic Code(s): Z86.79 - Personal history of other diseases of the circulatory system (10) HLD (hyperlipidemia): Status: Chronic Code(s): E78.5 - Hyperlipidemia, unspecified Qualifiers: Hyperlipidemia type: mixed hyperlipidemia Qualified Code(s): E78.2 - Mixed hyperlipidemia (11) Hypertriglyceridemia: Status: Acute Code(s): E78.1 - Pure hyperglyceridemia (12) History of left nephrectomy: Status: Chronic Code(s): Z90.5 - Acquired absence of kidney (13) Family history of heart disease: Status: Acute Code(s): Z82.49 - Family history of ischemic heart disease and other diseases of the circulatory system (14) HEATHER (obstructive sleep apnea): Status: Chronic Code(s): G47.33 - Obstructive sleep apnea (adult) (pediatric) (15) Gastroesophageal reflux disease: Status: Acute Code(s): K21.9 - Gastro-esophageal reflux disease without esophagitis Qualifiers: Esophagitis presence: esophagitis presence not specified Qualified Code(s): K21.9 - Gastro-esophageal reflux disease without esophagitis Meds Home Medications and Allergies Home Medications Medication Instructions Recorded Confirmed Type atorvastatin 40 mg tablet (Lipitor) 40 mg PO DAILY #30 tabs 09/11/22 07/31/23 Rx albuterol sulfate 90 mcg/actuation 2 puff inhalation Q4HP PRN 06/05/23 07/31/23 History aerosol inhaler Shortness Of Breath clopidogrel 75 mg tablet (Plavix) 75 mg PO DAILY #30 tabs 06/24/23 07/31/23 Rx amlodipine 10 mg tablet 10 mg PO DAILY #30 tabs 07/29/23 07/31/23 Rx nitroglycerin 0.4 mg sublingual 0.4 mg sublingual Q5MINP PRN chest 07/31/23 07/31/23 History tablet pain pantoprazole 40 mg tablet,delayed 40 mg PO DAILY 07/31/23 07/31/23 History release rivaroxaban 20 mg tablet (Xarelto) 20 mg PO QPMWITHMEAL 07/31/23 07/31/23 History ezetimibe 10 mg tablet 10 mg PO DAILY #30 tabs 08/02/23 Rx hydrochlorothiazide 12.5 mg capsule 12.5 mg PO DAILY #30 caps 08/02/23 Rx metoprolol succinate 100 mg 100 mg PO DAILY #30 tabs 08/02/23 Rx tablet,extended release 24 hr New Prescriptions to Start Prescriptions: ezetimibe [place],Adam hydrochlorothiazide [place],Adam metoprolol succinate [place],Adam Allergies Allergy/AdvReac Type Severity Reaction Status Date / Time fluconazole [From Diflucan] Allergy Rash Verified 07/31/23 10:11 phenazopyridine Allergy Rash Verified 07/31/23 10:11 [From Pyridium] aspirin AdvReac Verified 07/31/23 10:11 Discharge Plan Disposition Patient Disposition: Home, Self-Care Condition: Fair Follow up Plan Follow up with: Mikayla Meier PA [Physician Mobile Nurse] - 08/08/23 10:00 am Nicholas Dailey MD [Staff Physician] - 08/08/23 11:45 am Prescriptions/Medication Reconciliation: New metoprolol succinate 100 mg tablet extended release 24 hr 100 mg PO DAILY Qty: 30 0RF hydrochlorothiazide 12.5 mg capsule 12.5 mg PO DAILY Qty: 30 0RF ezetimibe 10 mg tablet 10 mg PO DAILY Qty: 30 0RF Continued atorvastatin [Lipitor] 40 mg tablet 40 mg PO DAILY Qty: 30 5RF amlodipine 10 mg tablet 10 mg PO DAILY Qty: 30 3RF clopidogrel [Plavix] 75 mg tablet 75 mg PO DAILY Qty: 30 5RF pantoprazole 40 mg tablet,delayed release (DR/EC) 40 mg PO DAILY nitroglycerin 0.4 mg tablet, sublingual 0.4 mg sublingual Q5MINP PRN (Reason: chest pain) Rx Instructions: do not exceed 3 doses per episode Xarelto 20 mg tablet 20 mg PO QPMWITHMEAL albuterol sulfate 90 mcg/actuation HFA aerosol inhaler 2 puff inhalation Q4HP PRN (Reason: Shortness Of Breath) Patient Comments: INHALE 1 TO 2 PUFFS BY MOUTH EVERY 4 HOURS NEEDED Discontinued metoprolol succinate 50 mg tablet extended release 24 hr 50 mg PO DAILY Qty: 30 5RF furosemide [Lasix] 40 mg tablet 40 mg PO DAILYP PRN (Reason: edema) Other Ambulatory Orders: Complete Blood Count Auto Diff (Routine) Timeframe: 20230808 Facility: [facility] - Location: Laboratory Ordered By: Nicholas Dailey Comprehensive Metabolic Panel (Routine) Timeframe: 20230808 Facility: [facility] - Location: Laboratory Ordered By: Nicholas Dailey Problem Reconciliation Problems Reviewed?: Yes Patient Discharge Instructions ACTIVITY: Limited activity DIET: continue same diet Stand Alone Forms: [facility] Work Release Patient Instructions: Essential Hypertension, DI for Cardiac Catheterization, DI for Surgical Site Infection Providers Primary Care Provider: Adam Kat Admit Provider: Nicholas Dailey Attending Provider: Adam Kat
--- NOTE | 2023-08-05 13:59 | CARE MANAGER ---
Contacted patient related to hospital discharge. She states she is tired but denies questions or concerns. She has her new medications and is aware of follow up appointments. IDALMIS Arzate
== END 2023-08-02 10:10 | disposition home or self-care (01) ==
PROVIDERS: Nurse Practitioner; Admitting Provider Internal Medicine; PCP Family Medicine; Visit Provider Family Medicine
DX: I16.0 Hypertensive urgency (principal); Z79.899 Other long term (current) drug therapy; Z79.01 Long term (current) use of anticoagulants; I25.110 Atherosclerotic heart disease of native coronary artery with unstable angina pectoris; I48.0 Paroxysmal atrial fibrillation; Z95.5 Presence of coronary angioplasty implant and graft; Z90.5 Acquired absence of kidney; Z82.49 Family history of ischemic heart disease and other diseases of the circulatory system; E78.5 Hyperlipidemia, unspecified; G47.33 Obstructive sleep apnea (adult) (pediatric); K21.9 Gastro-esophageal reflux disease without esophagitis; I25.2 Old myocardial infarction; I10 Essential (primary) hypertension
CPT/HCPCS: 36251; 36415; 76770; 80048; 80061; 81001; 83880; 84484; 85025; 85347; 92928; 93306; 93458; 93976; 99152; C1725; C1769; C1874; C9600; G0378; J1644; J2405; Q9967

== ENCOUNTER 2023-08-08 11:37 | Outpatient (CLI) | payer BC, SELFPAY ==
[2023-08-08 12:19] LABS: Basophils % 0.5 % (0.1-2.0); Eosinophils # 0.6 K/mm3 (0.0-0.4); Eosinophils % 8.6 % (0.1-12.0); Hematocrit 43.7 % (37.0-47.0); Hemoglobin 13.9 g/dL (12.2-16.2); Lymphocytes # 2.2 K/mm3 (0.7-4.5); Lymphocytes % 32.3 % (10-50); Mean Corpuscular HGB Conc 31.8 g/dL (31.8-35.4); Mean Corpuscular Hemoglobin 29.4 pg (27.0-31.2); Mean Corpuscular Volume 92.2 fl (81-99); Mean Platelet Volume 8.8 fl (7.4-10.4); Monocytes # 0.4 K/mm3 (0.1-1.0); Monocytes % 6.2 % (1.7-9.3); Neutrophils # 3.5 K/mm3 (1.8-7.8); Neutrophils % 52.4 % (37.0-80.0); Platelet Count 278 K/mm3 (142-424); Red Blood Count 4.74 M/mm3 (4.20-5.40); Red Cell Distribution Width 13.5 % (11.5-17.5); White Blood Count 6.8 K/mm3 (4.8-10.8)
[2023-08-08 12:39] LABS: Alanine Aminotransferase 30 U/L (12-78); Albumin/Globulin Ratio 1.3 (1.1-1.8); Alkaline Phosphatase 94 U/L (38-126); Anion Gap 10.8 mEq/L (5-15); Aspartate Amino Transferase 28 U/L (14-36); Bilirubin,Total 0.6 mg/dl (0.2-1.3); Blood Urea Nitrogen 16 mg/dl (7-17); Calcium 9.4 mg/dl (8.4-10.2); Carbon Dioxide 29 mmol/L (22.0-30.0); Chloride 104 mmol/L (98-107); Estimated Glomerular Filt Rate 47 ml/min (>60); GFR (African American) 57 ML/MIN (>60); Glucose 101 mg/dl (74-100); Potassium 3.8 mmoL/L (3.5-5.1); Sodium 140 mmol/L (136-145)
== END 2023-08-08 23:59 | disposition home or self-care (01) ==
PROVIDERS: PCP Physician Assistant; Visit Provider Internal Medicine
DX: Z95.5 Presence of coronary angioplasty implant and graft (principal); Z79.01 Long term (current) use of anticoagulants
CPT/HCPCS: 36415; 80053; 85025

== ENCOUNTER 2023-08-21 15:16 | Outpatient (CLI) | payer BC, SELFPAY ==
[2023-08-21 16:21] LABS: Chloride 107 mmol/L (98-107)
[2023-08-21 16:22] LABS: Potassium 4.2 mmoL/L (3.5-5.1); Sodium 141 mmol/L (136-145)
[2023-08-21 16:24] LABS: Blood Urea Nitrogen 16 mg/dl (7-17); Estimated Glomerular Filt Rate 66 ml/min (>60); GFR (African American) 80 ML/MIN (>60)
[2023-08-21 16:25] LABS: Anion Gap 10.2 mEq/L (5-15); Calcium 9.5 mg/dl (8.4-10.2); Carbon Dioxide 28 mmol/L (22.0-30.0); Glucose 74 mg/dl (74-100)
== END 2023-08-21 23:59 | disposition home or self-care (01) ==
LOC: LAB 15:20
PROVIDERS: PCP Family Medicine; Visit Provider Physician Assistant
DX: I25.118 Atherosclerotic heart disease of native coronary artery with other forms of angina pectoris (principal); I11.9 Hypertensive heart disease without heart failure
CPT/HCPCS: 36415; 80048

== ENCOUNTER 2023-09-26 10:10 | Emergency (ER) | payer BC, SELFPAY ==
--- NOTE | 2023-09-26 10:23 | EXP.UTC ---
Discharge Plan Disposition Patient Disposition: Home, Self-Care Condition: Good Prescriptions Prescriptions: New amoxicillin 875 mg tablet 875 mg PO Q12H Qty: 20 0RF benzonatate 100 mg capsule 100 mg PO TIDP PRN (Reason: Cough) Qty: 30 0RF No Action Repatha SureClick 140 mg/mL pen injector 140 mg SQ Q2W Qty: 2 5RF atorvastatin [Lipitor] 40 mg tablet 40 mg PO DAILY Qty: 30 5RF amlodipine 10 mg tablet 10 mg PO DAILY Qty: 30 3RF clopidogrel [Plavix] 75 mg tablet 75 mg PO DAILY Qty: 30 5RF hydrochlorothiazide 12.5 mg capsule 12.5 mg PO .COMPLEX Qty: 30 0RF Rx Instructions: 12.5 mg orally Sat, Sat, Fridays; pantoprazole 40 mg tablet,delayed release (DR/EC) 40 mg PO DAILY nitroglycerin 0.4 mg tablet, sublingual 0.4 mg sublingual Q5MINP PRN (Reason: chest pain) Rx Instructions: do not exceed 3 doses per episode Xarelto 20 mg tablet 20 mg PO QPMWITHMEAL metoprolol succinate 100 mg tablet extended release 24 hr 100 mg PO DAILY Qty: 30 0RF albuterol sulfate 90 mcg/actuation HFA aerosol inhaler 2 puff inhalation Q4HP PRN (Reason: Shortness Of Breath) Patient Comments: INHALE 1 TO 2 PUFFS BY MOUTH EVERY 4 HOURS NEEDED Referrals Follow up/Referrals: Mikayla Meier PA [Primary Care Provider] - See instructions Activity Restrictions/Add. Instructions Additional Instructions/Restrictions: Drink plenty of fluids. Take tylenol or ibuprofen for pain or fever. Take the medications as directed. Follow up with your regular doctor. GO TO THE ER FOR ANY WORSENING SYMPTOMS Clinical Impressions Clinical Impression: Pharyngitis Stand Alone Forms Stand Alone Forms: Work/School Release Instructions Patient Instructions: Sore Throat, DI for Pharyngitis/Tonsillopharyngitis -- Adult Print Language Print Language: Togolese Discharge ED Provider: Reji Swanson [facility] General Stated complaint: sore throat, fever Time Seen by Provider: 09/26/23 10:23 Related Data Home Medications ?Medication ?Instructions ?Recorded ?Confirmed albuterol sulfate 90 mcg/actuation 2 puff inhalation Q4HP PRN 06/05/23 08/08/23 aerosol inhaler Shortness Of Breath nitroglycerin 0.4 mg sublingual 0.4 mg sublingual Q5MINP PRN chest 07/31/23 08/08/23 tablet pain pantoprazole 40 mg tablet,delayed 40 mg PO DAILY 07/31/23 08/08/23 release rivaroxaban 20 mg tablet (Xarelto) 20 mg PO QPMWITHMEAL 07/31/23 08/08/23 Previous Rx's ?Medication ?Instructions ?Recorded clopidogrel 75 mg tablet (Plavix) 75 mg PO DAILY #30 tabs 06/24/23 amlodipine 10 mg tablet 10 mg PO DAILY #30 tabs 07/29/23 metoprolol succinate 100 mg 100 mg PO DAILY #30 tabs 08/02/23 tablet,extended release 24 hr atorvastatin 40 mg tablet (Lipitor) 40 mg PO DAILY #30 tabs 08/08/23 evolocumab 140 mg/mL subcutaneous 140 mg SQ Q2W #2 mL 08/08/23 pen injector (Joseph Rendon) hydrochlorothiazide 12.5 mg capsule 12.5 mg PO .COMPLEX #30 caps 08/21/23 amoxicillin 875 mg tablet 875 mg PO Q12H #20 tabs 09/26/23 benzonatate 100 mg capsule 100 mg PO TIDP PRN Cough #30 caps 09/26/23 Allergies Allergy/AdvReac Type Severity Reaction Status Date / Time fluconazole [From Diflucan] Allergy Rash Verified 09/26/23 10:37 phenazopyridine Allergy Rash Verified 09/26/23 10:37 [From Pyridium] aspirin AdvReac Verified 09/26/23 10:37 [facility] Disclaimer: The information contained in this section may have been updated after the patient was seen, as this information can be updated by other users. Medical History (Updated 09/26/23 @ 11:22 by Reji Swanson APRN) Pharyngitis Sinusitis Sinusitis PFO (patent foramen ovale) Hypertension SVT (supraventricular tachycardia) Numbness in both hands Memory loss Abnormal brain MRI Diastolic dysfunction CAD (coronary artery disease) Vitamin D deficiency Myelin oligodendrocyte glycoprotein antibody disorder (MOGAD) Paroxysmal A-fib Non-STEMI (non-ST elevated myocardial infarction) Angina pectoris Fibromyalgia Typical angina Urinary tract infection Hypertension Atrial fibrillation Migraine COVID-19 virus infection Hx of supraventricular tachycardia Family history of heart disease HEATHER (obstructive sleep apnea) Abnormal EKG Gastroesophageal reflux disease Coronary artery calcification seen on CT scan Dyspnea Chest pain Surgical History Status post coronary artery stent placement H/O cardiac catheterization H/O cardiac radiofrequency ablation History of cardiac radiofrequency ablation History of tonsillectomy History of hysterectomy History of cholecystectomy History of left nephrectomy Family History Other Cancer Coronary artery disease Diabetes Social History Smoking Status: Never smoker second hand exposure: No alcohol intake: never substance use type: denies use current occupational status: employed Travel in the last 8 weeks: Inside the [place] household members: spouse and family housing: house current occupation: administrative prof current occupational exposures/hazards: No caffeine: No ROS Obtained: Yes All systems reviewed & no additional complaints except as documented Constitutional Constitutional: Reports chills and Reports fever(s) Eyes Eyes: Denies eye discharge ENT Ears, Nose, Mouth, and Throat: Reports as per HPI Cardiovascular Cardiovascular: Denies chest pain Respiratory Respiratory: Denies chest congestion and Reports cough Gastrointestinal Gastrointestingal: Reports nausea; Denies abdominal pain, constipation, cramping, diarrhea or vomiting Musculoskeletal Musculoskeletal: Denies arthralgias Integumentary/Breasts Skin/Breast: Denies rash Neurologic Neurologic: Denies paresthesias Physical Exam General General appearance: alert and in no apparent distress Head Head exam: atraumatic, normocephalic and normal inspection Eye Eye exam: Present normal appearance, PERRL and EOMI ENT ENT exam: Present mucous membranes moist and normal external ear exam Expanded ENT Exam TM/Canal exam: Bilateral TM: erythema and bulging Nose exam: Absent sinus tenderness Mouth exam: Present normal external inspection; Absent drooling Teeth exam: Present normal inspection Throat exam: Present tonsillar erythema, tonsillomegaly and tonsillar exudate Neck Neck exam: Present normal inspection, full ROM and trachea midline; Absent tenderness, meningismus or lymphadenopathy Chest Chest inspection: Present normal inspection and symmetric chest wall rise; Absent tenderness Respiratory Respiratory exam: Present normal lung sounds bilaterally; Absent respiratory distress, wheezes, stridor or accessory muscle use Cardiovascular Cardiovascular exam: Present regular rate and normal rhythm; Absent systolic murmur or diastolic murmur Abdominal Exam Abdominal exam: Present soft and normal bowel sounds; Absent distention, tenderness, guarding, rebound or rigidity Extremities Exam Extremities exam: Present normal inspection and normal capillary refill; Absent calf tenderness Back Exam Back exam: Present normal inspection and full ROM; Absent tenderness, CVA tenderness (R) or CVA tenderness (L) Neurological Exam Neurological exam: Present alert, oriented X3 and CN II-XII intact Psychiatric Psychiatric exam: Present normal affect and normal mood Skin Skin exam: Present warm, dry, intact and normal color Medical Decision Making Medical Records Medical records reviewed: No I reviewed the patient's medical records. Sridhar Inquiry Pt receiving controlled substance: No Lab Data Lab results reviewed: Yes I reviewed the patient's lab results.
[2023-09-26 10:34] VITALS: BP 160/102; PULSE 85; RESP 18; TEMP 37.1; O2SAT 96; BMI 33.7
[2023-09-26 10:34] LABS: UTC Strep Screen (Rapid) Negative (Negative)
[2023-09-26 11:33] VITALS: BP 160/102; PULSE 85; RESP 18; TEMP 37.1
== END 2023-09-26 11:29 | disposition home or self-care (01) ==
PROVIDERS: Emergency Provider Nurse Practitioner Family; PCP Physician Assistant
DX: J02.9 Acute pharyngitis, unspecified (principal); R50.9 Fever, unspecified
CPT/HCPCS: 87635; 87880; 99212; 99214; G0463

== ENCOUNTER 2024-03-06 15:34 | Emergency (ER) | payer BC, SELFPAY ==
--- NOTE | 2024-03-06 15:37 | ECG_ITS ---
APPROVED REPORT Exam: Resting ECG HR:151 bpm ECG Measurements Heart Rate 151 AXES QRSd 107 QRS 63 QT 234 T -41 QTc 320 Conclusion ATRIAL FIBRILLATION WITH RAPID VENTRICULAR RESPONSE POSSIBLE ANTERIOR MYOCARDIAL INFARCTION , PROBABLY OLD [30 ms Q WAVE IN V3/V4, OR R < 0.2 mV IN V4] ST DEPRESSION, CONSIDER SUBENDOCARDIAL INJURY [0.1+ mV ST DEPRESSION] CRITICAL TEST RESULT Electronically signed by : NATALIYA NAZARIO, 03/23/2024 22:03:23
--- NOTE | 2024-03-06 15:46 | ED_ITS ---
Discharge Plan Disposition Patient Disposition: Home, Self-Care Condition: Good Prescriptions Prescriptions: No Action Repphila SureClick 140 mg/mL pen injector 140 mg SQ Q2W Qty: 2 5RF atorvastatin [Lipitor] 40 mg tablet 40 mg PO DAILY Qty: 30 5RF amlodipine 10 mg tablet 10 mg PO DAILY Qty: 30 3RF clopidogrel [Plavix] 75 mg tablet 75 mg PO DAILY Qty: 30 5RF metoprolol succinate 100 mg tablet extended release 24 hr 100 mg PO DAILY Qty: 30 5RF hydrochlorothiazide 12.5 mg capsule 12.5 mg PO .COMPLEX Qty: 30 5RF Rx Instructions: 12.5 mg orally Sat, Sat, Fridays; pantoprazole 40 mg tablet,delayed release (DR/EC) 40 mg PO DAILY nitroglycerin 0.4 mg tablet, sublingual 0.4 mg sublingual Q5MINP PRN (Reason: chest pain) Rx Instructions: do not exceed 3 doses per episode Xarelto 20 mg tablet 20 mg PO QPMWITHMEAL albuterol sulfate 90 mcg/actuation HFA aerosol inhaler 2 puff inhalation Q4HP PRN (Reason: Shortness Of Breath) Patient Comments: INHALE 1 TO 2 PUFFS BY MOUTH EVERY 4 HOURS NEEDED Referrals Follow up/Referrals: Mikayla Meier PA [Primary Care Provider] - See instructions Activity Restrictions/Add. Instructions Additional Instructions/Restrictions: Given that you are atrial fibrillation has improved and the rest of your labs are reassuring after shared decision making we have decided to forego getting a second troponin as the first 1 was undetectable. Please follow-up with your tool design checker. Please return with any new or worsening symptoms. Clinical Impressions Clinical Impression: Atrial fibrillation with RVR Print Language Print Language: Citizen Of [place] Discharge ED Provider: Richie Perdomo General Adult HPI General Chief complaint: Arrhythmia/Palpitations Stated complaint: CP Time Seen by Provider: 03/06/24 15:45 History of Present Illness HPI narrative: Patient presents for evaluation of palpitations, acute in onset while coughing, occurring today shortly prior to arrival, constant, stable in course, patient has had similar symptoms in the setting of known history of atrial fibrillation for which patient is anticoagulated. Denies any chest pain at this time, denies any syncope or presyncope. Patient was without her morning blood pressure medications which she was instructed to take as needed which to my understanding is a long-acting beta-eula. No previous therapies with the exception of vagal maneuvers which did not resolve her symptoms. Please note that above description of symptoms, in this electronic medical record under categorization of recalled from ER triage doctor by RN are reflective of an initial nursing assessment, however, is not reflective of my full history and physical exam that was personally taken and clarified. Consequentially, this preceding description of symptoms, which may include the patient's categorized chief complaint in the EMR, do not reflect my personal clinical impression, and the ultimate description of history of present illness and patient stated complaints should be deferred to this section of the note. Unless stated otherwise or congruent with this section of the note, additional signs, symptoms, or incongruence should be interpreted as inaccurate with my clinical impression. Related Data Home Medications ?Medication ?Instructions ?Recorded ?Confirmed albuterol sulfate 90 mcg/actuation 2 puff inhalation Q4HP PRN 06/05/23 03/06/24 aerosol inhaler Shortness Of Breath nitroglycerin 0.4 mg sublingual 0.4 mg sublingual Q5MINP PRN chest 07/31/23 03/06/24 tablet pain pantoprazole 40 mg tablet,delayed 40 mg PO DAILY 07/31/23 03/06/24 release rivaroxaban 20 mg tablet (Xarelto) 20 mg PO QPMWITHMEAL 07/31/23 03/06/24 Previous Rx's ?Medication ?Instructions ?Recorded clopidogrel 75 mg tablet (Plavix) 75 mg PO DAILY #30 tabs 06/24/23 amlodipine 10 mg tablet 10 mg PO DAILY #30 tabs 07/29/23 atorvastatin 40 mg tablet (Lipitor) 40 mg PO DAILY #30 tabs 08/08/23 evolocumab 140 mg/mL subcutaneous 140 mg SQ Q2W #2 mL 08/08/23 pen injector (Repatha SureClick) hydrochlorothiazide 12.5 mg capsule 12.5 mg PO .COMPLEX #30 caps 02/04/24 metoprolol succinate 100 mg 100 mg PO DAILY #30 tabs 02/04/24 tablet,extended release 24 hr Allergies Allergy/AdvReac Type Severity Reaction Status Date / Time fluconazole (From Diflucan) Allergy Rash Verified 09/26/23 10:37 phenazopyridine (From Allergy Rash Verified 09/26/23 10:37 Pyridium) aspirin AdvReac Verified 09/26/23 10:37 PFSH PFS Disclaimer: The information contained in this section may have been updated after the patient was seen, as this information can be updated by other users. Medical History (Updated 03/06/24 @ 17:21 by Richie Perdomo MD) Pharyngitis Sinusitis Sinusitis PFO (patent foramen ovale) Hypertension SVT (supraventricular tachycardia) Numbness in both hands Memory loss Abnormal brain MRI Diastolic dysfunction CAD (coronary artery disease) Vitamin D deficiency Myelin oligodendrocyte glycoprotein antibody disorder (MOGAD) Paroxysmal A-fib Non-STEMI (non-ST elevated myocardial infarction) Angina pectoris Fibromyalgia Typical angina Urinary tract infection Hypertension Atrial fibrillation Migraine COVID-19 virus infection Hx of supraventricular tachycardia Family history of heart disease HEATHER (obstructive sleep apnea) Abnormal EKG Gastroesophageal reflux disease Coronary artery calcification seen on CT scan Dyspnea Chest pain Surgical History Status post coronary artery stent placement H/O cardiac catheterization H/O cardiac radiofrequency ablation History of cardiac radiofrequency ablation History of tonsillectomy History of hysterectomy History of cholecystectomy History of left nephrectomy Family History Other Cancer Coronary artery disease Diabetes Social History Smoking Status: Never smoker second hand exposure: No alcohol intake: never substance use type: denies use current occupational status: employed Travel in the last 8 weeks: Inside the [place] household members: spouse and family housing: house current occupation: administrative prof current occupational exposures/hazards: No caffeine: No Other Medical History Have you received the Flu Vaccine for this season: No Have you received the Pneumonia Vaccine: No ROS Obtained: Yes other As per HPI Physical Exam General General appearance: alert and in no apparent distress Head Head exam: atraumatic and normocephalic Eye Eye exam: Present normal appearance Neck Neck exam: Present normal inspection Chest Chest inspection: Present normal inspection and symmetric chest wall rise Respiratory Respiratory exam: Present normal lung sounds bilaterally; Absent respiratory distress Cardiovascular Cardiovascular exam: Present tachycardia and irregular rhythm Abdominal Exam Abdominal exam: Present soft Neurological Exam Neurological exam: Present alert and oriented X3 Psychiatric Psychiatric exam: Present normal affect and normal mood Skin Skin exam: Present warm and dry Medical Decision Making Medical Records Medical records reviewed: Yes I reviewed the patient's medical records. Screening: Per USPSTF and CDC recommendations, given the prevalence of disease in our region, it is our hospital?s policy to screen for HIV and viral Hepatitis for all patients aged 18 and over and those with ongoing risk factors. Sridhar Inquiry Pt receiving controlled substance: No Vital Signs: 03/06/24 15:56 03/06/24 16:26 03/06/24 16:30 Temperature 98.3 F Temperature Source Oral Pulse Rate 148 H 144 H Pulse Rate [Right Brachial] 151 H Respiratory Rate 22 21 19 Blood Pressure 179/122 H 170/111 H Blood Pressure [Right Arm] 213/147 H Blood Pressure Mean [Right Arm] 169 Blood Pressure Source [Right Arm] Automatic Cuff Blood Pressure Position [Right Arm] Sitting 02 Sat by Pulse Oximetry 98 96 98 Oxygen Delivery Method Room Air Room Air Room Air 03/06/24 16:36 03/06/24 17:00 03/06/24 17:51 Temperature 98.0 F Temperature Source Pulse Rate 87 89 81 Pulse Rate [Right Brachial] Respiratory Rate 22 21 15 Blood Pressure 155/82 H 173/105 H 155/94 H Blood Pressure [Right Arm] Blood Pressure Mean [Right Arm] Blood Pressure Source [Right Arm] Blood Pressure Position [Right Arm] 02 Sat by Pulse Oximetry 97 96 Oxygen Delivery Method Room Air Room Air Room Air Lab Data Lab Results 03/06/24 15:40: WBC 9.3, RBC 4.82, Hgb 14.1, Hct 42.9, MCV 89.0, MCH 29.3, MCHC 32.9, RDW 13.1, Plt Count 286, MPV 10.9 H, Neut % (Auto) 58.3, Lymph % (Auto) 29.3, [place] % (Auto) 7.1, Eos % (Auto) 4.8, Baso % (Auto) 0.3, Neut # (Auto) 5.4, Lymph # (Auto) 2.7, [place] # (Auto) 0.7, Eos # (Auto) 0.5 H, Baso # (Auto) 0.0, Sodium 136, Potassium 4.0, Chloride 107, Carbon Dioxide 23, Anion Gap 10.0, BUN 16, Creatinine 0.90, Estimated Creat Clear 109, Estimated GFR 65, Est GFR ( Amer) 79, Glucose 113 H, Calcium 9.2, Magnesium 1.9, Total Bilirubin 0.5, AST 41 H, ALT 28, Alkaline Phosphatase 76, Troponin I < 0.01, Total Protein 7.5, Albumin 4.2, Globulin 3.3 H, Albumin/Globulin Ratio 1.3, TSH 1.61, Free T4 0.87 03/06/24 15:40 03/06/24 15:40 Orders (Tests/Meds): ED MEDICATIONS Discontinued Medications Generic Name Dose Route Start Last Admin Trade Name Freq PRN Reason Stop Dose Admin Diltiazem HCl 20 mg 03/06/24 16:30 03/06/24 16:27 Diltiazem 25mg/5ml Vial IV 03/06/24 16:31 20 mg ONCE ONE Administration Lactated Ringer's 1,000 mls @ 999 mls/hr 03/06/24 16:03 03/06/24 16:27 Lactated Ringer's 1000 Ml Bag IV 03/06/24 17:03 999 mls/hr .Q1H1M ONE Administration Magnesium Sulfate 2 gm in 50 mls @ 50 mls/hr 03/06/24 16:03 03/06/24 16:27 Magnesium Sulfate 2gm/50ml Premix IV 03/06/24 17:02 50 mls/hr ONCE ONE Administration ORDERS Category Date Time Status XR chest portable Stat Exams 03/06/24 16:03 Completed CBC w/Auto Diff [Complete Blood Count Auto Diff] Stat Lab 03/06/24 15:40 Completed CMP [Comprehensive Metabolic Panel] Stat Lab 03/06/24 15:40 Completed Free T4 (Free Thyroxine) Stat Lab 03/06/24 15:40 Completed MAG [Magnesium] Stat Lab 03/06/24 15:40 Completed TSH [Thyroid Stimulating Hormone] Stat Lab 03/06/24 15:40 Completed Troponin I Q3H Lab 03/06/24 15:40 Completed Medical Decision Narrative: Patient with history and exam per above presenting for evaluation of palpitations, and EKG consistent with atrial fibrillation with rapid ventricular response in the setting of anticoagulation. Diagnoses considered include arrhythmia, medication induced, no clinical instability at this time. After shared decision making we will proceed with IV medications to attempt Rhythm control ED workup and treatment included: ED MEDICATIONS Discontinued Medications Generic Name Dose Route Start Last Admin Trade Name Freq PRN Reason Stop Dose Admin Diltiazem HCl 20 mg 03/06/24 16:30 03/06/24 16:27 Diltiazem 25mg/5ml Vial IV 03/06/24 16:31 20 mg ONCE ONE Administration Lactated Ringer's 1,000 mls @ 999 mls/hr 03/06/24 16:03 03/06/24 16:27 Lactated Ringer's 1000 Ml Bag IV 03/06/24 17:03 999 mls/hr .Q1H1M ONE Administration Magnesium Sulfate 2 gm in 50 mls @ 50 mls/hr 03/06/24 16:03 03/06/24 16:27 Magnesium Sulfate 2gm/50ml Premix IV 03/06/24 17:02 50 mls/hr ONCE ONE Administration ORDERS Category Date Time Status XR chest portable Stat Exams 03/06/24 16:03 Completed CBC w/Auto Diff [Complete Blood Count Auto Diff] Stat Lab 03/06/24 15:40 Completed CMP [Comprehensive Metabolic Panel] Stat Lab 03/06/24 15:40 Completed Free T4 (Free Thyroxine) Stat Lab 03/06/24 15:40 Completed MAG [Magnesium] Stat Lab 03/06/24 15:40 Completed TSH [Thyroid Stimulating Hormone] Stat Lab 03/06/24 15:40 Completed Troponin I Q3H Lab 03/06/24 15:40 Completed Labs were independently interpreted by me, significant for no acute findings Imaging was independently visualized and interpreted by me, significant for no acute findings Please refer to radiology report for full details. Patient had return to sinus rhythm upon repeat evaluation. After shared decision making, and in light of inclement weather approaching, patient, with an understanding of risks of being discharged at this time, elects to forego second troponin. Return precautions given. Patient will follow-up with PCP. Critical Care Critical Care Time Critical Care Time: No
--- NOTE | 2024-03-06 15:51 | PC.NURSE ---
Gave the patient a blanket
[2024-03-06 15:56] VITALS: BP 213/147; PULSE 151; RESP 22; TEMP 36.8; O2SAT 98; BMI 33.9
--- NOTE | 2024-03-06 16:03 | XR_ITS ---
PROCEDURE INFORMATION: Exam: XR Chest Exam date and time: 03/06/2024 4:23 PM Age: 53 years old Clinical indication: Pain; Chest pressure; Additional info: Cp, af rvr TECHNIQUE: Imaging protocol: Radiologic exam of the chest. Views: 1 view. COMPARISON: CT ANGIO CHEST PE PROTOCOL 08/06/2022 3:10 PM FINDINGS: Lungs: Mild regions of peribronchial thickening right lung base Pleural spaces: Unremarkable. No pleural effusion. No pneumothorax. Heart/Mediastinum: Unremarkable. No cardiomegaly. Bones/joints: Unremarkable. IMPRESSION: Findings compatible with bronchitis.
[2024-03-06 16:11] LABS: Basophils % 0.3 % (0.1-2.0); Eosinophils # 0.5 K/mm3 (0.0-0.4); Eosinophils % 4.8 % (0.1-12.0); Hematocrit 42.9 % (37.0-47.0); Hemoglobin 14.1 g/dL (12.2-16.2); Lymphocytes # 2.7 K/mm3 (0.7-4.5); Lymphocytes % 29.3 % (10-50); Mean Corpuscular HGB Conc 32.9 g/dL (31.8-35.4); Mean Corpuscular Hemoglobin 29.3 pg (27.0-31.2); Mean Platelet Volume 10.9 fl (7.4-10.4); Monocytes # 0.7 K/mm3 (0.1-1.0); Monocytes % 7.1 % (1.7-9.3); Neutrophils # 5.4 K/mm3 (1.8-7.8); Neutrophils % 58.3 % (37.0-80.0); Platelet Count 286 K/mm3 (142-424); Red Blood Count 4.82 M/mm3 (4.20-5.40); Red Cell Distribution Width 13.1 % (11.5-17.5); White Blood Count 9.3 K/mm3 (4.8-10.8)
[2024-03-06 16:17] LABS: Chloride 107 mmol/L (98-107)
[2024-03-06 16:18] LABS: Albumin Level 4.2 g/dl (3.5-5.0); Sodium 136 mmol/L (136-145)
[2024-03-06 16:20] LABS: Blood Urea Nitrogen 16 mg/dl (7-17); Creatinine Clearance Estimated 109 mL/min (50-200); Estimated Glomerular Filt Rate 65 ml/min (>60); GFR (African American) 79 ML/MIN (>60)
[2024-03-06 16:21] LABS: Alanine Aminotransferase 28 U/L (12-78); Albumin/Globulin Ratio 1.3 (1.1-1.8); Alkaline Phosphatase 76 U/L (38-126); Aspartate Amino Transferase 41 U/L (14-36); Bilirubin,Total 0.5 mg/dl (0.2-1.3); Calcium 9.2 mg/dl (8.4-10.2); Carbon Dioxide 23 mmol/L (22.0-30.0); Globulin 3.3 g/dL (1.3-3.2); Glucose 113 mg/dl (74-100); Magnesium 1.9 mg/dl (1.6-2.3); Total Protein,Serum 7.5 g/dl (6.3-8.2)
[2024-03-06 16:26] VITALS: BP 179/122; PULSE 148; RESP 21; O2SAT 96
[2024-03-06] MEDS: MAGNESIUM SULFATE IN WATER 2 GM/50 ML PIGGYBACK IV (16:27)
[2024-03-06] MEDS: LACTATED RINGERS 1000ML 1,000 ML 999 ML IV (16:27)
[2024-03-06] MEDS: dilTIAZem 25MG/5ML VIAL 20 MG IV (16:27)
[2024-03-06 16:30] VITALS: BP 170/111; PULSE 144; RESP 19; O2SAT 98
[2024-03-06 16:34] LABS: Troponin I < 0.01 ng/ml (0.00-0.034)
[2024-03-06 16:36] VITALS: BP 155/82; PULSE 87; RESP 22; O2SAT 97
[2024-03-06 16:38] LABS: Free T4 (Free Thyroxine) 0.87 ng/dl (0.78-2.19)
--- NOTE | 2024-03-06 16:39 | ECG_ITS ---
APPROVED REPORT Exam: Resting ECG HR:83 bpm ECG Measurements Heart Rate 83 AXES LA 156 P 38 QRSd 89 QRS 62 QT 356 T 24 QTc 396 Conclusion SINUS RHYTHM NORMAL ECG UNCONFIRMED REPORT Electronically signed by : CIRO RUIZ, 03/08/2024 06:34:03
[2024-03-06 16:52] LABS: Thyroid Stimulating Hormone 1.61 uIU/mL (0.465-4.68)
[2024-03-06 17:00] VITALS: BP 173/105; PULSE 89; RESP 21; O2SAT 96
[2024-03-06 17:51] VITALS: BP 155/94; PULSE 81; RESP 15; TEMP 36.7; O2SAT 99
== END 2024-03-06 18:09 | disposition home or self-care (01) ==
PROVIDERS: Emergency Provider Emergency Medicine; PCP Physician Assistant
DX: I48.91 Unspecified atrial fibrillation (principal); R00.2 Palpitations; R05.9 Cough, unspecified
CPT/HCPCS: 71045; 80053; 83735; 84439; 84443; 84484; 85025; 93005; 96361; 96365; 99284; J3475; J7120

== ENCOUNTER 2024-03-11 15:00 | Outpatient (CLI) | payer BC, SELFPAY ==
[2024-03-11 15:44] LABS: Chol/HDL Ratio 4.3 (1-3.5); Cholesterol 205 mg/dl (140-200); HDL Cholesterol 48 mg/dl (40-60); Triglycerides 172 mg/dl (30-150); VLDL Cholesterol 34 mg/dL (0-40)
[2024-03-11 15:55] LABS: Direct LDL Cholesterol 125.99 mg/dL (100-129)
== END 2024-03-11 23:59 | disposition home or self-care (01) ==
LOC: LAB 15:01
PROVIDERS: PCP Physician Assistant; Visit Provider Physician Assistant
DX: E78.2 Mixed hyperlipidemia (principal)
CPT/HCPCS: 36415; 80061

== ENCOUNTER 2024-04-28 17:37 | Emergency (ER) | payer BC, SELFPAY ==
[2024-04-28 17:38] VITALS: BP 176/100; PULSE 117; RESP 29; TEMP 39; O2SAT 98; BMI 33.5
--- NOTE | 2024-04-28 17:39 | ED_ITS ---
<Statement entered by Ruby Razo DO - 04/28/24 23:15> I was consulted by the AL, and we discussed the complexity of the problems being addressed. I approved the treatment and management plan for this patient's care in the emergency department, thus performing a substantive portion of the medical decision making. Ruby Razo DO Discharge Plan Disposition Patient Disposition: Home, Self-Care Condition: Good Prescriptions Prescriptions: No Action Repatha SureClick 140 mg/mL pen injector 140 mg SQ Q2W Qty: 2 5RF albuterol sulfate 90 mcg/actuation HFA aerosol inhaler 2 inh inhalation Q6H PRN (Reason: shortness of breath or wheezing) 90 Days Qty: 8.5 2RF metoprolol succinate 50 mg tablet extended release 24 hr 50 mg PO BID Qty: 180 3RF clopidogrel [Plavix] 75 mg tablet 75 mg PO DAILY Qty: 30 5RF hydrochlorothiazide 12.5 mg capsule 12.5 mg PO .COMPLEX Qty: 30 5RF Rx Instructions: 12.5 mg orally Sat, Sat, Fridays; pantoprazole 40 mg tablet,delayed release (DR/EC) 40 mg PO DAILY nitroglycerin 0.4 mg tablet, sublingual 0.4 mg sublingual Q5MINP PRN (Reason: chest pain) Rx Instructions: do not exceed 3 doses per episode Xarelto 20 mg tablet 20 mg PO QPMWITHMEAL Referrals Follow up/Referrals: Provider,Referral, MD [Primary Care Provider] - See instructions Activity Restrictions/Add. Instructions Additional Instructions/Restrictions: Taking Tylenol alternating every 4 hours with Motrin for your fever and respiratory symptoms. Please keep your cardiology appointment tomorrow. If you have continued new or worsening signs or symptoms follow-up with your PCP within 48 hours or return to the ER as needed. Clinical Impressions Clinical Impression: Chest pain, Respiratory tract infection Print Language Print Language: Cuban Discharge ED Provider: Ruby Razo General Adult HPI <LATASHA Akers - Last Filed: 04/28/24 22:14> General Chief complaint: Chest Pain Stated complaint: CHEST PAIN Time Seen by Provider: 04/28/24 17:39 History of Present Illness HPI narrative: Patient presents for evaluation of chest pain. Patient has a history of coronary artery disease status post stenting x 6, obstructive sleep apnea on CPAP, history of atrial fibrillation rapid ventricular response, myelin oligodendrocyte glycoprotein antibody disorder, hyperlipidemia. Patient gives a 6-week history of increasing dyspnea on exertion, orthopnea, chest pressure and heaviness. She has been evaluated by both cardiology and pulmonology in that interim and VALLE has been ongoing. Chest pain has been continuous for 6 weeks and is unchanged however patient reports increasing dyspnea over the last 3 days along with smothering symptoms and now with a fever. Patient denies hemoptysis hematochezia melena nausea vomiting diarrhea. Patient also reports that she tested positive for COVID 2 weeks ago. Related Data Home Medications ?Medication ?Instructions ?Recorded ?Confirmed nitroglycerin 0.4 mg sublingual 0.4 mg sublingual Q5MINP PRN chest 07/31/23 04/28/24 tablet pain pantoprazole 40 mg tablet,delayed 40 mg PO DAILY 07/31/23 04/28/24 release rivaroxaban 20 mg tablet (Xarelto) 20 mg PO QPMWITHMEAL 07/31/23 04/28/24 Previous Rx's ?Medication ?Instructions ?Recorded clopidogrel 75 mg tablet (Plavix) 75 mg PO DAILY #30 tabs 06/24/23 evolocumab 140 mg/mL subcutaneous 140 mg SQ Q2W #2 mL 08/08/23 pen injector (Repatha SureClick) hydrochlorothiazide 12.5 mg capsule 12.5 mg PO .COMPLEX #30 caps 02/04/24 metoprolol succinate 50 mg 50 mg PO BID #180 tabs 03/11/24 tablet,extended release 24 hr albuterol sulfate 90 mcg/actuation 2 inh inhalation Q6H PRN shortness 04/16/24 aerosol inhaler of breath or wheezing 90 days #8.5 grams Allergies Allergy/AdvReac Type Severity Reaction Status Date / Time fluconazole (From Diflucan) Allergy Rash Verified 04/16/24 14:45 phenazopyridine (From Allergy Rash Verified 04/16/24 14:45 Pyridium) aspirin AdvReac Mild Verified 04/16/24 14:46 [facility] <LATASHA Akers - Last Filed: 04/28/24 22:14> [facility] Disclaimer: The information contained in this section may have been updated after the patient was seen, as this information can be updated by other users. Medical History (Updated 04/28/24 @ 20:41 by LATASHA Akers) HEATHER (obstructive sleep apnea) History of 2019 novel coronavirus disease (COVID-19) Dyspnea on exertion Pharyngitis Sinusitis Sinusitis PFO (patent foramen ovale) Hypertension SVT (supraventricular tachycardia) Numbness in both hands Memory loss Abnormal brain MRI Diastolic dysfunction CAD (coronary artery disease) Vitamin D deficiency Myelin oligodendrocyte glycoprotein antibody disorder (MOGAD) Paroxysmal A-fib Non-STEMI (non-ST elevated myocardial infarction) Angina pectoris Fibromyalgia Typical angina Urinary tract infection Hypertension Atrial fibrillation Migraine COVID-19 virus infection Hx of supraventricular tachycardia Family history of heart disease Abnormal EKG Gastroesophageal reflux disease Coronary artery calcification seen on CT scan Dyspnea Chest pain Surgical History Status post coronary artery stent placement H/O cardiac catheterization H/O cardiac radiofrequency ablation History of cardiac radiofrequency ablation History of tonsillectomy History of hysterectomy History of cholecystectomy History of left nephrectomy Family History Other Cancer Coronary artery disease Diabetes Social History Smoking Status: Never smoker second hand exposure: No alcohol intake: never substance use type: denies use current occupational status: employed Travel in the last 8 weeks: Inside the [place] household members: spouse and family housing: house current occupation: administrative prof current occupational exposures/hazards: No caffeine: No Have you lived/traveled outside [place] in past 30 days?: No Contact w/someone who lives/traveled outside US past 30 days?: No Exposure to someone with infectious disease in past 14 days?: No Do you have a fever (greater than 100.4 F or 38 C)?: No Have you tested positive for COVID-19: No Exposed to someone with COVID-19 in past 14 days?: No Do you have a sore throat?: No Do you have a cough?: No Do you have any weakness?: No Do you have any diarrhea?: No Are you experiencing any unusual bleeding?: No Do you have any muscle aches/pain?: No Do you have any abdominal pain?: No Are you experiencing loss of taste or smell?: No Other Medical History Have you received the Flu Vaccine for this season: No Have you received the Pneumonia Vaccine: No <LATASHA Akers - Last Filed: 04/28/24 22:14> ROS Obtained: Yes Systems reviewed as appropriate & no additional complaints except as documented Physical Exam <LATASHA Akers - Last Filed: 04/28/24 22:14> General General appearance: alert and in no apparent distress Respiratory Respiratory exam: Present normal lung sounds bilaterally Cardiovascular Cardiovascular exam: Present tachycardia; Absent normal heart sounds Neurological Exam Neurological exam: Present alert and oriented X3 Medical Decision Making <LATASHA Akers - Last Filed: 04/28/24 22:14> Medical Records Medical records reviewed: Yes I reviewed the patient's medical records. Screening: Per USPSTF and CDC recommendations, given the prevalence of disease in our region, it is our hospital?s policy to screen for HIV and viral Hepatitis for all patients aged 18 and over and those with ongoing risk factors. Sridhar Inquiry Pt receiving controlled substance: No Vital Signs: 04/28/24 17:38 04/28/24 17:50 04/28/24 18:30 Temperature 102.2 F H Temperature Source Oral Pulse Rate 114 H 109 H Pulse Rate [Right] 117 H Respiratory Rate 29 H 23 Blood Pressure 200/123 H 184/104 H Blood Pressure [Right Arm] 176/100 H Blood Pressure Mean [Right Arm] 125 Blood Pressure Source [Right Arm] Automatic Cuff 02 Sat by Pulse Oximetry 98 97 97 Oxygen Delivery Method Room Air 04/28/24 20:41 Temperature 98.7 F Temperature Source Oral Pulse Rate 83 Pulse Rate [Right] Respiratory Rate 20 Blood Pressure 184/98 H Blood Pressure [Right Arm] Blood Pressure Mean [Right Arm] Blood Pressure Source [Right Arm] 02 Sat by Pulse Oximetry Oxygen Delivery Method Room Air Lab Data Lab results reviewed: Yes I reviewed the patient's lab results. Lab Results 04/28/24 17:45: SARS-CoV-2 (PCR) Detected A, Influenza A Untype (PCR) Not detected, Influenza Type B (PCR) Not detected 04/28/24 17:49: VBG pH 7.45 H, VBG pCO2 32.7 L, VBG pO2 43.5 H, VBG HCO3 22.0 L, VBG Total CO2 23.0, VBG O2 Saturation 81.5 H, VBG Base Excess -2.1, VBG Lactic Acid 1.4 04/28/24 17:50: WBC 7.4, RBC 4.77, Hgb 13.8, Hct 41.7, MCV 87.4, MCH 28.9, MCHC 33.1, RDW 12.5, Plt Count 283, MPV 10.5 H, Neut % (Auto) 78.2, Lymph % (Auto) 10.9, Hoke % (Auto) 7.6, Eos % (Auto) 2.7, Baso % (Auto) 0.1, Neut # (Auto) 5.8, Lymph # (Auto) 0.8, Hoke # (Auto) 0.6, Eos # (Auto) 0.2, Baso # (Auto) 0.0, Sodium 136, Potassium 4.2, Chloride 104, Carbon Dioxide 25, Anion Gap 11.2, BUN 16, Creatinine 0.90, Estimated Creat Clear 108, Estimated GFR 65, Est GFR ( Amer) 79, Glucose 94, Calcium 9.3, Total Bilirubin 0.3, AST 39 H, ALT 37, Alkaline Phosphatase 100, Troponin I < 0.01, NT-Pro-B Natriuret Pep 169 H, Total Protein 7.5, Albumin 4.3, Globulin 3.2, Albumin/Globulin Ratio 1.3, HCV Ab MARTINEZ w/Rflx PCR Qn Negative, HIV Ag/Ab Combo Qual Negative 04/28/24 17:50 04/28/24 17:50 Orders (Tests/Meds): ED MEDICATIONS Discontinued Medications Generic Name Dose Route Start Last Admin Trade Name Freq PRN Reason Stop Dose Admin Acetaminophen 1,000 mg 04/28/24 17:53 04/28/24 18:08 Acetaminophen 500mg Tab PO 04/28/24 17:54 1,000 mg ONCE ONE Administration Iopamidol 80 ml 04/28/24 19:04 04/28/24 19:06 Iopamidol-370 (76%);100ml Bottle IV 04/28/24 19:05 80 ml ONCE ONE Administration Sodium Chloride 10 ml 04/28/24 19:04 04/28/24 19:06 Sodium Chloride 0.9% 10ml Syr (Rad Only) IV 04/28/24 19:05 10 ml ONCE ONE Administration Sodium Chloride 50 ml 04/28/24 19:04 04/28/24 19:06 0.9 % Sodium Chloride 50 Ml Vial IV 04/28/24 19:05 50 ml ONCE ONE Administration ORDERS Category Date Time Status CT angio chest - dissection Stat Cat Scan 04/28/24 18:17 Completed CXR 2 view (NOT portable) [XR chest 2V] Stat Exams 04/28/24 17:49 Completed Complete Blood Count Auto Diff Stat Lab 04/28/24 17:50 Completed Comprehensive Metabolic Panel Stat Lab 04/28/24 17:50 Completed Full Resp Panel w/COVID ([facility]) Routine Lab 04/28/24 17:45 Received HIV Combo Stat Lab 04/28/24 17:50 Completed Hepatitis C Ab Qual. W/ RFX Stat Lab 04/28/24 17:50 Completed NT Pro Brain Natriuretic Pep. Stat Lab 04/28/24 17:50 Completed Rapid PCR Covid and Flu A/B Stat Lab 04/28/24 17:45 Completed Troponin I Q3H Lab 04/28/24 17:50 Completed Venous Blood Gas Stat RT 04/28/24 17:49 Completed HEART Score History (anamnesis): Moderately suspicious ECG: Non-specific disturbance Age: 45-65 years Risk factors: Atherosclerosis history Troponin: </= normal limit HEART Score: 5 Medical Decision Narrative: In summary patient is a 53-year-old female who presents to the emergency department for evaluation of chest pain and dyspnea on exertion along with fever. Patient is initially hypertensive with a blood pressure 176/100 tachycardic at 117 with sinus tachycardia on the bedside monitor breathing 29 times a minute satting at 98% on room air upon arrival, with a temperature of 102.2. Physical exam is remarkable for clear breath sounds with tachypnea but no evidence of accessory muscle use. I am unable to reproduce her chest pain on palpation. Abdomen is soft nontender without rebound or guarding or rigidity.. Differential diagnosis includes ACS versus dissection versus post COVID- pneumonia versus other viral respiratory tract infection versus heart failure versus pulmonary edema etc. Initial workup will be conducted with hematologic labs VBG CTA dissection protocol. Initial interventions include crystalloid bolus Toradol Tylenol. Initial workup reviewed by me shows that her hematologic labs are significant for normal white count with no neutrophilic shift VBG showing a pH of 7.45 with pCO2 of 32.7 VBG lactic acid 1.4 NT proBNP of 169 troponin is undetectable at 0.01 and the remainder of her hematologic labs are nonactionable. Her COVID and flu swabs are positive for COVID as expected given her recent diagnosis.. Upon repeat evaluation patient's tachycardia had decreased to 83 her temperature had defervesced to 98.7 after initial intervention. Given this we have essentially ruled out any serious or life- threatening condition and while there remains diagnostic uncertainty about her ongoing chest pain I suspect the patient may have had a new viral infection and have converted her COVID and flu swabs to a full respiratory panel. Patient is comfortable going home following through the portal for the results of that test. Patient has a cardiology appointment already scheduled in the morning thus patient is appropriate for discharge with close follow-up with cardiology in the a.m. and strict return precautions. <Ruby Razo, DO - Last Filed: 04/28/24 20:23> Vital Signs: 04/28/24 17:38 04/28/24 17:50 04/28/24 18:30 Temperature 102.2 F H Temperature Source Oral Pulse Rate 114 H 109 H Pulse Rate [Right] 117 H Respiratory Rate 29 H 23 Blood Pressure 200/123 H 184/104 H Blood Pressure [Right Arm] 176/100 H Blood Pressure Mean [Right Arm] 125 Blood Pressure Source [Right Arm] Automatic Cuff 02 Sat by Pulse Oximetry 98 97 97 Oxygen Delivery Method Room Air 04/28/24 20:41 Temperature 98.7 F Temperature Source Oral Pulse Rate 83 Pulse Rate [Right] Respiratory Rate 20 Blood Pressure 184/98 H Blood Pressure [Right Arm] Blood Pressure Mean [Right Arm] Blood Pressure Source [Right Arm] 02 Sat by Pulse Oximetry Oxygen Delivery Method Room Air Lab Data Lab Results 04/28/24 17:45: SARS-CoV-2 (PCR) Detected A, Influenza A Untype (PCR) Not detected, Influenza Type B (PCR) Not detected 04/28/24 17:49: VBG pH 7.45 H, VBG pCO2 32.7 L, VBG pO2 43.5 H, VBG HCO3 22.0 L, VBG Total CO2 23.0, VBG O2 Saturation 81.5 H, VBG Base Excess -2.1, VBG Lactic Acid 1.4 04/28/24 17:50: WBC 7.4, RBC 4.77, Hgb 13.8, Hct 41.7, MCV 87.4, MCH 28.9, MCHC 33.1, RDW 12.5, Plt Count 283, MPV 10.5 H, Neut % (Auto) 78.2, Lymph % (Auto) 10.9, Hoke % (Auto) 7.6, Eos % (Auto) 2.7, Baso % (Auto) 0.1, Neut # (Auto) 5.8, Lymph # (Auto) 0.8, Hoke # (Auto) 0.6, Eos # (Auto) 0.2, Baso # (Auto) 0.0, Sodium 136, Potassium 4.2, Chloride 104, Carbon Dioxide 25, Anion Gap 11.2, BUN 16, Creatinine 0.90, Estimated Creat Clear 108, Estimated GFR 65, Est GFR ( Amer) 79, Glucose 94, Calcium 9.3, Total Bilirubin 0.3, AST 39 H, ALT 37, Alkaline Phosphatase 100, Troponin I < 0.01, NT-Pro-B Natriuret Pep 169 H, Total Protein 7.5, Albumin 4.3, Globulin 3.2, Albumin/Globulin Ratio 1.3, HCV Ab MARTINEZ w/Rflx PCR Qn Negative, HIV Ag/Ab Combo Qual Negative Orders (Tests/Meds): ED MEDICATIONS Discontinued Medications Generic Name Dose Route Start Last Admin Trade Name Freq PRN Reason Stop Dose Admin Acetaminophen 1,000 mg 04/28/24 17:53 04/28/24 18:08 Acetaminophen 500mg Tab PO 04/28/24 17:54 1,000 mg ONCE ONE Administration Iopamidol 80 ml 04/28/24 19:04 04/28/24 19:06 Iopamidol-370 (76%);100ml Bottle IV 04/28/24 19:05 80 ml ONCE ONE Administration Sodium Chloride 10 ml 04/28/24 19:04 04/28/24 19:06 Sodium Chloride 0.9% 10ml Syr (Rad Only) IV 04/28/24 19:05 10 ml ONCE ONE Administration Sodium Chloride 50 ml 04/28/24 19:04 04/28/24 19:06 0.9 % Sodium Chloride 50 Ml Vial IV 04/28/24 19:05 50 ml ONCE ONE Administration ORDERS Category Date Time Status CT angio chest - dissection Stat Cat Scan 04/28/24 18:17 Completed CXR 2 view (NOT portable) [XR chest 2V] Stat Exams 04/28/24 17:49 Completed Complete Blood Count Auto Diff Stat Lab 04/28/24 17:50 Completed Comprehensive Metabolic Panel Stat Lab 04/28/24 17:50 Completed Full Resp Panel w/COVID ([facility]) Routine Lab 04/28/24 17:45 Received HIV Combo Stat Lab 04/28/24 17:50 Completed Hepatitis C Ab Qual. W/ RFX Stat Lab 04/28/24 17:50 Completed NT Pro Brain Natriuretic Pep. Stat Lab 04/28/24 17:50 Completed Rapid PCR Covid and Flu A/B Stat Lab 04/28/24 17:45 Completed Troponin I Q3H Lab 04/28/24 17:50 Completed Venous Blood Gas Stat RT 04/28/24 17:49 Completed ECG Data Tracing #1: I reviewed this ECG and interpreted as documented below: Sinus tachycardia with a ventricular rate of [address] changes concerning for ischemia. Normal intervals ECG initial impression date: 04/28/24 ECG initial impression time: 18:00 Critical Care <LATASHA Akers - Last Filed: 04/28/24 22:14> Critical Care Time Critical Care Time: Yes Attestation: On 04/28/24, the high probability of a clinically significant, sudden or life threatening deterioration of the following system(s) required my full and direct attention, intervention and personal management. The time I documented below is in addition to time spent performing reported procedures but includes the following listed in this critical care notation. Total Time Total Critical Care Time: 35
--- NOTE | 2024-04-28 17:40 | ECG_ITS ---
APPROVED REPORT Exam: Resting ECG HR:113 bpm ECG Measurements Heart Rate 113 AXES GA 147 P 33 QRSd 93 QRS 46 QT 310 T -3 QTc 377 Conclusion SINUS TACHYCARDIA POSSIBLE ANTERIOR MYOCARDIAL INFARCTION , PROBABLY OLD [30 ms Q WAVE IN V3/V4, OR R < 0.2 mV IN V4] No STEMI Electronically signed by : RANDAL KOLB, 04/28/2024 23:41:22
--- NOTE | 2024-04-28 17:49 | XR_ITS ---
PROCEDURE INFORMATION: Exam: XR Chest Exam date and time: 04/28/2024 5:49 PM Age: 53 years old Clinical indication: Cough; Additional info: Cough, SOA, dsypnea TECHNIQUE: Imaging protocol: Radiologic exam of the chest. Views: 2 views. COMPARISON: CR XR CHEST PORTABLE 03/06/2024 4:23 PM FINDINGS: Lungs: Normal pulmonary expansion. Pulmonary vasculature grossly normal. No gross pulmonary infiltrates or edema pattern. Mild chronic bandlike atelectasis or fibrosis in the left lung base. Chronic granulomatous calcification in the peripheral left lung base. Pleural spaces: No pleural effusion. No pneumothorax. Heart/Mediastinum: Heart size normal. No tracheal/mediastinal shift. Bones/joints: No acute osseous abnormalities are identified. Organs: Prior cholecystectomy. IMPRESSION: No acute thoracic process.
[2024-04-28 17:50] VITALS: BP 200/123; PULSE 114; O2SAT 97
[2024-04-28 17:50] LABS: Influenza A, PCR Not Detected (NotDetected); Influenza B, PCR Not Detected (NotDetected)
[2024-04-28 17:56] LABS: Lactate Venous 1.4 mmol/L (0.4-2.0); VBG Base Excess -2.1 mmol/L (-2.4-2.3); VBG Oxygen Saturation 81.5 % (50-70); VBG PCO2 32.7 mmol/L (35-51); VBG PH 7.45 mmol/L (7.31-7.41); VBG PO2 43.5 mmol/L (28-40)
[2024-04-28] MEDS: ACETAMINOPHEN 500MG TAB 1000 MG PO (18:08)
[2024-04-28 18:11] LABS: Basophils % 0.1 % (0.1-2.0); Eosinophils # 0.2 K/mm3 (0.0-0.4); Eosinophils % 2.7 % (0.1-12.0); Hematocrit 41.7 % (37.0-47.0); Hemoglobin 13.8 g/dL (12.2-16.2); Lymphocytes # 0.8 K/mm3 (0.7-4.5); Lymphocytes % 10.9 % (10-50); Mean Corpuscular HGB Conc 33.1 g/dL (31.8-35.4); Mean Corpuscular Hemoglobin 28.9 pg (27.0-31.2); Mean Corpuscular Volume 87.4 fl (81-99); Mean Platelet Volume 10.5 fl (7.4-10.4); Monocytes # 0.6 K/mm3 (0.1-1.0); Monocytes % 7.6 % (1.7-9.3); Neutrophils # 5.8 K/mm3 (1.8-7.8); Neutrophils % 78.2 % (37.0-80.0); Platelet Count 283 K/mm3 (142-424); Red Blood Count 4.77 M/mm3 (4.20-5.40); Red Cell Distribution Width 12.5 % (11.5-17.5); White Blood Count 7.4 K/mm3 (4.8-10.8)
--- NOTE | 2024-04-28 18:17 | CT_ITS ---
PROCEDURE INFORMATION: Exam: CTA Chest With Contrast Exam date and time: 04/28/2024 7:05 PM Age: 53 years old Clinical indication: Dyspnea; Additional info: Dyspnea orthopnea chest pain TECHNIQUE: Imaging protocol: Computed tomographic angiography of the chest with contrast. Exam focused on the arteries. 3D rendering (Not supervised by radiologist): MIP and/or 3D reconstructed images were created by the technologist. Radiation optimization: All CT scans at this facility use at least one of these dose optimization techniques: automated exposure control; mA and/or kV adjustment per patient size (includes targeted exams where dose is matched to clinical indication); or iterative reconstruction. Contrast material: ISOVUE; Contrast volume: 80 ml; Contrast route: INTRAVENOUS (IV); COMPARISON: CT ANGIO CHEST PE PROTOCOL 08/06/2022 3:10 PM FINDINGS: Pulmonary arteries: No large central pulmonary emboli. Assessment of the small peripheral branch vessels was limited by a suboptimal contrast bolus phase and motion artifact in the lung bases, although no suspected peripheral emboli are identified. Aorta: No aortic aneurysm or dissection. No mediastinal hematoma. Thyroid: The visualized thyroid gland demonstrates no gross abnormality. Lungs: No acute tracheobronchial abnormalities. No gross pulmonary infiltrates or edema pattern. Bilateral pulmonary granulomatous calcifications. No pulmonary mass lesions are identified. Pleural spaces: No pleural effusion. No pneumothorax. Heart: Heart size normal. No pericardial effusion. Coronary arteries: Moderate-severe coronary artery calcification versus prior stent placements. Esophagus: The esophagus is largely contracted but demonstrates no gross abnormality. Lymph nodes: No supraclavicular or axillary adenopathy. No mediastinal or hilar adenopathy. Gallbladder and biliary ducts: Prior cholecystectomy. Bones/joints: No acute osseous abnormalities. Mild thoracic spondylosis. Soft tissues: No acute soft tissue abnormalities. IMPRESSION: 1. No large central pulmonary emboli. Evaluation of the small peripheral branch vessels was technically limited although no suspected peripheral emboli are identified. 2. Moderate-severe coronary artery calcification versus prior stent placement. No gross changes of acute cardiac decompensation. 3. Additional nonemergent findings detailed above.
[2024-04-28 18:21] LABS: Chloride 104 mmol/L (98-107)
[2024-04-28 18:22] LABS: Albumin Level 4.3 g/dl (3.5-5.0); Potassium 4.2 mmoL/L (3.5-5.1); Sodium 136 mmol/L (136-145)
[2024-04-28 18:24] LABS: Alanine Aminotransferase 37 U/L (12-78); Anion Gap 11.2 mEq/L (5-15); Aspartate Amino Transferase 39 U/L (14-36); Blood Urea Nitrogen 16 mg/dl (7-17); Carbon Dioxide 25 mmol/L (22.0-30.0); Creatinine Clearance Estimated 108 mL/min (50-200); Estimated Glomerular Filt Rate 65 ml/min (>60); GFR (African American) 79 ML/MIN (>60)
[2024-04-28 18:25] LABS: Albumin/Globulin Ratio 1.3 (1.1-1.8); Alkaline Phosphatase 100 U/L (38-126); Bilirubin,Total 0.3 mg/dl (0.2-1.3); Calcium 9.3 mg/dl (8.4-10.2); Globulin 3.2 g/dL (1.3-3.2); Glucose 94 mg/dl (74-100); Total Protein,Serum 7.5 g/dl (6.3-8.2)
[2024-04-28 18:30] VITALS: BP 184/104; PULSE 109; RESP 23; O2SAT 97
[2024-04-28 18:34] LABS: NT Pro Brain Natriuretic Pep. 169 pg/mL (0-125)
[2024-04-28 18:36] LABS: Coronavirus 19, PCR Detected (NotDetected)
--- NOTE | 2024-04-28 18:40 | PC.NURSE ---
PT REQUEST O2 FOR COMFORT SHE WEARS C-PAP AT TIME. O2 SAT 97% ON ROOM AIR. PLACED ON 1L PER NC
[2024-04-28 18:44] LABS: Troponin I < 0.01 ng/ml (0.00-0.034)
[2024-04-28] MEDS: 0.9 % SODIUM CHLORIDE 50 ML VIAL IV (19:06)
[2024-04-28] MEDS: IOPAMIDOL-370 (76%);100ML BOTTLE 80 ML IV (19:06)
[2024-04-28] MEDS: SODIUM CHLORIDE 0.9% 10ML SYR (RAD ONLY) 10 ML IV (19:06)
[2024-04-28 19:12] LABS: Adenovirus,PCR Not Detected (NotDetected); Bordetella Pertussis Not Detected (NotDetected); Chlamydophila Pneumoniae, PCR Not Detected (NotDetected); Coronavirus 19, PCR Not Detected (NotDetected); Coronavirus 229E Not Detected (NotDetected); Coronavirus NL63 Not Detected (NotDetected); Coronavirus OC43 Not Detected (NotDetected); Coronovirus HKU1,PCR Not Detected (NotDetected); Human Metapneumovirus Not Detected (NotDetected); Influenza A, PCR Not Detected (NotDetected); Influenza AH1, 2009 Not Detected (NotDetected); Influenza AH1, PCR Not Detected (NotDetected); Influenza AH3,PCR Not Detected (NotDetected); Influenza B, PCR Not Detected (NotDetected); Mycoplasma Pneumoniae, PCR Not Detected (NotDetected); Parainfluenza 1, PCR Not Detected (NotDetected); Parainfluenza 2, PCR Not Detected (NotDetected); Parainfluenza 3, PCR Not Detected (NotDetected); Parainfluenza 4, PCR Not Detected (NotDetected); Respiratory Syncytial Virus Not Detected (NotDetected); Rhinovirus/Enterovirus Not Detected (NotDetected)
[2024-04-28 20:14] LABS: HIV Combo NEGATIVE (Negative)
[2024-04-28 20:23] LABS: Hepatitis C Ab Qual. W/ RFX NEGATIVE (Negative)
[2024-04-28 20:41] VITALS: BP 184/98; PULSE 83; RESP 20; TEMP 37.1; O2SAT 98
== END 2024-04-28 20:56 | disposition home or self-care (01) ==
PROVIDERS: Physician Assistant; Emergency Provider Emergency Medicine
DX: J98.8 Other specified respiratory disorders (principal); R07.9 Chest pain, unspecified; R06.00 Dyspnea, unspecified; R50.9 Fever, unspecified; R06.01 Orthopnea
CPT/HCPCS: 71046; 71275; 80053; 82803; 83880; 84484; 85025; 86803; 87389; 87633; 87636; 93005; 99291; Q9967

== ENCOUNTER 2024-04-29 15:00 | Outpatient (CLI) | payer BC, SELFPAY ==
[2024-04-29 15:06] LABS: Human Rhinovirus Not Detected (NotDetected); Influenza B, PCR Not Detected (NotDetected); Respiratory Syncytial Virus Not Detected (NotDetected)
[2024-04-29 17:32] LABS: Coronavirus 19, PCR Not Detected (NotDetected); Influenza A, PCR Detected (NotDetected)
== END 2024-04-29 23:59 | disposition home or self-care (01) ==
LOC: LAB 15:00
PROVIDERS: PCP Physician Assistant; Visit Provider Physician Assistant
DX: R05.9 Cough, unspecified (principal); R50.9 Fever, unspecified; R06.09 Other forms of dyspnea
CPT/HCPCS: 87631

== ENCOUNTER 2024-05-15 15:01 | Outpatient (CLI) | payer BC, SELFPAY ==
--- NOTE | 2024-05-15 15:17 | CA_ITS ---
APPROVED REPORT EXAM: Limited 2D Echocardiogram Calciner Feeder: Caty Askew CRT Ht: 5 ft 5 in Wt: 216lbs BSA: 2.04 BP: 178/101 mmHg Indications: EF CHECK. ABN BLOOD WORK M-Mode Dimensions RVDd 1.94 cm (0.9-2.6) LA Diam 3.26 cm (1.9-4.0) LVDd 4.04 cm (3.5-5.7) LVDs 1.87 cm (3.5-5.7) IVSd 1.50 cm (0.6-1.1) PWd 0.90 cm (0.6-1.1) EF (Teich) 85.10% FS 53.70% EDV (Teich) 71.70 mL ESV (Teich) 10.70 mL Other Information Study Quality: Fair Conclusion This is a limited TTE to evaluate for LV systolic function. Limited windows are obtained. The left ventricle is normal in size. There is increased LV wall thickness. There is normal global and regional LV systolic function. LVEF is 60%. Electronically signed by : Adelaida Larios MD 05/17/2024 16:31:31
== END 2024-05-15 23:59 | disposition home or self-care (01) ==
LOC: RT 15:02
PROVIDERS: PCP Physician Assistant; Visit Provider Physician Assistant
DX: R06.09 Other forms of dyspnea (principal); I51.89 Other ill-defined heart diseases; R94.31 Abnormal electrocardiogram [ECG] [EKG]
CPT/HCPCS: 93308

== ENCOUNTER 2024-06-25 10:01 | Outpatient (CLI) | payer BC, SELFPAY ==
[2024-06-25 12:35] LABS: Alanine Aminotransferase 24 U/L (12-78); Albumin Level 4.1 g/dl (3.5-5.0); Alkaline Phosphatase 93 U/L (38-126); Aspartate Amino Transferase 27 U/L (14-36); Bilirubin,Direct 0.2 mg/dl (0.0-0.4); Bilirubin,Indirect 0.3 mg/dL (0.0-0.9); Bilirubin,Total 0.5 mg/dl (0.2-1.3); Bilirubin,Unconjugated 0.3 mg/dL (0.0-1.1); Cholesterol 189 mg/dl (140-200); HDL Cholesterol 63 mg/dl (40-60); Total Protein,Serum 6.8 g/dl (6.3-8.2); Triglycerides 195 mg/dl (30-150); VLDL Cholesterol 39 mg/dL (0-40)
[2024-06-25 12:43] LABS: NT Pro Brain Natriuretic Pep. 139 pg/mL (0-125)
[2024-06-25 12:46] LABS: Direct LDL Cholesterol 91.85 mg/dL (100-129)
== END 2024-06-25 23:59 | disposition home or self-care (01) ==
PROVIDERS: PCP Physician Assistant; Visit Provider Physician Assistant
DX: R06.02 Shortness of breath (principal); E78.2 Mixed hyperlipidemia; R79.89 Other specified abnormal findings of blood chemistry
CPT/HCPCS: 36415; 80061; 80076; 83880; 94060; 94618; 94726; 94729

== ENCOUNTER 2024-08-16 13:28 | Outpatient (CLI) | payer BC, SELFPAY ==
--- NOTE | 2024-08-16 13:53 | PC.NURSE ---
Dr. Story called this nurse and gave verbal order for BUN and Creatinine.
[2024-08-16 14:55] LABS: Blood Urea Nitrogen 14 mg/dl (7-17); Estimated Glomerular Filt Rate 58 ml/min (>60); GFR (African American) 70 ML/MIN (>60)
== END 2024-08-16 23:59 | disposition home or self-care (01) ==
LOC: LAB 13:30
PROVIDERS: PCP Family Medicine; Visit Provider Family Medicine
DX: G37.81 Myelin oligodendrocyte glycoprotein antibody disease (principal)
CPT/HCPCS: 36415; 82565; 84520

== ENCOUNTER 2024-08-17 12:53 | Outpatient (CLI) | payer BC, SELFPAY ==
--- OUTSIDE RECORDS SUMMARY | 2024-08-17 12:55 | XMS_ITS | Encounter Summary ---
Author Organization [place] [address] Care Team Providers Care Controller Repairer And Tester Name Role Phone Arianna Story Wayne Primary Care Provider [phone] Encounter Details Date Type Department Care Team (Late st Contact Info) Description 06/15/2014 Orders Only [facility] [address] [facility] [address] [place] [phone] Nayan Manzano MD [address] [place] [address] Social History Tobacco Use Types Packs/Day Years Used Date Smoking Tobacco: Never Alcohol Use Standard Drinks/Week Comments Yes 0 (1 standard drink = 0.6 oz pur e alcohol) social Comments No Sex and Gender Information Value Date Recorded Sex Assigned at Not on file Legal Sex Female 1:01 PM EDT Gender Identity Not on file Sexual Orientation Not on file documented as of this encounter Plan of Treatment Not on file documented as of this encounter Procedures Procedure Name Priority Date/Time Associated Diagnosis Comments ELECTROPHYSIOLOGY OR IMPLANT PROCEDURE LOG Routine 06/15/2014 8:34 AM EDT documented in this encounter Results * ELECTROPHYSIOLOGY OR IMPLANT PROCEDURE LOG (06/15/2014 8:34 AM EDT) 06/15/2014 8:34 AM EDT us Nayan Manzano MD CARDIAC CATH ORDERABLES Final Result [facility] [address] [place] [address] documented in this encounter Visit Diagnoses Not on filedocumented in this encounter Care Teams Controller Repairer And Tester Relationship Specialty Start Date End Date Arianna Story [address] [place] [phone] PCP - General Family Medicine 06/14/14 documented as of this encounter
--- OUTSIDE RECORDS SUMMARY | 2024-08-17 12:55 | XMS_ITS | Encounter Summary ---
Author Organization [employer] Address [address] [place] [address] Care Team Providers Care Binder Chainstitch Name Role Phone Unavailable Primary Care Provider Unavailabl e Encounter Details Date Type Department Care Team (Late st Contact Info) Description 10/03/2018 Transcribed Document [facility] [place] [facility] [place] [address] ProviderKatie MD [address] [place] [id number] Social History Tobacco Use Types Packs/Day Years Used Date Smoking Tobacco: Never Assessed Comments Unknown Sex and Gender Information Value Date Recorded Sex Assigned at Not on file Legal Sex Female 3:39 PM CDT Gender Identity Not on file Sexual Orientation Not on file documented as of this encounter Miscellaneous Notes * Cerner Conversion Note - Katie ProviderMD - 10/03/2018 10:48 AM CDT [facility] [place] [address] MIRA FONTENOT :1970 Visit Time:10/03/2018 Your Visit Summary Your Care Team Admitting Physician - STEPHANIE HARDIN MD-NEU Attending Physician - STEPHANIE HARDIN MD-NEU Primary Care Physician - JOSELUIS FOSTER (REF)MD Referring Physician - STEPHANIE HARDIN MD-NEU Discharge Vitals Temperature 36.6 ??C Heart Rate 70 Blood Pressure 136/92 What to do next Instructions From Your Care Team Diet after Discharge: Resume usual diet as tolerated Activity after Discharge: rest and relax for 2 days Lifting Restrictions: No heavy lifting over 10 pounds for 12 hours post procedure Driving after Discharge: Do not drive for 12 hours post procedure Showering/Bathing: May shower, Wound/Incision Care after Discharge: may remove band aid tonight Follow-Up Appointments Follow Up with STEPHANIE HARDIN MD-NEU When Comments Follow-up as instructed Where: Medications What How Much When Instructions Next Dose pantoprazole (pantoprazole 40 mg oral delayed release tablet) 1 Tablet(s) Oral Every Day Take your medications faithfully. Do NOT skip medication. Do NOT stop taking medications without the direction of a physician. Carry a list of your medications with you at all times, and take this medication list with you to your first follow up visit. Report any side effects. Avoid herbal remedies unless discussed with your physician. As part of your treatment plan, your physician may have prescribed a limited course of a controlled substance. This medication may be given to help people with moderate or severe pain or for other medical conditions, but there are risks involved with treatment. Common side effects may include nausea, constipation, drowsiness, sweating, itching, dry mouth, and rash. More serious side effects may include cognitive and motor impairment, like problems with thinking, concentrating, alertness, and movement (e.g. slowed reflexes), and driving and operating heavy machinery can be dangerous. It is important for you to talk to your physician if you have these side effects or questions. These controlled substances can produce physical dependence and be habit-forming if taken for an extended period of time, which means that the body has gotten used to them and may experience withdrawal symptoms if they are abruptly stopped. Withdrawal symptoms can include runny nose, sweating, goose bumps, diarrhea, abdominal cramping, rapid heartbeat, difficulty sleeping, and nervousness. Please dispose of unused and medications per your retail pharmacy guidance. Allergies Diflucan Pyridium Immunizations This Visit No Immunizations Found Education Materials Lumbar Puncture, Care After This sheet gives you information about how to care for yourself after your procedure. Your health care provider may also give you more specific instructions. If you have problems or questions, contact your health care provider. What can I expect after the procedure? After the procedure, it is common to have: ??? Mild discomfort or pain at the puncture site. ??? A mild headache that is relieved with pain medicines. Follow these instructions at home: Activity ??? Lie down flat or rest for as long as directed by your health care provider. ??? Return to your normal activities as told by your health care provider. Ask your health care provider what activities are safe for you. ??? Avoid lifting anything heavier than 10 lb (4.5 kg) for at least 12 hours after the procedure. ??? Do not drive for 24 hours if you were given a medicine to help you relax (sedative) during your procedure. ??? Do not drive or use heavy machinery while taking prescription pain medicine. Puncture site care ??? Remove or change your bandage (dressing) as told by your health care provider. ??? Check your puncture area every day for signs of infection. Check for: ? More pain. ? Redness or swelling. ? Fluid or blood leaking from the puncture site. ? Warmth. ? Pus or a bad smell. General instructions ??? Take ypks-jga-olgptln and prescription medicines only as told by your health care provider. ??? Drink enough fluids to keep your urine clear or pale yellow. Your health care provider may recommend drinking caffeine to prevent a headache. ??? Keep all follow-up visits as told by your health care provider. This is important. Contact a health care provider if: ??? You have fever or chills. ??? You have nausea or vomiting. ??? You have a headache that lasts for more than 2 days or does not get better with medicine. Get help right away if: ??? You develop any of the following in your legs: ? Weakness. ? Numbness. ? Tingling. ??? You are unable to control when you urinate or have a bowel movement (incontinence). ??? You have signs of infection around your puncture site, such as: ? More pain. ? Redness or swelling. ? Fluid or blood leakage. ? Warmth. ? Pus or a bad smell. ??? You are dizzy or you feel like you might faint. ??? You have a severe headache, especially when you sit or stand. Summary ??? A lumbar puncture is a procedure in which a small needle is inserted into the lower back to remove fluid that surrounds the brain and spinal cord. ??? After this procedure, it is common to have a headache and pain around the needle insertion area. ??? Lying flat, staying hydrated, and drinking caffeine can help prevent headaches. ??? Monitor your needle insertion site for signs of infection, including warmth, fluid, or more pain. ??? Get help right away if you develop leg weakness, leg numbness, incontinence, or severe headaches. This information is not intended to replace advice given to you by your health care provider. Make sure you discuss any questions you have with your health care provider. Document Released: 02/16/2014 Document Revised: 03/27/2017 Document Reviewed: 03/27/2017 [employer] Interactive Patient Education ?? 2019 [employer]. Emergency Awareness and Preventative Care STROKE is an EMERGENCY Every Minute Counts Act FAST and Check for these signs: FACE Does the face look uneven? ARM Does one arm drift down? SPEECH Does their speech sound strange? TIME Call at any sign of stroke Stroke Risk Factors Atrial Fibrillation (irregular heartbeat) Diabetes Family history of stroke Heart Disease Heavy alcohol use High Blood Pressure High Cholesterol Physical inactivity and obesity Smoking Cigarette Smoking The facts are clear, cigarette smoking will shorten your life. Smoking can cause many illnesses along the way. As a healthcare provider, we recommend that you stop smoking. Assistance with quitting is available by contacting 9-128-LJXL-NOW. This is a free resource providing counseling, support, and referral. Or you may contact your personal physician. National Suicide Prevention Lifeline: The National Suicide Prevention Lifeline is a national network of local crisis centers that provides free and confidential emotional support to people in suicidal crisis or emotional distress 24 hours a day, 7 days a week. Don't Wait! Stop a Heart Attack Before it Starts What is a heart attack? A heart attack is damage or to a part of the heart from severely decreased or lack of blood flow to the heart. Over time, arteries can become narrow from the buildup of fat and cholesterol, which is called plaque. The plaque can rupture causing a blood clot to form. When the blood clot forms, the artery can become severely narrowed or completely blocked, causing a heart attack. Heart attack is the leading cause of in the [place]. 85% of muscle damage occurs within the first 2 hours. Delay in the recognition of heart attack symptoms increases the chances of . Know the early symptoms of a heart attack: Nausea Feeling of fullness in chest Jaw Pain Pain that travels down one or both arms Fatigue/being tired Anxiety Back Pain Chest pressure, squeezing, or discomfort Shortness of breath Sweating, or a cold sweat Feeling of impending doom There are unusual signs of a heart attack, too! Women, the elderly, and diabetics may present with atypical symptoms: Fainting/dizziness Weakness Confusion Risk Factors for a Heart Attack Some heart disease risk factors, such as age and family history, cannot be changed. Others, like smoking and lack of exercise, can be changed. Smoking High Cholesterol High Blood Pressure Family History Obesity Age Gender (Males are at higher risk) Lack of Exercise Diabetes Diet Stress Excessive Alcohol Intake If you or someone you know is experiencing the signs and symptoms of a heart attack, DON???T DELAY. Call immediately and seek help. If someone collapses, perform CPR! Do not attempt to drive if you are having symptoms of heart attack. Hands-Only CPR Why Hands-Only CPR? Hands-Only CPR has been shown to be as effective as conventional CPR for cardiac arrests that occur outside of a hospital. Survival depends on immediately receiving CPR from someone nearby. How do you perform Hands-Only CPR? There are two easy steps: Call if you see a teen or adult collapse Push hard and fast in the center of the chest at a beat of 100 beats per minute. Save a life! 4 WAYS TO GET AHEAD OF SEPSIS SEPSIS is a MEDICAL EMERGENCY. Time matters! Infections put you and your family at risk for a life-threatening condition called sepsis. Sepsis is the body's extreme response to an infection. It is life-threatening, and without timely treatment, sepsis can rapidly lead to tissue damage, organ failure, and . Sepsis happens when an infection you already have-in your skin, lungs, urinary tract or somewhere else-triggers a chain reaction throughout your body. 1 PREVENT INFECTIONS Take good care of chronic conditions. Talk to your doctor about getting the recommended vaccines. 2 PRACTICE GOOD HYGIENE Wash your hands frequently. Keep cuts or open sores clean and covered until they are healed. 3 KNOW THE SYMPTOMS Confusion or disorientation Shortness of breath High heart rate Fever, shivering, or feeling very cold Extreme pain or discomfort Clammy or sweaty skin 4 ACT FAST Get medical care IMMEDIATELY if you suspect sepsis or if you have an infection that is not getting better or is getting worse. To learn more about sepsis and how to prevent infections, visit www.cdc.gov/sepsis. Test Results Laboratory or Other Results This Visit (last charted value for your 10/03/2018 visit) Coagulation 10/03/18 09:30:00 INR: 0.9 -- Normal range between ( 0.9 and 1.1 ) PTT: 28.9 Second(s) -- Normal range between ( 22.0 and 32.0 ) PT: 9.8 Second(s) -- Normal range between ( 9.6 and 12.0 ) Patient Name:MIRA FONTENOT I have received and understand this information and was given the opportunity to ask questions. Patient/Senior Software Qa Analyst Name: Patient/Senior Software Qa Analyst Signature: Relationship to Patient: Clinician/Hospital Senior Software Qa Analyst Signature: Date: documented in this encounter Plan of Treatment Not on file documented as of this encounter Visit Diagnoses Not on filedocumented in this encounter
--- OUTSIDE RECORDS SUMMARY | 2024-08-17 12:55 | XMS_ITS | Encounter Summary ---
Author Organization [employer] Address [address] [place] [address] Care Team Providers Care Press Machine Feeder Name Role Phone Unavailable Primary Care Provider Unavailabl e Encounter Details Date Type Department Care Team (Late st Contact Info) Description 10/03/2018 Transcribed Document [facility] [place] [facility] [place] [address] ProviderKatie MD [address], [place] [id number] Social History Tobacco Use Types Packs/Day Years Used Date Smoking Tobacco: Never Assessed Comments Unknown Sex and Gender Information Value Date Recorded Sex Assigned at Not on file Legal Sex Female 3:39 PM CDT Gender Identity Not on file Sexual Orientation Not on file documented as of this encounter Miscellaneous Notes * Cerner Conversion Note - Katie Trinidad MD - 10/03/2018 10:41 AM CDT Patient Education Materials Follows: Lumbar Puncture, Care After This sheet gives [...] a bad smell. General instructions ??? Take mnlc-[id number]-teutlkx and prescription medicines only as told by [...] 02/16/2014 Document Revised: 03/27/2017 Document Reviewed: 03/27/2017 Else[employer] Interactive Patient Education ? 2019 [employer] documented in this encounter Plan of Treatment Not on file documented as of this encounter Visit Diagnoses Not on filedocumented in this encounter
--- OUTSIDE RECORDS SUMMARY | 2024-08-17 12:55 | XMS_ITS | Data Portability ---
Author Organization [facility] Address [address] [place] [address] Care Team Providers Care Business Assistant Name Role Phone SUZETTE PFEIFFER Primary Care Provider REYNALDO DEE Neurologist Assessment Encounter Date Assessment Date Assessment LastModified by Organization Details LastModified Time 08/05/2019 08/05/2019 For her multiple pulmonary nodules, current Fleischner recommendations are for no follow-up imaging with nodules less than 6 mm in size in a nonsmoker. For her dyspnea on exertion and abnormal pulmonary function testing, only two abnormalities exist on her pulmonary function testing. One was an ERV of 35% which is consistent with being overweight. He otherwise an MVV of 55%. This is a very nonspecific testing criteria and is not diagnostic of any disorder but could indicate some early neuromuscular weakness. She is undergoing neurologic evaluation for MS at this time. With normal CT imaging and normal ventilation at this point in time, I think the best thing is to trend her pulmonary function testing to see if evidence of worsening pulmonary strength exist over time. Return to clinic in 5 months with repeat pulmonary function testing including MVV and negative inspiratory pressure. [email or web address] Not available 09/30/2019 14:04:22 01/05/2020 01/05/2020 At this time, my only option is to continue trending her breathing tests until more specific pattern emergence. If she continues to get restricted, we can repeat HRCT imaging. RTC in 4 months with with PFTs. [email or web address] Not available 01/05/2020 13:24:21 Plan of Treatment Reminders Order Date Submit Date Provider Last Modified By Organization Details Last Modified Time Details Appointments None recorded. Lab None recorded. Referral cognitive behavioral therapy referral 2019 020 [email or web address] [facility] [address] [facility], [place], [address], 0 09:33:25 aquatic therapy referral 2019 020 [email or web address] Not available 0 09:55:46 Procedures None recorded. Surgeries None recorded. Imaging None recorded. Medication Orders None recorded. Patient TargetsNo targets recorded. Patient Instructions Encounter Date Encounter Id Patient Instructions Last Modified By Organization Details Last Modified Time 01/05/2020 [id number] maximum inspiratory pressure and maximum expiratory pressure* [email or web address] Not available 01/12/2020 08:03:14 Reason for Referral Cognitive Behavioral Therapy Referral for Primary fibromyalgia syndrome Fibromyalgia syndrome, FMS Referring Physician: James Puente Rheumatology, Encounter Date: 03/11/2019 Aquatic Therapy Referral for Primary fibromyalgia syndrome fibromyalgia syndrome Referring Physician: James Puente Rheumatology, Encounter Date: 03/11/2019 Results Created Date Observation Date Name Description Value Unit Range Abnormal Flag Note LastModifiedBy Organization Detail LastModifiedTime 08/05/1907/02/2019 pulmo nary funct ion test* No observ ation record ed. [address] [facility] [place] [address] [address] [place], [place], [id number], 09/30/2019 14:00:42 08/05/19 20 07/02/2019 pulmo nary funct ion test* No observ ation record ed. [address] [facility] [address] [place] [address] [facility] [address] [place], [place], [id number], 09/30/2019 14:00:42 10/28/1907/02/2019 CT, chest , w/ contr ast No observ ation record ed. BARCODE Not Available 2019 08:23:52 Result Notes None recorded. Procedures Surgical History Date Name Laterality Status Provider Name and Address Organization Details Recorded Time 01/05/20 Airway Resistance completed Eli Nolasco [facility] 01/05/2020 09:36:12 01/05/20 20 Diffusion Capacity completed [facility] 01/05/2020 09:36:16 01/05/20 20 Lung Volumes, Plethysmography completed [facility] 01/05/2020 09:36:14 01/05/20 20 Maximal Voluntary Ventilation completed Niyah Carbajal [facility] 01/05/2020 10:49:39 01/05/20 20 Spirometry completed [facility] 01/05/2020 09:36:17 total nephrectomy completed [facility] 08/05/2019 08:30:05 Hysterectomy/bladde r repair completed [facility] 08/05/2019 08:30:11 Cholecystectomy completed [facility] 08/05/2019 08:30:30 Imaging Results None recorded. Procedure Notes None recorded. Medical Equipment None Reported. Allergies Allergen ID Allergen Name Allergen Category Reaction Reaction Severity Criticality Documentation Date Start Date Code Code System Note Provider Name and Address Organization Details Recorded Time 320171 Pyridium medicatio n Not available Not available Not available 03/11/2019 8998 RxNorm Kristine Renee [facility] 0 09:19:39 [id number] Diflucan medicatio n Not available Not available Not available 03/11/201977199 3 RxNorm Kristine Jones [facility] 0 09:20:19 Medications Name Sig Start Date Stop Date Status Note LastModified by Organization Details LastModified Time pantoprazol e 40 mg intravenous solution Inject by intraveno us route. 08/04 completed Not Available Not Available Not Available bisoprolol 5 mg-hydrochl orothiazide 6.25 mg tablet Take 1 tablet every day by oral route. 01/04 completed Not Available Not Available Not Available amitriptyli ne 25 mg tablet Take 1 tablet every day by oral route. 08/04 completed Not Available Not Available Not Available pantoprazol e 40 mg tablet,flex yed release Take 1 tablet every day by oral route. active Not Available Not Available No t Available buspirone 10 mg tablet Take 1 tablet twice a day by oral route. 08/04 completed Not Available Not Available Not Available losartan 50 mg-hydrochl orothiazide 12.5 mg tablet Take 1 tablet every day by oral route. 01/04 completed Not Available Not Available Not Available Lorata-D 10 mg-240 mg tablet,exte nded release Take 1 tablet every day by oral route. active Not Available Not Available No t Available Trulance 3 mg tablet Take 1 tablet every day by oral route. active Not Available Not Available No t Available Motegrity 2 mg tablet Take 1 tablet every day by oral route. 08/04 completed Not Available Not Available Not Available Vitals Date Recorded Respiratory rate Body weight Heart rate Body mass index (BMI) Body height Systolic blood pressure Diastolic blood pressure Provider Name and Address Organization Details Last Updated DateTime 0 18 /min 62007.3 6 g 77 /min 36.9 kg/m2 162.56 cm 152 mm[Hg] 105 mm[Hg] Kristine Renee [facility] 0 09:20:29 Date Recorded Body height Body mass index (BMI) Body weight Heart rate Oxygen saturation Oxygen saturation in Arterial blood by Pulse oximetry Respiratory rate Systolic blood pressure Diastolic blood pressure Provider Name and Address Organization Details Last Updated DateTime 0 162.56 cm 37.4 kg/m2 73129.1 4 g 72 /min 99 % 99 % 16 /min 138 mm[Hg] 80 mm[Hg] [facility] 08[facility]31:46 Date Recorded Body height Body mass index (BMI) Body weight Heart rate Oxygen saturation Oxygen saturation in Arterial blood by Pulse oximetry Systolic blood pressure Diastolic blood pressure Provider Name and Address Organization Details Last Updated DateTime 0 165.1 cm 35.9 kg/m2 72745.9 5 g 78 /min 98 % 98 % 122 mm[Hg] 80 mm[Hg] [facility] 0 09:32:12 Social History Question Answer Notes LastModified by Organizat ion Details LastModified Time Tobacco Smoking Status Never Smoker Kristine Renee [facility] 03/11/2019 09:24:36 How Much Tobacco Do You Chew? None [email or web address] Information not available 03/11/2019 How Much Tobacco Do You Smoke? No [email or web address] Information not available 03/11/2019 Sex: Unknown Functional Status Question Answer Note LastModified by Organizat ion Details LastModified Time Do you or have you ever used smokeless tobacco? Never used smokeless tobacco [email or web address] Information not available 03/11/2019 Do you or have you ever used e-cigarettes or vape? Never used electronic cigarettes [email or web address] Information not available 03/11/2019 Mental Status None recorded. Family History Relationship Description Onset Age of this Age Resolved Age Notes LastModified by Organization Details LastModified Time Mother Family history of malignant neoplasm [email or web address] Not available 08/04 08:34:47 Mother Chronic obstructive pulmonary disease [email or web address] Not available 08/04 08:35:08 Mother Heart disease [email or web address] Not available 08/04 08:35:29 Father Heart disease [email or web address] Not available 08/04 08:35:29 Sister Heart disease [email or web address] Not available 08/04 08:35:29 Medical History Condition Response Emphysema N COPD N Arthritis N Acid Reflux (GERD) Y Rheumatoid Arthritis N Bleeding Disorder N Asthma N Diabetes N Heart Disease N Hypertension Y Gynecological HistoryNo gynecological history recorded. Obstetrics History GPAL:G 0 P 0 0 0 0 Past Encounters Encounter ID Performer Location Encounter Start Date Encounter Closed Date Diagnosis/Indication Diagnosis SNOMED-CT Code Diagnosis ICD10 Code Diagnosis Note [id number] JAMES VINCENT PUENTE MD [facility] [address] [place] [address] 03/11/2019 09:08:10 03/11/2019 09:53:34 Primary fibromyalgia syndrome 46494088 M79.7 48-year-ol d female with clinical features consistent with fibromyalg ia syndrome. No evidence of inflammato ry joint disease noted. Similarly no evidence of an inflammato ry muscle disease noted. I also reassured her about the absence of a connective tissue disease or systemic autoimmune disease process. She completed the fibromyalg ia 2010 Diagnostic questionna madisyn and scored 9/19 on widespread pain and takes and 7.5/12 on symptom severity scale. She also has typical fibromyalg ia tender points at the usual sites. As far as lab studies are concerned, the SOCORRO screen is likely false positive and does not have any clinical significan ce. I do not suggest a repeat SOCORRO test. Today she is educated about fibromyalg ia syndrome. I emphasized on lifestyle modificati ons including strict low-carb diet and weight loss. I also suggested her to start aquatic therapy program. She is also suggested to start cognitive behavioral therapy at [facility] to help the chronic pain syndrome. I fully agree with a trial of amitriptyl ine as per her neurologis t. I would be de-emphasi zed the use of any opioid or Narcotic pain medication s. she will continue with the CPAP machine for obstructiv e sleep apnea. All questions were answered and she was comfortabl e with the discussion . She will return to my office in 6 months. [id number] MAAME HAYNES MD PULMONARY [address] [place] [address], [address] [place] [address] 1 08/05/2019 08:19:52 08/05/2019 13:57:27 Multiple nodules of lung 729805043 R91.8 Dyspnea on exertion 6084 5006 R06.09 [id number] MAAME HAYNES MD PULMONARY [address] [place] [address], [address] [place] [address] 01/05/2020 09:02:34 01/05/2020 14:00:41 Multiple nodules of lung 314113000 R91.8 Current Fleischner recommenda tions are for no follow-up imaging with nodules less than 6 mm in size in a nonsmoker. Dyspnea on exertion 6084 5006 R06.09 Her PFTs have a non specific ventilator y defect that appears more restricted than prior outside pulmonary function testing, but is difficult to say how much of that is due to patient effort versus actual change in pulmonary function testing. No radiologic evidence of ILD/IPF. No evidence of obstructiv e disease. Her MVV is still impaired and she has a low maximal negative inspirator y pressure, although difficult to tell if that was due to actual muscle weakness or due to poor effort from body aches (fibromyal kumar) as reported by the respirator y therapist doing her testing. These could be artifactua l or they could represent neuromuscu lar weakness. As I discussed this with her, she let me know that she is following with a neurologis t who been evaluating her for neurologic disease including neuromuscu lar weakness but as of yet had no diagnosis. Health Concerns Section Related Observation LastModified by Organization Khalida aguilar LastModified Time None Recorded Concern Status LastModified by Organization Details LastModified Time None Recorded Advance Directives Directive None Recorded Payers Insurance Date Sequence Insurance Name Policy Number Policy Metz Covered Member ID Metz Member ID Guarantor Name 01/05/2020 1 R [id number] Mira Fontenot [id number] Mira Fontenot 05/01/2020 1 [id number]) [id number] Mira Fontenot [id number] Mira Fontenot Notes Date Note Type Note Provider Name and Address Organization Details Recorded Time 03/11/2019 text/html seen today as a new patient for evaluation of chronic pains. she was evaluated in the past by orthopedics, and later by rheumatology [facility]. She has had negative and positive SOCORRO. She was also diagnosed with Fibromyalgia. She was also seen by few neurologist and questions were raised about MS, Multiple sclerosis. Though no definitive diagnosis was made. She was suggested to see us for another rheumatology evaluation. Recently started Amitriptyline at 25 mg po qhs about 2 weeks ago. JAMES PUENTE MD [address] [place] [address], [phone], [facility] 03/11/2019 10:05:32 08/05/2019 text/html Mira Fontenot was referred to me for abnormal CT imaging and pulmonary function testing. She had her pulmonary testing done in June but she did not bring it with her today and we do not have the records of the today. She had a CT scan done which shows some calcified small pulmonary nodules in the left lung base and a 3 mm smooth bordered nodule in her right lower lobe. She is a never smoker. 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 No fevers no chills no night sweats. She has some shortness of breath with exertion over the last 6 months which prompted her pulmonary function testing. She did have an x-ray that showed some lower lobe atelectasis which is what prompted her CT scan. No history of prior lung problems. Outside hospital pulmonary function testing interpreted to have a nonspecific ventilatory defect with no significant bronchodilator response and normal gas exchange. Abnormal MVV. Low ERV consistent with obesity. FVC 2.87 (77%) FEV1 2.35 (80%) ratio 82% MVV 54% ERV 35% TLC 87% RV 85% DLCO 82% DLCO/VA 107% MAAME HAYNES MD [address] [place] [address], [phone], [facility] 09/30/2019 14:04:55 01/05/2020 text/html Interval history : No significant change. She is still short of breath on the return trip from walking to the mailbox. She still walks 3-4 miles a day. Her breathing hasn't gotten better or worse. She has had some increase in her cough, triggered by trying to takes a big deep breath. No fevers no chills no night sweats no chest pain. She previously reports having a heart catheterization which had small vessels and some mild obstructive disease that didn't require intervention. She says she's been evaluated by neurology during this whole process and at different times it was suspected that she had lupus, MS, ALS who was told she didn't have any of those at various points afterwards. Mira Fontenot was referred to me for abnormal CT imaging and pulmonary function testing. She had a CT scan done which shows some calcified small pulmonary nodules in the left lung base and a 3 mm smooth bordered nodule in her right lower lobe. She is a never smoker. 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 No fevers no chills no night sweats. She has some shortness of breath with exertion over the last 6 months which prompted her pulmonary function testing. She did have an x-ray that showed some lower lobe atelectasis which is what prompted her CT scan. No history of prior lung problems. Outside hospital pulmonary function testing interpreted to have a nonspecific ventilatory defect with no significant bronchodilator response and normal gas exchange. Abnormal MVV. Low ERV consistent with obesity. FVC 2.87 (77%) FEV1 2.35 (80%) ratio 82% MVV 54% ERV 35% TLC 87% RV 85% DLCO 82% DLCO/VA 107% -------- Pulmonary function testing 01/05/20: Mild nonspecific ventilatory defect. FVC 2.66 (73%) FEV1 2.20 (76%) sees ratio 83% TLC 80% RV 90% ERV 46% DLCO 85% DLCO/VA 111%. Pulmonary muscular testing 01/05/20: Abnormally weak negative an expiratory pressure of -19 to -33. Respiratory therapist reported that patient said her chest wall would ache with trying to take deep breaths. Abnormal MVV 58 which is 57% predicted. MAAME HAYNES MD [address] [place], [address], [facility] 01/05/2020 13:25:08 OBGyn Episode No OBEpisode recorded.
--- OUTSIDE RECORDS SUMMARY | 2024-08-17 12:55 | XMS_ITS | Encounter Summary ---
Author Organization [email or web address] Address [address] [place] [address] Care Team Providers Care Director Of Surgery Name Role Phone Unavailable Primary Care Provider Unavailabl e Encounter Details Date Type Department Care Team (Late st Contact Info) Description 10/03/2018 Transcribed Document [facility] Family Medicine [place] [address] ProviderKatie MD [address] [place], [place] [address] Social History Tobacco Use Types Packs/Day Years Used Date Smoking Tobacco: Never Assessed Comments Unknown Sex and Gender Information Value Date Recorded Sex Assigned at Not on file Legal Sex Female 3:39 PM CDT Gender Identity Not on file Sexual Orientation Not on file documented as of this encounter Miscellaneous Notes * Cerner Conversion Note - Historical ProviderMD - 10/03/2018 10:26 AM CDT Patient: MIRA FONTENOT Age: 47 years Sex: Female : 1970 Associated Diagnoses: None Author: KENA DEE PA Status post fluoroscopic guided lumbar puncture. Access was obtained to the thecal sac at the L5-S1 vertebral level. 12 mls of clear CSF were removed. Opening pressure = 16. documented in this encounter Plan of Treatment Not on file documented as of this encounter Visit Diagnoses Not on filedocumented in this encounter
--- OUTSIDE RECORDS SUMMARY | 2024-08-17 12:55 | XMS_ITS | Referral Summary ---
Author Organization [employer] Address [address] [place] [address] Care Team Providers Care Db2 Dba Name Role Phone Unavailable Primary Care Provider Unavailabl e Social History Tobacco Use Types Packs/Day Years Used Date Smoking Tobacco: Never Assessed Comments Unknown Sex and Gender Information Value Date Recorded Sex Assigned at Not on file Legal Sex Female 3:39 PM CDT Gender Identity Not on file Sexual Orientation Not on file Plan of Treatment Not on file
--- OUTSIDE RECORDS SUMMARY | 2024-08-17 12:55 | XMS_ITS | Clinical Summary ---
Author Organization [facility] Address [address] [place] [address] Phone Care Team Providers Care Chief Revenue Officer Name Role Phone Arianna Story Primary Care Provider [phone] Allergies Active Allergy Reactions Criticality Noted Date Comments Fluconazole Rash 06/11/2014 Ofloxacin Rash 06/11/2014 Phenazopyridine Rash 06/11/2014 Medications pantoprazole (PROTONIX) 40 mg Oral Tablet, Delayed Release (E.C.) Take 40 mg by mouth every other day. Active Active Problems Problem Noted Date Diagnosed Date SVT (supraventricular tachycardia) 06/15/2014 Overview (07/21/2014): S/P EPS and RF Ablation by Dr. Shraddha Manzano Hypertensive heart disease Acute non-ST segment elevation myocardial infarc tion GERD (gastroesophageal reflux disease) Surgical History Surgery Date Site/Laterality Comments CARDIAC CATHETERIZATION 06/04/14 Left Heart Catheterization (No Stent) CARDIAC CATHETERIZATION 2007 No stent HYSTERECTOMY 2004 KIDNEY REMOVAL 1981 KIDNEY SURGERY ABLATION OF DYSRHYTHMIC FOCUS 06/15/2014 S/P EPS and SVT Ablation by Dr. Shraddha Manzano Medical History Medical History Date Comments Acute non-ST segment elevati on myocardial infarction (HCC) Hypertensive heart disease GERD (gastroesophageal reflux disease) Shortness of breath Cardiac dysrhythmia, unspecified SVT Other and unspecified angina pectoris Hypertension Urinary tract infection Chronic kidney disease left neph rectomy 12 yrs old R/T reflux Anesthesia B/P dropped and difficulty waking up SVT (supraventricular tachycardia) 06/15/2014 S/P EPS and RF Ablation by Dr. Shraddha Manzano Family History Medical History Relation Name Comments Heart Failure Father Heart Failure Maternal Grandmother Anesth Problems Mother slow to wake Heart Failure Mother Relation Name Status Comments Father Maternal Grandmother Mother Social History Tobacco Use Types Packs/Day Years Used Date Smoking Tobacco: Never Tobacco Cessation:Counseling Given: Yes Alcohol Use Standard Drinks/Week Comments Yes 0 (1 standard drink = 0.6 oz pur e alcohol) social Comments No Sex and Gender Information Value Date Recorded Sex Assigned at Not on file Legal Sex Female 1:01 PM EDT Gender Identity Not on file Sexual Orientation Not on file Obstetrics History Last Filed Vital Signs Vital Sign Reading Time Taken Comments Blood Pressure 122/88 07/30/2014 11:44 AM EDT le ft arm Pulse 82 07/30/2014 11:44 AM EDT Temperature 36.6 C (97.9 F) 06/15/2014 6:43 AM EDT Respiratory Rate 14 06/15/2014 2:00 PM EDT Oxygen Saturation 98% 07/30/2014 11:44 AM EDT Inhaled Oxygen Concentration - - Weight 87.7 kg (193 lb 6.4 oz) 07/30/2014 11:44 AM EDT Height 167.6 cm (5' 6 ) 07/30/2014 11:44 AM EDT Body Mass Index 31.22 07/30/2014 11:44 AM EDT Plan of Treatment Health Maintenance Due Date Last Done Comments DTaP/TDaP/Td (1 - Tdap) 1989 Hepatitis B Vaccine (1 of 3 - 19+ 3-dose series) 1989 Pneumococcal Vaccine 50+ (1 of 2 - PCV) 1989 HPV/Pap Cotest 2000 Annual Wellness Exam 07/31/2015 07/30/2014 (Postponed) Cologuard 12/12/2015 Colon Cancer Screening 12/12/2015 Colonoscopy 12/12/2015 FIT 12/12/2015 Sigmoidoscopy 12/12/2015 Virtual Colonography 12/12/2015 Breast Cancer Screening 07/30/2016 07/31/19 15 (Postponed) Cervical Cancer Screening 07/30/2017 Pap Smear 07/30/2017 07/30/2014 (Postponed) Zoster (1 of 2) 2020 COVID-19 Vaccine (1 - 2023-2 5 season) 2023 Influenza Vaccine (Season Ended) 2024 Meningococcal B Vaccine Aged Out No l onger eligible based on patient's age to complete this topic Insurance [id number] [id number] [facility] [id number] [address] [place] [id number] [place] [id number] Care Teams Chief Revenue Officer Relationship Specialty Start Date End Date Arianna Story [facility] [address] [place] [address] PCP - General Family Medicine 06/14/14
--- OUTSIDE RECORDS SUMMARY | 2024-08-17 12:55 | XMS_ITS | Encounter Summary ---
Author Organization [employer] Address [address] [place] [address] Care Team Providers Care Power Truck Driver Name Role Phone Unavailable Primary Care Provider Unavailabl e Encounter Details Date Type Department Care Team (Late st Contact Info) Description 10/03/2018 Transcribed Document [facility] [place] Family Medicine [facility] [place] [address] ProviderKatie MD [address] [place] [id number] Social History Tobacco Use Types Packs/Day Years Used Date Smoking Tobacco: Never Assessed Comments Unknown Sex and Gender Information Value Date Recorded Sex Assigned at Not on file Legal Sex Female 3:39 PM CDT Gender Identity Not on file Sexual Orientation Not on file documented as of this encounter Miscellaneous Notes * Cerner Conversion Note - Historical ProviderMD - 10/03/2018 10:45 AM CDT Nursing Discharge Summary Entered On: 10/03/2018 10:46 EDT Performed On: 10/03/2018 10:45 EDT by HAWA VICENTE RN Discharge Documentation Discharge Date/Time : 10/03/2018 12:30 EDT Transporter Signature : HAWA VICENTE RN Yates, Courtney, RN - 10/03/2018 12:33 EDT Patient Disposition, General : Discharge Discharge To : Home with ambulatory/outpatient follow-up Mode Of Departure, General Discharge : Private vehicle Accompanied By, Discharge : Spouse IV Discontinued : Not applicable Personal Belongings With Patient : Yes Discharge Instructions Reviewed With, Opportunity For Questions Given : Patient, Spouse Patient Education Completed : No Teaching Method : Explanation Teaching Evaluation : Returns demonstration, Verbalizes understanding HAWA VICENTE RN - 10/03/2018 10:45 EDT Electronically signed by Maryann [facility] Conversion Automotive Diagnostic Technician Cerner at 06/11/2022 10:43 AM CDT documented in this encounter Plan of Treatment Not on file documented as of this encounter Visit Diagnoses Not on filedocumented in this encounter
--- OUTSIDE RECORDS SUMMARY | 2024-08-17 12:55 | XMS_ITS | Clinical Summary ---
Author Organization [facility] Address [address] [place] [address] Care Team Providers Care Effervescent Salts Compounder Name Role Phone Destinee Keita VIDEO RECORDER MECHANIC Unavailable [phone] Klaudia Hayden VIDEO RECORDER MECHANIC, DNP Unavailable [phone] Yuko Colmenares MD Unavailable Mikayla Meier Primary Care Provider [phone] Felipe Graf DO Unavailable [phone] Felipe Graf DO Unavailable [phone] Nabil Angel MD Unavailable [phone] Allergies Active Allergy Reactions Criticality Noted Date Comments Fluconazole Rash,Unknown - Patie nt states they do not know rxn details Low 06/11/2014 Ofloxacin Rash Low 06/11/2014 Other Other - please docum ent in the comment field,Unknown - Patient states they do not know rxn details Low 09/22/2019 Diflucan - Rash Pyridium (phenazopyridine) - Rash Phenazopyridine Rash,Unknown - Patie nt states they do not know rxn details Low 06/11/2014 Medications * This document contains information received from the source organization and may not represent a complete record from that organization. loratadine (Claritin) 10 MG tablet TAKE TABLET PRN 1 Active pantoprazole (ProtoNix) 40 MG EC tablet TAKE 1 TABLET TWICE A DAY. 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 Heart flutterings that correlate with premature ventricular contractions. Hypertension 11/08/2020 Overview (11/08/2020): remote history of Hypertensive heart disease 11/08/2020 Dysphagia 03/29/2020 EE (eosinophilic esophagitis) 03/29/2020 GERD (gastroesophageal reflux disease) 1 Nausea 03/29/2020 Generalized edema 10/17/2016 Shortness of breath 10/17/2016 Supraventricular tachycardia 06/15/2014 Overview (11/08/2020): S/P EPS and RF Ablation by Dr. Shraddha Manzano 1. Supraventricular tachycardia: a. 06/03/2014, presentation to [facility], increased troponin, received adenosine. b. 06/04/2014, transferred to [facility], Dr. Dailey, left heart cath, reported as normal; data deficient. c. May 2014, electrophysiology study with catheter ablation of easily inducible SVT with no residual arrhythmias, Dr. Nayan Manzano at [facility] in [place], [place]. d. 07/01/2014, echocardiogram showed normal LV, mild TR, PASP 36 mmHg. e. September 2014, reported episode of SVT, ceased by vagal maneuvers. Patient did not seek medical treatment. f. Event recorder, September 2014, revealed symptoms of chest pain and shortness of breath that correlate with normal sinus rhythm and sinus tach and episodes of heart fluttering that correspond with unifocal PVCs. Immunizations Immunization Administration Dates Next Due [employer] COVID-19 Vaccine (Blue Cap) 18+ 09/01/19 21 Tdap 09/22/2019 Family History Medical History Relation Name Comments Heart Problem Father Colon cancer Mother Diabetes Mother Heart Problem Mother Relation Name Status Comments Father Mother Social History Tobacco Use Types Packs/Day Years Used Date Smoking Tobacco: Never Smokeless Tobacco: Never Alcohol Use Standard Drinks/Week Comments Never 0 (1 standard drink = 0.6 oz pure alcohol) Alcoholic Drinks/day: Consumes alcohol occasionally PHQ-2 Answer Date Recorded Patient Health Questionnaire-2 Score 0 08/30/2020 Comments No Sex and Gender Information Value Date Recorded Sex Assigned at Female 10/07/2020 8:58 AM EDT Legal Sex Female 7:51 PM EDT Gender Identity Female 10/07/2020 8:58 AM EDT Sexual Orientation Straight 10/07/2020 8: 58 AM EDT Last Filed Vital Signs Vital Sign Reading Time Taken Comments Blood Pressure 173/88 08/08/2022 10:52 AM EDT Pulse 72 11/03/2021 11:19 AM EDT Temperature 36.7 C (98.1 F) 08/30/2020 8:40 AM EDT Respiratory Rate 16 01/03/2021 3:04 PM EST Oxygen Saturation 98% 11/03/2021 11:19 AM EDT Inhaled Oxygen Concentration - - Weight 98.9 kg (218 lb) 08/08/2022 10:52 AM EDT Height 167.6 cm (5' 6 ) 08/08/2022 10:52 AM EDT Body Mass Index 35.19 08/08/2022 10:52 AM EDT Plan of Treatment Health Maintenance Due Date Last Done Comments [facility]-HIV Screening 1970 [facility]-Hepatitis C Screening 1970 [facility]-Infant/Child/Adol SDOH Screenings 1970 [facility]- SDOH Screenings 1988 [facility]-Adult SDOH Screenings 1988 [facility]-Hepatitis B Vaccines (1 of 3 - 19+ 3-dose series) 1989 CT Colonography 12/12/2015 Colonoscopy 12/12/2015 FIT-DNA 12/12/2015 FIT 12/12/2015 FOBT 12/12/2015 Sigmoidoscopy 12/12/2015 [facility]-Colorectal Cancer Screening 12/12/2015 [facility]-Breast Cancer Screening 2020 [facility]Y-Pneumococcal Vaccine: 50 + Years (1 of 1 - PCV) 2020 [facility]Y-Zoster Vaccines (1 of 2) 2020 [facility]-Depression Screening 08/30/2021 08/30/2020 [id number] Vaccine (2 - 20 24-25 season) 2023 08/31/2020 [facility]-Influenza Vaccine (Seaso n Ended) 2024 [facility]-DTaP,Tdap,and Td Vaccine s (2 - Td or Tdap) 09/21/2029 09/22/2019 [facility]-Obesity Intervention Completed 11/03/2021 HPV Vaccines Aged Out No longer eligi ble based on patient's age to complete this topic UKY-HIB Vaccines Aged Out No longer e ligible based on patient's age to complete this topic UKY-Hepatitis A Vaccines Aged Out No longer eligible based on patient's age to complete this topic UKY-IPV Vaccines Aged Out No longer e ligible based on patient's age to complete this topic UKY-Rotavirus Vaccines Aged Out No lo nger eligible based on patient's age to complete this topic Insurance [employer] Care Teams Effervescent Salts Compounder Relationship Specialty Start Date End Date Mikayla Meier PA [address] [facility] [address] [place] [address] PCP - General 08/30/20 Destinee Keita APRN [address] [facility] [address] [place] [phone] Nurse Practitioner Internal Medicine 08/30/20 Klaudia Hayden APRN, DNP [address] [address] Nurse Practitioner Rheumatology 08/30/20 Yuko Colmenares MD [address] [place] [phone] Consulting Physician Family Medicine 08/30/20 Felipe Graf DO [address] [place] [address] Consulting Physician Neurology 11/08/20 Felipe Graf DO [address] [place] [phone] Consulting Physician Neurology 01/03/21 Nabil Angel MD [address] [facility] [address] [place] [address] Service Attending Neurology 11/03/21
--- OUTSIDE RECORDS SUMMARY | 2024-08-17 12:56 | XMS_ITS | Clinical Summary ---
Author Organization [employer] Address [address] [place] [address] Care Team Providers Care Well Testing Operator Name Role Phone Unavailable Primary Care Provider [...]
--- NOTE | 2024-08-17 12:57 | MR_ITS ---
FINAL REPORT TECHNIQUE: Multiplanar MR without contrast CLINICAL HISTORY: back pain, screening COMPARISON: None FINDINGS: There are acute discogenic endplate signal changes noted at primarily the T7-8 level. A small hemangioma is present in the inferior T2 vertebral body. No fracture or suspicious bony lesions are identified. At the T6-7 level there is a small to moderate right paracentral disc protrusion, that mildly contacts the right side of the spinal cord. At the T7-8 level there is moderate left lateral canal narrowing, which contacts the left root at this level. At the T8-9 level there is a broad-based moderate disc protrusion spanning the entire width of the canal and contacts the spinal cord. IMPRESSION: Disc protrusions are present in the mid thoracic spine as described above, most pronounced at the T8-9 level. Reviewed, Interpreted and Dictated by Moriah Shaikh MD Transcribed by Shelby Velasquez Authenticated and . [facility]
--- NOTE | 2024-08-17 12:58 | MR_ITS ---
FINAL REPORT TECHNIQUE: Multiplanar MR, without and with gadolinium enhancement CLINICAL HISTORY: MIDLINE BACK PAIN/NECK PAIN/MOG ANTIBODY/SCREENING COMPARISON: None FINDINGS: Diffusion sequences show no signal abnormality to indicate acute infarct. There is a small ovoid focus of increased T2 signal in the right frontal white matter, of doubtful significance in a patient of this age. No mass, hemorrhage or edema is seen. Ventricles are normal. Major vascular flow voids are intact. Following contrast administration, no mass or abnormal enhancement is seen. No abnormal signal is noted in the calvarium. IMPRESSION: No mass or enhancement is identified intracranially. There is no abnormal signal change noted in the calvarium. Reviewed, Interpreted and Dictated by Moriah Shaikh MD Transcribed by Shelby Velasquez Authenticated and . [facility]
--- NOTE | 2024-08-17 12:58 | MR_ITS ---
FINAL REPORT TECHNIQUE: Multiplanar MR without gadolinium enhancement CLINICAL HISTORY: . COMPARISON: None FINDINGS: Limited images of the posterior fossa are unremarkable. At the C5 and C6 levels there are discogenic endplate changes noted. Alignment is normal. Cervical spinal cord shows normal signal and contour. C2-3: Unremarkable C3-4: A minimal annular disc bulge is present. C4-5: A minimal annular disc bulge is present. C5-6: A moderate annular bulge is present with mild central canal stenosis and mild bilateral neural foraminal narrowing. C6-7: A minimal annular disc bulge is present. C7-T1: Unremarkable IMPRESSION: Cervical degenerative changes are present, most pronounced at the C5-6 level as described. Reviewed, Interpreted and Dictated by Moriah Shaikh MD Transcribed by Shelby Velasquez Authenticated and [facility]
[2024-08-17] MEDS: SODIUM CHLORIDE 0.9% 10ML SYR (RAD ONLY) 10 ML IV (14:55)
[2024-08-17] MEDS: GADOTERIDOL INJ 20ML SYRINGE 20 ML IV (14:55)
--- NOTE | 2024-08-17 15:16 | MM_ITS ---
PROCEDURE INFORMATION: Exam: Bilateral Screening 3D Mammography Exam date and time: 08/17/2024 3:25 PM Age: 53 years old Clinical indication: Screening examination TECHNIQUE: Imaging protocol: Bilateral Screening tomosynthesis and 2D mammography including computer-aided detection (CAD) when performed. COMPARISON: MG REYNOSO MAMMNeyda BHARDWAJ BILAT 07/29/2012 5:06 PM FINDINGS: MAMMOGRAPHY: Breast composition: There are scattered areas of fibroglandular density. Mass: No suspicious masses. Architectural distortion: None. Calcifications: No suspicious calcifications. Asymmetric density: None. Skin thickening: None. Axillary adenopathy: None. IMPRESSION: No mammographic evidence of malignancy. Annual screening is recommended unless otherwise clinically indicated. ASSESSMENT: BI-RADS Category 1: Negative.
== END 2024-08-17 23:59 | disposition home or self-care (01) ==
LOC: RAD 12:54
PROVIDERS: PCP Physician Assistant; Visit Provider Physician Assistant
DX: Z12.31 Encounter for screening mammogram for malignant neoplasm of breast (principal); M47.812 Spondylosis without myelopathy or radiculopathy, cervical region; M51.24 Other intervertebral disc displacement, thoracic region; R90.82 White matter disease, unspecified; R92.323 Mammographic fibroglandular density, bilateral breasts; G37.81 Myelin oligodendrocyte glycoprotein antibody disease
CPT/HCPCS: 70553; 72141; 72146; 77063; 77067; A9576

== ENCOUNTER 2024-08-31 13:54 | Outpatient (CLI) | payer BC, SELFPAY ==
[2024-08-31 19:49] LABS: Coronavirus 19, PCR Not Detected (NotDetected); Influenza A, PCR Not Detected (NotDetected); Influenza B, PCR Not Detected (NotDetected)
--- OUTSIDE RECORDS SUMMARY | 2024-09-01 07:15 | XMS_ITS | Clinical Summary ---
Author Organization [facility] Address [address] [place] [address] Care Team Providers Care Coordinator Of Genetic Services Name Role Phone Destinee Keita FRICTION SAW OPERATOR Unavailable [phone] Klaudia Hayden FRICTION SAW OPERATOR, DNP Unavailable [phone] Yuko Colmenares MD Unavailable Mikayla Meier Primary Care Provider [phone] Felipe Graf DO Unavailable [phone] Felipe Graf DO Unavailable [phone] Nabil Angel MD Unavailable [phone] Allergies Active Allergy Reactions Criticality Noted Date [...] 1. Supraventricular tachycardia: a. 06/03/2014, presentation to [facility], increased troponin, received adenosine. b. 06/04/2014, transferred to [facility], Dr. Dailey, left heart cath, reported as normal; data deficient. c. May 2014, electrophysiology study with catheter ablation of easily inducible SVT with no residual arrhythmias, Dr. Nayan Manzano at [facility] in [place], [place]. d. 07/01/2014, echocardiogram showed normal LV, [...] PVCs. Immunizations Immunization Administration Dates Next Due [employer] COVID-19 Vaccine (Blue Cap) 18+ 09/01/19 21 [...] of 2) 2020 [facility]-Depression Screening 08/30/2021 08/30/2020 [id number] Vaccine (2 - 20 24-25 season) 2023 08/31/2020 [facility]-Influenza Vaccine (#1) 2024 [facility]-DTaP,Tdap,and Td Vaccine s (2 - [...] patient's age to complete this topic Insurance [employer] Care Teams Coordinator Of Genetic Services Relationship Specialty Start Date End Date Mikayla Meeir PA [address] [facility] [address] [place] [address] PCP - General 08/30/20 Destinee Keita APRN [address] [place] [address] [address] [place] [phone] Nurse Practitioner Internal Medicine 08/30/20 Klaudia Hayden APRN, DNP [address] [address] Nurse Practitioner Rheumatology 08/30/20 Yuko Colmenares MD [address] [place] [address] Consulting Physician Family Medicine 08/30/20 Felipe Graf DO [address] [place] [address] Consulting Physician Neurology 11/08/20 Felipe Graf DO [address] [place] [address] Consulting Physician Neurology 01/03/21 Nabil Angel MD [address] [facility] [address] [place] [address] Service Attending Neurology 11/03/21
--- OUTSIDE RECORDS SUMMARY | 2024-09-01 07:15 | XMS_ITS | Referral Summary ---
Author Organization [employer] ([place], [place], [place], [place]) Address [address] [place] [address] Care Team Providers Care Patrol Driver Name Role Phone Unavailable Primary Care [...]
--- OUTSIDE RECORDS SUMMARY | 2024-09-01 07:15 | XMS_ITS | Encounter Summary ---
Author Organization [employer] ([place], [place], [place], [place]) Address [address] [place] [address] Care Team Providers Care Medical Equipment Sales Name Role Phone Unavailable Primary Care Provider Unavailabl e Encounter Details Date Type Department Care Team (Late st Contact Info) Description 10/03/2018 Transcribed Document [facility] [place] Medicine [facility] [place] [address] ProviderKatie MD [address] [place] [id number] Social History Tobacco Use Types Packs/Day Years Used Date Smoking Tobacco: Never Assessed Comments Unknown Sex and Gender Information Value Date Recorded Sex Assigned at Not on file Legal Sex Female 3:39 PM CDT Gender Identity Not on file Sexual Orientation Not on file documented as of this encounter Miscellaneous Notes * Cerner Conversion Note - Katie ProviderMD - 10/03/2018 10:45 AM CDT Nursing [...] - 10/03/2018 10:45 EDT Electronically signed by Maryann, [facility] Conversion Java Web Services Developer Cerner at 06/11/2022 10:43 AM CDT documented in this encounter Plan of Treatment Not on file documented as of this encounter Visit Diagnoses Not on filedocumented in this encounter
--- OUTSIDE RECORDS SUMMARY | 2024-09-01 07:15 | XMS_ITS | Encounter Summary ---
Author Organization [employer] ([place], [place], [place], [place]) Address [address] [place] [address] Care Team Providers Care Senior Naval Parachutist Name Role Phone Unavailable Primary Care Provider Unavailabl e Encounter Details Date Type Department Care Team (Late st Contact Info) Description 10/03/2018 Transcribed Document [facility] [place] [facility] [place] [address] ProviderKatie MD [facility] [place], [place] [id number] Social History Tobacco Use Types Packs/Day Years Used Date Smoking Tobacco: Never Assessed Comments Unknown Sex and Gender Information Value Date Recorded Sex Assigned at Not on file Legal Sex Female 3:39 PM CDT Gender Identity Not on file Sexual Orientation Not on file documented as of this encounter Miscellaneous Notes * Cerner Conversion Note - Katie Trinidad MD - 10/03/2018 10:26 AM CDT Patient: MIRA [...]
--- OUTSIDE RECORDS SUMMARY | 2024-09-01 07:15 | XMS_ITS | Clinical Summary ---
Author Organization [facility] Address [address] [facility] [address] [place] [address] Phone Care Team Providers Care Hydraulic Bull Riveter Operator Name Role Phone Arianna Story Primary Care Provider [phone] Allergies Active Allergy Reactions Criticality Noted Date [...] - 2023-2 5 season) 2023 Influenza Vaccine (#1) 2024 Meningococcal B Vaccine Aged Out No l onger eligible based on patient's age to complete this topic Insurance [id number] [id number] [facility] [address] [address] [address] [place] [id number] Care Teams Hydraulic Bull Riveter Operator Relationship Specialty Start Date End Date Arianna Story [facility] [address] [place] [address] PCP - General Family Medicine 06/14/14
--- OUTSIDE RECORDS SUMMARY | 2024-09-01 07:15 | XMS_ITS | Encounter Summary ---
Author Organization [employer] ([place], [place], [place], [place]) Address [address] [place] [address] Care Team Providers Care Rotor Assembler Name Role Phone Unavailable Primary Care Provider Unavailabl e Encounter Details Date Type Department Care Team (Late st Contact Info) Description 10/03/2018 Transcribed Document [facility] [place] [facility] [place] [address] ProviderKatie MD [address] [place] [address] Social History Tobacco Use Types Packs/Day Years Used Date Smoking Tobacco: Never Assessed Comments Unknown Sex and Gender Information Value Date Recorded Sex Assigned at Not on file Legal Sex Female 3:39 PM CDT Gender Identity Not on file Sexual Orientation Not on file documented as of this encounter Miscellaneous Notes * Cerner Conversion Note - Katie Trinidad MD - 10/03/2018 10:48 AM CDT [facility] [place] [address] MIRA FONTENOT :1970 Visit Time:10/03/2018 Your [...] Follow-Up Appointments Follow Up with STEPHANIE HARDIN MD-EVERARDO When Comments Follow-up as instructed Where: Medications [...] a bad smell. General instructions ??? Take epzd-sju-goyzuyk and prescription medicines only as told by [...] 02/16/2014 Document Revised: 03/27/2017 Document Reviewed: 03/27/2017 [employer] Interactive Patient Education ?? 2019 [employer]. Emergency Awareness and Preventative Care STROKE is [...] Assistance with quitting is available by contacting 9-652-VRGC-NOW. This is a free resource providing counseling, [...] between ( 9.6 and 12.0 ) Patient Name:FONTENOTMICKY MontillaGLORIA I have received and understand this information and was given the opportunity to ask questions. Patient/Transportation Analyst Name: Patient/Transportation Analyst Signature: Relationship to Patient: Clinician/Hospital Transportation Analyst Signature: Date: Electronically signed by Doreen Wolf Conversion Railroad Wheels And Axles Inspector [employer]ilo at 06/11/2022 10:42 AM CDT documented in this encounter Plan of Treatment Not on file documented as of this encounter Visit Diagnoses Not on filedocumented in this encounter
--- OUTSIDE RECORDS SUMMARY | 2024-09-01 07:15 | XMS_ITS | Encounter Summary ---
Author Organization [employer] ([place], [place], [place], [place]) Address [address] [place] [address] Care Team Providers Care Outcome Analyst Name Role Phone Unavailable Primary Care Provider Unavailabl e Encounter Details Date Type Department Care Team (Late st Contact Info) Description 10/03/2018 Transcribed Document [facility] [place] Family Medicine [facility] [place] [address] ProviderKatie MD [address] [place], [place] [phone] Social History Tobacco Use Types Packs/Day Years [...] a bad smell. General instructions ??? Take ukjm-ius-cacyykf and prescription medicines only as told by [...] 03/27/2017 Elsevier Interactive Patient Education ? 2019 [employer] documented in this encounter Plan of Treatment Not on file documented as of this encounter Visit Diagnoses Not on filedocumented in this encounter
--- OUTSIDE RECORDS SUMMARY | 2024-09-01 07:15 | XMS_ITS | Encounter Summary ---
Author Organization [place] [address] Care Team Providers Care Property Management Specialist Name Role Phone Arianna Story Wayne Primary Care Provider [phone] Encounter Details Date Type Department Care Team (Late st Contact Info) Description 06/15/2014 Orders Only [facility] Arrhythmia Ctr Edg [address] [facility] [address] [place] [phone] Nayan Manzano MD [address] [place] [address] Social History Tobacco Use Types Packs/Day Years [...] Manzano MD CARDIAC CATH ORDERABLES Final Result [facility] [address] [place] [address] documented in this encounter Visit Diagnoses Not on filedocumented in this encounter Care Teams Property Management Specialist Relationship Specialty Start Date End Date Arianna Story [address] [place] [id number] PCP - General Family Medicine 06/14/14 documented as of this encounter
--- OUTSIDE RECORDS SUMMARY | 2024-09-01 07:15 | XMS_ITS | Clinical Summary ---
Author Organization [employer] ([place], [place], [place], [place]) Address [address] [place] [address] Care Team Providers Care Brush Clearer Surveying Name Role Phone Unavailable Primary Care Provider [...]
== END 2024-08-31 23:59 | disposition home or self-care (01) ==
LOC: LAB.DROPOF 09-01 07:13
PROVIDERS: PCP Student in an Organized Health Care Education/Training Program; Visit Provider Student in an Organized Health Care Education/Training Program
DX: J02.9 Acute pharyngitis, unspecified (principal)
CPT/HCPCS: 87631

== ENCOUNTER 2024-09-23 17:54 | Outpatient (CLI) | payer BC, SELFPAY ==
--- OUTSIDE RECORDS SUMMARY | 2024-09-23 17:56 | XMS_ITS | Clinical Summary ---
Author Organization [employer] ([place], [place], [place], [place]) Address [address] [place] [address] Care Team Providers Care Logging Assistant Name Role Phone Unavailable Primary Care Provider [...]
--- OUTSIDE RECORDS SUMMARY | 2024-09-23 17:56 | XMS_ITS | Encounter Summary ---
Author Organization [employer] ([place], [place], [place], [place]) Address [address] [place] [address] Care Team Providers Care Teleprinter Installer Name Role Phone Unavailable Primary Care Provider Unavailabl e Encounter Details Date Type Department Care Team (Late st Contact Info) Description 10/03/[address] [facility] [place] Family Medicine [facility] [place] [address] ProviderKatie MD [address] [place] [id number] Social History Tobacco Use Types Packs/Day [...] Trinidad MD - 10/03/2018 10:48 AM CDT [facility] [place] [address] MIRA FONTENOT :1970 Visit Time:10/03/2018 Your [...] a bad smell. General instructions ??? Take ybhd-kxl-wjirqqb and prescription medicines only as told by [...] 02/16/2014 Document Revised: 03/27/2017 Document Reviewed: 03/27/2017 JUNTA.CL Interactive Patient Education ?? 2019 [employer]. Emergency Awareness and Preventative Care STROKE is [...] Assistance with quitting is available by contacting 0-280-GSAU-NOW. This is a free resource providing counseling, [...] was given the opportunity to ask questions. Patient/Supervisor Screen Making Name: Patient/Supervisor Screen Making Signature: Relationship to Patient: Clinician/Hospital Supervisor Screen Making Signature: Date: documented in this encounter Plan of Treatment Not on file documented as of this encounter Visit Diagnoses Not on filedocumented in this encounter
--- OUTSIDE RECORDS SUMMARY | 2024-09-23 17:56 | XMS_ITS | Encounter Summary ---
Author Organization [employer] ([place], [place], [place], [place]) Address [address] [place] [address] Care Team Providers Care Computer Operations Specialist Name Role Phone Unavailable Primary Care Provider Unavailabl e Encounter Details Date Type Department Care Team (Late st Contact Info) Description 10/03/2018 Transcribed Document [facility] [place] [facility] [place] [address] ProviderKatie MD [address], [place] [id number] Social History Tobacco Use Types Packs/Day Years [...] a bad smell. General instructions ??? Take ckoz-xcp-ujqyaqk and prescription medicines only as told by [...] 03/27/2017 Elsevier Interactive Patient Education ? 2019 [employer] documented in this encounter Plan of Treatment Not on file documented as of this encounter Visit Diagnoses Not on filedocumented in this encounter
--- OUTSIDE RECORDS SUMMARY | 2024-09-23 17:56 | XMS_ITS | Clinical Summary ---
Author Organization [facility] Address [address] [place] [address] Care Team Providers Care Blind Slat Stapling Machine Operator Name Role Phone Destinee Keita HAND FRETTED INSTRUMENT MAKER Unavailable [phone] Klaudia Hayden HAND FRETTED INSTRUMENT MAKER, DNP Unavailable [phone] Yuko Colmenares MD Unavailable Mikayla Meier Primary Care Provider [phone] Felipe Graf DO Unavailable [phone] Felipe Graf DO Unavailable [phone] Nabil Angel MD Unavailable [phone] Allergies Active Allergy Reactions Criticality Noted Date [...] 1. Supraventricular tachycardia: a. 06/03/2014, presentation to [facility], increased troponin, received adenosine. b. 06/04/2014, transferred to [facility], Dr. Dailey, left heart cath, reported as normal; data deficient. c. May 2014, electrophysiology study with catheter ablation of easily inducible SVT with no residual arrhythmias, Dr. Nayan Manzano at [facility] in [place], [place]. d. 07/01/2014, echocardiogram showed normal LV, [...] PVCs. Immunizations Immunization Administration Dates Next Due Coupay COVID-19 Vaccine (Blue Cap) 18+ 09/01/19 21 [...] of 2) 2020 UKY-Depression Screening 08/30/2021 08/30/2020 [id number] Vaccine (2 - 20 24-25 season) 2023 [...] complete this topic Insurance [employer] Care Teams Blind Slat Stapling Machine Operator Relationship Specialty Start Date End Date Mikayla Meier PA [address] [facility] [address] [place] [address] PCP - General 08/30/20 Destinee Keita APRN [address] [place] [address] [address] [place] [id number] Nurse Practitioner Internal Medicine 08/30/20 Klaudia Hayden APRN, DNP [address] [address] Nurse Practitioner Rheumatology 08/30/20 Yuko Colmenares MD [address] [place] [address] Consulting Physician Family Medicine 08/30/20 Felipe Graf DO [address] [place] [address] Consulting Physician Neurology 11/08/20 Felipe Graf DO [address] [place] [address] Consulting Physician Neurology 01/03/21 Nabil Angel MD [address] [facility] [address] [place] [address] Service Attending Neurology 11/03/21
--- OUTSIDE RECORDS SUMMARY | 2024-09-23 17:56 | XMS_ITS | Encounter Summary ---
Author Organization [employer] ([place], [place], [place], [place]) Address [address] [place] [address] Care Team Providers Care Silver Designer Name Role Phone Unavailable Primary Care Provider Unavailabl e Encounter Details Date Type Department Care Team (Late st Contact Info) Description 10/03/2018 Transcribed Document [facility] [place] [address] ProviderKatie MD [facility] [place], [place] [address] Social History Tobacco Use Types Packs/Day Years [...]
--- OUTSIDE RECORDS SUMMARY | 2024-09-23 17:56 | XMS_ITS | Encounter Summary ---
Author Organization [employer] ([place], [place], [place], [place]) Address [address] [place] [address] Care Team Providers Care Neonatal Doctor Name Role Phone Unavailable Primary Care Provider Unavailabl e Encounter Details Date Type Department Care Team (Late st Contact Info) Description 10/03/2018 Transcribed Document [facility] [place] [facility] [place] [address] ProviderKatie MD [address] [place] [address] [id number] Social History Tobacco Use Types Packs/Day Years [...] HAWA VICENTE RN - 10/03/2018 10:45 EDT documented in this encounter Plan of Treatment Not on file documented as of this encounter Visit Diagnoses Not on filedocumented in this encounter
--- OUTSIDE RECORDS SUMMARY | 2024-09-23 17:56 | XMS_ITS | Referral Summary ---
Author Organization [employer] ([place], [place], [place], [place]) Address [address] [place] [address] Care Team Providers Care Bit And Shank Department Supervisor Name Role Phone Unavailable Primary Care Provider [...]
--- OUTSIDE RECORDS SUMMARY | 2024-09-23 17:57 | XMS_ITS | Clinical Summary ---
Author Organization [facility] Address [address] [place] [address] Care Team Providers Care Preservative Filler Machine Operator Name Role Phone Mikayla Meier Primary Care Provider [phone] Allergies Active Allergy Reactions Criticality Noted Date Comments Fluconazole 10/04/2015 Ofloxacin 10/04/2015 Phenazopyridine 10/04/2015 Medications hydrochlorothia zide (HYDRODIURIL) 25 MG tablet Take 1 tablet by mouth Daily. 30 tablet 11 7 Active albuterol sulfate HFA 108 (90 Base) MCG/ACT inhaler Inhale 2 puffs Every 4 (Four) Hours As Needed for Wheezing. Active clopidogrel (PLAVIX) 75 MG tablet Take 1 tablet by mouth Daily. Active Evolocumab (REPATHA) solution prefilled syringe injection Inject 1 mL under the skin into the appropriate area as directed. Active hydrALAZINE (APRESOLINE) 50 MG tablet Take 1 tablet by mouth 3 (Three) Times a Day. Active metoprolol tartrate (LOPRESSOR) 50 MG tablet Take 1 tablet by mouth 2 (Two) Times a Day. Active pantoprazole (PROTONIX) 40 MG EC tablet Take 1 tablet by mouth Daily. Active rivaroxaban (XARELTO) 20 MG tablet Take 1 tablet by mouth Daily. Active amLODIPine (NORVASC) 5 MG tablet Take 1 tablet by mouth Daily. Active Active Problems Problem Noted Date Diagnosed Date Atrial fibrillation 05/06/2024 Generalized edema 10/17/2016 Shortness of breath 10/17/2016 Supraventricular tachycardia Overview (10/12/2016): 1. Supraventricular tachycardia: a. 06/03/2014, presentation to [facility], increased troponin, received adenosine. b. 06/04/2014, transferred to [facility], Dr. Dailey, left heart cath, reported as normal; data deficient. c. May 2014, electrophysiology study with catheter ablation of easily inducible SVT with no residual arrhythmias, Dr. Nayan Manzano at [facility] in [place], [place]. d. 07/01/2014, echocardiogram showed normal LV, mild TR, PASP 36 mmHg. e. September 2014, reported episode of SVT, ceased by vagal maneuvers. Patient did not seek medical treatment. f. Event recorder, September 2014, revealed symptoms of chest pain and shortness of breath that correlate with normal sinus rhythm and sinus tach and episodes of heart fluttering that correspond with unifocal PVCs. Hypertension Overview (10/12/2016): remote history of Chest pain Overview (10/12/2016): Chest pain and shortness of breath that correlate with normal sinus rhythm and sinus tachycardia. Heart flutterings that correlate with premature ventricular contractions. Family History Medical History Relation Name Comments Colon cancer Mother AJAY disease Mother Relation Name Status Comments Mother Social History Tobacco Use Types Packs/Day Years Used Date Smoking Tobacco: Never Tobacco Cessation:Counseling Given: Not Answered Alcohol Use Standard Drinks/Week Comments Yes 0 (1 standard drink = 0.6 oz pur e alcohol) occasionally Comments Unknown Sex and Gender Information Value Date Recorded Sex Assigned at Female 05/04/2024 8:49 AM EDT Legal Sex Female 10:44 AM EDT Gender Identity Not on file Sexual Orientation Straight 05/04/2024 8: 49 AM EDT Last Filed Vital Signs Vital Sign Reading Time Taken Comments Blood Pressure 188/114 05/06/2024 1:27 PM EDT Pulse 84 05/06/2024 1:27 PM EDT Temperature 36.8 C (98.2 F) 01/25/2016 2:21 PM EST Respiratory Rate - - Oxygen Saturation 98% 05/06/2024 1:27 PM EDT Inhaled Oxygen Concentration - - Weight 99.1 kg (218 lb 6.4 oz) 05/06/2024 1:27 P M EDT Height 167.6 cm (5' 6 ) 05/06/2024 1:27 PM EDT Body Mass Index 35.25 05/06/2024 1:27 PM EDT Plan of Treatment Upcoming Encounters Date Type Department Care Team (Late st Contact Info) Description 11/13/2024 12:30 PM EDT Pre-Admission Testing [facility] PREADMISSION T [address] [place] [address] 11/13/2024 2:00 PM EDT Appointment [facility] [address] [place] [address] 11/20/2024 9:10 AM EDT Hospital Encounter [facility] EP LAB [address] [place] [address] Clifford Mahajan MD [address] [facility] [address] [place], [place] [id number] Atrial fibrillation, unspecified type 11/20/2024 9:10 AM EDT - 11/20/2024 11:10 AM EDT Surgery [facility] EP LAB [address] [place] [address] Clifford Mahajan MD [address] [facility] [address] [place] [address] Ablation atrial fibrillation with PFA. DNS meds. Continue Xarelto. [25148 (CPT ) +8 more] Health Maintenance Due Date Last Done Comments Annual Gynecologic Pelvic and Breast Exam 1970 MAMMOGRAM 2010 COLOGUARD 12/12/2015 COLON CANCER SCREENING 5 YEAR SIGMOIDOSCOPY 12/12/2015 COLONOSCOPY 12/12/2015 COLORECTAL CANCER SCREENING 12/12/2015 CT COLONOGRAPHY 12/12/2015 FECAL OCCULT BLOOD TEST 12/12/2015 FIT Testing (1 year) 12/12/2015 ANNUAL PHYSICAL 06/07/2016 HEPATITIS C SCREENING 06/07/2016 Pneumococcal Vaccine 50+ (1 of 1 - PCV) 2020 ZOSTER VACCINE (1 of 2) 2020 COVID-19 Vaccine (2 - season) 10/27/202308/2020 INFLUENZA VACCINE 11/25/2024 TDAP/TD VACCINES (2 - Td or Tdap) 09/21/2029 020 [facility] Care Teams Preservative Filler Machine Operator Relationship Specialty Start Date End Date Mikayla Meier PA [address] [place] [address] [place] [address] PCP - General Physician Flyer Maker 05/06/24
--- OUTSIDE RECORDS SUMMARY | 2024-09-23 17:57 | XMS_ITS | Encounter Summary ---
Author Organization [place] [address] Care Team Providers Care Partridge Farmer Name Role Phone Arianna Story Wayne Primary Care Provider [phone] Encounter Details Date Type Department Care Team (Late st Contact Info) Description 06/15/2014 Orders Only [facility] Edg [address] [facility] [address] [place] [id number] Nayan Manzano MD [address] [place] [address] Social History Tobacco Use Types Packs/Day Years [...] Manzano MD CARDIAC CATH ORDERABLES Final Result [facility] [address] [place] [address] documented in this encounter Visit Diagnoses Not on filedocumented in this encounter Care Teams Partridge Farmer Relationship Specialty Start Date End Date Arianna Story [address] [place] [id number] PCP - General Family Medicine 06/14/14 documented as of this encounter
--- OUTSIDE RECORDS SUMMARY | 2024-09-23 17:57 | XMS_ITS | Clinical Summary ---
Author Organization [facility] Arrhythmia [facility] Address [address] [facility] [address] [place] [address] Phone Care Team Providers Care Customer Services Manager Name Role Phone Arianna Story Primary Care Provider [phone] Allergies Active Allergy Reactions Criticality Noted Date [...] to complete this topic Insurance [employer] [id number] [facility] [id number] [address] [place] [id number] [place] [id number] Care Teams Customer Services Manager Relationship Specialty Start Date End Date Arianna Story [facility] [address] [place] [address] PCP - General Family Medicine 06/14/14
--- OUTSIDE RECORDS SUMMARY | 2024-09-23 17:57 | XMS_ITS | Encounter Summary ---
Author Organization [facility] Address [address] [place] [address] Care Team Providers Care Coroner Forensic Technician Name Role Phone Mikayla Meier Primary Care Provider [phone] Encounter Details Date Type Department Care Team (Late st Contact Info) Description 09/16/2020 E-Visit [facility] [address] [address] Sylvia Rasheed, MEDICATION ASSISTANT [address] [address] RE: E-Visit for Sinus Problems Social History Tobacco Use Types Packs/Day Years [...] AM EDT documented as of this encounter Plan of Treatment Upcoming Encounters Date Type Department Care Team (Late st Contact Info) Description 11/13/2024 12:30 PM EDT Pre-Admission Testing [facility] PREADMISSION T [address] [place] [address] 11/13/2024 2:00 PM EDT Appointment [facility] [address] [place] [address] 11/20/2024 9:10 AM EDT Hospital Encounter [facility] EP LAB [address] [facility] [place] [address] Clifford Mahajan MD [address] [facility] [address] [place], [place] [id number] Atrial fibrillation, unspecified type 11/20/2024 9:10 AM EDT - 11/20/2024 11:10 AM EDT Surgery [facility] EP LAB [address] [place] [address] Clifford Mahajan MD [address] [facility] [address] [place] [address] Ablation atrial fibrillation with PFA. DNS meds. Continue Xarelto. [07582 (CPT ) +8 more] documented as of this encounter Visit Diagnoses Not on filedocumented in this encounter Care Teams Coroner Forensic Technician Relationship Specialty Start Date End Date Mikayla Meier PA [address] [place] [address] [facility] [address] [place] [address] PCP - General Physician [place] Former 05/06/24 documented as of this encounter
[2024-09-23 19:21] LABS: NT Pro Brain Natriuretic Pep. 58.7 pg/mL (0-125)
[2024-09-28 19:09] LABS: MOG Antibody, Cell-based IFA Negative (Negative)
== END 2024-09-23 23:59 | disposition home or self-care (01) ==
LOC: LAB 17:55
PROVIDERS: PCP Physician Assistant; Visit Provider Physician Assistant
DX: G37.81 Myelin oligodendrocyte glycoprotein antibody disease (principal); R79.89 Other specified abnormal findings of blood chemistry
CPT/HCPCS: 36415; 83880; 86362

== ENCOUNTER 2024-10-15 13:40 | Emergency (ER) | payer BC, SELFPAY ==
--- NOTE | 2024-10-15 13:47 | ED_ITS ---
<Statement entered by Leighton Landry MD - 10/15/24 15:57> I was consulted by the AL, and we discussed the complexity of the problems being addressed. I approved the treatment and management plan for this patient's care in the emergency department, thus performing a substantive portion of the medical decision making. Leighton Landry MD, WALDO, FACEP Discharge Plan Disposition Patient Disposition: Home, Self-Care Condition: Good Prescriptions Prescriptions: New cefdinir 300 mg capsule 300 mg PO BID 10 Days Qty: 20 0RF No Action metoprolol succinate 50 mg tablet extended release 24 hr 50 mg PO BID Qty: 180 3RF amlodipine 5 mg tablet 5 mg PO DAILY Qty: 90 3RF hydralazine 50 mg tablet 50 mg PO TID PRN (Reason: BP > 160/90) Qty: 180 4RF clopidogrel [Plavix] 75 mg tablet 75 mg PO DAILY Qty: 30 5RF hydrochlorothiazide 12.5 mg capsule 12.5 mg PO .COMPLEX Qty: 30 5RF Rx Instructions: 12.5 mg orally Sat, Sat, Fridays; pantoprazole 40 mg tablet,delayed release (DR/EC) 40 mg PO DAILY nitroglycerin 0.4 mg tablet, sublingual 0.4 mg sublingual Q5MINP PRN (Reason: chest pain) Rx Instructions: do not exceed 3 doses per episode Referrals Follow up/Referrals: Mikayla Meier PA [Primary Care Provider, Medical] - See instructions Activity Restrictions/Add. Instructions Additional Instructions/Restrictions: Please follow-up with urologist and PCP in the upcoming days. Please take all your medications as prescribed. Please utilize antibiotic medication as needed for relief of your urinary tract infection symptoms. Clinical Impressions Clinical Impression: Acute right flank pain Instructions Patient Instructions: DI for Flank Pain Print Language Print Language: Yoruba Discharge ED Provider: Leighton Landry General Adult HPI General Chief complaint: Urogenital-Female Stated complaint: right side pain,back and bladder pain Time Seen by Provider: 10/15/24 13:44 Mode of Arrival: Ambulatory Source of Information: Patient Limitations: No Limitations History of Present Illness HPI narrative: 53-year-old female presents the emergency department with right-sided flank pain, dysuria, and urinary frequency/urgency that started this morning. Patient admits to subjective fever chills, did have an episode of fluttering of her heart this morning, does have paroxysmal atrial fibrillation, scheduled for ablation in the upcoming weeks, has already had prior ablation for atrial fibrillation/SVT, denies any overt chest pain or shortness of breath, denies any real abdominal pain describes it more as flank pain/suprapubic discomfort, admits to nausea no vomiting no constipation no diarrhea, no hematuria, no melena no hematochezia no hematemesis, no urinary bladder or bowel dysfunction, no radicular type side of otology, patient is a non-smoker, occasionally utilizes alcohol, denies any drug use, initial triage vitals notable for significant hypertension, patient states is somewhat common for her, does have a history of hypertension, taking medication as prescribed, other past medical history is consistent with HEATHER, atrial fibrillation,MOGAD, unilateral kidney on the right, hyperlipidemia, she is on dual endplate therapy of Plavix and aspirin, GERD. Please note that above description of symptoms, in this electronic medical record under categorization of recalled from ER triage doctor by RN are reflective of an initial nursing assessment, however, is not reflective of my full history and physical exam that was personally taken and clarified. Consequentially, this preceding description of symptoms, which may include the patient's categorized chief complaint in the EMR, do not reflect my personal clinical impression, and the ultimate description of history of present illness and patient stated complaints should be deferred to this section of the note. Unless stated otherwise or congruent with this section of the note, additional signs, symptoms, or incongruence should be interpreted as inaccurate with my clinical impression. Onset (ago): hour(s) Related Data Home Medications ?Medication ?Instructions ?Recorded ?Confirmed nitroglycerin 0.4 mg sublingual 0.4 mg sublingual Q5MI SPECTROSCOPIST PRN chest 07/31/23 09/17/24 tablet pain pantoprazole 40 mg tablet,delayed 40 mg PO DAILY 07/3009/17/24 release Previous Rx's ?Medication ?Instructions ?Recorded clopidogrel 75 mg tablet (Plavix) 75 mg PO DAILY #30 t abs 06/24/23 hydrochlorothiazide 12.5 mg capsule 12.5 mg PO .COMPLE X #30 caps 02/04/24 metoprolol succinate 50 mg 50 mg PO BID #180 tabs 02/25 07/19 tablet,extended release 24 hr amlodipine 5 mg tablet 5 mg PO DAILY #90 tabs 04/29 hydralazine 50 mg tablet 50 mg PO TID PRN BP > 160/90 #180 04/29/24 tabs cefdinir 300 mg capsule 300 mg PO BID 10 days #20 ca ps 10/15/24 Allergies Allergy/AdvReac Type Severity Reaction Status Date / Time fluconazole (From Diflucan) Allergy Rash Verified 09/17/24 15:25 phenazopyridine (From Allergy Rash Verified 09/17/24 15:25 Pyridium) [facility] Disclaimer: The information contained in this section may have been updated after the patient was seen, as this information can be updated by other users. Medical History Elevated brain natriuretic peptide (BNP) level Fatigue Edema Cough Fever HEATHER (obstructive sleep apnea) History of 2019 novel coronavirus disease (COVID-19) Dyspnea on exertion Pharyngitis Sinusitis Sinusitis PFO (patent foramen ovale) Hypertension SVT (supraventricular tachycardia) Numbness in both hands Already addressed by Dr. Tammi Minor and Josh Rose, Neurologists. NCV- EMG both upper extremities within normal limits and recent cervical spine MRI without evidence of myelopathy, spinal stenosis, demyelinating lesions. Plan: VEP'S, SSEP s, NCV-EMG both arms. Memory loss Reports mental fogginess, short term memory impairment, difficulty remembering names and preparing meals. Can not exclude Mild Cognitive Impairment with memory loss, (MCI). Plan: Neurocognitive test and usual labs for reversible etiologies. Abnormal brain MRI Unspecific right frontal small foci of white matter lesions, 5 mm, non enhancing. Suspected small vessel etiology. Diastolic dysfunction CAD (coronary artery disease) Vitamin D deficiency Myelin oligodendrocyte glycoprotein antibody disorder (MOGAD) Paroxysmal A-fib Non-STEMI (non-ST elevated myocardial infarction) Angina pectoris Fibromyalgia Typical angina Urinary tract infection Hypertension Atrial fibrillation Migraine COVID-19 virus infection Hx of supraventricular tachycardia Family history of heart disease Abnormal EKG Gastroesophageal reflux disease Coronary artery calcification seen on CT scan Dyspnea Chest pain Surgical History Status post coronary artery stent placement H/O cardiac catheterization H/O cardiac radiofrequency ablation History of cardiac radiofrequency ablation History of tonsillectomy History of hysterectomy History of cholecystectomy History of left nephrectomy Family History Other Cancer Coronary artery disease Diabetes Social History Smoking Status: Never smoker second hand exposure: No alcohol intake: never substance use type: denies use current occupational status: employed Travel in the last 8 weeks?: Inside the [place] household members: spouse and family housing: house current occupation: administrative prof current occupational exposures/hazards: No caffeine: No Have you lived/traveled outside US in past 30 days?: No Contact w/someone who lives/traveled outside US past 30 days?: No Exposure to someone with infectious disease in past 14 days?: No Do you have a fever (greater than 100.4 F or 38 C)?: No Have you tested positive for COVID-19?: No Exposed to someone with COVID-19 in past 14 days?: No Do you have a sore throat?: No Do you have a cough?: No Do you have any weakness?: No Do you have any diarrhea?: No Are you experiencing any unusual bleeding?: No Do you have any muscle aches/pain?: No Do you have any abdominal pain?: Yes Are you experiencing loss of taste or smell?: No Other Medical History Have you received the Flu Vaccine for this season: No Have you received the Pneumonia Vaccine: No ROS Obtained: Yes All systems reviewed & no additional complaints except as documented Physical Exam General General appearance: alert and in no apparent distress Head Head exam: atraumatic and normocephalic Eye Eye exam: Present PERRL and EOMI ENT ENT exam: Present mucous membranes moist Neck Neck exam: Present normal inspection Chest Chest inspection: Present normal inspection and symmetric chest wall rise Respiratory Respiratory exam: Present normal lung sounds bilaterally; Absent respiratory distress, wheezes or stridor Cardiovascular Cardiovascular exam: Present regular rate and normal rhythm Abdominal Exam Abdominal exam: Present soft and tenderness; Absent guarding, rebound or rigidity Abdominal tenderness: Present suprapubic and mild Extremities Exam Extremities exam: Present normal inspection Back Exam Back exam: Present CVA tenderness (R) Comment: Minimal CVA tenderness on the right Neurological Exam Neurological exam: Present alert and oriented X3 Psychiatric Psychiatric exam: Present normal affect Skin Skin exam: Present warm and dry Medical Decision Making Medical Records Medical records reviewed: Yes I reviewed the patient's medical records. Screening: Per USPSTF and CDC recommendations, given the prevalence of disease in our region, it is our hospital?s policy to screen for HIV and viral Hepatitis for all patients aged 18 and over and those with ongoing risk factors. Sridhar Inquiry Pt receiving controlled substance: No Sridhar was queried for this patient: No Vital Signs: 10/15/24 13:51 Temperature 98.5 F Temperature Source Oral Pulse Rate [Right Brachial] 92 H Respiratory Rate 18 Blood Pressure [Right Arm] 212/100 H Blood Pressure Mean [Right Arm] 137 Blood Pressure Source [Right Arm] Automatic Cuff 02 Sat by Pulse Oximetry 99 Oxygen Delivery Method Room Air Lab Data Lab results reviewed: Yes I reviewed the patient's lab results. Lab Results 10/15/24 13:45: WBC 9.0, RBC 4.83, Hgb 14.1, Hct 42.5, MCV 88.0, MCH 29.2, MCHC 33.2, RDW 13.2, Plt Count 281, MPV 10.7 H, Neut % (Auto) 65.0, Lymph % (Auto) 27.9, Dewey % (Auto) 4.3, Eos % (Auto) 2.3, Baso % (Auto) 0.2, Neut # (Auto) 5.8, Lymph # (Auto) 2.5, Dewey # (Auto) 0.4, Eos # (Auto) 0.2, Baso # (Auto) 0.0, D- Dimer 0.74 H, Sodium 137, Potassium 4.1, Chloride 105, Carbon Dioxide 23, Anion Gap 13.1, BUN 14, Creatinine 0.80, Estimated Creat Clear 125, Estimated GFR 75, Est GFR ( Amer) 91, Glucose 121 H, Calcium 9.3, Total Bilirubin 0.3, AST 31, ALT 23, Alkaline Phosphatase 100, Troponin I < 0.01, NT-Pro-B Natriuret Pep 81.6, Total Protein 7.8, Albumin 4.4, Globulin 3.4 H, Albumin/Globulin Ratio 1.3, Lipase 103, Urine Color Yellow, Urine Appearance Clear, Urine pH 5.5, Ur Specific Irma 1.015, Urine Protein Negative, Urine Glucose (UA) Negative, Urine Ketones Negative, Urine Blood 2+ A, Urine Nitrate Negative, Urine Bilirubin Negative, Urine Urobilinogen 0.2, Ur Leukocyte Esterase Negative, Urine RBC Occasional, Urine WBC Occasional, Ur Squamous Epith Cells 5-10, Urine Bacteria 1+ 10/15/24 13:45 10/15/24 13:45 Orders (Tests/Meds): ED MEDICATIONS Discontinued Medications Generic Name Dose Route Start Last Admin Trade Name Clemencia PRN Reason Stop Dose Admin Acetaminophen 1,000 mg 10/15/24 14:23 10/15/24 14:32 Acetaminophen 1,000mg/100ml Vial IV 10/15/24 14:24 1,000 mg ONCE ONE Administration Sodium Chloride 1,000 mls @ 999 mls/hr 10/15/24 14:34 10/15/24 14:52 Sod Chlor 0.9% 1000ml Bag IV 10/15/24 15:34 999 mls/hr .Q1H1M ONE Administration Iopamidol 75 ml 10/15/24 14:24 10/15/24 14:25 Iopamidol-370 (76%);100ml Bottle IV 10/15/24 14:25 75 ml ONCE ONE Administration Ketorolac Tromethamine 10 mg 10/15/24 14:07 10/15/24 14:35 Ketorolac 30mg/Ml Vial IV 10/15/24 14:08 Not Given ONCE ONE Ondansetron HCl 4 mg 10/15/24 14:07 10/15/24 14:35 Ondansetron 4mg/2ml Vial IV 10/15/24 14:08 Not Given ONCE ONE Sodium Chloride 10 ml 10/15/24 14:24 10/15/24 14:25 Sodium Chloride 0.9% 10ml Syr (Rad Only) IV 10/15/24 14:25 10 ml ONCE ONE Administration ORDERS Category Date Time Status CT abdomen pelvis w con Stat Cat Scan 10/15/24 14:07 Completed Complete Blood Count Auto Diff Stat Lab 10/15/24 13:45 Completed Comprehensive Metabolic Panel Stat Lab 10/15/24 13:45 Completed D-Dimer Stat Lab 10/15/24 13:45 Completed Lactic Acid Stat Lab 10/15/24 13:59 Ordered Lipase Stat Lab 10/15/24 13:45 Completed NT Pro Brain Natriuretic Pep. Stat Lab 10/15/24 13:45 Completed Troponin I Q3H Lab 10/15/24 17:00 Ordered Troponin I Q3H Lab 10/15/24 20:00 Ordered Troponin I Stat Lab 10/15/24 13:45 Completed Urinalysis and Microscopic Stat Lab 10/15/24 13:45 Completed Medical Decision Narrative: 53-year-old female presented to the emergency department with right-sided flank pain dysuria and other urinary type symptomatology started today, differential diagnose include but not limited to, acute UTI, acute pyelonephritis, nephrolithiasis, ureterolithiasis, diverticulitis, pancreatitis, appendicitis, musculoskeletal pain, cardiac arrhythmia, electrolyte disturbance among others. I discussed this patient's case with the attending physician Dr. Landry he saw and examined the patient as well. Will obtain basic laboratory studies, lactic acid level, lipase level, proBNP, troponin, UA, CT ab pelvis with contrast, EKG, will give 10 mg IV Toradol and 4 mg of Zofran for pain and nausea. CMP unremarkable UA is notable for 2+ hematuria, negative nitrites, negative leukocyte esterase. I was notified by nursing staff at approximately 2:20 PM, that patient is refusing Toradol and Zofran administration states that she does not want anything but Tylenol right now . Thus will give IV Tylenol 1000 mg. Microscopic analysis is notable for occasional WBCs, 5-10 squamous epithelial cells 1+ bacteria. I was notified by nursing staff at approximately 2:32 PM, that after patient returned back from CT scan, she is requesting fluids after that contrast . Thus will give 1 L IV NS. Troponin is less than 0.01, CBC unremarkable I reviewed the patient's CT abdomen pelvis with contrast along the corresponding radiologic report, no acute abnormality in the abdomen or pelvis. I had a long discussion with the patient at the bedside, patient is quite adamant about the testing her D-dimer , discussed that this may be low yield diagnostic and I think the likelihood of PE is very unlikely given the patient's symptomatology, however patient does have this ongoing acute right flank pain, CT abdomen pelvis with contrast as well as laboratory studies are all negative, thus we will run D-dimer to rule out PE. D-dimer is 0.74, YEARS criteria is negative, thus making VTE/PE less likely. Will prescribe cefdinir 300 mg p.o. twice daily for 10 days for UTI/pyelonephritis prophylaxis, discussed results with the patient family bedside patient famine agreement with current treatment plan/discharge plan, patient follow-up with PCP and urologist in the coming days regarding her chronic hematuria. Patient voiced understanding and agreement current treatment plan/discharge plan Critical Care Critical Care Time Critical Care Time: No
[2024-10-15 13:48] VITALS: BP 215/104; PULSE 92
[2024-10-15 13:50] VITALS: BP 212/100; PULSE 90
[2024-10-15 13:51] VITALS: BP 212/100; PULSE 92; RESP 18; TEMP 36.9; O2SAT 99; BMI 34.7
[2024-10-15 14:03] LABS: Microscopic, Urine URINE MICROSCOPIC (MICROSCOPIC)
--- NOTE | 2024-10-15 14:07 | ECG_ITS ---
APPROVED REPORT Exam: Resting ECG HR:80 bpm ECG Measurements Heart Rate 80 AXES NH 166 P 73 QRSd 92 QRS 91 QT 373 T 51 QTc 409 Conclusion SINUS RHYTHM BORDERLINE RIGHT AXIS DEVIATION [QRS AXIS > 90] LOW QRS VOLTAGE IN PRECORDIAL LEADS [QRS DEFLECTION < 1.0 mV IN CHEST LEADS] BORDERLINE ECG UNCONFIRMED REPORT Electronically signed by : Reji Landry, 10/15/2024 15:58:39
--- NOTE | 2024-10-15 14:07 | CT_ITS ---
PROCEDURE INFORMATION: Exam: CT Abdomen And Pelvis With Contrast Exam date and time: 10/15/2024 2:27 PM Age: 53 years old Clinical indication: Other: Right-sided flank pain, dysuria, HX one kidney TECHNIQUE: Imaging protocol: Computed tomography of the abdomen and pelvis with contrast. Radiation optimization: All CT scans at this facility use at least one of these dose optimization techniques: automated exposure control; mA and/or kV adjustment per patient size (includes targeted exams where dose is matched to clinical indication); or iterative reconstruction. Contrast material: ISOVUE; Contrast volume: 75 ml; Contrast route: IV; COMPARISON: CR ABD2V XR abdomen min 2V 04/02/2018 2:59 PM FINDINGS: Liver: Normal. No mass. Gallbladder and biliary ducts: There has been a cholecystectomy. Pancreas: No peripancreatic fluid stranding. No main pancreatic ductal dilation. Spleen: Normal. No splenomegaly. Adrenal glands: The adrenal glands are normal. Kidneys and ureters: There has been a left nephrectomy. Right nephrogram is unremarkable. No nephrolithiasis or hydroureteronephrosis. No solid lesions Stomach and bowel: Unremarkable. No obstruction. No mucosal thickening. Appendix: No evidence of appendicitis. Intraperitoneal space: Unremarkable. No free air. No significant fluid collection. Vasculature: The aorta demonstrates moderate atherosclerotic calcification. Lymph nodes: Unremarkable. No enlarged lymph nodes. Urinary bladder: Urinary bladder is unremarkable. Urinary bladder is unremarkable. Reproductive: Status post hysterectomy. Bones/joints: No acute osseous abnormality. Soft tissues: Unremarkable. IMPRESSION: No acute abnormality in the abdomen or pelvis
--- OUTSIDE RECORDS SUMMARY | 2024-10-15 14:07 | XMS_ITS | Clinical Summary ---
Author Organization [facility] Address [address] [place] [address] Care Team Providers Care Epitaxial Reactor Operator Name Role Phone Destinee Keita DIRECTOR MEDICAL WRITING Unavailable [phone] Klaudia Hayden DIRECTOR MEDICAL WRITING, DNP Unavailable [phone] Yuko Colmenares MD Unavailable Mikayla Meier Primary Care Provider [phone] Felipe Graf DO Unavailable [phone] Felipe Graf DO Unavailable [phone] Nabil Angel MD Unavailable [phone] Allergies Active Allergy Reactions Criticality Noted Date [...] 1. Supraventricular tachycardia: a. 06/03/2014, presentation to [facility], increased troponin, received adenosine. b. 06/04/2014, transferred to [facility], Dr. Dailey, left heart cath, reported as normal; data deficient. c. May 2014, electrophysiology study with catheter ablation of easily inducible SVT with no residual arrhythmias, Dr. Nayan Manzano at [facility] in [place], [place]. d. 07/01/2014, echocardiogram showed normal LV, [...] PVCs. Immunizations Immunization Administration Dates Next Due [employer] COVID-19 Vaccine (Blue Cap) 18+ 09/01/19 21 [...] of 2) 2020 UKY-Depression Screening 08/30/2021 08/30/2020 [id number] Vaccine (2 - 20 24-25 season) 2023 [...] complete this topic Insurance [employer] Care Teams Epitaxial Reactor Operator Relationship Specialty Start Date End Date Mikayla Meier PA [address] [facility] [address] [place] [address] PCP - General 08/30/20 Destinee Keita APRN [address] [place] [address] [address] [place] [phone] Nurse Practitioner Internal Medicine 08/30/20 Klaudia Hayden APRN, DNP [address] [phone] Nurse Practitioner Rheumatology 08/30/20 Yuko Colmenares MD [address] [place] [address] Consulting Physician Family Medicine 08/30/20 Felipe Graf DO [address] [place] [address] Consulting Physician Neurology 11/08/20 Felipe Graf DO [address] [place] [address] Consulting Physician Neurology 01/03/21 Nabil Angel MD [address] [facility] [address] [place] [address] Service Attending Neurology 11/03/21
--- OUTSIDE RECORDS SUMMARY | 2024-10-15 14:07 | XMS_ITS | Clinical Summary ---
Author Organization [employer] ([place], [place], [place], [place]) Address [address] [place] [address] Care Team Providers Care Architect In Training Name Role Phone Unavailable Primary Care Provider [...]
--- OUTSIDE RECORDS SUMMARY | 2024-10-15 14:07 | XMS_ITS | Encounter Summary ---
Author Organization [employer] ([place], [place], [place], [place]) Address [address] [place] [address] Care Team Providers Care Dba Developer Name Role Phone Unavailable Primary Care Provider Unavailabl e Encounter Details Date Type Department Care Team (Late st Contact Info) Description 10/03/2018 Transcribed Document [facility] [place] [facility] [place] [address] ProviderKatie MD [facility] [place], [place] [id number] Social History Tobacco Use Types Packs/Day Years [...]
--- OUTSIDE RECORDS SUMMARY | 2024-10-15 14:07 | XMS_ITS | Encounter Summary ---
Author Organization [employer] ([place], [place], [place], [place]) Address [address] [place] [address] Care Team Providers Care Wire Lather Name Role Phone Unavailable Primary Care Provider Unavailabl e Encounter Details Date Type Department Care Team (Late st Contact Info) Description 10/03/2018 Transcribed Document [facility] Family Medicine [facility] [place] [address] ProviderKatie MD [address] [place] [id number] Social History Tobacco Use Types Packs/Day [...] Trinidad MD - 10/03/2018 10:48 AM CDT [facility] [place] [address] MIRA FONTENOT :1970 Visit Time:10/03/2018 Your [...] a bad smell. General instructions ??? Take [id number] and prescription medicines only as told by [...] 02/16/2014 Document Revised: 03/27/2017 Document Reviewed: 03/27/2017 [employer] Patient Education ?? 2019 [employer]. Emergency Awareness and Preventative Care STROKE is [...] Assistance with quitting is available by contacting 0-244-ZOKZ-NOW. This is a free resource providing counseling, [...] was given the opportunity to ask questions. Patient/Gage Maker Name: Patient/Gage Maker Signature: Relationship to Patient: Clinician/Hospital Gage Maker Signature: Date: documented in this encounter Plan of Treatment Not on file documented as of this encounter Visit Diagnoses Not on filedocumented in this encounter
--- OUTSIDE RECORDS SUMMARY | 2024-10-15 14:07 | XMS_ITS | Encounter Summary ---
Author Organization [employer] ([place], [place], [place], [place]) Address [address] [place] [address] Care Team Providers Care Rn Camp Name Role Phone Unavailable Primary Care Provider Unavailabl e Encounter Details Date Type Department Care Team (Late st Contact Info) Description 10/03/2018 Transcribed Document [facility] [place] [facility] [place] [address] ProviderKatie MD [address] [place] [phone] Social History Tobacco Use Types Packs/Day Years [...] Evaluation : Returns demonstration, Verbalizes understanding HAWA VIECNTE RN - 10/03/2018 10:45 EDT Electronically signed by Maryann, [facility] Conversion Light Rail Operator Cerner at 06/11/2022 10:43 AM CDT documented in this encounter Plan of Treatment Not on file documented as of this encounter Visit Diagnoses Not on filedocumented in this encounter
--- OUTSIDE RECORDS SUMMARY | 2024-10-15 14:07 | XMS_ITS | Encounter Summary ---
Author Organization [facility] Address [address] [place] [address] Care Team Providers Care Workers Compensation Claims Examiner Name Role Phone Mikayla Meier Primary Care Provider [phone] Encounter Details Date Type Department Care Team (Late st Contact Info) Description 10/09/2024 Prep for Surgery [facility] DON ORDERS ONLY [address] [place] [address] Ryann Valdivia PA [address] [facility] [address] [place] [address] Paroxysmal atrial fibrillation (Primary Dx) Social History Tobacco Use Types Packs/Day Years [...] Care Team (Late st Contact Info) Description 11/06/2024 8:30 AM EDT Pre-Admission Testing [facility] PREADMISSION T [address] [place] [address] 11/06/2024 10:00 AM EDT Appointment [facility] AT [address] [place] [address] 11/10/2024 9:10 AM EDT Hospital Encounter [facility] EP LAB [address] [facility] [place] [address] Clifford Mahajan MD [address] [facility] [address] [place] [address] Atrial fibrillation, unspecified type 11/10/2024 9:10 AM EDT - 11/10/2024 11:10 AM EDT Surgery [facility] EP LAB [address] [place] [address] Clifford Mahajan MD [address] [facility] [address] [place] [address] Ablation atrial fibrillation with PFA. DNS meds. Continue Xarelto. [95148 (CPT ) +8 more] Scheduled Orders Name Type Priority Associated Diagnoses Orde r Schedule CBC (No diff) Lab Routine Paroxysmal atrial fibrillation Expected: 10/14/2024 (Approximate), Expires: 10/09/2025 Basic metabolic panel Lab Routine Paroxysmal atrial fibrillation Expected: 10/14/2024 (Approximate), Expires: 10/09/2025 Protime-INR Lab Routine Paroxysmal atrial fibrillation Expected: 10/14/2024 (Approximate), Expires: 10/09/2025 documented as of this encounter Visit Diagnoses Diagnosis Atrial fibrillation, unspecified type Paroxysmal atrial fibrillation- Primary Atrial fibrillation Atrial fibrillation, unspecified type documented in this encounter Care Teams Workers Compensation Claims Examiner Relationship Specialty Start Date End Date Mikayla Meier PA [address] [facility] [address] [place] [address] PCP - General Physician Tire Fabricator 05/06/24 documented as of this encounter
--- OUTSIDE RECORDS SUMMARY | 2024-10-15 14:07 | XMS_ITS | Referral Summary ---
Author Organization [employer] ([place], [place], [place], [place]) Address [address] [place] [address] Care Team Providers Care Vest Backer Name Role Phone Unavailable Primary Care Provider [...]
--- OUTSIDE RECORDS SUMMARY | 2024-10-15 14:07 | XMS_ITS | Encounter Summary ---
Author Organization [employer] ([place], [place], [place], [place]) Address [address] [place] [address] Care Team Providers Care Engraver Wood Name Role Phone Unavailable Primary Care Provider Unavailabl e Encounter Details Date Type Department Care Team (Late st Contact Info) Description 10/03/2018 Transcribed Document [facility] [place] [address] ProviderKatie MD [address] [place], [place] [address] Social History Tobacco Use Types Packs/Day Years [...] a bad smell. General instructions ??? Take mrtg-ucc-swatlqr and prescription medicines only as told by [...] 03/27/2017 Elsevier Interactive Patient Education ? 2019 [employer] documented in this encounter Plan of Treatment Not on file documented as of this encounter Visit Diagnoses Not on filedocumented in this encounter
--- OUTSIDE RECORDS SUMMARY | 2024-10-15 14:08 | XMS_ITS | Clinical Summary ---
Author Organization [facility] Address [address] [facility] [address] [place] [address] Phone Care Team Providers Care Insurance Special Agent Name Role Phone Arianna Story Primary Care Provider [phone] Allergies Active Allergy Reactions Criticality Noted Date [...] to complete this topic Insurance [employer] [id number] [facility] [id number] [address] [place] [id number] [place] [id number] Care Teams Insurance Special Agent Relationship Specialty Start Date End Date Arianna Story [facility] [address] [place] [address] PCP - General Family Medicine 06/14/14
--- OUTSIDE RECORDS SUMMARY | 2024-10-15 14:08 | XMS_ITS | Encounter Summary ---
Author Organization [place] [address] Care Team Providers Care Scaleman Name Role Phone Arianna Story Wayne Primary Care Provider [phone] Encounter Details Date Type Department Care Team (Late st Contact Info) Description 06/15/2014 Orders Only [facility] Edg [address] [facility] [address] [place] [phone] Nayan Manzano MD [address] [place] [address] Social History Tobacco Use Types Packs/Day Years [...] Manzano MD CARDIAC CATH ORDERABLES Final Result [facility] LAB 1 [place] [address] documented in this encounter Visit Diagnoses Not on filedocumented in this encounter Care Teams Scaleman Relationship Specialty Start Date End Date Arianna Story [address] [place] [id number] PCP - General Family Medicine 06/14/14 documented as of this encounter
--- OUTSIDE RECORDS SUMMARY | 2024-10-15 14:08 | XMS_ITS | Clinical Summary ---
Author Organization [facility] Address [address] [place] [address] Care Team Providers Care Pourer Off Name Role Phone Mikayla Meier Primary Care Provider [phone] Allergies Active Allergy Reactions Criticality Noted Date [...] 1. Supraventricular tachycardia: a. 06/03/2014, presentation to [facility], increased troponin, received adenosine. b. 06/04/2014, transferred to [facility], Dr. Dailey, left heart cath, reported as normal; data deficient. c. May 2014, electrophysiology study with catheter ablation of easily inducible SVT with no residual arrhythmias, Dr. Nayan Manzano at [facility] in [place], [place]. d. 07/01/2014, echocardiogram showed normal LV, [...] flutterings that correlate with premature ventricular contractions. Encounters Date Type Department Care Team Description 10/09/2024 Prep for Surgery [facility] DON ORDERS ONLY [address] [place] [address] Ryann Valdivia, LATASHA Paroxysmal atrial fibrillation (Primary Dx) from Last 3 Months Family History Medical History Relation Name Comments [...] Description 11/06/2024 8:30 AM EDT Pre-Admission Testing [facility] PREADMISSION T [address] [place] [address] 11/06/2024 10:00 AM EDT Appointment [facility] CT AT [address] [place] [address] 11/10/2024 9:10 AM EDT Hospital Encounter [facility] EP LAB [address] [place] [address] Clifford Mahajan MD [address] [facility] [address] [place] [address] Atrial fibrillation, unspecified type 11/10/2024 9:10 AM EDT - 11/10/2024 11:10 AM EDT Surgery [facility] EP LAB [address] [place] [address] Clifford Mahajan MD [address] [facility] [address] [place] [address] Ablation atrial fibrillation with PFA. DNS meds. Continue Xarelto. [62704 (CPT ) +8 more] Health Maintenance Due [...] - Td or Tdap) 09/21/2029 020 Insurance [facility] JUHI ELISABETH A[place] BHATIA [id number] AMIRAH [facility] PPO Care Teams Pourer Off Relationship Specialty Start Date End Date Mikayla Meier PA [address] [place] [address] [place] [address] PCP - General Physician Veneer Taper 05/06/24
--- OUTSIDE RECORDS SUMMARY | 2024-10-15 14:08 | XMS_ITS | Encounter Summary ---
[facility] Organization [facility] Address [address] [place] [address] Care Team Providers Care Load Manager Name Role Phone Mikayla Meier Primary Care Provider [phone] Encounter Details Date Type Department Care Team (Late st Contact Info) Description 09/16/2020 E-Visit [facility] [address] [address] Sylvia Rasheed, FLEX O WRITER OPERATOR [address] [address] RE: E-Visit for Sinus Problems Social History [...] Description 11/06/2024 8:30 AM EDT Pre-Admission Testing [facility] PREADMISSION T [address] [place] [address] 11/06/2024 10:00 AM EDT [facility]ointment [facility] AT [address] [place] [phone] 11/10/2024 9:10 AM EDT Hospital Encounter [facility] EP LAB [address] [facility] [place] [place] [address] Clifford Mahajan MD [address] [facility] E [address] [place], [place] [id number] Atrial fibrillation, unspecified type 11/10/2024 9:10 AM EDT - 11/10/2024 11:10 AM EDT Surgery [facility] EP LAB [address] [place] [address] Clifford Mahajan MD [address] [facility] E [address] [place] [address] Ablation atrial fibrillation with PFA. DNS meds. Continue Xarelto. [41197 (CPT ) +8 more] documented as of this encounter Visit Diagnoses Not on filedocumented in this encounter Care Teams Load Manager Relationship Specialty Start Date End Date Mkiayla Meier PA [address] [place] [address] [place] [address] PCP - General Physician Cut Off Man 05/06/24 documented as of this encounter
[2024-10-15 14:10] LABS: Alanine Aminotransferase 23 U/L (12-78); Albumin Level 4.4 g/dl (3.5-5.0); Albumin/Globulin Ratio 1.3 (1.1-1.8); Alkaline Phosphatase 100 U/L (38-126); Anion Gap 13.1 mEq/L (5-15); Aspartate Amino Transferase 31 U/L (14-36); Bilirubin,Total 0.3 mg/dl (0.2-1.3); Blood Urea Nitrogen 14 mg/dl (7-17); Calcium 9.3 mg/dl (8.4-10.2); Carbon Dioxide 23 mmol/L (22.0-30.0); Chloride 105 mmol/L (98-107); Creatinine Clearance Estimated 125 mL/min (50-200); Creatinine,Serum 0.80 mg/dl (0.52-1.04); Estimated Glomerular Filt Rate 75 ml/min (>60); GFR (African American) 91 ML/MIN (>60); Globulin 3.4 g/dL (1.3-3.2); Glucose 121 mg/dl (74-100); Hematocrit 42.5 % (37.0-47.0); Hemoglobin 14.1 g/dL (12.2-16.2); Immature Granulocytes % 0.3 %; Lipase 103 U/L (23-300); Mean Corpuscular HGB Conc 33.2 g/dL (31.8-35.4); Mean Corpuscular Hemoglobin 29.2 pg (27.0-31.2); Mean Corpuscular Volume 88.0 fl (81-99); Nucleated Red Blood Cells % 0 %; Platelet Count 281 K/mm3 (142-424); Potassium 4.1 mmoL/L (3.5-5.1); Red Blood Count 4.83 M/mm3 (4.20-5.40); Red Cell Distribution Width-SD 42.6 fL; Sodium 137 mmol/L (136-145); Total Protein,Serum 7.8 g/dl (6.3-8.2); White Blood Count 9.0 K/mm3 (4.8-10.8)
[2024-10-15 14:12] LABS: Bilirubin,Urine Negative (Negative); Color,Urine YELLOW (Yellow); Glucose,Urine (UA) Negative (Negative); Ketones,Urine Negative (Negative); Leukocyte Esterase,Urine Negative (Negative); PH,Urine 5.5 (5.0-8.5); Protein,Urine Negative (Negative); Specific Gravity, Urine 1.015 (1.005-1.030); Urobilinogen,Urine 0.2 EU/dl (0.2)
[2024-10-15 14:24] LABS: Bacteria,Urine 1+ /lpf; RBC,Urine Occasional #/hpf (0-3); WBC,Urine Occasional #/hpf (0-3)
[2024-10-15] MEDS: SODIUM CHLORIDE 0.9% 10ML SYR (RAD ONLY) 10 ML IV (14:25)
[2024-10-15] MEDS: IOPAMIDOL-370 (76%);100ML BOTTLE 75 ML IV (14:25)
[2024-10-15] MEDS: ACETAMINOPHEN 1,000MG/100ML VIAL 1000 MG IV (14:32)
[2024-10-15 14:34] LABS: Troponin I < 0.01 ng/ml (0.00-0.034)
[2024-10-15 14:41] LABS: NT Pro Brain Natriuretic Pep. 81.6 pg/mL (0-125)
[2024-10-15] MEDS: 0.9 % SODIUM CHLORIDE 1000ML 1,000 ML 999 ML IV (14:52)
[2024-10-15 15:45] LABS: D-Dimer 0.74 ug/mL (0.0-0.5)
[2024-10-15 16:00] VITALS: BP 179/100; PULSE 81; RESP 18; TEMP 36.9; O2SAT 96
[2024-10-15 16:03] VITALS: BP 179/108
--- NOTE | 2024-10-19 14:47 | PC.NURSE ---
pt called to inquire about her urine micro results-I told her they have not resulted yet.
== END 2024-10-15 16:04 | disposition home or self-care (01) ==
PROVIDERS: Physician Assistant; Emergency Provider Student in an Organized Health Care Education/Training Program; PCP Physician Assistant
DX: R10.31 Right lower quadrant pain (principal); R30.0 Dysuria; R39.15 Urgency of urination
CPT/HCPCS: 74177; 80053; 81001; 83690; 83880; 84484; 85025; 85378; 93005; 96361; 96374; 99285; J0131; J7030; Q9967

== ENCOUNTER 2025-02-13 08:19 | Outpatient (CLI) | payer BC, SELFPAY ==
--- OUTSIDE RECORDS SUMMARY | 2024-05-06 12:00 | XMS_ITS | Encounter Summary ---
Author Organization [facility] Address [address] [place] [address] Care Team Providers Care Peoplesoft Crm Developer Name Role Phone Mikayla Meier Primary Care Provider Reason for Visit * Reason Comments Palpitations * Consultation (Routine) - Closed Specialty Diagnoses / Procedures Referred By Damon t Referred To Contact Cardiology Diagnoses Atrial flutter [place], [place] [address] Clifford Mahajan MD [address] [facility] [address] [place] [address] Phone: tel: fax: Referral ID Status Reason Start Date Expiration Date Visits Re quested Visits Authorized [id number] Closed 03/18/2024 03/18/2025 1 1 Encounter Details Date Type Department Care Team (Late st Contact Info) Description 05/06/2024 1:00 PM EDT Office Visit [facility] CARDIOLOGY [address] [place] [address] [address] [place] [phone] Clifford Mahajan MD [address] [place] [address] Supraventricular tachycardia (Primary Dx); Atrial flutter with rapid ventricular response Social History Tobacco Use Types Packs/Day Years Used Date Smoking Tobacco: Never Passive Smoke Exposure: Never Smokeless Tobacco: Never Alcohol Use Standard Drinks/Week Comments Yes 0 (1 standard drink = 0.6 oz pur e alcohol) occasionally Comments Unknown Sex and Gender Information Value Date Recorded Sex Assigned at Female 05/04/2024 8:49 AM EDT Legal Sex Female 10:44 AM EDT Gender Identity Not on file Sexual Orientation Straight 05/04/2024 8: 49 AM EDT documented as of this encounter Last Filed Vital Signs Vital Sign Reading Time Taken Comments Blood Pressure 188/114 05/06/2024 1:27 PM EDT Pulse 84 05/06/2024 1:27 PM EDT Temperature - - Respiratory Rate - - Oxygen Saturation 98% 05/06/2024 1:27 PM EDT Inhaled Oxygen Concentration - - Weight 99.1 kg (218 lb 6.4 oz) 05/06/2024 1:27 P M EDT Height 167.6 cm (5' 6 ) 05/06/2024 1:27 PM EDT Body Mass Index 35.25 05/06/2024 1:27 PM EDT documented in this encounter Progress Notes * Clifford Mahajan MD - 05/06/2024 1:00 PM EDTAssociated Order(s): ECG 12 Lead Post-Procedure Diagnose(s): Supraventricular tachycardia; Atrial flutter with rapid ventricular response Electrophysiology Clinic Consult Mira Fontenot 1970 @HOMEPHONE@ @WORKPHONE@ 05/06/24 DATE OF ADMISSION: (Not on file) [facility] CARDIOLOGY Mikayla Meier PA [address] [place] [address] [facility] [address] / [place] [id number] Referring Provider: Provider, No Known Chief Complaint Patient presents with Palpitations Problem List: Atrial Flutter vs SVT CHADSVasc = 2 on Xarelto Diagnosed 07/2022 with reported atrial fibrillation per patient EKG reviewed 08/06/2022 shows SVT Patient reported ECV 07/2022 Patient reported ECV 07/202303/06/2024 - EKG showing atrial flutter Never been treated with AAD CAD Stress Test 2019: LVEF 65%, reversible ischemia in anterior apical wall Echocardiogram 06/15/2021: EF 55%, mildly enlarged LA, trace MR, TR, grade 1 diastolic dysfunction Drug-eluting stent to ramus, LAD, left circumflex/PDA July 2022 Drug-eluting stent to LAD, patent previous stents July/2023 Echocardiogram 07/31/2023: EF 55% mild TR/mild MR SVT 06/03/2014, presentation to [facility], increased troponin, received adenosine. 06/04/2014, transferred to [facility], Dr. Dailey, left heart cath, reported asnormal; data deficient Ablation in [address] [place] [address] Manzano 06/15/2014 PFO ? - questionable, reported on echocardiogram from [facility] Hypertension Memory loss Abnormal brain MRI: Nonspecific right frontal small foci of white matter lesions, 5 mm, nonenhancing, suspected small vessel etiology Myelin oligodendrocyte glycoprotein antibody disorder Fibromyalgia HEATHER- CPAP GERD Single kidney - s/p left nephrectomy age 11, 04/28/2024 Cr was 0.90 Surgical history Tonsillectomy Hysterectomy Cholecystectomy Left nephrectomy History of Present Illness: Mira Fontenot is a 53 year old female with above history who presents today in consultation, referred by Maurisio Castaneda PA-C for atrial fibrillation. She states she was diagnosed with atrial fibrillation in July 2022 when she presented to [facility] with tachycardia, CP, SOB. She apparently was cardioverted at that time, however, we do not have record of this. She had LHC at that time withstents placed. This occurred again in 07/2023 and again she she states she required ECV and had stents placed. She continues to have intermittent palpitations at least once per month, maybe more. She was in the ED again 03/06/2024 for tachycardia. EKG shows atrial flutter vs SVT. She was given IV medication and converted, however, she does not know what medication. She stays SOB, she is following with pulmonology. She has not been able to lay flat, has a persistent cough, has trouble wearing her CPAP. She is scheduled for an echocardiogram. She only has one kidney so she takes HCTZ once per week. She does have fluid retention. Sister recently diagnosed with heart failure and had SCD at home, age 60. She is very concerned about heart failure due to this. She is on Xarelto without bleeding issues. She has never been diagnosed with a CVA. BP is poorly controlled. Usually 140-160 mmHg. However, she states when she is up moving around, BPis in the 180s mmHg Tobacco: none ETOH: occasional beer Caffeine: decaf only No thyroid issues Allergies Allergen Reactions Diflucan [Fluconazole] Ofloxacin Phenazopyridine Cannot display prior to admission medications because the patient has not been admitted in this contact. Current Outpatient Medications: albuterol sulfate HFA 108 (90 Base) MCG/ACT inhaler, Inhale 2 puffs Every 4 (Four) Hours As Needed for Wheezing., Disp: , Rfl: amLODIPine (NORVASC) 5 MG tablet, Take 1 tablet by mouth Daily., Disp: , Rfl: clopidogrel (PLAVIX) 75 MG tablet, Take 1 tablet by mouth Daily., Disp: , Rfl: Evolocumab (REPATHA) solution prefilled syringe injection, Inject 1 mL under the skin into the appropriate area as directed., Disp: , Rfl: hydrALAZINE (APRESOLINE) 50 MG tablet, Take 1 tablet by mouth 3 (Three) Times a Day., Disp: , Rfl: metoprolol tartrate (LOPRESSOR) 50 MG tablet, Take 1 tablet by mouth 2 (Two) Times a Day., Disp: , Rfl: pantoprazole (PROTONIX) 40 MG EC tablet, Take 1 tablet by mouth Daily., Disp: , Rfl: rivaroxaban (XARELTO) 20 MG tablet, Take 1 tablet by mouth Daily., Disp: , Rfl: hydrochlorothiazide (HYDRODIURIL) 25 MG tablet, Take 1 tablet by mouth Daily., Disp: 30 tablet, Rfl: 11 Social History Socioeconomic History Marital status: Tobacco Use Smoking status: Never Substance and Sexual Activity Alcohol use: Yes Comment: occasionally Drug use: No Family History Problem Relation Age of Onset Colon cancer Mother AJAY disease Mother REVIEW OF SYSTEMS: CONST: No weight loss, fever, chills,+ weakness + fatigue. HEENT: No visual loss, blurred vision, double vision, yellow sclerae. No hearing loss, congestion, sore throat. SKIN: No rashes, urticaria, ulcers, sores. RESP: + shortness of breath, - hemoptysis, cough, sputum. GI: No anorexia, nausea, vomiting, diarrhea. No abdominal pain, melena. : No burning on urination, hematuria or increased frequency. ENDO: No diaphoresis, cold or heat intolerance. No polyuria or polydipsia. NEURO: No headache, dizziness, syncope, paralysis, ataxia, or parasthesias. No change in bowel or bladder control. No history of CVA/TIA MUSC: No muscle, back pain, joint pain or stiffness. HEME: No anemia, bleeding, bruising. No history of DVT/PE. PSYCH: No history of depression, anxiety Vitals: 05/06/24 1327 BP: (!) 188/114 BP Location: Left arm Patient Position: Sitting Cuff Size: Adult Pulse: 84 SpO2: 98% Weight: 99.1 kg (218 lb 6.4 oz) Height: 167.6 cm (66 ) Physical Exam: GEN: Well nourished, well-developed, no acute distress HEENT: Normocephalic, atraumatic, PERRLA, moist mucous membranes NECK: Supple, NO JVD, no thyromegaly, no lymphadenopathy CARD: S1S2, RRR, no murmur, gallop, rub LUNGS: Clear to auscultation, normal respiratory effort ABDOMEN: Soft, nontender, normal bowel sounds EXTREMITIES: No gross deformities, no clubbing, cyanosis, or edema SKIN: Warm, dry NEURO: No focal deficits, alert and oriented x 3 PSYCHIATRIC: Normal affect and mood I personally viewed and interpreted the patient's EKG/Telemetry/lab data Lab Results Component Value Date GLUCOSE 78 10/04/2015 CALCIUM 9.2 10/04/2015 NA 137 10/04/2015 K 4.2 10/04/2015 CO2 26.0 10/04/2015 CL 104 10/04/2015 BUN 10 10/04/2015 CREATININE 0.70 10/04/2015 EGFRIFAFRI >60 12/28/2020 EGFRIFNONA >60 12/28/2020 BCR 14.3 10/04/2015 ANIONGAP 7.0 10/04/2015 No results found for: WBC , HGB , HCT , MCV , PLT No results found for: INR , PROTIME Lab Results Component Value Date TSH 1.464 01/25/2016 H0WLBPH 9.00 01/25/2016 THYROIDAB 9 07/27/2014 EK03/08/2022: SVT 162 bpm EKG 03/06/2024:SVT 151 bpm Will obtain EKGs from 07/2022 and 07/2023 to determine if she has atrial fibrillation ECG 12 Lead Date/Time: 05/06/2024 2:01 PM Performed by: Clifford Mahajan MD Authorized by: Clifford Mahajan MD Comparison: compared with previous ECG from 03/06/2024 Comparison to previous ECG: Now in NSR Rhythm: sinus rhythm BPM: 84 ICD-10-CM ICD-9-CM 1. Supraventricular tachycardia I47.10 427.89 2. Atrial flutter with rapid ventricular response I48.92 427.32 Assessment and Plan: SVT: -EP study with AVNRT ablation by Dr. Manzano in 2014 -Now appears to be having recurrent SVT after reviewing EKG from 08/06/2022 and also 03/06/2024 she appears to have recurrent SVT. Will set her up for EP study plus or minus RFA of SVT. She will need to hold her metoprolol 5 days prior therefore we will titrate down to 25 mg twice daily 10 days priorand then stop 5 days prior. In the meantime we will increase her Norvasc to 10 mg daily when she isweaning down her metoprolol. 2. HTN: -Not well-controlled, recently started Norvasc and hydralazine 3. CAD: -Previous stent placed, follows with Dr. Dailey 4. Solitary Kidney: -Creatinine 0.9. Addendum. Reviewed 2 EKGs in the past. All consistent with SVT. No EKG showing atrial fibrillation at this time. Will pursue EP study with poss frequency ablation of her SVT first before being aggressive and pursuing any atrial fibrillation ablation. Will need to stop metoprolol 4 days before. In the interim would increase Norvasc to 10 mg a day. Scribed for Clifford Mahajan MD by Ryann Valdivia PA-C. 05/06/2024 14:28 EDT I, Clifford Mahajan MD, personally performed the services described in this documentation as scribed by the above named individual in my presence, and it is both accurate and complete. 05/06/2024 14:41 EDT documented in this encounter Plan of Treatment Upcoming Encounters Date Type Department Care Team (Late st Contact Info) Description 05/26/2025 11:45 AM EDT Office Visit [facility] CARDIOLOGY [address] [place] [phone] Ryann Valdivia PA [address] [facility] [address] [place] [address] documented as of this encounter Procedures Procedure Name Priority Date/Time Associated Diagnosis Comments ECG 12-LEAD Routine 05/06/2024 Supraventricular tachycardia Atrial flutter with rapid ventricular response documented in this encounter Results * ECG 12-LEAD (05/06/2024) Narrative 05/06/2024 Clifford Mahajan MD 05/06/2024 2:42 PM ECG 12 Lead Date/Time: 05/06/2024 2:01 PM Performed by: Clifford Mahajan MD Authorized by: Clifford Mahajan MD Comparison: compared with previous ECG from 03/06/2024 Comparison to previous ECG: Now in NSR Rhythm: sinus rhythm BPM: 84 Procedure Note Clifford Mahajan MD - 05/06/2024 1:00 PM EDT Electrophysiology Clinic Consult Mira Fontenot 1970 @HOMEPHONE@ @WORKPHONE@ 05/06/24 DATE OF ADMISSION: (Not on file) [facility] CARDIOLOGY Mikayla Meier PA [address] [facility] [address] / [facility] [id number] Referring Provider: Provider, No Known Chief Complaint Patient presents with Palpitations Problem List: Atrial Flutter vs SVT CHADSVasc = 2 on Xarelto Diagnosed 07/2022 with reported atrial fibrillation per patient EKG reviewed 08/06/2022 shows SVT Patient reported ECV 07/2022 Patient reported ECV 07/202303/06/2024 - EKG showing atrial flutter Never been treated with AAD CAD Stress Test 2019: LVEF 65%, reversible ischemia in anterior apical wall Echocardiogram 06/15/2021: EF 55%, mildly enlarged LA, trace MR, TR, grade1 diastolic dysfunction Drug-eluting stent to ramus, LAD, left circumflex/PDA July 2022 Drug-eluting stent to LAD, patent previous stents July/2023 Echocardiogram 07/31/2023: EF 55% mild TR/mild MR SVT 06/03/2014, presentation to [facility], increasedtroponin, received adenosine. 06/04/2014, transferred to [facility], Dr. Dailey,left heart cath, reported as normal; data deficient Ablation in [address] [place] [address] Manzano 06/15/2014 PFO ? - questionable, reported on echocardiogram from [facility] Hypertension Memory loss Abnormal brain MRI: Nonspecific right frontal small foci of white matterlesions, 5 mm, nonenhancing, suspected small vessel etiology Myelin oligodendrocyte glycoprotein antibody disorder Fibromyalgia HEATHER- CPAP GERD Single kidney - s/p left nephrectomy age 11, 04/28/2024 Cr was 0.90 Surgical history Tonsillectomy Hysterectomy Cholecystectomy Left nephrectomy History of Present Illness: Mira Fontenot is a 53 year old female with above history who presents today inconsultation, referred by Maurisio Castaneda PA-C for atrial fibrillation. Shestates she was diagnosed with atrial fibrillation in July 2022 when [facility] with tachy[facility], CP, SOB. Sheapparently was cardioverted at that time, however, we do not have recordof this. She had LHC at that time with stents placed. This occurred againin 07/2023 and again she she states she required ECV and had stents placed.She continues to have intermittent palpitations at least once per month,maybe more. She was in the ED again 03/06/2024 for tachycardia. EKG showsatrial flutter vs SVT. She was given IV medication and converted, however,she does not know what medication. She stays SOB, she is following with pulmonology. She has not been able tolay flat, has a persistent cough, has trouble wearing her CPAP. She isscheduled for an echocardiogram. She only has one kidney so she takes HCTZonce per week. She does have fluid retention. Sister recently diagnosed with heart failure and had SCD at home, age 60.She is very concerned about heart failure due to this. She is on Xarelto without bleeding issues. She has never been diagnosedwith a CVA. BP is poorly controlled. Usually 140-160 mmHg. However, she states whenshe is up moving around, BP is in the 180s mmHg Tobacco: none ETOH: occasional beer Caffeine: decaf only No thyroid issues Allergies Allergen Reactions Diflucan [Fluconazole] Ofloxacin Phenazopyridine Cannot display prior to admission medications because the patient has notbeen admitted in this contact. Current Outpatient Medications: albuterol sulfate HFA 108 (90 Base) MCG/ACT inhaler, Inhale 2 puffsEvery 4 (Four) Hours As Needed for Wheezing., Disp: , Rfl: amLODIPine (NORVASC) 5 MG tablet, Take 1 tablet by mouth Daily., Disp: ,Rfl: clopidogrel (PLAVIX) 75 MG tablet, Take 1 tablet by mouth Daily., Disp:, Rfl: Evolocumab (REPATHA) solution prefilled syringe injection, Inject 1 mLunder the skin into the appropriate area as directed., Disp: , Rfl: hydrALAZINE (APRESOLINE) 50 MG tablet, Take 1 tablet by mouth 3 (Three)Times a Day., Disp: , Rfl: metoprolol tartrate (LOPRESSOR) 50 MG tablet, Take 1 tablet by mouth 2(Two) Times a Day., Disp: , Rfl: pantoprazole (PROTONIX) 40 MG EC tablet, Take 1 tablet by mouth Daily.,Disp: , Rfl: rivaroxaban (XARELTO) 20 MG tablet, Take 1 tablet by mouth Daily., Disp:, Rfl: hydrochlorothiazide (HYDRODIURIL) 25 MG tablet, Take 1 tablet by mouthDaily., Disp: 30 tablet, Rfl: 11 Social History Socioeconomic History Marital status: Tobacco Use Smoking status: Never Substance and Sexual Activity Alcohol use: Yes Comment: occasionally Drug use: No Family History Problem Relation Age of Onset Colon cancer Mother AJAY disease Mother REVIEW OF SYSTEMS: CONST: No weight loss, fever, chills,+ weakness + fatigue. HEENT: No visual loss, blurred vision, double vision, yellow sclerae. No hearing loss, congestion, sore throat. SKIN: No rashes, urticaria, ulcers, sores. RESP: + shortness of breath, - hemoptysis, cough, sputum. GI: No anorexia, nausea, vomiting, diarrhea. No abdominal pain,melena. : No burning on urination, hematuria or increased frequency. ENDO: No diaphoresis, cold or heat intolerance. No polyuria orpolydipsia. NEURO: No headache, dizziness, syncope, paralysis, ataxia, orparasthesias. No change in bowel or bladder control. No history ofCVA/TIA MUSC: No muscle, back pain, joint pain or stiffness. HEME: No anemia, bleeding, bruising. No history of DVT/PE. PSYCH: No history of depression, anxiety Vitals: 05/06/24 1327 BP: (!) 188/114 BP Location: Left arm Patient Position: Sitting Cuff Size: Adult Pulse: 84 SpO2: 98% Weight: 99.1 kg (218 lb 6.4 oz) Height: 167.6 cm (66 ) Physical Exam: GEN: Well nourished, well-developed, no acute distress HEENT: Normocephalic, atraumatic, PERRLA, moist mucous membranes NECK: Supple, NO JVD, no thyromegaly, no lymphadenopathy CARD: S1S2, RRR, no murmur, gallop, rub LUNGS: Clear to auscultation, normal respiratory effort ABDOMEN: Soft, nontender, normal bowel sounds EXTREMITIES: No gross deformities, no clubbing, cyanosis, or edema SKIN: Warm, dry NEURO: No focal deficits, alert and oriented x 3 PSYCHIATRIC: Normal affect and mood I personally viewed and interpreted the patient's EKG/Telemetry/lab data Lab Results Component Value Date GLUCOSE 78 10/04/2015 CALCIUM 9.2 10/04/2015 NA 137 10/04/2015 K 4.2 10/04/2015 CO2 26.0 10/04/2015 CL 104 10/04/2015 BUN 10 10/04/2015 CREATININE 0.70 10/04/2015 EGFRIFAFRI >60 12/28/2020 EGFRIFNONA >60 12/28/2020 BCR 14.3 10/04/2015 ANIONGAP 7.0 10/04/2015 No results found for: WBC , HGB , HCT , MCV , PLT No results found for: INR , PROTIME Lab Results Component Value Date TSH 1.464 01/25/2016 [id number] 9.00 01/25/2016 THYROIDAB 9 07/27/2014 EK03/08/2022: SVT 162 bpm EKG 03/06/2024:SVT 151 bpm Will obtain EKGs from 07/2022 and 07/2023 to determine if she has atrialfibrillation ECG 12 Lead Date/Time: 05/06/2024 2:01 PM Performed by: Clifford Mahajan MD Authorized by: Clifford Mahajan MD Comparison: compared with previousECG from 03/06/2024 Comparison to previous ECG: Now in NSR Rhythm: sinus rhythm BPM: 84 ICD-10-CM ICD-9-CM 1. Supraventricular tachycardia I47.10 427.89 2. Atrial flutter with rapid ventricular response I48.92 427.32 Assessment and Plan: SVT: -EP study with AVNRT ablation by Dr. Manzano in 2014 -Now appears to be having recurrent SVT after reviewing EKG from 08/06/2022nd also 03/06/2024 she appears to have recurrent SVT. Will set her up forEP study plus or minus RFA of SVT. She will need to hold her metoprolol 5days prior therefore we will titrate down to 25 mg twice daily 10 daysprior and then stop 5 days prior. In the meantime we will increase herNorvasc to 10 mg daily when she is weaning down her metoprolol. 2. HTN: -Not well-controlled, recently started Norvasc and hydralazine 3. CAD: -Previous stent placed, follows with Dr. Dailey 4. Solitary Kidney: -Creatinine 0.9. Addendum. Reviewed 2 EKGs in the past. All consistent with SVT. No EKGshowing atrial fibrillation at this time. Will pursue EP study with possfrequency ablation of her SVT first before being aggressive and pursuingany atrial fibrillation ablation. Will need to stop metoprolol 4 daysbefore. In the interim would increase Norvasc to 10 mg a day. Scribed for Clifford Mahajan MD by Ryann Valdivia PA-C. 05/06/2024 14:28EDT IClifford MD, personally performed the services described inthis documentation as scribed by the above named individual in mypresence, and it is both accurate and complete. 05/06/2024 14:41 EDT Clifford Mahajan MD ECG ORDERABLES Final Result documented in this encounter Visit Diagnoses Diagnosis Supraventricular tachycardia- Primary Other specified cardiac dysrhythmias Atrial flutter with rapid ventricular response documented in this encounter Care Teams Peoplesoft Crm Developer Relationship Specialty Start Date End Date Mikayla Meier PA [address] [facility] [address] [place] [id number] PCP - General Physician Ems Driver 05/06/24 documented as of this encounter
--- OUTSIDE RECORDS SUMMARY | 2024-08-06 11:00 | XMS_ITS ---
[facility] Address [address] [place] [id number] Care Team Providers Care Can Line Operator Name Role Phone Arianna Story Primary Care Provider Mikayla Meier Unavailable [phone] Allergies Allergen (clinical drug ingredient) Drug/Non Drug Allergy documented on EMR Reaction Allergy Type Onset Date Status fluconazole Diflucan rash Drug Allergy Activ e ofloxacin Ofloxacin rash Drug Allergy Active phenazopyridine Pyridium rash Drug Allergy A ctive Results Component Value Reference Range Notes Urinalysis - Inhouse Reviewed date:08/09/2024 11:22:55 PM Interpretation: Performing Lab: Notes/Report: Color/Clarity yellow Leuk neg Nitrite neg Urobili 1.6 Protein neg pH 7.0 Blood 1+ Sp. Gr. 1.020 Ketone neg Bili neg Gluc neg P-Culture, Urine Reviewed date:08/21/2024 12:52:59 PM Interpretation:most likely contaminated, recommend recollection Performing Lab: Notes/Report: Test performed by [facility] [address] [place] [address] , [address], [place] [address] Jimenez Salas MD, Bead Filler CLIA: [id number] Specimen Source Urine - Void Culture, Urine See Below Final Report : 15,000-25,000 CFU/ml Mixed Gram Positive Organisms Three or more organisms present likely representing contamination during collection by patient's urogenital, skin, and/or fecal sydni. Organism identification and sensitivity assessment are not recommended. Specimen recollection is recommended. MRI : Spine, Cervical, witho ut contrast Reviewed date:09/03/2024 01:16:40 PM Interpretation: Performing Lab: Notes/Report: MRI : Spine, Thoracic, witho ut contrast Reviewed date:09/03/2024 01:16:40 PM Interpretation: Performing Lab: Notes/Report: MRI : Brain with and w/o con trast Reviewed date:09/03/2024 01:16:40 PM Interpretation:Normal Performing Lab: Notes/Report: Normal Mammogram Reviewed date:09/03/2024 01:16:40 PM Interpretation: Performing Lab: Notes/Report: REASON FOR VISIT check up, disease Medications Medication SIG (Take, Route, Frequency, Duration) Notes Start Date End Date Status Cymbalta 30 MG 1 cap(s) orally once a day; Duration: 90 days 10/05/2021 Not-Taking Aspirin 81 MG 1 tablet Orally Once a day; Duration: 30 day(s) Not-Taking Lisinopril 2.5 MG 1 tab(s) orally once a day; Duration: 30 day(s) Not-Taking Medrol 4 MG as directed Orally 08/06/2024 Active dilTIAZem HCl ER 180 MG 1 capsule Orally Once a day; Duration: 30 day(s) Not-Taking Atorvastatin Calcium 80 MG 1 tablet Orally Once a day; Duration: 30 day(s) Not-Taking Furosemide 40 MG 1 tab(s) orally once a day as needed Not-Taking Metoprolol Succinate ER 50 MG 1/2 tab Orally Two times a day Not-Taking Azithromycin 500 MG 1 tab(s) orally once a day 08/03/2021 Not-Taking Metoprolol Tartrate 25 MG 1 tab(s) orally 3 times a day as needed Not-Taking Pantoprazole Sodium 40 MG 1 tab(s) orally once a day; Duration: 15 days pt needs appt Active Albuterol Sulfate HFA 108 (90 Base) MCG/ACT 1-2 puffs Inhalation every 4 hrs, prn 05/03/2023 Not-Taking Methocarbamol 750 MG 1 tablet Orally three times a day as needed 05/17/2023 Active Medrol 4 MG as directed orally daily; Duration: 6 days 05/03/2023 Not-Taking CPAP MASK DIRECTED *Please review for potential replacement for e-prescription and drug interaction check* 06/08/2022 Active CPAP SUPPLIES DIRECTED *Please review for potential replacement for e-prescription and drug interaction check* 06/08/2022 Active Trulance 3 MG 1 tab(s) orally once a day; Duration: 90 days Active Rivaroxaban 20 MG 1 tablet with food Orally Once a day; Duration: 30 day(s) Active Clopidogrel Bisulfate 75 MG 1 tablet Orally Once a day; Duration: 30 day(s) Active Claritin 10 MG 1 tab(s) orally once a day; Duration: 90 days Active Problems Problem Type SNOMED Code ICD Code Onset Dates Problem Status W/U Status Risk Notes Problem Neck pain (71115058) Neck pain (M54.2) Active confirmed Vital Signs Weight 225 lbs 08/06/2024 Blood pressure systolic 146 mm Hg 08/07/19 25 Blood pressure diastolic 100` mm Hg 025 Heart Rate 76 /min 08/06/2024 Height 66.50 in 08/06/2024 BMI 35.77 kg/m2 08/06/2024 Encounters Encounter Location Date Provider [facility] [address] [facility] [address] [place] [phone] 08/06/2024 Mikayla Meier 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 ; Vitamin D deficiency E55.9 ; Essential hypertension I10 ; Hyperlipidemia, unspecified hyperlipidemia type E78.5 ; Fibromyalgia M79.7 ; Neck pain M54.2 ; Midline thoracic back pain, unspecified chronicity M54.6 ; Screening mammogram, encounter for Z12.31 and Hematuria R31.9 Assessments Encounter Date Diagnosis (ICD Code) Assessment Notes Treatment Notes Treatment Clinical Notes Section Notes 08/06/2024 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) r 08/06/2024 Vitamin D deficiency (ICD-10 - E55.9) r 08/06/2024 Essential hypertension (ICD-10 - I10) r 08/06/2024 Hyperlipidemia, unspecified hyperlipidemia type (ICD-10 - E78.5) r 08/06/2024 Fibromyalgia (ICD-10 - M79.7) r 08/06/2024 Neck pain (ICD-10 - M54.2) r 08/06/2024 Midline thoracic back pain, unspecified chronicity (ICD-10 - M54.6) r 08/06/2024 Screening mammogram, encounter for (ICD-10 - Z12.31) r 08/06/2024 Hematuria (ICD-10 - R31.9) r Plan Of Treatment Medication Medication Name Sig Start Date Stop Date Notes Medrol 4 MG as directed Orally 08/06/2024 Next Appt Details Follow Up: via phone to repo rt test results, Reason: Progress Notes * MER FONTENOTB:1970 (54 yo F)Acc No.[id number]:08/06/2024 Progress Notes Patient: OMAR FRAZIER Provider: LATASHA Douglas :1970 A ge:53 Y S ex:Female Date:08/06/2024 Address:[facility] [place], [id number] Pcp:Arianna Story Subjective: * Chief Complaints: * 1 . Check up, disease. * HPI: H PI: Pt presents today for a check up and to discuss getting MRI's scheduled for her MOG. U rology: Pt c/o painful intercorse yesterday and feels she may be getting a UTI or something else may be wrong. * ROS: D ERMATOLOGY: no R ashley. n o H germaine. G ASTROENTEROLOGY: no N ausea. n o V omiting. U ROLOGY: no D ifficulty urinating. n o B lood in urine. * Medical History: S olitary Kidney, Urinary reflux-left kidney removed at age 11, Cervical Dysplasia , Endometriosis, SVT s/p EP study and ablation 2014 at [place], HBP, sleep apnea, Dx: 2014, Eosinophilic esophagitis, Dx: 2015, Slow gastric transit, Hiatal Hernia, Colon polyps, MS, Fibromyalgia. * Surgical History: L T Kidney Removal 1981, Hysterectomy/ Unilateral Oophorectomy for Endometriosis 2004, Cardiac Ablasion-[facility] Dr Hernandez 05/2014, EGD 02/2015, Colonoscopy 02/2015, Cholecystectomy 04/2015. * Hospitalization/Major Diagno stic Procedure: C hest Pain 05/2014, Abdominal Pain- [facility] 04/2015. * Family History: F ather: 79 yrs, suicide, alzheimer, CABG. M other: 60 yrs, complications from bladder removal, open heart surgery, obesity, DM. 4 sister(s) . 1 son(s) , 1 daughter(s) - healthy. . History of colon and breast cancer. * Social History: C URRENT TOBACCO USE S moking Status: P atient does NOT smoke. C affeine: yes, frequency: black coffee. Home smoke detector use: yes. Alcohol: No. * Medications: T aking Claritin 10 MG Tablet 1 tab(s) orally once a day , Taking CPAP MASK DIRECTED , Notes to Pharmacist: *Please review for potential replacement for e- prescription and drug interaction check*, Taking CPAP SUPPLIES DIRECTED , Notes to Pharmacist: *Please review for potential replacement for e-prescription and drug interaction check*, Taking Trulance 3 MG Tablet 1 tab(s) orally once a day , Taking Rivaroxaban 20 MG Tablet 1 tablet with food Orally Once a day , Taking Clopidogrel Bisulfate 75 MG Tablet 1 tablet Orally Once a day , Taking Methocarbamol 750 MG Tablet 1 tablet Orally three times a day as needed , Taking Pantoprazole Sodium 40 MG Tablet Delayed Release 1 tab(s) orally once a day , Notes to Pharmacist: pt needs appt, Not- Taking Albuterol Sulfate HFA 108 (90 Base) MCG/ACT Aerosol Solution 1-2 puffs Inhalation every 4 hrs, prn , Not-Taking Medrol 4 MG Tablet Therapy Pack as directed orally daily , Not-Taking Metoprolol Succinate ER 50 MG Tablet Extended Release 24 Hour 1/2 tab Orally Two times a day , Not-Taking Atorvastatin Calcium 80 MG Tablet 1 tablet Orally Once a day , Not-Taking Furosemide 40 MG Tablet 1 tab(s) orally once a day as needed , Not-Taking Metoprolol Tartrate 25 MG Tablet 1 tab(s) orally 3 times a day as needed , Not-Taking Azithromycin 500 MG Tablet 1 tab(s) orally once a day , Not-Taking dilTIAZem HCl ER 180 MG Capsule Extended Release 24 Hour 1 capsule Orally Once a day , Not-Taking Aspirin 81 MG Tablet Delayed Release 1 tablet Orally Once a day , Not-Taking Lisinopril 2.5 MG Tablet 1 tab(s) orally once a day , Not- Taking Cymbalta 30 MG Capsule Delayed Release Particles 1 cap(s) orally once a day , Discontinued Medrol 4 MG Tablet Therapy Pack as directed orally daily , Medication List reviewed and reconciled with the patient * Allergies: O floxacin: rash, Diflucan: rash, Pyridium: rash. Objective: * Vitals: W t: 225, Temp: 98.0, BP: 146/100`, HR: 76, Nurse: HOLLI, Ht: 66.50, Repeat BP: 138/88, BMI:35.77. * Examination: G eneral Examination: General Appearance: N AD. H EENT: u nremarkable.?Oral cavity: n o lesions, mucosa moist and WNL, no erythema. N kyle: s upple, no lymphadenopathy. C hest: n ormal shape and expansion. H eart: R SR. L ungs: c lear to auscultation. A bdomen: b owel sounds present, soft and nontender, no organomegaly or masses, no guarding or rigidity. N eurologic Exam: I ntact, gait normal. S kin: n ormal, no rash. P eripheral pulses: n ormal (2+) bilaterally. E xtremities: n o leg edema. Assessment: * Assessment: 1. 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 V itamin D deficiency - E55.9 3 . E ssential hypertension - I10 4 . H yperlipidemia, unspecified hyperlipidemia type - E78.5 5 . F ibromyalgia - M79.7 6 . N kyle pain - M54.2 7 . M idline thoracic back pain, unspecified chronicity - M54.6 8 . S creening mammogram, encounter for - Z12.31 9 .?Hematuria - R31.9 r Plan: * Treatment: 2.?Neck pain? Start Medrol Tablet Therapy Pack, 4 MG, as directed, Orally, 1, Refills 0.?Imaging: MRI : Spine, Cervical, without contrast (Performed Date - 08/17/2024)* Priscilla Edmondson 08/07/2024 08:5 3:19 AM EDT > auth#[id number]; valid 08/07/2024-09/05/2024; CPT code 45662; faxed to [facility] Scheduling Lise Liu 09/03/2024 01:16:34 PM EDT > See phone encounter 3.?Midline thoracic back pain, unspecified chronicity?Imaging: MRI : Spine, Thoracic, without contrast (Performed Date - 08/17/2024)* Priscilla Edmondson 08/07/2024 08:5 3:32 AM EDT > auth#[id number]; valid 08/07/2024-09/05/2024; CPT code 11189; faxed to [facility] Scheduling Lise Liu 09/03/2024 01:16:34 PM EDT > See phone encounter 4.?Screening mammogram, encounter for?Imaging: Mammogram (Performed Date - 08/17/2024)* Priscilla Edmondson 08/07/2024 09:3 0:27 AM EDT > faxed to [facility] Scheduling Lise Liu 09/03/2024 01:16:34 PM EDT > See phone encounter 5.?Hematuria?LAB: P-Culture, Urine (Collection Date & Time - 08/06/2024 04:00 PM)?most likely contaminated, recommend recollection* Value Reference Range C ulture, Urine See Below - * S pecimen Source Urine - Void - * Agnes Myers 08/10/2024 09:5 9:26 AM EDT >Sent to Meño Liu, please contact patient for recollection.Lise Liu 08/11/2024 10:32:46 AM EDT > left message for return marielLise Liu 08/21/2024 12:52:54 PM EDT > see TE ?LAB: Urinalysis - Inhouse (Collection Date & Time - 08/06/2024)* Value Reference Range C olor/Clarity yellow * L euk neg * N itrite neg * U robili 1.6 * P rotein neg * p H 7.0 * B lood 1+ * S p. Gr. 1.020 * K etone neg * B isabelle neg * G raffi neg * Christy Barclay 08/06/2024 04:3 4:22 PM EDT > Provider reviewed results while patient in office. * Procedure Codes: 8 1002 Urinalysis, no micro, 1036F TOBACCO NON-USER, G8950 PREHTN/HTN BP DOC INDCD F/U DOC, G8752 MOST RECENT SYSTOLIC BP < 140MM HG, G8754 MOST RECENT DIASTOLIC BP < 90MM HG * Follow Up: v ia phone to report test results * Images: Billing Information: * Visit Code: 87063 Office Visit, Est Pt., Level 4. * Procedure Codes: 96792 Urinalysis, no micro. 1036F TOBACCO NON-USER. G8950 PREHTN/HTN BP DOC INDCD F/U DOC. G8752 MOST RECENT SYSTOLIC BP < 140MM HG. G8754 MOST RECENT DIASTOLIC BP < 90MM HG. * Electronic signature of LATASHA Christina on 02/15/2025 at 08:23 AM EST Sign off status: Pending * Provider: LATASHA Douglas Date: 0 08/06/2024 Generated for Niko velazquez/Malu/Karin on: 1 04/18/2024 08:23 AM EST History and Physical Notes * Examination Category Sub-Category Detail Notes Category Not es General Examination HEENT: unremarkable Heart: RSR Lungs: clear to auscultatio n Abdomen: bowel sounds present , soft and nontender, no organomegaly or masses, no guarding or rigidity Extremities: no leg edema General Appearance: NAD Skin: normal, no rash Neurologic Exam: Intact, gait normal Neck: supple, no lymphaden opathy Oral cavity: no lesions, mucosa m oist and WNL, no erythema Peripheral pulses: normal (2+) bilatera lly Chest: normal shape and exp ansion
[2025-02-13 21:15] LABS: Coronavirus 19, PCR Not Detected (NotDetected); Influenza A, PCR Not Detected (NotDetected); Influenza B, PCR Not Detected (NotDetected)
--- OUTSIDE RECORDS SUMMARY | 2025-02-15 08:24 | XMS_ITS | Encounter Summary ---
Author Organization [employer] ([place], [place], [place], [place], [place]) Address [address] [place] [address] Care Team Providers Care Concrete Pavement Installer Name Role Phone Unavailable Primary Care Provider Unavailabl e Encounter Details Date Type Department Care Team (Late st Contact Info) Description 10/03/2018 Transcribed Document [facility] [place] [address] ProviderKatie MD [address] [place] [address] Social History Tobacco Use Types Packs/Day [...] Trinidad MD - 10/03/2018 10:48 AM CDT [facility] [place] [address] MIRA FONTENOT :1970 Visit Time:10/03/2018 Your [...] a bad smell. General instructions ??? Take wwax-rkl-znyuvqs and prescription medicines only as told by [...] 02/16/2014 Document Revised: 03/27/2017 Document Reviewed: 03/27/2017 Tiggly Interactive Patient Education ?? 2019 [employer] Emergency Awareness and Preventative Care STROKE is [...] Assistance with quitting is available by contacting 1-861-PMCF-NOW. This is a free resource providing counseling, [...] between ( 9.6 and 12.0 ) Patient Name:FONTENOT GLORIA I have received and understand this information and was given the opportunity to ask questions. Patient/Highway Technician Name: Patient/Highway Technician Signature: Relationship to Patient: Clinician/Hospital Highway Technician Signature: Date: documented in this encounter Plan of Treatment Not on file documented as of this encounter Visit Diagnoses Not on filedocumented in this encounter
--- OUTSIDE RECORDS SUMMARY | 2025-02-15 08:24 | XMS_ITS | Encounter Summary ---
Author Organization [place] [address] Care Team Providers Care Workflow Developer Name Role Phone Arianna Story Wayne Primary Care Provider [phone] Encounter Details Date Type Department Care Team (Late st Contact Info) Description 06/15/2014 Orders Only [facility] Edg [address] [facility] [address] [place] [address] Nayan Manzano MD [address] [place] [address] Social History Tobacco Use Types Packs/Day Years [...] Manzano MD CARDIAC CATH ORDERABLES Final Result [facility] LAB 1 [place] [address] documented in this encounter Visit Diagnoses Not on filedocumented in this encounter Care Teams Workflow Developer Relationship Specialty Start Date End Date Arianna Story [address] [place] [phone] PCP - General Family Medicine 06/14/14 documented as of this encounter
--- OUTSIDE RECORDS SUMMARY | 2025-02-15 08:24 | XMS_ITS | Patient Health Record ---
Author [facility] Address [address] [facility] [address] [place] [id number] Care Team Providers Care Operations Representative Name Role Phone Arianna Story Primary Care Provider Mikayla Meier Unavailable [phone] Allergies Allergen (clinical drug ingredient) Drug/Non Drug [...] recollection Performing Lab: Notes/Report: Test performed by [facility] [address] [place] [address] , [address], [place] [address] Jimenez Salas MD, Security System Analyst CLIA: [id number] Specimen Source Urine - Void Culture, Urine [...] date:09/03/2024 01:16:40 PM Interpretation: Performing Lab: Notes/Report: AMOG Reviewed date:10/15/2024 01:20:23 PM Interpretation:neg Performing Lab: Notes/Report: by the Food and Drug Administration. determined by [facility]. It has not been cleared or approved was developed and its performance characteristics Test(s) 460032-GLO Antibody, Cell-based IFA AMOG1 Negative Negative Performed at: [address] [id number] Manager Security: Miguel Shen MD, Phone: [phone] H-BUN/CREAT Reviewed date:08/16/2024 09:29:33 PM Interpretation: Performing Lab: Notes/Report: BUN 14 7-17 mg/dl CREATT 1.00 0.52-1.04 mg/dl GFRAA 70 >60 ML/MIN EGFR 58 >60 ml/min Reason For Referral No Information Medications Medication SIG (Take, Route, Frequency, Duration) Notes Start Date End Date Status Trulance 3 MG 1 tab(s) orally once a day; Duration: 90 days Active Cymbalta 30 MG 1 cap(s) orally once a day; Duration: 90 days 10/05/2021 Not-Taking Albuterol Sulfate HFA 108 (90 Base) MCG/ACT 1-2 puffs Inhalation every 4 hrs, prn 05/03/2023 Not-Taking Methocarbamol 750 MG 1 tablet Orally three times a day as needed 05/17/2023 Active Aspirin 81 MG 1 tablet Orally Once a day; Duration: 30 day(s) Not-Taking Lisinopril 2.5 MG 1 tab(s) orally once a day; Duration: 30 day(s) Not-Taking Pantoprazole Sodium 40 MG 1 tab(s) orally once a day; Duration: 90 days pt needs appt Active CPAP MASK DIRECTED *Please review for potential replacement for e-prescription and drug interaction check* 06/08/2022 Active Atorvastatin Calcium 80 MG 1 tablet Orally Once a day; Duration: 30 day(s) Not-Taking CPAP SUPPLIES DIRECTED *Please review for potential replacement for e-prescription and drug interaction check* 06/08/2022 Active Furosemide 40 MG 1 tab(s) orally once a day as needed Not-Taking Medrol 4 MG as directed orally daily; Duration: 6 days 05/03/2023 Not-Taking Medrol 4 MG as directed Orally 08/06/2024 Active Claritin 10 MG 1 tab(s) orally once a day; Duration: 90 days Active Metoprolol Succinate ER 50 MG 1/2 tab Orally Two times a day Not-Taking Rivaroxaban 20 MG 1 tablet with food Orally Once a day; Duration: 30 day(s) Active Azithromycin 500 MG 1 tab(s) orally once a day 08/03/2021 Not-Taking Clopidogrel Bisulfate 75 MG 1 tablet Orally Once a day; Duration: 30 day(s) Active dilTIAZem HCl ER 180 MG 1 capsule Orally Once a day; Duration: 30 day(s) Not-Taking Metoprolol Tartrate 25 MG 1 tab(s) orally 3 times a day as needed Not-Taking Immunizations Vaccine Route Administration Date Status Comme nts COVID 19 Reji Unknown 08/31/2020 Administered Problems Problem Type SNOMED Code ICD Code Onset Dates Problem Status W/U Status Risk Notes Problem Essential hypertension (03425961) Essential (primary) hypertension (I10) Active confirmed Problem Vitamin D deficiency (22632159) Vitamin D deficiency (E55.9) Active confirmed Problem Essential hypertension (10553123) Essential hypertension (I10) Active confirmed Problem Otitis externa (6304779) Otitis externa (H60.90) Active confirmed Problem Obstructive sleep apnea (58369269) Obstructive sleep apnea (G47.33) Active confirmed Problem Dyspnea (871406150) SOB (shortne ss of breath) (R06.02) Active confirmed Problem Skin sensation disturbance (97095289) Paresthesia of left arm (R20.2) Active confirmed Problem Sciatica (43909355) Sciatica of left side (M54.32) Active confirmed Problem Fibromyalgia (134207792) Fibromyalgia (M79.7) Active confirmed Problem Multiple sclerosis (32794962) Multiple sclerosis (G35) Active confirmed Problem Hypertensive heart disease without congestive heart failure (54511922) Hypertensive heart disease without heart failure (I11.9) Active confirmed Problem Eosinophilic esophagitis (081718115) Eosinophilic esophagitis (K20.0) Active confirmed Problem Constipation (16157344) Constipation, unspecified constipation type (K59.00) Active confirmed Problem Cervical disc disease (386278095) Cervical disc disease (M50.90) Active confirmed Problem Acquired hypothyroidism (716500699) Acquired hypothyroidism (E03.9) Active confirmed Problem Neck pain (59763961) Neck pain (M54.2) Active confirmed Problem Gastroesophageal reflux disease (disorder) (582960516) Chronic GERD (K21.9) Active confirmed Problem Gastroesophageal reflux disease with esophagitis (disorder) (841345576) GERD with esophagitis (K21.0) Active confirmed Problem New daily persistent headache (420535301490593) New daily persistent headache (G44.52) Active confirmed Problem Impacted cerumen (64880274) Bilateral impacted cerumen (H61.23) Active confirmed Problem History of placement of stent for coronary artery disease (situation) (195278361) Status post coronary artery stent placement (Z95.5) Active confirmed Problem Hyperlipidaemia (35111689) Hyperlipidemia, unspecified hyperlipidemia type (E78.5) Active confirmed Problem Atrial fibrillation (34763482) Atrial fibrillation with RVR (I48.91) Active confirmed Problem Stented coronary artery (883350594) Stented coronary artery (Z95.5) Active confirmed Problem Spasm of bladder (220884080) Bladder spasms (N32.89) Active confirmed Problem Atrial fibrillation (21217898) Paroxysmal a-fib (I48.0) Active confirmed Problem Atherosclerotic heart disease of [place] coronary artery without angina pectoris (287388335870729) Atherosclerosis of [place] coronary artery without angina pectoris, unspecified whether [place] or transplanted heart (I25.10) Active confirmed Problem Hypertensive urgency (698771691) Hypertensive urgency (I16.0) Active confirmed Problem Plain X-ray of chest abnormal (finding) (4615891115) Abnormal CXR (R93.89) Active confirmed Problem Diastolic dysfunction (9174508) Diastolic dysfunction (I51.89) Active confirmed Problem 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 Problem Absent kidney (031885201) History of left nephrectomy (Z90.5) Active confirmed Vital Signs Heart Rate 76 /min 08/06/2024 Blood pressure diastolic 100` mm Hg 08/06/2024 Height 66.50 in 08/06/2024 Blood pressure systolic 146 mm Hg 08/06/2024 Weight 225 lbs 08/06/2024 BMI 35.77 kg/m2 08/06/2024 Encounters Encounter Location Date Provider Diagnosis [facility] [address] [place], [place] [id number] 08/06/2024 Mikayla Meier 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 ; Vitamin D deficiency E55.9 ; Essential hypertension I10 ; Hyperlipidemia, unspecified hyperlipidemia type E78.5 ; Fibromyalgia M79.7 ; Neck pain M54.2 ; Midline thoracic back pain, unspecified chronicity M54.6 ; Screening mammogram, encounter for Z12.31 and Hematuria R31.9 [facility] [address] [place], [place] [id number] 08/07/2024 R Wayne Porsha [facility] [address] [place], [place] [id number] 08/18/2024 R Wayne Porsha [facility] [address] [place], [place] [id number] 09/03/2024 Mikayla Meier [facility] [address] [place], [place] [id number] 10/14/2024 Mikayla Meier [facility] [address] [place], [place] [id number] 08/04/2024 R Wayne Porsha [facility] [address] [place] [id number] 08/04/2024 R Wayne Porsha [facility] [address] [place] [id number] 08/18/2024 Mikayla Figueroady [facility] [address] [place], [place] [id number] 08/18/2024 R Wayne Porsha [facility] [address] [place], [place] [id number] 08/21/2024 R Wayne Story [facility] [address] [place], [place] [id number] 09/18/2024 Mikayla Meier 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 and Elevated brain natriuretic peptide (BNP) level R79.89 Assessments Encounter Date Diagnosis (ICD Code) Assessment Notes Treatment Notes Treatment Clinical Notes Section Notes 08/06/2024 Vitamin D deficiency (ICD-10 - E55.9) r 08/06/2024 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) r 09/18/2024 Elevated brain natriuretic peptide (BNP) level (ICD-10 - R79.89) 09/18/2024 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) 08/06/2024 Essential hypertension (ICD-10 - I10) r 08/06/2024 Hyperlipidemia, unspecified hyperlipidemia type (ICD-10 - E78.5) r 08/06/2024 Fibromyalgia (ICD-10 - M79.7) r 08/06/2024 Neck pain (ICD-10 - M54.2) r 08/06/2024 Midline thoracic back pain, unspecified chronicity (ICD-10 - M54.6) r 08/06/2024 Screening mammogram, encounter for (ICD-10 - Z12.31) r 08/06/2024 Hematuria (ICD-10 - R31.9) r Plan Of Treatment Pending Test Test Name Order Date C reactive protein 06/08/2022 MOG Titer 10/05/2021 MOG Titer 06/08/2022 Insurance Providers Payer Name Payer Address Payer Phone Subscriber Number Group Number Insured Name Patient Relationship to Insured Coverage Start Date Coverage End Date [facility] [address] [place] [address] [id number] OMAR FONTENOT Self - patient is the insured Medical (General) History Medical History History ICD Code Solitary Kidney urinary reflux-left kidney removed at ag e 11 Cervical Dysplasia Endometriosis SVT s/p EP study and ablation 2014 at [facility] sleep apnea, Dx: 2014 Eosinophilic esophagitis, Dx: 2015 Slow gastric transit Hiatal Hernia Colon polyps MS Fibromyalgia Surgical History Surgery Date(Month/Year) LT Kidney Removal 1981 Hysterectomy/ Unilateral Oophorectomy fo r Endometriosis 2004 Cardiac Ablasion-[facility] [address] Hernandez 05/2014 EGD 02/2015 Colonoscopy 02/2015 Cholecystectomy 04/2015 Hospitalization History Reason Date(Month/Year) Abdominal Pain- [facility] 04/2015 Chest Pain 05/2014
--- OUTSIDE RECORDS SUMMARY | 2025-02-15 08:24 | XMS_ITS | Clinical Summary ---
Author Organization [employer] ([place], [place], [place], [place], [place]) Address [address] [place] [address] Care Team Providers Care Laboratory Technical Specialist Name Role Phone Unavailable Primary Care [...]
--- OUTSIDE RECORDS SUMMARY | 2025-02-15 08:24 | XMS_ITS | Clinical Summary ---
Author Organization [facility] Address [address] [facility] [address] [place] [address] Phone Care Team Providers Care Process Manufacturing Engineer Name Role Phone Arianna Story Primary Care Provider [phone] Allergies Active Allergy Reactions Criticality Noted Date [...] on file Sexual Orientation Not on file Last Filed Vital Signs Vital Sign Reading [...] (1 of 2) 2020 COVID-19 Vaccine (1 2024-2 6 season) 2024 Influenza Vaccine (#1) 2024 Meningococcal B Vaccine Aged Out No l onger eligible based on patient's age to complete this topic Insurance [employer] [id number] [facility] [id number] [place] [id number] [address] [place] [place] [id number] [facility] [id number] Care Teams Process Manufacturing Engineer Relationship Specialty Start Date End Date Arianna Story [address] [facility] [address] [place] [address] PCP - General Family Medicine 06/14/14
--- OUTSIDE RECORDS SUMMARY | 2025-02-15 08:24 | XMS_ITS | Encounter Summary ---
Author Organization [email or web address] ([place], [place], [place], [place], [place]) Address [address] [place] [address] Care Team Providers Care Body Technician/Painter Name Role Phone Unavailable Primary Care Provider Unavailabl e Encounter Details Date Type Department Care Team (Late st Contact Info) Description 10/03/2018 Transcribed Document [facility] [place] Family Medicine [facility] [place] [address] ProviderKatie [place] [facility] [place] [address] Social History Tobacco Use Types Packs/Day Years [...] CSF were removed. Opening pressure = 16. Electronically signed by Doreen Wolf Conversion Modeling And Simulation Analyst Cirilo at 06/11/2022 10:48 AM CDT documented in this encounter Plan of Treatment Not on file documented as of this encounter Visit Diagnoses Not on filedocumented in this encounter
--- OUTSIDE RECORDS SUMMARY | 2025-02-15 08:24 | XMS_ITS | Encounter Summary ---
Author Organization [employer] ([place], [place], [place], [place], [place]) Address [address] [place] [address] Care Team Providers Care On Air Announcer Name Role Phone Unavailable Primary Care Provider Unavailabl e Encounter Details Date Type Department Care Team (Late st Contact Info) Description 10/03/2018 Transcribed Document [facility] [place] [facility] [place] [address] ProviderKatie MD [address] [place] [address] [id number] Social History Tobacco Use Types Packs/Day Years [...] a bad smell. General instructions ??? Take [id number] and prescription medicines only as told by [...] 03/27/2017 Elsevier Interactive Patient Education ? 2019 [employer] documented in this encounter Plan of Treatment Not on file documented as of this encounter Visit Diagnoses Not on filedocumented in this encounter
--- OUTSIDE RECORDS SUMMARY | 2025-02-15 08:24 | XMS_ITS | Clinical Summary ---
Author Organization [facility] Address [address] [place] [address] Care Team Providers Care Oven Dumper Name Role Phone Mikayla Meier Primary Care Provider [phone] Allergies Active Allergy Reactions Criticality Noted Date [...] 1. Supraventricular tachycardia: a. 06/03/2014, presentation to [facility], increased troponin, received adenosine. b. 06/04/2014, transferred to [facility], Dr. Dailey, left heart cath, reported as normal; data deficient. c. May 2014, electrophysiology study with catheter ablation of easily inducible SVT with no residual arrhythmias, Dr. Nayan Manzano at [facility] in [place], [place]. d. 07/01/2014, echocardiogram showed normal LV, [...] Description 05/26/2025 11:45 AM EDT Office Visit [facility] [address] [place] [phone] Ryann Valdivia PA [address] [place] [address] Health Maintenance Due Date Last Done Comments [...] 2020 ZOSTER VACCINE (1 of 2) 2020 INFLUENZA VACCINE 09/25/2024 TDAP/TD VACCINES (2 - Td or Tdap) 09/21/[address] [place] [address] PPO Care Teams Oven Dumper Relationship Specialty Start Date End Date Mikayla Meier PA [address] [place] [address] [facility] [address] [place] [facility] [place] [address] PCP - General Physician Salon Manager 05/06/24
--- OUTSIDE RECORDS SUMMARY | 2025-02-15 08:24 | XMS_ITS | Data Portability ---
Author Organization [facility] Address [address] [facility] [address] [place] [address] Care Team Providers Care Can Labeler Name Role Phone SUZETTE PFEIFFER Primary Care [...] testing including MVV and negative inspiratory pressure. [email or web address] Not available 09/30/2019 14:04:22 01/05/2020 01/05/2020 At this time, my only option is to continue trending her breathing tests until more specific pattern emergence. If she continues to get restricted, we can repeat HRCT imaging. RTC in 4 months with with PFTs. [email or web address] Not available 01/05/2020 13:24:21 Plan of Treatment Reminders Order Date Submit Date Provider Last Modified By Organization Details Last Modified Time Details Appointments None recorded. Lab None recorded. Referral cognitive behavioral therapy referral 2019 020 [email or web address] [facility] [address] [facility], [address], [place], [address], 0 09:33:25 aquatic therapy referral 2019 020 [email or web address] Not available 0 09:55:46 Procedures None recorded. Surgeries None recorded. Imaging None recorded. Medication Orders None recorded. Patient TargetsNo targets recorded. Patient Instructions Encounter Date Encounter Id Patient Instructions Last Modified By Organization Details Last Modified Time 01/05/2020 [id number] maximum inspiratory pressure and maximum expiratory pressure* [...] Abnormal Flag Note LastModifiedBy Organization Detail LastModifiedTime 08/05/19 20 07/02/2019 pulmo nary funct ion test* No observ ation record ed. [address] [facility] [place] [address] [address] [place], [id number], 09/30/2019 14:00:42 08/05/19 20 07/02/2019 pulmo nary funct ion test* No observ ation record ed. [address] [facility] [address] [place] [address] [address] [place], [id number], 09/30/2019 14:00:42 10/28/19 20 07/02/2019 CT, chest , w/ contr ast No observ ation record ed. BARCODE Not Available 2019 08:23:52 Result Notes None recorded. Procedures Surgical History Date Name Laterality Status Provider Name and Address Organization Details Recorded Time 01/05/20 [facility]2020 09:36:12 01/05/20 20 Diffusion Capacity completed [facility] 01/05/2020 09:36:16 01/05/20 20 Lung Volumes, Plethysmography completed [facility] 01/05/2020 09:36:14 01/05/20 20 Maximal Voluntary Ventilation completed Niyah [facility] 01/05/2020 10:49:39 01/05/20 20 Spirometry completed [facility] 01/05/2020 09:36:17 total nephrectomy completed [facility] 08/05/2019 08:30:05 Hysterectomy/bladde r repair completed [facility] 08/05/2019 08:30:11 Cholecystectomy completed [facility] 08/05/2019 08:30:30 Imaging Results None recorded. Procedure Notes None recorded. Medical Equipment None Reported. Allergies Allergen ID Allergen Name Allergen Category Reaction Reaction Severity Criticality Documentation Date Start Date Code Code System Note Provider Name and Address Organization Details Recorded Time 475301 Pyridium medicatio n Not available Not available Not available 03/11/2019 8998 RxNorm Kristine [facility] 0 09:19:39 118198 Diflucan medicatio n Not available Not available Not available 03/11/201902631 3 RxNorm Kristineben [facility] 0 09:20:19 Medications Name Sig Start Date [...] Body mass index (BMI) Body height Systolic And Diastolic Provider Name and Address Organization Details Last Updated DateTime 0 18 /min 95345.3 6 g 77 /min 36.9 kg/m2 162.56 cm 152/105 mm[Hg] Kristine [facility] 0 09:20:29 Date Recorded Body height Body mass index (BMI) Body weight Heart rate Oxygen saturation Respiratory rate Systolic And Diastolic Provider Name and Address Organization Details Last Updated DateTime 0 162.56 cm 37.4 kg/m2 08613.1 4 g 72 /min 99 % 16 /min 138/80 mm[Hg] Eli Nolas[facility] 0 08:31:46 Date Recorded Body height Body mass index (BMI) Body weight Heart rate Oxygen saturation Systolic And Diastolic Provider Name and Address Organization Details Last Updated DateTime 0 165.1 cm 35.9 kg/m2 81728.9 5 g 78 /min 98 % 122/80 mm[Hg] Eli [facility] 0 09:32:12 Social History Question Answer Notes LastModified by [employer] Details LastModified Time Tobacco Smoking Status Never Smoker Kristine [facility] 03/11/2019 09:24:36 How Much Tobacco Do You Chew? None [email or web address] Information not available 03/11/2019 How Much Tobacco Do You Smoke? No [email or web address] Information not available 03/11/2019 Sex: Unknown Functional Status Question Answer Note LastModified by Anaphore[employer]at ion Details LastModified Time Do you or have you ever used smokeless tobacco? Never used smokeless tobacco [email or web address] Information not available 03/11/2019 Do you or have you ever used e-cigarettes or vape? Never used electronic cigarettes [email or web address] Information not available 03/11/2019 Mental Status None recorded. Family History Relationship Description Onset Age of this Age Resolved Age Notes LastModified by Organization Details LastModified Time Mother Family history of malignant neoplasm [email or web address] Not available 08/04 08:34:47 Mother Chronic obstructive pulmonary disease [email or web address] Not available 08/04 08:35:08 Mother Heart disease [email or web address] Not available 08/04 08:35:29 Father Heart disease [email or web address] Not available 08/04 08:35:29 Sister Heart disease [email or web address] Not available 08/04 08:35:29 Medical History Condition Response Diabetes N Bleeding Disorder N Arthritis N Emphysema N Acid Reflux (GERD) Y Heart Disease N Rheumatoid Arthritis N Hypertension Y COPD N Asthma N Gynecological HistoryNo gynecological history recorded. Obstetrics History GPAL:G 0 P 0 0 0 0 Past Encounters Encounter ID Performer Location Encounter Start Date Encounter Closed Date Diagnosis/Indication Diagnosis SNOMED-CT Code Diagnosis ICD10 Code Diagnosis IMO Codes Diagnosis Note [id number] JAMES PUENTE MD [facility] [address] [place] [address] 03/11/2019 09:08:10 03/11/2019 09:53:34 Primary fibromyalgia syndrome 60050928 M79.7 48-year-ol d female with clinical features [...] suggested to start cognitive behavioral therapy at [facility] to help the chronic pain syndrome. I [...] return to my office in 6 months. [id number] MAAME HAYNES MD PULMONARY [address] [facility] [place] [phone] 08/05/2019 08:19:52 08/05/2019 13:57:27 Multiple nodules of lung 081662226 R91.8 Dyspnea on exertion 6084 5006 R06.09 [id number] MAAME HAYNES MD PULMONARY [address] [facility], [address] [place] [address] 01/05/2020 09:02:34 01/05/2020 14:00:41 Multiple nodules of lung 845483753 R91.8 Current Fleischner recommenda tions are for [...] Concerns Section Related Observation LastModified by Organization Detai ls LastModified Time None Recorded Concern Status LastModified by Organization Details LastModified Time None Recorded Advance Directives Directive None Recorded Payers Insurance Date Sequence Insurance Name Policy Number Policy Metz Covered Member ID Metz Member ID Guarantor Name 01/05/2020 1 [facility] [id number] Mira Fontenot [id number] Mira Fontenot 05/01/2020 1 [place] ([place] [id number] Mira Fontenot [id number] Mira Fontenot Notes Date Note Type Note Provider Name and Address Organization Details Recorded Time 03/11/2019 text/html ROS as noted in the HPI seen today as a new patient for evaluation of chronic pains. she was evaluated in the past by orthopedics, and later by rheumatology at [facility]. She has had negative and positive SOCORRO. She was also diagnosed with Fibromyalgia. She was also seen by few neurologist and questions were raised about MS, Multiple sclerosis. Though no definitive diagnosis was made. She was suggested to see us for another rheumatology evaluation. Recently started Amitriptyline at 25 mg po qhs about 2 weeks ago. JAMES PUENTE MD [address] [place] [address], [phone], [facility] 03/11/2019 10:05:32 08/05/2019 text/html Mira Fontenot was [...] DLCO 82% DLCO/VA 107% MAAME HAYNES MD [address] [place], [address], [facility] 09/30/2019 14:04:55 01/05/2020 text/html ROS as noted in the HPI Interval history: No significant change. She is still short [...] which is 57% predicted. MAAME HAYNES MD [facility] [place], [address], [facility] 01/05/2020 13:25:08 OBGyn Episode No OBEpisode recorded.
--- OUTSIDE RECORDS SUMMARY | 2025-02-15 08:24 | XMS_ITS | Clinical Summary ---
Author Organization [facility] Address [address] 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 Shraddha Manzano 1. Supraventricular tachycardia: a. 06/03/2014, presentation to [facility], increased troponin, received adenosine. b. 06/04/2014, transferred to [facility], Dr. Dailey, left heart cath, reported as normal; data deficient. c. May 2014, electrophysiology study with catheter ablation of easily inducible SVT with no residual arrhythmias, Dr. Nayan Manzano at [facility] in [place], [place]. d. 07/01/2014, echocardiogram showed normal LV, mild TR, PASP 36 mmHg. e. September 2014, reported episode of SVT, ceased by vagal maneuvers. Patient did not seek medical treatment. f. Event recorder, September 2014, revealed symptoms of chest pain and shortness of breath that correlate with normal sinus rhythm and sinus tach and episodes of heart fluttering that correspond with unifocal PVCs. Resolved Problems Problem Noted Date Diagnosed Date Resolved Date Acute non-ST segment elevati on myocardial infarction 11/08/2020 11/15/2024 Chest pain 11/08/2020 11/15/2024 Overview (11/08/2020): Chest pain and shortness of breath that correlate with normal sinus rhythm and sinus tachycardia. Heart flutterings that correlate with premature ventricular contractions. Shortness of breath 10/17/2016 11/16/19 25 Immunizations Immunization Administration Dates Next Due [facility] COVID-19 Vaccine (Blue Cap) 18+ 09/01/19 21 [...] Health Maintenance Due Date Last Done Comments [facility]-Depression Screening 1970 [facility]-/Child/Adol SDOH Screenings 1970 [facility]- SDOH Screenings 1988 [facility]-Adult SDOH Screenings 1988 [facility]-Hepatitis B Vaccines (1 of 3 - 19+ 3-dose series) 1989 [facility]-Pap Smear 04/26/2001 04/26/1998, 0 02/1997, 07/27/1997, Additional history exists [facility]-Cervical Cancer Screening 04/27/2003 [facility]-HPV/Cotest 04/27/2003 04/26/1998, 02/1997, 07/27/1997, Additional history exists CT Colonography 12/12/2015 Colonoscopy 12/12/2015 FIT-DNA 12/12/2015 FIT 12/12/2015 FOBT 12/12/2015 Sigmoidoscopy 12/12/2015 [facility]-Colorectal Cancer Screening 12/12/2015 [facility]-Pneumococcal Vaccine: 50+ Years (1 of 1 - PCV) 2020 [facility]-Zoster Vaccines (1 of 2) 2020 [id number] Vaccine (2 - 2024- season) 2024 08/31/2020 [facility]-Influenza Vaccine (#1) 2024 [facility]-DTaP,Tdap,and Td Vaccines (2 - Td or Tdap) 09/21/2029 09/22/2019 HPV Vaccines (No Doses Required) Completed [facility]-HIB Vaccines Aged Out No longer e [...] on patient's age to complete this topic Procedures Procedure Name Priority Date/Time Associated Diagnosis Comments CYTO DATA CONVERSION Routine 04/26/1998 12:00 AM EST from Last 3 Months or Most Recently Relevant to Health Maintenance Results * (ABNORMAL) Cytology (04/26/1998 12:00 AM EST) 04/26/1998 04/27/1998 Narrative SUNQUEST - 05/04/1998 12:00 AM EST [facility] MR #: [id number] [facility] [address] [place], [place] [address] 1970 (Age: 27) FW Collect Date: 04/26/1998 00:00 Receipt Date: 04/27/1998 00:00 Page 1 DEPARTMENT OF PATHOLOGY AND LABORATORY MEDICINE CYTOPATHOLOGY REPORT Email: [email or web address] [phone] * Converted Case * This report may not match the original report format ATTENDING MD/Practitioner: Lana Cruz MD Service: [facility] [place]: Reported: 05/04/1998 00:00 Collected: 04/26/1998 00:00 INTERPRETATION CERVICAL/VAGINAL SMEAR RARE ATYPICAL SQUAMOUS CELLS OF UNDETERMINED SIGNIFICANCE, FAVOR REACTIVE. SATISFACTORY BUT LIMITED BY PARTIALLY OBSCURING BLOOD AND THICKNESS OF SMEAR. SUGGEST REPEAT SMEAR IN 6 MONTHS, CLINICALLY INDICATED. Electronically Signed Out DAVID Lacey (ASCP) Lay Ge MD Cervical cytology is a screening test primarily for squamous cancers and precursors and has associated false negative and positive results. New technologies such as liquid based sampling may decrease but will not eliminate all false negative results. Regular screening and follow-up of unexplained clinical signs and symptoms are recommended to minimize false negative results. Please see the ASCCP website (www.asccp.org) for followup recommendations. If HPV testing was requested, correlation with the results is suggested (please call Microbiology at [phone] for results). CLINICAL INFORMATION: Menstrual History: {Not Provided} Date of Last Menstrual Period: {Not Provided} SPECIMEN DESCRIPTION: A: CERVICAL/VAGINAL SMEAR, PAP ICD: F: {Not Entered} SNOMED CODES: 1; E0A239 G72914.2 M10267 In cases where a pathologist has signed out the report, the service has been rendered in part by a resident. The signing pathologist has performed and is responsible for the reported pathologic evaluation. us Historical Provider LAB PATHOLOGY ORDERABLES Fin al Result SUNQUEST from Last 3 Months or Most Recently Relevant to Health Maintenance [place] [address] [employer] Care Teams Manager Women Relationship Specialty Start Date End Date Mikayla Meier PA [address] [place] [address] PCP - General 08/30/20 Destinee Keita APRN [address] [facility] [address] [place] [phone] Nurse Practitioner Internal Medicine 08/30/20 Klaudia Hayden APRN, DNP [address] [phone] Nurse Practitioner Rheumatology 08/30/20 Yuko Colmenares MD [address] [place] [address] Consulting Physician Family Medicine 08/30/20 Felipe Graf DO [address] [facility] [address] [place] [address] Consulting Physician Neurology 11/08/20 Felipe Graf DO [address] [place] [phone] Consulting Physician Neurology 01/03/21 Nabil Angel MD [address] [place] [phone] Service Attending Neurology 11/03/21
--- OUTSIDE RECORDS SUMMARY | 2025-02-15 08:24 | XMS_ITS | Encounter Summary ---
Author Organization [facility] ([place], [place], [place], [place], [place]) Address [address] [place] [address] Care Team Providers Care Application Counselor Name Role Phone Unavailable Primary Care Provider Unavailabl e Encounter Details Date Type Department Care Team (Late st Contact Info) Description 10/03/2018 Transcribed Document [facility] [place] [facility] [place] [address] ProviderKatie MD [address] [place] [address] [id number] Social History Tobacco Use Types Packs/Day Years [...] 10/03/2018 10:45 EDT Electronically signed by Maryann, [facility] Conversion Agency Sales Representative Cerner at 06/11/2022 10:43 AM CDT documented in this encounter Plan of Treatment Not on file documented as of this encounter Visit Diagnoses Not on filedocumented in this encounter
--- OUTSIDE RECORDS SUMMARY | 2025-02-15 08:24 | XMS_ITS | Referral Summary ---
Author Organization [employer] ([place], [place], [place], [place], [place]) Address [address] [place] [address] Care Team Providers Care Pole Climber Name Role Phone Unavailable Primary Care Provider [...]
--- OUTSIDE RECORDS SUMMARY | 2025-02-15 08:24 | XMS_ITS | Encounter Summary ---
Author Organization [facility] Address [address] [place] [address] Care Team Providers Care Equipment Technician Name Role Phone Mikayla Meier Primary Care Provider [phone] Encounter Details Date Type Department Care Team (Late Contact Info) Description 09/16/2020 E-Visit [facility] [address] [facility] [address] [place] [address] Sylvia Rasheed, SABIHA [address] [facility] [address] [place] [address] RE: E-Visit for Sinus Problems Social History [...] Description 05/26/2025 11:45 AM EDT Office Visit [facility] CARDIOLOG[facility] [address] [facility] [address] [place] [address] Ryann Valdivia PA [address] [facility] [address] [place] [address] documented as of this encounter Visit Diagnoses Not on filedocumented in this encounter Care Teams Equipment Technician Relationship Specialty Start Date End Date Mikayla Meier PA [address] [place] [address] [address] PCP - General Physician Bankruptcy Assistant 05/06/24 documented as of this encounter
== END 2025-02-13 23:59 | disposition home or self-care (01) ==
LOC: LAB.DROPOF 02-15 08:19
PROVIDERS: PCP Physician Assistant; Visit Provider Nurse Practitioner
DX: J06.9 Acute upper respiratory infection, unspecified (principal)
CPT/HCPCS: 87631